=== PATIENT | female | born 1950 | race Two or more races ===

== ENCOUNTER 2019-05-08 22:39 | Inpatient (IN) | payer MEDICARE, MEDICAID ==
[~2019-05-08] VITALS: Ht 147.3 cm; Wt 74.1 kg
[2019-05-08] MEDS ORDERED: Naloxone 1mg/ml 2ml ONE (22:57)
[2019-05-08] MEDS ORDERED: Etomidate 40mg/20ml Inj IV ONE (23:00)
[2019-05-08] MEDS ORDERED: Naloxone 1mg/ml 2ml IVP ONE (23:00)
[2019-05-08] MEDS ORDERED: Succinylcholine 20mg/ml 10ml vial IV ONE (23:00)
--- NOTE | 2019-05-08 23:11 | NUR ---
ED Nurse Note: pt became unresponsive when RN was preparing to clean pt and hooking her up to garment tag stringer. pt became increasingly cyanotic, there was no palpable pulse, doppler was also used and no pulse was found. rosetta priest called, compressions started on pt.
--- NOTE | 2019-05-08 23:13 | NUR ---
ED Nurse Note: ERMD intubated pt, RT and code team are at bedside performing compressions on pt. ROSC occured after 4 minutes of ACLS
--- NOTE | 2019-05-08 23:30 | NUR ---
ED Nurse Note: pt presents to ED [facility] arrival for flu like symptoms, N/V x 2 days and hypoglycemia. per EMS, pt had an initial blood glucose of 30 that went up to 150 after given D10. EMS reported stable vital signs and that the pt was AOx4. pt is a M,W,F dialysis pt, she has a shunt in her L arm. pt came with a 20 gauge IV in R forearm. In ED pt was not responsive to name, shaking, or pain, accucheck is 260. pt appears to be cyanotic
--- NOTE | 2019-05-08 23:45 | NUR ---
ED Nurse Note: CASSIED is at pt bedside placing a triple lumen cenral line on pt's R femoral artery. will continue to monitor pt
--- NOTE | 2019-05-08 23:45 | NUR ---
ED Nurse Note: vent settings: A/C 15/5 O2: 100% PEEP: 5.0
[2019-05-09] VITALS (26 sets, daily range): BP systolic 107–141; BP diastolic 34–84
[2019-05-09] MEDS ORDERED: Levophed 4mg/4mL Inj IV ONE ×2 (00:05→00:07)
--- NOTE | 2019-05-09 00:10 | NUR ---
ED Nurse Note: RN at bedside to clean pt. pt's BP began to drop below 90 systolic, and HR began to drop to 35. code blue called, CPR started.
[2019-05-09 00:25] LABS: BASOPHILS % (AUTO) 1.3 % (0.0-2.0); EOSINOPHILS % (AUTO) 1.4 % (0.0-3.0); HEMATOCRIT 32.1 % (37.0-47.0); HEMOGLOBIN 10.2 G/DL (12.0-16.0); LYMPHOCYTES % (AUTO) 28.4 % (20.0-45.0); MEAN CORPUSCULAR VOLUME 102 FL (80-99); MONOCYTES % (AUTO) 3.9 % (1.0-10.0); PLATELET COUNT 101 K/UL (150-450); RED BLOOD COUNT 3.15 M/UL (4.20-5.40); RED CELL DISTRIBUTION WIDTH 18.3 % (11.6-14.8); WHITE BLOOD COUNT 8.6 K/UL (4.8-10.8)
[2019-05-09 00:40] LABS: ANION GAP 24 mmol/L (5-15); BLOOD UREA NITROGEN 46 mg/dL (7-18); CALCIUM 9.9 MG/DL (8.5-10.1); CARBON DIOXIDE 20 MMOL/L (21-32); CHLORIDE 96 MMOL/L (98-107); POTASSIUM 5.2 MMOL/L (3.5-5.1); SODIUM 139 MMOL/L (136-145)
--- NOTE | 2019-05-09 00:45 | NUR ---
ED Nurse Note: ROBEL spoke with pt's daughter who is at bedside
[2019-05-09 00:50] LABS: ALANINE AMINOTRANSFERASE 12 U/L (12-78); ALBUMIN/GLOBULIN RATIO 0.5 (1.0-2.7); ALKALINE PHOSPHATASE 196 U/L (46-116); ASPARTATE AMINO TRANSFERASE 31 U/L (15-37); BILIRUBIN,TOTAL 1.1 MG/DL (0.2-1.0)
--- NOTE | 2019-05-09 00:52 | Emergency Room Report ---
History of Present Illness General Chief Complaint: Abnormal Labs Source: Family Member, EMS Present Illness HPI This is a 69-year-old female with a history of renal failure on hemodialysis. She also has a cardiac history based on her medications Imdur and nitroglycerin. She has a history of of high blood pressure also. She presents with chief complaint of altered mental status and syncope. Initially, EMS said her blood sugar was low in the 30s. They gave her glucose and placed on a dextrose drip. Initially she was responsive and was talking to the EMS. When they left and I saw the patient, she had altered mental status and was not responsive. She has agonal respiration. Her heart rate was bradycardic. Because of this I was getting patient ready to be intubated for airway protection. In the process, she became asystolic and a CODE BLUE was initiated. CPR was done. Patient was intubated and also given epinephrine. Her pulse came back. Afterwards she coded again and CPR was done. Another milligram of epinephrine is given with spontaneous pulse response. When the daughter came to the ER, I spoke with the daughter to get a better history. She said that her mom does not have diabetes. Patient has been falling. It sound like she had several syncopal episodes in the last 2 weeks. The reason she called 911 because patient had a syncopal episode and fell. No head trauma. At home, daughter said that patient did not look well. She was "bluish" in color. Allergies: Coded Allergies: No Known Allergies (Unverified , 05/08/19) Patient History Past Medical History: see triage record, old chart reviewed, HTN, CAD, renal disease, dialysis Past Surgical History: other Pertinent Family History: none Social History: Denies: smoking Now: No Immunizations: other Reviewed Nursing Documentation: PMH: Agreed; PSxH: Agreed Nursing Documentation-PMH Past Medical History: No History, Except For Hx Cardiac Problems: Yes Hx Hypertension: Yes Hx Diabetes: Yes Hx Dialysis: Yes - LEFT SHUNT Review of Systems Constitutional: Reports: weakness Respiratory: Reports: shortness of breath All Other Systems: limited - Limited because of patient's condition Physical Exam Vital Signs Date Time Temp Pulse Resp B/P (MAP) Pulse Ox O2 Delivery O2 Flow Rate FiO2 05/08/19 22:40 99.0 52 18 141/51 (81) 96 Room Air 05/08/19 23:34 100 Vitals with hypoxia Sp02 EP Interpretation: abnormal General Appearance: severe distress, Stupor Head: normocephalic, atraumatic Eyes: bilateral eye PERRL, bilateral eye EOMI ENT: normal pharynx Neck: full range of motion, supple, no meningismus Respiratory: chest non-tender, respiratory distress, decreased breath sounds, accessory muscle use Cardiovascular #1: regular rate, rhythm, no murmur, bradycardia Gastrointestinal: normal bowel sounds, non tender, no mass, no organomegaly, no bruit, non-distended Musculoskeletal: back normal, normal range of motion, other - Thrill in left fistula Psychiatric: other Skin: no rash Procedures Critical Care Time Critical Care Time Critical care is mandated in this patient who presented with cardiac arrest and respiratory failure. Patient require my urgent intervention to attenuate the risks of metabolic collapse which may lead to cardiovascular collapse and . Critical care time is 35 minutes excluding any reportable procedure. Critical care time included evaluation, multiple reevaluation, looking at old charts, interpreting laboratory and diagnostic data, discussing case with patient and family and consultants, and charting. Central Line Central Line : Consent: Emergent Central Line Lumen: triple Maximal Sterile Barrier Tech: yes cap, yes mask, yes sterile gown, yes sterile gloves, yes large sterile sheet, yes hand hygiene, yes chlorhexidine prep Central Line Postion: femoral (R) Complications: none Central Line Post Position: sutured Attempts: One Patient Tolerated: Well Complications: None Progress Initially, I try to do a central line in the right internal jugular. This was using ultrasound-guided. I was able to access the vein without any difficulty. When I try to advance the wire, he keep getting stuck near the clavicle area. Because of this, I abandoned this approach after a couple of attempts. I went for the right femoral instead. This was done very easily. Intubation Intubation : Consent: Emergent Intubation Method: orotracheal Tube Size (cm): 7.5 Breath Sounds after Intubation: equal Intubation Complications: no complications Post Intubation Xray: Yes Progress/Xray Impression: Endotracheal tube in good position. No pneumothorax Attempts: One Patient Tolerated: Well Complications: None Medical Decision Making Diagnostic Impression: Primary Impression: Respiratory failure requiring intubation Additional Impressions: Cardiac arrest Syncope Qualified Codes: R55 - Syncope and collapse Hypoglycemia Acute exacerbation of CHF (congestive heart failure) Qualified Codes: I50.9 - Heart failure, unspecified Hypotension Qualified Codes: I95.9 - Hypotension, unspecified ER Course Patient presents with cardiac arrest. I suspect that her syncopal episode was secondary to cardiac in origin. Most likely she has sick sinus syndrome. She was very bradycardic. She required a couple episode of CPR with epi given. I placed on levo fed. Right now her blood pressure is much improved. Heart rates been running in the 50s and 60s. Patient also show evidence of fluid overloaded. Condition is poor and guarded. Patient will be admitted to ICU. Patient was hypotensive initially and require Levophed. Since then has been weaned off. Her blood pressures been stable. Heart rate has been staying in the 60s. Patient will be admitted under service of Dr. Loza. EKG Diagnostic Results Rate: bradycardiac Rhythm: NSR Rhythm Strip Diag. Results EP Interpretation: yes Rate: 66 Rhythm: NSR, no PVC's, no ectopy Chest X-Ray Diagnostic Results Chest X-Ray Diagnostic Results : Chest X-Ray Ordered: Yes # of Views/Limited/Complete: 1 View Indication: Shortness of Breath EP Interpretation: Yes Interpretation: no pneumothorax, other - cm, ETT in good position, chf Impression: Other - s/p intubation. CM with vasc congestion Electronically Signed by: Kirk Dan MD CT/MRI/US Diagnostic Results CT/MRI/US Diagnostic Results : Imaging Test Ordered: CT head Impression Read by radiologist. 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 No intracranial bleed. Last Vital Signs Date Time Temp Pulse Resp B/P (MAP) Pulse Ox O2 Delivery O2 Flow Rate FiO2 05/09/19 00:30 99.0 77 19 141/51 100 Room Air 100 Status: improved Disposition: ADMITTED INPATIENT Condition: Critical Referrals: NON PHYSICIAN (PCP) Kirk Dan MD May 09, 2019 00:52
[2019-05-09 00:56] LABS: BILIRUBIN,DIRECT 0.5 MG/DL (0.0-0.3)
--- NOTE | 2019-05-09 01:00 | NUR ---
ED Nurse Note: pt's daughter is at bedside and reports that the pt has started falling more in the last 3 weeks and experiencing episodes of syncope which is not normal for the pt. she has also been having diarrhea for the last couple days. Per daughter, today pt suddenly became unresponsive in the morning but "came back" after a few minutes. MINK SLICER pt became unresponsive again and only groaning and appeared "purple" so she called 911. pt daughter states that the pt goes to dialysis T, , and Sat. she missed her appointment but was able to go on wednesday and that she does not make any urine.
--- NOTE | 2019-05-09 02:45 | NUR ---
ED Nurse Note: pt's BP is 111/58. ERMD ordered levofed to stop transfusing. will continue to monitor pt. daughter is at bedside
--- NOTE | 2019-05-09 03:05 | NUR ---
ED Nurse Note: pt transported to CT with RT, RN, senior environmental technician and chief radiation therapist via [facility]
--- NOTE | 2019-05-09 03:30 | NUR ---
ED Nurse Note: pt returned from CT, hooked back up to jet wiper with VSS. daughter at bedside. will continue to monitor
--- NOTE | 2019-05-09 04:00 | NUR ---
ED Nurse Note: pt transferred to [facility] and placed in soft restraints to prevent accidental extubation. swabs were sent down to lab. daughter is at bedside. RT is at bedside obtaining ABG. per request of ERMD, pt's vent O2 is being decreased to 50%. will continue to monitor. current SpO2 is 95%
--- NOTE | 2019-05-09 04:44 | Diagnostic Imaging Report ---
Indications: Altered mental status Technique: Spiral acquisitions obtained through the brain. Angled axial and coronal 5 x 5 mm slices were reconstructed. Total dose length product 1757 mGycm. CTDI vol(s) 74 mGy. Dose reduction achieved using automated exposure control Comparison: None. Findings: Old cortical and white matter focal infarct is seen in the left posterior parietal lobe. There is also an old right cerebellar cortical infarct There is age-related enlargement of the ventricles and extra axial CSF spaces. There is periventricular deep white matter low-attenuation, consistent with chronic microvascular ischemic change. The stuart-white differentiation is normal. The calvarium is intact. There is evidence of prior cataract surgery. The sinuses are clear. The mastoids are underpneumatized, otherwise clear. Impression: Chronic and age-related changes Negative for acute intracranial bleed or mass effect, Old infarcts, as described This agrees with the preliminary interpretation provided overnight by [facility] teleradiology service. The CT scanner at [facility] is accredited by the [employer] and the scans are performed using protocols designed to limit radiation exposure to as low as reasonably achievable to attain images of sufficient resolution adequate for diagnostic evaluation.
[2019-05-09] MEDS ORDERED: ASPIR 8181 MG ORAL (06:37)
[2019-05-09] MEDS ORDERED: METOPROLOL TART50 MG ORAL (06:37)
[2019-05-09] MEDS ORDERED: BENAZEPRIL HCL20 MG ORAL ×2 (06:37→10:35)
[2019-05-09] MEDS ORDERED: ADALAT20 MG ORAL ×2 (06:37→10:35)
[2019-05-09] MEDS ORDERED: LIPITOR80 MG ORAL (06:37)
[2019-05-09] MEDS ORDERED: DOCUSATE CALCI240 MG PO (06:37)
[2019-05-09] MEDS ORDERED: ATORVASTATIN CA40 MG ORAL (06:37)
[2019-05-09] MEDS ORDERED: CALCIUM ACETAT667 M1 PO ×2 (06:37→10:35)
[2019-05-09] MEDS ORDERED: LOVASTATIN20 MG ORAL (06:37)
--- NOTE | 2019-05-09 07:10 | NUR ---
ED Nurse Note: Received patient in bed, patient is on a satellite project site monitor, see vitals signs flowsheet. patient on bilateral soft wrist restraints, skin is intact without complication. patient is not responsive at this time, daughter at bedside. Right femoral TLC patent, dressing intact and dry. Left upper arm AV shunt noted.
--- NOTE | 2019-05-09 07:33 | NUR ---
RESPIRATORY NOTE: Patient received mechanically ventilated on PB 840 with current ordered vent settings. Patient is orally intubated with 7.5 ETT and 21 cm at the lip line that is secured with commercial johnson. Vent alarms are functional and audible. There is an ambu bag available at the bedside and the vent is connected to a red outlet. Will continue to monitor.
--- NOTE | 2019-05-09 07:41 | NUR ---
ED Nurse Note: report given to Berta RN, endorsed all plan of care to Berta RN.
--- NOTE | 2019-05-09 07:58 | NUR ---
ED Nurse Note: patient transferred to ICU on acls protocol without complication, endorsed to Berta PURCELL.
--- NOTE | 2019-05-09 07:59 | NUR ---
NURSE NOTES: Received patient from BINH Tom. Patient eyes open but does not track or turn to voice or name. Patient moves arms minimally and is not reaching for ET tube at this time. Patient on bilateral soft wrist restraint. Restraint discontinued at this time. Patient orally intubated with ET tube 7.5cm and 23cm at the lip line. Patient left pupil size 3 and right pupil size 2. Bilateral pupils sluggish to react to light. Patient has minimal threat response and hypoactive gag reflex. Patient ventilator setting currently AC 15, tidal volume 500, FiO2 50%, and PEEP 5. Patient O2 saturation 95% and sinus bradycardia showing on the court recording monitor with rate of 57 beats per minute. Rhonchi heard in bilateral upper lungs and rhonchi with diminished lung sounds noted in bilateral lower lobes. Patient has right hand 20 gauge peripheral IV and right forearm 20 gauge peripheral IV that are both patent, asymptomatic, and saline locked. Patient has right femoral TLC that is patent,flushed, and has some dried blood under the sterile dressing, Will replace dressing as needed.TLC saline locked. Patient has left upper arm AV shunt that is patent with intact thrill/bruit. Patient has bilateral heel DTI, sacral heel DTI, petichiae noted on left abdomen, ecchymosis noted on left upper back and scattered throughout body. Left lower leg skin tear. Scratches scabs noted on bilateral upper leg and abdomen. Moisture related open wound noted in abdominal fold. Bilateral ankle pitting edema +2. Scar noted from chest to lower abdomen. Oral care, bed bath, and repositioning done at this time. Will continue to monitor. Addendum: 05/09/19 at 1853 by Berta Ambrocio RN Old AV shunt noted on left forearm.
--- NOTE | 2019-05-09 08:54 | Diagnostic Imaging Report ---
Indication: Reason For Exam: SOB Technique: One view of the chest Comparison: none Findings: There is an endotracheal tube in place, tip projected approximately 2 cm above the frances. There are overlying defibrillator paddles. There is bilateral interstitial and airspace edema. The heart is enlarged. There is evidence of prior CABG. A vascular stent is seen in the left axilla. Surgical clips are seen in the left arm and supraclavicular region. Impression: Satisfactory endotracheal intubation Evidence of bilateral pulmonary edema Cardiomegaly
[2019-05-09 09:48] LABS: ANION GAP 14 mmol/L (5-15); BLOOD UREA NITROGEN 53 mg/dL (7-18); CALCIUM 9.2 MG/DL (8.5-10.1); CARBON DIOXIDE 28 MMOL/L (21-32); CHLORIDE 97 MMOL/L (98-107); CREATININE 8.7 MG/DL (0.55-1.30); POTASSIUM 4.8 MMOL/L (3.5-5.1); SODIUM 139 MMOL/L (136-145)
--- NOTE | 2019-05-09 10:00 | NUR ---
NURSE NOTES: Inserted oral gastric tube. Stat KUB ordered. Awaiting result. Dr Zapata rounded on patient and updated on patient current condition. Patient seen by wound care nurse.
--- NOTE | 2019-05-09 10:27 | NUR ---
RD ASSESSMENT & RECOMMENDATIONS SEE CARE ACTIVITY FOR COMPLETE ASSESSMENT DAILY ESTIMATED NEEDS: Needs based on Critical Care, ESRD on HD, wounds; 56.3kg adj 22- 30 kcals/kg 7741-6220 total kcals 1.25-2 g protein/kg 70-113 g total protein Fluid per MD- on HD NUTRITION DIAGNOSIS: * Increased pro needs r/t wound healing and renal dysfunction AEB pt adm w/ BL heel and sacral DTI (per RN), WC eval pending, w/ ESRD on HD. * Swallowing difficulty r/t respiratory status AEB pt is intubated, currently NPO, pending non oral feeds. CURRENT TF: Per RN Nepro @40ml/hr ENTERAL NUTRITION RECOMMENDATIONS: Nepro @35mL/hr x 24 hrs+ 1 Prosource qdaily to provide 840mL, 1512kcal, 68g pro +11g pro, 611mL free H2O -Obtain GI access, initiate Nepro @15mL/hr, advancing 10mL/hr q 4-6hrs until @ goal. -Provide 1 packet of Prosource- flush with 4oz water -HOB > 30 degrees, Flush per MD ADDITIONAL RECOMMENDATIONS: 1) With prolonged NPO/Intubation- see TF recs as above 2) Wound healing- w/ diet order, add: Juan Daniel in 4oz H2O BID; f/up w/ WC eval 3) Maintain calibrated bedscale wt 4) F/u w/ H&P 5) Feed w/ hemodynamic stability, now off pressor support.
[2019-05-09] MEDS ORDERED: CATAPRES0.3 MG ORAL (10:35)
[2019-05-09] MEDS ORDERED: NITRO0.4 SL (10:35)
[2019-05-09] MEDS ORDERED: METOPROLOL TART50 M1 ORAL (10:35)
[2019-05-09] MEDS ORDERED: LEVOTHYROXINE100 MC1 IV (10:35)
[2019-05-09] MEDS ORDERED: COLACE100 MG ORAL (10:35)
[2019-05-09] MEDS ORDERED: ISOSORBIDE MONO10 MG PO (10:35)
--- NOTE | 2019-05-09 10:39 | Diagnostic Imaging Report ---
Indication: Post nasogastric tube placement Technique: Supine view of the abdomen Comparison: none Findings: There is a nasogastric tube, tip of which projects at the level of the gastric body. The stomach is mildly distended with gas. Prominent gas is seen in nondistended colon. There is a right femoral line. Impression: Satisfactory nasogastric intubation
--- NOTE | 2019-05-09 10:45 | Cardiac Electrophysiology PN ---
Subjective Subjective [id number] Objective Last 24 Hour Vital Signs Date Time Temp Pulse Resp B/P (MAP) Pulse Ox O2 Delivery O2 Flow Rate FiO2 05/09/19 09:15 57 20 100 05/09/19 07:58 97.5 55 16 121/45 92 Mechanical Ventilator 50 05/09/19 07:50 55 16 122/47 Mechanical Ventilator 50 05/09/19 07:29 56 16 100 05/09/19 07:20 57 15 119/48 92 Mechanical Ventilator 50 05/09/19 05:17 59 18 100 05/09/19 05:17 Mechanical Ventilator 05/09/19 04:39 99.0 60 20 113/60 (77) 100 05/09/19 03:27 59 20 100 05/09/19 03:26 60 19 113/60 100 Mechanical Ventilator 05/09/19 02:45 111/58 05/09/19 02:00 95/42 05/09/19 01:41 59 23 123/57 100 Mechanical Ventilator 05/09/19 01:35 62/42 05/09/19 01:00 79 18 100 05/09/19 00:30 99.0 77 19 141/51 100 Room Air 100 05/08/19 23:45 65 17 Mechanical Ventilator 05/08/19 23:34 87 19 100 05/08/19 22:40 99.0 52 18 141/51 (81) 96 Room Air Intake and Output 05/08/19 05/09/19 18:59 06:59 Intake Total 0 ml Balance 0 ml Intake Oral 0 ml Laboratory Tests Test 05/09/19 00:01 05/09/19 04:55 05/09/19 09:05 White Blood Count 8.6 K/UL (4.8-10.8) Red Blood Count 3.15 M/UL (4.20-5.40) L Hemoglobin 10.2 G/DL (12.0-16.0) L Hematocrit 32.1 % (37.0-47.0) L Mean Corpuscular Volume 102 FL (80-99) H Mean Corpuscular Hemoglobin 32.4 PG (27.0-31.0) H Mean Corpuscular Hemoglobin Concent 31.7 G/DL (32.0-36.0) L Red Cell Distribution Width 18.3 % (11.6-14.8) H Platelet Count 101 K/UL (150-450) L Mean Platelet Volume 8.5 FL (6.5-10.1) Neutrophils (%) (Auto) 65.0 % (45.0-75.0) Lymphocytes (%) (Auto) 28.4 % (20.0-45.0) Monocytes (%) (Auto) 3.9 % (1.0-10.0) Eosinophils (%) (Auto) 1.4 % (0.0-3.0) Basophils (%) (Auto) 1.3 % (0.0-2.0) Sodium Level 139 MMOL/L (136-145) 139 MMOL/L (136-145) Potassium Level 5.2 MMOL/L (3.5-5.1) H 4.8 MMOL/L (3.5-5.1) Chloride Level 96 MMOL/L (98-107) L 97 MMOL/L (98-107) L Carbon Dioxide Level 20 MMOL/L (21-32) L 28 MMOL/L (21-32) Anion Gap 24 mmol/L (5-15) H 14 mmol/L (5-15) Blood Urea Nitrogen 46 mg/dL (7-18) H 53 mg/dL (7-18) H Creatinine 8.0 MG/DL (0.55-1.30) H 8.7 MG/DL (0.55-1.30) H Estimat Glomerular Filtration Rate 5.0 mL/min (>60) 4.5 mL/min (>60) Glucose Level 263 MG/DL (74-106) H 97 MG/DL (74-106) # Calcium Level 9.9 MG/DL (8.5-10.1) 9.2 MG/DL (8.5-10.1) Total Bilirubin 1.1 MG/DL (0.2-1.0) H Direct Bilirubin 0.5 MG/DL (0.0-0.3) H Aspartate Amino Transf (AST/SGOT) 31 U/L (15-37) Alanine Aminotransferase (ALT/SGPT) 12 U/L (12-78) Alkaline Phosphatase 196 U/L (46-116) H Troponin I 0.063 ng/mL (0.000-0.056) 0.477 ng/mL (0.000-0.056) Pro-B-Type Natriuretic Peptide 72574 pg/mL (0-125) H Total Protein 8.8 G/DL (6.4-8.2) H Albumin 3.0 G/DL (3.4-5.0) L Globulin 5.8 g/dL Albumin/Globulin Ratio 0.5 (1.0-2.7) L Arterial Blood pH 7.458 (7.350-7.450) Arterial Blood Partial Pressure CO2 36.5 mmHg (35.0-45.0) Arterial Blood Partial Pressure O2 52.9 mmHg (75.0-100.0) L Arterial Blood HCO3 25.3 mmol/L (22.0-26.0) Arterial Blood Oxygen Saturation 85.2 % (95-100) *L Arterial Blood Base Excess 1.5 (-2-2) Jonathan Test Positive Shawn Robbins MD May 09, 2019 10:45
--- NOTE | 2019-05-09 12:00 | NUR ---
NURSE NOTES: Patient eyes open and turns toward family when they speak to her. Patient remains intubated orally with 23cm at the lip line. Bilateral pupils remain sluggish to react to light. Hypoactive gag reflex. Ventilator setting currently AC 15, tidal volume 500, FiO2 70%, and PEEP 5. Patient O2 saturation 100% and sinus bradycardia showing on the guest house manager with rate of 58 beats per minute. Rhonchi heard in bilateral upper lungs and rhonchi with diminished lung sounds noted in bilateral lower lobes. Right hand 20 gauge peripheral IV and Right forearm 20 gauge peripheral IV remain patent, asymptomatic, and saline locked. Right femoral TLC remains patent,flushed, saline locked, and dressing intact. Will replace dressing as needed. Left upper arm AV shunt patent with intact thrill/bruit. All wounds covered and treated by wound care nurse. Bilateral ankle pitting edema +2. Oral care and repositioning done at this time. Will continue to monitor.
--- NOTE | 2019-05-09 12:46 | Cardiology Report ---
APPROVED REPORT EXAM: Two-dimensional and M-mode echocardiogram with Doppler and color Doppler. INDICATION Arrhythmia M-Mode DIMENSIONS IVSd1.1 (0.7-1.1cm)Left Atrium (MM)4.0 (1.6-4.0cm) LVDd4.0 (3.5-5.6cm)Aortic Root2.7 (2.0-3.7cm) PWd1.1 (0.7-1.1cm)Aortic Cusp Exc.1.3 (1.5-2.0cm) IVSs1.3 cm LVDs3.1 (2.5-4.0cm) PWs1.0 cm Technically difficult study due to poor acoustical windows. diastolid flatttening of vs suggestiveof RV volue overloasd overload Normal left ventricular chamber size, systolic function and wall motion to extent visualized. Left ventricular ejection fraction estimated to be 50-55 %. No evidence of pericardial effusion. Normal left atrial chamber size . Right atrial size at upper limits of normal. enlarged right ventricular chamber size. Aortic valve calcification with decreased cusp excursion c/w aortic stenosis. Thickened mitral valve leaflets with normal excursion. Mitral annulus and aortic root calcification. Normal pulmonic valve structure. Normal tricuspid valve structure. IVC dilated at 2.8 cm without physiologic collapse suggestive of increased RA pressure. A color flow and spectral Doppler study was performed and revealed: Mild aortic insufficiency. Peak aortic valve gradient of 17 mm Hg and a mean of 7 mmHg. Aortic valve area 1.3 cm2 calculated by continuity equation. Mild to moderate mitral regurgitation. Mitral inflow indicates normal left ventricular diastolic function Moderate to severe tricuspid regurgitation. Tricuspid systolic velocities suggests peak right ventricular systolic pressure of 59 mmHg,consistent with moderate pulmonary hypertension. Mild pulmonic regurgitation present.
[2019-05-09] MEDS: Pantoprazole Inj IVP SCH (12:48)
--- NOTE | 2019-05-09 13:03 | Cardiology Report ---
APPROVED REPORT EKG Measurement Heart [id number] [place] [id number] Marked sinus bradycardia Cannot rule out Anterior infarct, age undetermined Abnormal ECG
--- NOTE | 2019-05-09 13:07 | NUR ---
NURSE NOTES: Nepro started at 10mL/hr.
[2019-05-09] MEDS ORDERED: Heparin 5000 units/ml inj SUBQ SCH ×2 (14:00→21:00)
--- NOTE | 2019-05-09 14:00 | NUR ---
NURSE NOTES: Patient showing no sign of acute distress. HR 62 in normal sinus rhythm. Daughter at the bedside. Patient remains flat affect and confused. NO purposeful movement. Gag reflex hypoactive. Pupils sluggish. BP 129/91. Will continue to monitor.
--- NOTE | 2019-05-09 14:30 | History and Physical Report ---
DATE OF ADMISSION: 05/09/2019 REASON FOR ADMISSION: 1. End-stage renal disease, on dialysis. 2. Cardiac arrest. 3. Hypoglycemia. 4. Syncope. HISTORY OF PRESENT ILLNESS: The patient is a 69-year-old female on hemodialysis 3 days a week, who presented to the emergency room for further evaluation and care due to acute encephalopathy and episodes of syncope. Initially, EMS had noted a hypoglycemia and blood sugar in the 30s, was placed on a dextrose drip, and brought to the emergency room. Upon presentation to the emergency room, the ER physician noted acute encephalopathy and not responsive with agonal respirations. The patient was also noted to be bradycardic. She was emergently intubated for airway protection and became asystolic. Resuscitation was initiated. CPR was conducted. She was given epinephrine. She was successfully resuscitated. Intubated on mechanical ventilation and transferred to the intensive care unit. Daughter says that the patient does not have diabetes, but has been having off and on syncopal episodes over the past 2 weeks. ALLERGIES: No known drug allergies. PAST MEDICAL HISTORY: 1. End-stage renal disease, on dialysis. 2. Coronary artery disease. 3. Hypertension. 4. Anemia of chronic kidney disease. 5. Syncopal episodes. PAST SURGICAL HISTORY: Dialysis access placement. SOCIAL HISTORY: No tobacco, alcohol, illicit drug use. REVIEW OF SYSTEMS: Cannot be obtained as the patient is intubated on mechanical ventilation. FAMILY HISTORY: Positive for hypertension. LABORATORY DATA: Labs dated 05/09/2019, sodium 139, potassium 5.2, BUN 46, creatinine 8, calcium 9.9. Troponin 0.063. Hemoglobin 10.2, white cell count 8.6, platelet count 101. PHYSICAL EXAMINATION: VITAL SIGNS: Blood pressure 122/47, respiratory rate 16, pulse 55, temperature 99.0. Currently intubated on mechanical ventilation. GENERAL: The patient is intubated on mechanical ventilation. HEENT: Conjugate eye gaze. No lymphadenopathy. CARDIOVASCULAR: S1, S2. No rubs or gallops. PULMONARY: Mild upper rhonchi. Fair air movement in all pisano. ABDOMEN: Nondistended, nontender. Good bowel sounds. EXTREMITIES: No edema noted. ASSESSMENT AND PLAN: 1. Status post cardiac arrest. At this time, the patient was successfully resuscitated with epinephrine. She is intubated on mechanical ventilation. Cardiology has been consulted to rule out any underlying coronary disease causing cardiac arrest and bradycardiac episodes. We will trend troponin levels. 2. Respiratory failure. The patient intubated on mechanical ventilation. 3. History of syncopal episodes. Could be due to bradycardic episodes and underlying coronary disease. Cardiology has been consulted. 4. Respiratory failure. Intubated on mechanical ventilation. Pulmonary Critical Care to follow. 5. Hypertension. Has resolved. The patient off Levophed drip. We will monitor. 6. Hypoglycemia. At this time. Accu-Cheks have been ordered and we will follow glucose levels carefully. 7. Nutrition. OG tube has been ordered with Nepro. 8. DVT prophylaxis with SCDs as the patient is thrombocytopenic. David Zapata MD DR: RON JOB#: [id number] CC:
--- NOTE | 2019-05-09 14:37 | NUR ---
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 BS 159 SI: RESP FAILURE ETT/VENT SUPPORT, HYPOGLYCEMIA T. 98.9 HR 52 RR 18 B/P 141/51 AC 15 TV 500 FIO2 100 PEEP 5 K 5.2 BUN 46 CR 8.0 TROP 0.063 BNP 52678 AGAP 24 D-DIMER 16.94 CXR= PULMONARY EDEMA IS: SUCCINYLCHOLINE IV ETOMIDATE IV LASIX IV LEVOPHED GTT ADMITTED TO ICU@ 0758 ICU STATUS DCP PENDING HOSPITAL STAY
--- NOTE | 2019-05-09 15:01 | Consultation ---
History of Present Illness General Date patient seen: May 09, 2019 Chief Complaint: Abnormal Labs Present Illness HPI This is a very unfortunate 69-year-old female with ESRD on HD with cardiac history, DM, HTN, who presents with altered mental status and syncopal episode. In ED decompensated and required ACLS requiring CPR and was resuscitated. Patient was intubated and also given epinephrine. Admitted to ICU for care and management. Intubated on vent support. Abnormal labs. ill appearing. family at bedside. noted to have acute wounds from being down and fall. Surgery called to evaluate and assist with care. patient seen, chart reviewed, patient examined. Allergies: Coded Allergies: No Known Allergies (Unverified , 05/08/19) Medication History Scheduled Aspirin* (Aspir 81*), 81 MG ORAL DAILY, (Reported) Atorvastatin (Lipitor), 40 MG ORAL BEDTIME, (Reported) Benazepril Hcl* (Benazepril Hcl*), 20 MG ORAL BID, (Reported) Calcium Acetate (Calcium Acetate), 667 MG PO DAILY, (Reported) Clonidine Hcl* (Catapres*), 0.3 MG ORAL TID, (Reported) Docusate Sodium* (Colace*), 100 MG ORAL TWICE A DAY, (Reported) Isosorbide Mononitrate (Isosorbide Mononitrate), 30 MG PO DAILY, (Reported) Levothyroxine Sodium* (Levothyroxine Sodium*), 25 MCG IV BEFORE BREAKFAST, ( Reported) Metoprolol Tartrate* (Metoprolol Tartrate*), 50 MG ORAL BID, (Reported) Nifedipine (Nifedipine*), 60 MG ORAL DAILY, (Reported) Scheduled PRN Nitroglycerin 0.4MG table* (Nitroglycerin*), 0.4 MG SL .Q5MIN X 3 DOSES PRN for CHEST PAIN, (Reported) Patient History Limited by: medical condition History Provided By: Medical Record, PMD Healthcare decision maker Kat Jerome Resuscitation status Full Code Advanced Directive on File Past Medical/Surgical History Past Medical/Surgical History: (1) Acute exacerbation of CHF (congestive heart failure) (2) Hypotension (3) Cardiac arrest (4) Syncope (5) Hypoglycemia (6) Respiratory failure requiring intubation (7) Deep tissue injury Review of Systems ROS Narrative cannot obtain given medical condition and status Physical Exam General Appearance: moderate distress, other Lines, tubes and drains: endotracheal tube, other HEENT: mucous membranes moist Neck: normal inspection Respiratory/Chest: on vent Cardiovascular/Chest: tachycardia Abdomen: soft, no organomegaly, no mass Extremities: normal inspection, normal capillary refill Skin Exam: warm/dry Neurologic: unresponsiveness Last 24 Hour Vital Signs Date Time Temp Pulse Resp B/P (MAP) Pulse Ox O2 Delivery O2 Flow Rate FiO2 05/09/19 14:00 59 15 139/52 (81) 100 05/09/19 13:30 59 15 140/50 (80) 100 05/09/19 13:25 60 16 100 05/09/19 13:00 59 15 140/50 (80) 100 05/09/19 12:30 58 15 136/45 (75) 92 05/09/19 12:00 Mechanical Ventilator Mechanical Ventilator 05/09/19 12:00 70 05/09/19 12:00 70 05/09/19 12:00 72 05/09/19 12:00 97.7 58 15 136/45 (75) 92 05/09/19 11:30 58 20 112/84 (93) 95 05/09/19 11:25 57 15 100 05/09/19 11:00 58 20 112/84 (93) 95 05/09/19 11:00 70 05/09/19 10:42 Mechanical Ventilator Mechanical Ventilator 05/09/19 10:30 59 25 134/48 (76) 90 05/09/19 10:00 57 19 125/44 (71) 90 05/09/19 09:15 57 20 100 05/09/19 09:00 59 25 134/48 (76) 90 05/09/19 08:00 57 05/09/19 08:00 Mechanical Ventilator Mechanical Ventilator 05/09/19 08:00 50 05/09/19 08:00 97.9 57 19 125/44 (71) 90 05/09/19 07:58 97.5 55 16 121/45 92 Mechanical Ventilator 50 05/09/19 07:50 55 16 122/47 Mechanical Ventilator 50 05/09/19 07:29 56 16 100 05/09/19 07:20 57 15 119/48 92 Mechanical Ventilator 50 05/09/19 05:17 59 18 100 05/09/19 05:17 Mechanical Ventilator 05/09/19 04:39 99.0 60 20 113/60 (77) 100 05/09/19 03:27 59 20 100 05/09/19 03:26 60 19 113/60 100 Mechanical Ventilator 05/09/19 02:45 111/58 05/09/19 02:00 95/42 05/09/19 01:41 59 23 123/57 100 Mechanical Ventilator 05/09/19 01:35 62/42 05/09/19 01:00 79 18 100 05/09/19 00:30 99.0 77 19 141/51 100 Room Air 100 05/08/19 23:45 65 17 Mechanical Ventilator 05/08/19 23:34 87 19 100 05/08/19 22:40 99.0 52 18 141/51 (81) 96 Room Air Intake and Output 05/08/19 05/09/19 18:59 06:59 Intake Total 0 ml Balance 0 ml Intake Oral 0 ml Laboratory Tests Test 05/09/19 00:01 05/09/19 04:55 05/09/19 09:05 05/09/19 10:55 White Blood Count 8.6 K/UL (4.8-10.8) Red Blood Count 3.15 M/UL (4.20-5.40) L Hemoglobin 10.2 G/DL (12.0-16.0) L Hematocrit 32.1 % (37.0-47.0) L Mean Corpuscular Volume 102 FL (80-99) H Mean Corpuscular Hemoglobin 32.4 PG (27.0-31.0) H Mean Corpuscular Hemoglobin Concent 31.7 G/DL (32.0-36.0) L Red Cell Distribution Width 18.3 % (11.6-14.8) H Platelet Count 101 K/UL (150-450) L Mean Platelet Volume 8.5 FL (6.5-10.1) Neutrophils (%) (Auto) 65.0 % (45.0-75.0) Lymphocytes (%) (Auto) 28.4 % (20.0-45.0) Monocytes (%) (Auto) 3.9 % (1.0-10.0) Eosinophils (%) (Auto) 1.4 % (0.0-3.0) Basophils (%) (Auto) 1.3 % (0.0-2.0) Sodium Level 139 MMOL/L (136-145) 139 MMOL/L (136-145) Potassium Level 5.2 MMOL/L (3.5-5.1) H 4.8 MMOL/L (3.5-5.1) Chloride Level 96 MMOL/L (98-107) L 97 MMOL/L (98-107) L Carbon Dioxide Level 20 MMOL/L (21-32) L 28 MMOL/L (21-32) Anion Gap 24 mmol/L (5-15) H 14 mmol/L (5-15) Blood Urea Nitrogen 46 mg/dL (7-18) H 53 mg/dL (7-18) H Creatinine 8.0 MG/DL (0.55-1.30) H 8.7 MG/DL (0.55-1.30) H Estimat Glomerular Filtration Rate 5.0 mL/min (>60) 4.5 mL/min (>60) Glucose Level 263 MG/DL (74-106) H 97 MG/DL (74-106) # Calcium Level 9.9 MG/DL (8.5-10.1) 9.2 MG/DL (8.5-10.1) Total Bilirubin 1.1 MG/DL (0.2-1.0) H Direct Bilirubin 0.5 MG/DL (0.0-0.3) H Aspartate Amino Transf (AST/SGOT) 31 U/L (15-37) Alanine Aminotransferase (ALT/SGPT) 12 U/L (12-78) Alkaline Phosphatase 196 U/L (46-116) H Troponin I 0.063 ng/mL (0.000-0.056) 0.477 ng/mL (0.000-0.056) 0.529 ng/mL (0.000-0.056) Pro-B-Type Natriuretic Peptide 15371 pg/mL (0-125) H Total Protein 8.8 G/DL (6.4-8.2) H Albumin 3.0 G/DL (3.4-5.0) L Globulin 5.8 g/dL Albumin/Globulin Ratio 0.5 (1.0-2.7) L Arterial Blood pH 7.458 (7.350-7.450) Arterial Blood Partial Pressure CO2 36.5 mmHg (35.0-45.0) Arterial Blood Partial Pressure O2 52.9 mmHg (75.0-100.0) L Arterial Blood HCO3 25.3 mmol/L (22.0-26.0) Arterial Blood Oxygen Saturation 85.2 % (95-100) *L Arterial Blood Base Excess 1.5 (-2-2) Jonathan Test Positive D-Dimer 16.84 mg/L FEU (0.00-0.49) H Height (Feet): 4 Height (Inches): 10.00 Weight (Pounds): 152 Medications Current Medications Medications (Trade) Dose Ordered Sig/Sylwia Route PRN Reason Start Time Stop Time Status Last Admin Dose Admin Dextrose (Dextrose 50%) 25 ml Q30M PRN IV Hypoglycemia 05/09/19 08:15 06/08/19 08:14 Dextrose (Dextrose 50%) 50 ml Q30M PRN IV Hypoglycemia 05/09/19 08:15 06/08/19 08:14 Heparin Sodium (Porcine) (Heparin 5000 units/ml) 5,000 units EVERY 12 HOURS SUBQ 05/09/19 21:00 06/08/19 20:59 Ondansetron HCl (Zofran) 4 mg Q6H PRN IVP Nausea & Vomiting 05/09/19 08:15 06/08/19 08:14 Pantoprazole (Protonix) 40 mg DAILY IVP 05/09/19 12:15 06/08/19 12:14 05/09/19 12:48 Assessment/Plan Problem List: (1) Deep tissue injury Assessment & Plan: Patient presented on admission with a deep tissue injury in the sacral area. Patient was syncopal episode found down. Unknown exact time patient was down and since is suffered a cardiac event requiring resuscitation and ACLS. There is an area of deep tissue injury with erythema in the sacral area extending into the bilateral buttocks butterfly formation. No drainage. No open area. Patient is high risk and susceptible to opening and worsening given her current condition, ICU care, deterioration. We will need to monitor closely and provide aggressive care to ensure healing Air mattress Turn every 2 hours Skin protectant OPTi foam dressing daily and as needed Offload heels with pillows Appreciate nursing care Nutritional support DAILY ESTIMATED NEEDS: Needs based on Critical Care, ESRD on HD, wounds; 56.3kg adj 22- 30 kcals/kg 1163-5288 total kcals 1.25-2 g protein/kg 70-113 g total protein Fluid per MD- on HD NUTRITION DIAGNOSIS: * Increased pro needs r/t wound healing and renal dysfunction AEB pt adm w/ BL heel and sacral DTI (per RN), WC eval pending, w/ ESRD on HD. * Swallowing difficulty r/t respiratory status AEB pt is intubated, currently NPO, pending non oral feeds. CURRENT TF: Per RN Nepro @40ml/hr ENTERAL NUTRITION RECOMMENDATIONS: Nepro @35mL/hr x 24 hrs+ 1 Prosource qdaily to provide 840mL, 1512kcal, 68g pro +11g pro, 611mL free H2O -Obtain GI access, initiate Nepro @15mL/hr, advancing 10mL/hr q 4-6hrs until @ goal. -Provide 1 packet of Prosource- flush with 4oz water -HOB > 30 degrees, Flush per MD ADDITIONAL RECOMMENDATIONS: 1) With prolonged NPO/Intubation- see TF recs as above 2) Wound healing- w/ diet order, add: Juan Daniel in 4oz H2O BID; f/up w/ WC eval 3) Maintain calibrated bedscale wt 4) F/u w/ H&P 5) Feed w/ hemodynamic stability, now off pressor support. ICD Codes: T14.8XXA - Other injury of unspecified body region, initial encounter SNOMED: 122805214 (2) Cardiac arrest Assessment & Plan: 61-year-old female multi-medical comorbidities syncopal episode leading to ACLS requiring resuscitation. Currently intensive care unit intubated on ventilatory support Patient is ill-appearing with family at the bedside. Labs noted. Mild elevation troponins. Mild elevated LFTs. Improving since resuscitation current etiology work-up Continue with tube feeds advance to goal Wean vent as tolerated A.m. 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 There is also an old right cerebellar cortical infarct There is age-related enlargement of the ventricles and extra axial CSF spaces. There is periventricular deep white matter low-attenuation, consistent with chronic microvascular ischemic change. The stuart-white differentiation is normal. The calvarium is intact. There is evidence of prior cataract surgery. The sinuses are clear. The mastoids are underpneumatized, otherwise clear. Impression: Chronic and age-related changes Negative for acute intracranial bleed or mass effect, Old infarcts, as described ICD Codes: R55 - Syncope and collapse SNOMED: 350491283 Qualifiers: Qualified Codes: R55 - Syncope and collapse Laron Moreno May 09, 2019 15:01
--- NOTE | 2019-05-09 15:47 | NUR ---
NURSE NOTES:WOUND CARE NOTES:Pt presented on admission with multiple pressure injuries.Large black bruise noted to L shoulder L scapula. Resolving greenish bruise noted to L lateral chest. Pt's dtr at bedside and stated pt had multiple falls recently at her home DTPI noted to sacrum. Maroon discoloration noted to sacrum with an area at sacrococcygeal which is indurated.(L)4cm x (W)5cm. Non-blanching erythema periwound. R heel is fluctuant,maroon with surrounding non-blanching erythema. L heel is maroon,fluctuant with surrounding non-blanching erythema. Moisture Intertrigo noted to skin folds of abd and L groin. Discussed all skin findings with pt's dtr. Dtr has been educated of likely drew of DTPI becoming open wound. Discussed all wound prevention protocols being implemented to prevent further skin breakdown. Tx.Plan: Apply Moisture Barrier Paste to sacrum. Cover with Optifoam drsg. Change every 3 days and prn. Apply Hydraguard to abd folds and groin Twice Daily. Apply Cavilon Skin Barrier to both heels. Cover each heel with Optifoam drsg. Change every 7 days and prn. APM/CLIVE Mattress overlay. Off-load heels with pillow. Reposition at least every 2hours or as tolerated.
--- NOTE | 2019-05-09 16:00 | NUR ---
NURSE NOTES: Patient eyes closed at this time. Patient opens eyes to touch and voice but does not track. Patient remains intubated orally with 23cm at the lip line. Bilateral pupils remain sluggish and react to light. Hypoactive gag reflex. Ventilator setting currently AC 15, tidal volume 500, FiO2 70%, and PEEP 5. 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 Rhonchi heard in bilateral upper lungs and rhonchi with diminished lung sounds noted in bilateral lower lobes. Right hand 20 gauge peripheral IV and Right forearm 20 gauge peripheral IV remain patent, asymptomatic, and saline locked. Right femoral TLC remains patent,flushed, saline locked, and dressing intact. Dressing replaced and intact. Left upper arm AV shunt patent with intact thrill/bruit. All wounds covered. Reapplied silicone cream per wound care nurse to open wounds under skin folds. Oral care and repositioning done at this time. Will continue to monitor. Addendum: 05/09/19 at 1858 by Berta Ambrocio RN FiO2 50%
--- NOTE | 2019-05-09 16:30 | NUR ---
NURSE NOTES: Sent fax request of medical records to [facility] in [place] per Dr Robbins. Awaiting return fax.
--- NOTE | 2019-05-09 17:00 | Consultation ---
DATE OF CONSULTATION: 05/09/2019 PULMONARY CONSULTATION CONSULTING PHYSICIAN: Remigio Raza M.D. HISTORY: This is a 69-year-old female with a history of ESRD, on dialysis. She also has history of hypertension. She came to the hospital with altered mental status and syncope. She was also hypoglycemic. She was given dextrose and placed on a drip. She again had altered mental status and required intubation. Code Blue was also called and she required epinephrine. The patient has had syncopal episodes in the last few weeks. PREVIOUS SURGERIES: Include left shunt AV fistula. PAST HISTORY: Notable for hypertension, CAD, and ESRD. There is no history of diabetes. REVIEW OF SYSTEMS: Not obtainable. The patient is intubated. HOME MEDICATIONS: Reviewed and reconciliated in the chart. PHYSICAL EXAMINATION: GENERAL: Reveals an obese female. HEENT: Unremarkable, intubated. CHEST: Decreased breath sounds bilaterally. HEART: Normal heart sounds. ABDOMEN: Soft. EXTREMITIES: There is AV shunt. IMAGING STUDIES: Show abdominal x-ray with NG tube in place appropriately. X-ray of the chest showed pulmonary edema. Endotracheal tube in place. Head CT was also obtained overnight, which was notable for old infarcts. LABORATORY DATA: Lab testing notable for hemoglobin 10.2, otherwise normal CBC. BMP notable for glucose 263, creatinine of 8, potassium 5.2, bicarb 20, alkaline phosphatase 196, ProBNP 95244, troponin 0.06 followed by 0.47. IMPRESSION: 1. Non-STEMI. 2. ESRD, on dialysis. 3. Pulmonary edema. 4. Respiratory failure. 5. Hypoglycemia. 6. Hyperglycemia now. 7. Hyperkalemia. DISCUSSION: 1. Admit to the ICU. 2. Agree with current medications and care. 3. We will adjust vent. Currently on AC 16, tidal volume 500, PEEP of 5, FiO2 70%. 4. The patient will need dialysis. 5. May need pressors. 6. We will follow carefully. Remigio Raza M.D. DR: NINO JOB#: [id number] CC:
--- NOTE | 2019-05-09 17:30 | NUR ---
NURSE NOTES: Informed by family that patient middle name is Watts not Andersen. Notified admitting and obtained new ID band. Re-sent request of information to [facility] with corrected name. Patient HR in normal sinus rhythm. vital signs stable. Will continue to monitor. Addendum: 05/09/19 at 1858 by Berta Ambrocio RN FiO2 on ventilator lowered to 40%. SpO2 97% at this time. No sign of acute distress.
--- NOTE | 2019-05-09 19:30 | NUR ---
NURSE NOTES: Received report from Berta Ambrocio RN. patient in bed with eyes close,. hob elevated. Orally intubated. ETT to Vent7.5/23cm AC 15. TV 500 Fi02 40%, peep of 5. satting 100%. HOB elevated. Temp 99.4 axiliary. OGT intact running Nephro at 25cc/hr goal 35cc/hr. No residual. Left upper arm AV shunt intact with + bruit and thrill. Wound dressing intact, on P200 mattress for wound management. No s/s of hypo/hyperglycemia. oral care done. bed alarm on. bed locked and in low position. call light within easy reach. Family at bedside. will continue to monitor patient.
--- NOTE | 2019-05-09 19:35 | NUR ---
HAND-OFF: Report given to BINH Chavez. Patient vital signs stable. Endorsed to follow up.
--- NOTE | 2019-05-09 21:30 | NUR ---
NURSE NOTES: Blood glucose 140mg/dl, no moaning no facial grimaces. Turned and repositioned. On P200 mattress for wound management. No fever no s/v. Right Femoral TLC intact. will continue plan if care.
[2019-05-09] MEDS ORDERED: Dyna-Hex 2% Top Sol 2oz TOPIC ONE (23:00)
[2019-05-10] VITALS (27 sets, daily range): BP systolic 105–157; BP diastolic 39–60
--- NOTE | 2019-05-10 00:21 | NUR ---
NURSE NOTES: Troponin result 0.[address] Oropeza. patient in bed no s/s of acute cardiac and respiratory distress. Daughter Kat at bedside. Turned and reposition. oral care provided. no s/s of hypo/hyperglycemia. frequent visual checks continued. will continue plan of care. Temp 88.4 Axillary.
--- NOTE | 2019-05-10 02:21 | NUR ---
NURSE NOTES: Patient in bed no s/s of acute distress noted. No s/s of hypo/hyperglycemia. ON OGT feeding Nephro at 35cc/hr no residual. Turned and repositioned. Comfort measure provided. frequent visual checks continued.
--- NOTE | 2019-05-10 02:30 | Consultation ---
DATE OF CONSULTATION: 05/09/2019 CARDIOLOGY CONSULTATION CONSULTING PHYSICIAN: Shawn Robbins M.D. REFERRING PHYSICIAN: David Zapata M.D. REASON FOR CONSULTATION: Status post two cardiac arrests in a patient with history of coronary artery disease and coronary artery bypass graft. HISTORY OF PRESENT ILLNESS: The patient is a 69-year-old lady with history of hypertension, coronary artery disease, history of open heart surgery for coronary artery bypass graft at [facility], as well as end-stage renal disease, on hemodialysis, who was brought to the emergency room for recurrent syncopal episodes. Per EMS, her blood sugar was in the 30s and they gave the patient glucose and placed the patient on dextrose drip. The patient was starting to . The patient had altered mental status and was not responsive. She had agonal respiration and was profoundly bradycardic. While the patient was getting ready to get intubated, she became asystolic, and Code Blue was initiated and CPR was done. The patient was intubated and received epinephrine. Her pulse came back and she coded again. CPR was done again and received a milligram of epinephrine. The patient apparently has had several episodes of syncope over the last couple of weeks. At home, the patient was bluish in color. REVIEW OF SYSTEMS: Cannot be performed. PAST MEDICAL HISTORY: Hypertension; coronary artery disease; end-stage renal disease, on hemodialysis; and history of open heart surgery. FAMILY HISTORY: Noncontributory. SOCIAL HISTORY: She lives at home. Does not smoke or drink alcohol. PAST SURGICAL HISTORY: Includes left arm shunt and sternotomy for likely coronary artery bypass graft. PHYSICAL EXAMINATION: VITAL SIGNS: Show blood pressure of 110/45, pulse 55, respirations 18, and she is afebrile. HEAD AND NECK: Showed no JVD. She is orally intubated. LUNGS: Coarse rhonchi. CHEST: Sternotomy scar is healed. CARDIOVASCULAR: Regular S1 and S2 with no gallop. ABDOMEN: Soft. She has a scar from cholecystectomy in the abdomen. EXTREMITIES: Status post left AV shunt. LABORATORY AND DIAGNOSTIC DATA: Labs show white count of 8.7, hemoglobin 10.2, hematocrit 32.1, and platelet count 101,000. Sodium 139, potassium 4.8, BUN 56, and creatinine 8.7. Troponin 0.06 and 0.477. EKG on showed mild sinus bradycardia, rate of 43 with inferolateral ischemia on the EKG. Telemetry strips by paramedics, however, showed runs of nonsustained wide-complex tachycardia, could be ventricular tachycardia, but only two leads. ASSESSMENT AND PLAN: 1. Status post two cardiac arrests, likely ventricular tachycardia based on 12-lead EKG in this patient with history of coronary artery disease. We will get further troponins. This is likely not infarction. Troponin elevation only minimal likely due two CPR in this patient with hemodialysis. We will review EKG and echocardiogram, and do cardiac enzymes in the morning. 2. History of open heart surgery. The family, however, is not sure bypass or for valve replacement or any surgery. We will try to get the records from [facility] for further evaluation. 3. Respiratory failure, currently on the ventilator. Again, echocardiogram is pending. BNP is 17,000. The patient likely would need dialysis any ways. 4. End-stage renal disease, on hemodialysis. 5. Anemia. Thank you very much, Dr. Zapata, for allowing me to participate in the care of this patient. Please do not hesitate to contact me for any questions regarding my evaluation. Shawn Robbins M.D. DR: Max JOB#: [id number] CC:
--- NOTE | 2019-05-10 04:30 | NUR ---
NURSE NOTES: Bed bath given tolerated well. Oral care provided. right Femoral TLC intact. Left Upper arm AV shunt intact , with + bruit and thrill. Daughter at bedside. no fever. no moaning no facial grimaces. will continue to monitor patient.
--- NOTE | 2019-05-10 06:30 | NUR ---
NURSE NOTES: patient in bed sleeping comfortably. no s/s of acute distress noted. no bleeding turned and repositioned Q2 hr.
[2019-05-10 07:01] LABS: HEMATOCRIT 26.8 % (37.0-47.0); HEMOGLOBIN 8.7 G/DL (12.0-16.0); MEAN CORPUSCULAR VOLUME 99 FL (80-99); PLATELET COUNT 87 K/UL (150-450); RED BLOOD COUNT 2.69 M/UL (4.20-5.40); RED CELL DISTRIBUTION WIDTH 17.4 % (11.6-14.8)
[2019-05-10 07:15] LABS: ANION GAP 13 mmol/L (5-15); BLOOD UREA NITROGEN 67 mg/dL (7-18); CARBON DIOXIDE 29 MMOL/L (21-32); CHLORIDE 97 MMOL/L (98-107); CREATININE 9.9 MG/DL (0.55-1.30); POTASSIUM 4.7 MMOL/L (3.5-5.1); SODIUM 139 MMOL/L (136-145)
--- NOTE | 2019-05-10 07:30 | NUR ---
HAND-OFF: Report given to Gayla PURCELL. Per Dr. Robbins Don't call for troponin less than 1.endorsed to Gayla PURCELL
--- NOTE | 2019-05-10 07:35 | Nephrology Progress Note ---
Assessment/Plan Assessment/Plan: A/P 1) ESRD- HD today 2) S/P Cardiac Arrest-? Vtach - elevated Trop I, per cardiology 3) LE Wounds with Leukocytosis- Abx per ID - appreciate Gen Surgery 4) Resp FL- on vent 5) DVT prophylaxsis with SCDs as PLTs low Subjective Date patient seen: May 10, 2019 Time patient seen: 07:33 ROS Limited/Unobtainable: Yes Allergies: Coded Allergies: No Known Allergies (Unverified , 05/08/19) Subjective Patient remains intubated on vent, off pressor Objective Last 24 Hour Vital Signs Date Time Temp Pulse Resp B/P (MAP) Pulse Ox O2 Delivery O2 Flow Rate FiO2 05/10/19 06:00 66 16 124/47 (72) 99 05/10/19 05:18 63 15 40 05/10/19 05:00 66 15 133/45 (74) 97 05/10/19 04:00 98.2 67 15 129/45 (73) 99 05/10/19 04:00 67 05/10/19 04:00 Mechanical Ventilator Mechanical Ventilator 05/10/19 04:00 40 05/10/19 03:35 69 17 40 05/10/19 03:00 66 15 133/46 (75) 99 05/10/19 02:00 67 16 125/45 (71) 98 05/10/19 01:42 67 15 40 05/10/19 01:00 99.2 67 15 127/48 (74) 98 05/10/19 00:00 Mechanical Ventilator Mechanical Ventilator 05/10/19 00:00 40 05/10/19 00:00 98.4 66 15 118/47 (70) 98 05/10/19 00:00 68 05/09/19 23:26 69 18 40 05/09/19 23:00 71 20 126/47 (73) 97 05/09/19 22:00 65 15 122/45 (70) 100 05/09/19 21:29 73 18 40 05/09/19 21:00 64 15 107/34 (58) 98 05/09/19 20:00 99.4 67 16 111/40 (63) 98 05/09/19 20:00 Mechanical Ventilator Mechanical Ventilator 05/09/19 20:00 65 05/09/19 19:28 65 16 40 05/09/19 19:00 64 15 117/46 (69) 97 05/09/19 18:00 65 15 111/47 (68) 99 05/09/19 18:00 40 05/09/19 17:25 65 21 40 05/09/19 17:00 64 16 133/42 (72) 98 05/09/19 16:00 Mechanical Ventilator Mechanical Ventilator 05/09/19 16:00 64 05/09/19 16:00 97.8 62 15 132/49 (76) 99 05/09/19 16:00 50 05/09/19 15:26 62 16 50 05/09/19 15:00 62 17 140/53 (82) 99 05/09/19 14:00 59 15 139/52 (81) 100 05/09/19 13:30 59 15 140/50 (80) 100 05/09/19 13:25 60 16 60 05/09/19 13:00 59 15 140/50 (80) 100 05/09/19 12:30 58 15 136/45 (75) 92 05/09/19 12:00 Mechanical Ventilator Mechanical Ventilator 05/09/19 12:00 70 05/09/19 12:00 70 05/09/19 12:00 72 05/09/19 12:00 97.7 58 15 136/45 (75) 92 05/09/19 11:30 58 20 112/84 (93) 95 05/09/19 11:25 57 15 70 05/09/19 11:00 58 20 112/84 (93) 95 05/09/19 11:00 70 05/09/19 10:42 Mechanical Ventilator Mechanical Ventilator 05/09/19 10:30 59 25 134/48 (76) 90 05/09/19 10:00 57 19 125/44 (71) 90 05/09/19 09:15 57 20 60 05/09/19 09:00 59 25 134/48 (76) 90 05/09/19 08:00 57 05/09/19 08:00 Mechanical Ventilator Mechanical Ventilator 05/09/19 08:00 50 05/09/19 08:00 97.9 57 19 125/44 (71) 90 05/09/19 07:58 97.5 55 16 121/45 92 Mechanical Ventilator 50 05/09/19 07:50 55 16 122/47 Mechanical Ventilator 50 Intake and Output 05/09/19 05/10/19 19:00 07:00 Intake Total 115 ml 385 ml Balance 115 ml 385 ml Free Water 30 ml Tube Feeding 115 ml 355 ml # Bowel Movements 2 1 Laboratory Tests 05/09/19 09:05: Sodium Level 139, Potassium Level 4.8, Chloride Level 97L, Carbon Dioxide Level 28, Anion Gap 14, Blood Urea Nitrogen 53H, Creatinine 8.7H, Estimat Glomerular Filtration Rate 4.5, Glucose Level 97#, Calcium Level 9.2, Troponin I 0.477H 05/09/19 10:55: Troponin I 0.529H, D-Dimer 16.84H 05/09/19 23:30: Troponin I 0.672H 05/10/19 06:30: Sodium Level 139, Potassium Level 4.7, Chloride Level 97L, Carbon Dioxide Level 29, Anion Gap 13, Blood Urea Nitrogen 67H, Creatinine 9.9H, Estimat Glomerular Filtration Rate 3.9, Glucose Level 195H, Calcium Level 9.0, Troponin I 0.534H, White Blood Count 12.0H, Red Blood Count 2.69L, Hemoglobin 8.7L, Hematocrit 26.8L, Mean Corpuscular Volume 99, Mean Corpuscular Hemoglobin 32.4H, Mean Corpuscular Hemoglobin Concent 32.6, Red Cell Distribution Width 17.4H, Platelet Count 87L, Mean Platelet Volume 7.6, Neutrophils (%) (Auto) , Lymphocytes (%) (Auto) , Monocytes (%) (Auto) , Eosinophils (%) (Auto) , Basophils (%) (Auto) , Neutrophils % (Manual) [Pending], Lymphocytes % (Manual) [Pending], Platelet Estimate [Pending], Platelet Morphology [Pending], Pro-B- Type Natriuretic Peptide , Thyroid Stimulating Hormone (TSH) 1.898, Free Thyroxine 1.36 Height (Feet): 4 Height (Inches): 10.00 Weight (Pounds): 152 General Appearance: other - intubated EENT: normal ENT inspection Neck: normal alignment, supple Cardiovascular: normal rate, regular rhythm Respiratory/Chest: rhonchi - bilaterally Abdomen: non tender, soft Edema: no edema noted Arm (L), no edema noted Arm (R), no edema noted Leg (L), no edema noted Leg (R), no edema noted Pedal (L), no edema noted Pedal (R), no edema noted Generalized David Zapata MD May 10, 2019 07:35
--- NOTE | 2019-05-10 07:56 | NUR ---
RESPIRATORY NOTE: received pt orally intubated with ETT 7.5, placed 21cm at the lip. ETT is secured via anchor fast with no redness or wounds around facial area. vent settings are as followed with no signs of resp distress at this time. ambu bag at bedside with alarms set appropriately. will cont to monitor.
--- NOTE | 2019-05-10 08:00 | NUR ---
NURSE NOTES: Received change of shift report from Kathy PURCELL. Pt is asleep, opens eyes to touch and withdraws to pain. Pt is orally intubated, ETT 7.5 at 23cm left lipline with vent settings, AC 15, Peep 5.0, VT 500, FIO2 40% with 99% O2Sat. Bilateral inspiratory/expiratory rhonchi is noted on auscultation. library monitor displays NSR with heart rate in the 60's. Weak peripheral pulses are noted on palpation. Pt has central line IV access on right femoral TLC, patent/intact, saline locked. Pt also has right hand and right FA peripheral IV access, both 20G, saline locked. Dialysis access is noted on left upper arm AV shunt, bruit/thrill present. Temp 98.4F axillary. Pt has orogastric tube in place with feeding Nepro 1.8 infusing at goal rate of 35ml/hour. Abdomen is large, round, soft/nontender to touch with hypoactive bowel sounds in all quadrants. 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 Skin has sacral erythema, bilateral heel DTI, surgical healed/old scar on mid chest and abdomen. Pt is on P200 pressure releasing mattress, with bilateral heels off mattress, elevated on pillows. Will continue to monitor pt and follow plan of care per MD orders and protocol.
[2019-05-10] MEDS: Pantoprazole Inj IVP SCH ×2 (08:31→20:23)
--- NOTE | 2019-05-10 09:00 | NUR ---
NURSE NOTES: Pt was seen by Dr Zapata. MD aware of lab results. Per MD order, SCDs are now placed on pt's lower extremities for DVT prophylaxis. Also, order noted to discontinue Heparin/SubQ. neurophysiology tech, Roman is now at bedside to start bedside HD per MD order. AM med Protonix was administered. Pt's daughter is at bedside. VS remain stable.
--- NOTE | 2019-05-10 09:27 | Pulmonology Progress Note ---
Assessment/Plan Assessment/Plan IMPRESSION: 1. Non-STEMI. 2. ESRD, on dialysis. 3. Pulmonary edema. 4. Respiratory failure. 5. Hypoglycemia. 6. Hyperglycemia now. 7. Hyperkalemia. DISCUSSION: 1. Continue ICU care 2. Agree with current medications and care. 3. Adjust vent. Currently on AC 16, tidal volume 500, PEEP of 5, FiO2 70%. 4. The patient will need dialysis. 5. May need pressors. 6. I will follow carefully. Remigio Raza M.D. Subjective Interval Events: Remains intubated Constitutional: Reports: no symptoms HEENT: Repors: no symptoms Respiratory: Reports: no symptoms Cardiovascular: Reports: no symptoms Gastrointestinal/Abdominal: Reports: no symptoms Allergies: Coded Allergies: No Known Allergies (Unverified , 05/08/19) Objective Last 24 Hour Vital Signs Date Time Temp Pulse Resp B/P (MAP) Pulse Ox O2 Delivery O2 Flow Rate FiO2 05/10/19 09:03 68 16 40 05/10/19 08:00 40 05/10/19 08:00 98.4 77 20 132/47 (75) 100 05/10/19 07:53 77 23 40 05/10/19 07:00 68 17 133/46 (75) 99 05/10/19 06:00 66 16 124/47 (72) 99 05/10/19 05:18 63 15 40 05/10/19 05:00 66 15 133/45 (74) 97 05/10/19 04:00 98.2 67 15 129/45 (73) 99 05/10/19 04:00 67 05/10/19 04:00 Mechanical Ventilator Mechanical Ventilator 05/10/19 04:00 40 05/10/19 03:35 69 17 40 05/10/19 03:00 66 15 133/46 (75) 99 05/10/19 02:00 67 16 125/45 (71) 98 05/10/19 01:42 67 15 40 05/10/19 01:00 99.2 67 15 127/48 (74) 98 05/10/19 00:00 Mechanical Ventilator Mechanical Ventilator 05/10/19 00:00 40 05/10/19 00:00 98.4 66 15 118/47 (70) 98 05/10/19 00:00 68 05/09/19 23:26 69 18 40 05/09/19 23:00 71 20 126/47 (73) 97 05/09/19 22:00 65 15 122/45 (70) 100 05/09/19 21:29 73 18 40 05/09/19 21:00 64 15 107/34 (58) 98 05/09/19 20:00 99.4 67 16 111/40 (63) 98 05/09/19 20:00 Mechanical Ventilator Mechanical Ventilator 05/09/19 20:00 65 05/09/19 19:28 65 16 40 05/09/19 19:00 64 15 117/46 (69) 97 05/09/19 18:00 65 15 111/47 (68) 99 05/09/19 18:00 40 05/09/19 17:25 65 21 40 05/09/19 17:00 64 16 133/42 (72) 98 05/09/19 16:00 Mechanical Ventilator Mechanical Ventilator 05/09/19 16:00 64 05/09/19 16:00 97.8 62 15 132/49 (76) 99 05/09/19 16:00 50 05/09/19 15:26 62 16 50 05/09/19 15:00 62 17 140/53 (82) 99 05/09/19 14:00 59 15 139/52 (81) 100 05/09/19 13:30 59 15 140/50 (80) 100 05/09/19 13:25 60 16 60 05/09/19 13:00 59 15 140/50 (80) 100 05/09/19 12:30 58 15 136/45 (75) 92 05/09/19 12:00 Mechanical Ventilator Mechanical Ventilator 05/09/19 12:00 70 05/09/19 12:00 70 05/09/19 12:00 72 05/09/19 12:00 97.7 58 15 136/45 (75) 92 05/09/19 11:30 58 20 112/84 (93) 95 05/09/19 11:25 57 15 70 05/09/19 11:00 58 20 112/84 (93) 95 05/09/19 11:00 70 05/09/19 10:42 Mechanical Ventilator Mechanical Ventilator 05/09/19 10:30 59 25 134/48 (76) 90 05/09/19 10:00 57 19 125/44 (71) 90 Intake and Output 05/09/19 05/10/19 19:00 07:00 Intake Total 115 ml 420 ml Balance 115 ml 420 ml Free Water 30 ml Tube Feeding 115 ml 390 ml # Bowel Movements 2 1 General Appearance: no acute distress HEENT: normocephalic Respiratory/Chest: chest wall non-tender, lungs clear Cardiovascular: normal peripheral pulses Abdomen: soft, non tender Laboratory Tests 05/09/19 10:55: D-Dimer 16.84H, Troponin I 0.529H 05/09/19 23:30: Troponin I 0.672H 05/10/19 06:30: Troponin I 0.534H, White Blood Count 12.0H, Red Blood Count 2.69L, Hemoglobin 8.7L, Hematocrit 26.8L, Mean Corpuscular Volume 99, Mean Corpuscular Hemoglobin 32.4H, Mean Corpuscular Hemoglobin Concent 32.6, Red Cell Distribution Width 17.4H, Platelet Count 87L, Mean Platelet Volume 7.6, Neutrophils (%) (Auto) , Lymphocytes (%) (Auto) , Monocytes (%) (Auto) , Eosinophils (%) (Auto) , Basophils (%) (Auto) , Differential Total Cells Counted 100, Neutrophils % ( Manual) 83H, Lymphocytes % (Manual) 14L, Monocytes % (Manual) 3, Eosinophils % ( Manual) 0, Basophils % (Manual) 0, Band Neutrophils 0, Platelet Estimate DecreasedL, Platelet Morphology Normal, Polychromasia 1+, Anisocytosis 1+, Macrocytosis 1+, Sodium Level 139, Potassium Level 4.7, Chloride Level 97L, Carbon Dioxide Level 29, Anion Gap 13, Blood Urea Nitrogen 67H, Creatinine 9.9H , Estimat Glomerular Filtration Rate 3.9, Glucose Level 195H, Calcium Level 9.0 , Pro-B-Type Natriuretic Peptide 64696S, Thyroid Stimulating Hormone (TSH) 1.898 , Free Thyroxine 1.36 Current Medications Medications (Trade) Dose Ordered Sig/Sylwia Route PRN Reason Start Time Stop Time Status Last Admin Dose Admin Chlorhexidine Gluconate (Karla-Hex 2%) 1 applic DAILY@1999 TOPIC 12/4/19 20:00 06/09/19 19:59 Dextrose (Dextrose 50%) 25 ml Q30M PRN IV Hypoglycemia 05/09/19 08:15 06/08/19 08:14 Dextrose (Dextrose 50%) 50 ml Q30M PRN IV Hypoglycemia 05/09/19 08:15 06/08/19 08:14 Ondansetron HCl (Zofran) 4 mg Q6H PRN IVP Nausea & Vomiting 05/09/19 08:15 06/08/19 08:14 Pantoprazole (Protonix) 40 mg DAILY IVP 05/09/19 12:15 06/08/19 12:14 05/10/19 08:31 Remigio Raza MD May 10, 2019 09:27
--- NOTE | 2019-05-10 10:00 | NUR ---
NURSE NOTES: Pt was seen by Dr Raza. Order was received to start weaning pt from vent after dialysis treatment is complete.
--- NOTE | 2019-05-10 10:05 | NUR ---
NURSE NOTES: Pt was placed on bilateral soft wrist restraints to prevent self extubation as pt is noted attempting to pull out ET tube. VS remain stable.
--- NOTE | 2019-05-10 11:00 | NUR ---
NURSE NOTES: Pt received bedside hemodialysis treatment with total output of 1500ml out. VS remain stable. Pt tolerated well with no signs/symptoms of any adverse reactions.
--- NOTE | 2019-05-10 12:30 | Consultation ---
History of Present Illness General Date patient seen: May 10, 2019 Chief Complaint: Abnormal Labs Present Illness HPI 69 y/o F with hx of HTN, ESRD on HD via L arm AVS, CAD s/p CABG presented to ED on 05/09 with recurrent syncopal episodes. Per EMS, BG was in the 30s; patient was given glucose and placed on dextrose drip. She was still non responsive and was getting ready to be intubated in the ED and patient became bradycardic and then asystolic. Gato priest was called and CPR was initiated with ROSC. Patient intubated and transferred to ICU. She coded a second time Allergies: Coded Allergies: No Known Allergies (Unverified , 05/08/19) Medication History Scheduled Aspirin* (Aspir 81*), 81 MG ORAL DAILY, (Reported) Atorvastatin (Lipitor), 40 MG ORAL BEDTIME, (Reported) Benazepril Hcl* (Benazepril Hcl*), 20 MG ORAL BID, (Reported) Calcium Acetate (Calcium Acetate), 667 MG PO DAILY, (Reported) Clonidine Hcl* (Catapres*), 0.3 MG ORAL TID, (Reported) Docusate Sodium* (Colace*), 100 MG ORAL TWICE A DAY, (Reported) Isosorbide Mononitrate (Isosorbide Mononitrate), 30 MG PO DAILY, (Reported) Levothyroxine Sodium* (Levothyroxine Sodium*), 25 MCG IV BEFORE BREAKFAST, ( Reported) Metoprolol Tartrate* (Metoprolol Tartrate*), 50 MG ORAL BID, (Reported) Nifedipine (Nifedipine*), 60 MG ORAL DAILY, (Reported) Scheduled PRN Nitroglycerin 0.4MG table* (Nitroglycerin*), 0.4 MG SL .Q5MIN X 3 DOSES PRN for CHEST PAIN, (Reported) Patient History Healthcare decision maker Kat Jerome Resuscitation status Full Code Advanced Directive on File Patient History Narrative Pmhx: as above Shx: She lives at home. Does not smoke or drink alcohol. Fhx: non contributory Review of Systems All Other Systems: negative except mentioned in HPI Physical Exam Physical Exam Narrative GENERAL: The patient is intubated on mechanical ventilation. HEENT: Conjugate eye gaze. No lymphadenopathy. CARDIOVASCULAR: S1, S2. No rubs or gallops. PULMONARY: Mild upper rhonchi. Fair air movement in all pisano. ABDOMEN: Nondistended, nontender. Good bowel sounds. EXTREMITIES: No edema noted. Last 24 Hour Vital Signs Date Time Temp Pulse Resp B/P (MAP) Pulse Ox O2 Delivery O2 Flow Rate FiO2 05/10/19 11:01 68 21 40 05/10/19 10:00 70 18 116/39 (64) 100 05/10/19 09:30 68 16 114/40 (64) 100 05/10/19 09:03 68 16 40 05/10/19 09:00 69 17 119/39 (65) 98 05/10/19 08:00 40 05/10/19 08:00 Mechanical Ventilator Mechanical Ventilator 05/10/19 08:00 98.4 77 20 132/47 (75) 100 05/10/19 08:00 71 05/10/19 07:53 77 23 40 05/10/19 07:00 68 17 133/46 (75) 99 05/10/19 06:00 66 16 124/47 (72) 99 05/10/19 05:18 63 15 40 05/10/19 05:00 66 15 133/45 (74) 97 05/10/19 04:00 98.2 67 15 129/45 (73) 99 05/10/19 04:00 67 05/10/19 04:00 Mechanical Ventilator Mechanical Ventilator 05/10/19 04:00 40 05/10/19 03:35 69 17 40 05/10/19 03:00 66 15 133/46 (75) 99 05/10/19 02:00 67 16 125/45 (71) 98 05/10/19 01:42 67 15 40 05/10/19 01:00 99.2 67 15 127/48 (74) 98 05/10/19 00:00 Mechanical Ventilator Mechanical Ventilator 05/10/19 00:00 40 05/10/19 00:00 98.4 66 15 118/47 (70) 98 05/10/19 00:00 68 05/09/19 23:26 69 18 40 05/09/19 23:00 71 20 126/47 (73) 97 05/09/19 22:00 65 15 122/45 (70) 100 05/09/19 21:29 73 18 40 05/09/19 21:00 64 15 107/34 (58) 98 05/09/19 20:00 99.4 67 16 111/40 (63) 98 05/09/19 20:00 Mechanical Ventilator Mechanical Ventilator 05/09/19 20:00 65 05/09/19 19:28 65 16 40 05/09/19 19:00 64 15 117/46 (69) 97 05/09/19 18:00 65 15 111/47 (68) 99 05/09/19 18:00 40 05/09/19 17:25 65 21 40 05/09/19 17:00 64 16 133/42 (72) 98 05/09/19 16:00 Mechanical Ventilator Mechanical Ventilator 05/09/19 16:00 64 05/09/19 16:00 97.8 62 15 132/49 (76) 99 05/09/19 16:00 50 05/09/19 15:26 62 16 50 05/09/19 15:00 62 17 140/53 (82) 99 05/09/19 14:00 59 15 139/52 (81) 100 05/09/19 13:30 59 15 140/50 (80) 100 05/09/19 13:25 60 16 60 05/09/19 13:00 59 15 140/50 (80) 100 05/09/19 12:30 58 15 136/45 (75) 92 Intake and Output 05/09/19 05/10/19 18:59 06:59 Intake Total 90 ml 410 ml Balance 90 ml 410 ml Free Water 30 ml Tube Feeding 90 ml 380 ml # Bowel Movements 2 1 Laboratory Tests Test 05/09/19 23:30 05/10/19 06:30 Troponin I 0.672 ng/mL (0.000-0.056) 0.534 ng/mL (0.000-0.056) White Blood Count 12.0 K/UL (4.8-10.8) H Red Blood Count 2.69 M/UL (4.20-5.40) L Hemoglobin 8.7 G/DL (12.0-16.0) L Hematocrit 26.8 % (37.0-47.0) L Mean Corpuscular Volume 99 FL (80-99) Mean Corpuscular Hemoglobin 32.4 PG (27.0-31.0) H Mean Corpuscular Hemoglobin Concent 32.6 G/DL (32.0-36.0) Red Cell Distribution Width 17.4 % (11.6-14.8) H Platelet Count 87 K/UL (150-450) L Mean Platelet Volume 7.6 FL (6.5-10.1) Neutrophils (%) (Auto) % (45.0-75.0) Lymphocytes (%) (Auto) % (20.0-45.0) Monocytes (%) (Auto) % (1.0-10.0) Eosinophils (%) (Auto) % (0.0-3.0) Basophils (%) (Auto) % (0.0-2.0) Differential Total Cells Counted 100 Neutrophils % (Manual) 83 % (45-75) H Lymphocytes % (Manual) 14 % (20-45) L Monocytes % (Manual) 3 % (1-10) Eosinophils % (Manual) 0 % (0-3) Basophils % (Manual) 0 % (0-2) Band Neutrophils 0 % (0-8) Platelet Estimate Decreased L Platelet Morphology Normal Polychromasia 1+ Anisocytosis 1+ Macrocytosis 1+ Sodium Level 139 MMOL/L (136-145) Potassium Level 4.7 MMOL/L (3.5-5.1) Chloride Level 97 MMOL/L (98-107) L Carbon Dioxide Level 29 MMOL/L (21-32) Anion Gap 13 mmol/L (5-15) Blood Urea Nitrogen 67 mg/dL (7-18) H Creatinine 9.9 MG/DL (0.55-1.30) H Estimat Glomerular Filtration Rate 3.9 mL/min (>60) Glucose Level 195 MG/DL (74-106) H Calcium Level 9.0 MG/DL (8.5-10.1) Pro-B-Type Natriuretic Peptide 05090 pg/mL (0-125) H Thyroid Stimulating Hormone (TSH) 1.898 uiU/mL (0.358-3.740) Free Thyroxine 1.36 NG/DL (0.76-1.46) Height (Feet): 4 Height (Inches): 10.00 Weight (Pounds): 152 Medications Current Medications Medications (Trade) Dose Ordered Sig/Sylwia Route PRN Reason Start Time Stop Time Status Last Admin Dose Admin Chlorhexidine Gluconate (Karla-Hex 2%) 1 applic DAILY@1999 TOPIC 05/10/19 20:00 06/09/19 19:59 Dextrose (Dextrose 50%) 25 ml Q30M PRN IV Hypoglycemia 05/09/19 08:15 06/08/19 08:14 Dextrose (Dextrose 50%) 50 ml Q30M PRN IV Hypoglycemia 05/09/19 08:15 06/08/19 08:14 Ondansetron HCl (Zofran) 4 mg Q6H PRN IVP Nausea & Vomiting 05/09/19 08:15 06/08/19 08:14 Pantoprazole (Protonix) 40 mg DAILY IVP 05/09/19 12:15 06/08/19 12:14 05/10/19 08:31 Assessment/Plan Assessment/Plan: Abx: None Assessment: s/p cardiac arrest x2 -CT head: Chronic and age-related changes. Negative for acute intracranial bleed or mass effect, Old infarcts, as described Afebrile MIld leukocytosis- likely reactive -05/08 CXR: Satisfactory endotracheal intubation. Evidence of bilateral pulmonary edema. Cardiomegaly VDRF Hypoglycemia HTN ESRD on HD via L arm AVS CAD s/p CABG Plan: -Continue to monitor off abx unless febrile, pressors requirements, new infiltrates in CXR and/or worsening leukocytosis -f/u cx -Monitor CBC/CMP, temperatures -CXR -ETT/ICU care -aspiration precautions Thank you for conulting [facility]. Will continue to follow along with you. Discussed with Danita Matthew M.D. May 10, 2019 12:30
--- NOTE | 2019-05-10 14:00 | NUR ---
NURSE NOTES: Pt remains on bilateral soft wrist restraints to prevent self extubation. VS remain stable. Pt was repositioned. Oral care done.
--- NOTE | 2019-05-10 15:02 | Diagnostic Imaging Report ---
Indication: Cough Comparison: 05/09/2019 A single view chest radiograph was obtained. Findings: Endotracheal tube is in good position. The heart is enlarged. Pulmonary vascular congestion is present. IMPRESSION: Interstitial edema. This may be slightly improved since the previous day
--- NOTE | 2019-05-10 15:46 | Surgery Progress Note ---
Surgery Progress Note Subjective Additional Comments labs noted exam stable ill appearing in ICU Objective Last 24 Hour Vital Signs Date Time Temp Pulse Resp B/P (MAP) Pulse Ox O2 Delivery O2 Flow Rate FiO2 05/10/19 15:03 76 18 40 05/10/19 14:00 72 16 131/45 (73) 96 05/10/19 13:00 71 21 144/53 (83) 93 05/10/19 12:57 74 24 40 05/10/19 12:00 40 05/10/19 12:00 64 05/10/19 12:00 64 16 115/41 (65) 94 05/10/19 12:00 Mechanical Ventilator Mechanical Ventilator 05/10/19 11:01 68 21 40 05/10/19 11:00 67 17 105/41 (62) 100 05/10/19 10:00 70 18 116/39 (64) 100 05/10/19 09:30 68 16 114/40 (64) 100 05/10/19 09:03 68 16 40 05/10/19 09:00 69 17 119/39 (65) 98 05/10/19 08:00 40 05/10/19 08:00 Mechanical Ventilator Mechanical Ventilator 05/10/19 08:00 98.4 77 20 132/47 (75) 100 05/10/19 08:00 71 05/10/19 07:53 77 23 40 05/10/19 07:00 68 17 133/46 (75) 99 05/10/19 06:00 66 16 124/47 (72) 99 05/10/19 05:18 63 15 40 05/10/19 05:00 66 15 133/45 (74) 97 05/10/19 04:00 98.2 67 15 129/45 (73) 99 05/10/19 04:00 67 05/10/19 04:00 Mechanical Ventilator Mechanical Ventilator 05/10/19 04:00 40 05/10/19 03:35 69 17 40 05/10/19 03:00 66 15 133/46 (75) 99 05/10/19 02:00 67 16 125/45 (71) 98 05/10/19 01:42 67 15 40 05/10/19 01:00 99.2 67 15 127/48 (74) 98 05/10/19 00:00 Mechanical Ventilator Mechanical Ventilator 05/10/19 00:00 40 05/10/19 00:00 98.4 66 15 118/47 (70) 98 05/10/19 00:00 68 05/09/19 23:26 69 18 40 05/09/19 23:00 71 20 126/47 (73) 97 05/09/19 22:00 65 15 122/45 (70) 100 05/09/19 21:29 73 18 40 05/09/19 21:00 64 15 107/34 (58) 98 05/09/19 20:00 99.4 67 16 111/40 (63) 98 05/09/19 20:00 Mechanical Ventilator Mechanical Ventilator 05/09/19 20:00 65 05/09/19 19:28 65 16 40 05/09/19 19:00 64 15 117/46 (69) 97 05/09/19 18:00 65 15 111/47 (68) 99 05/09/19 18:00 40 05/09/19 17:25 65 21 40 05/09/19 17:00 64 16 133/42 (72) 98 05/09/19 16:00 Mechanical Ventilator Mechanical Ventilator 05/09/19 16:00 64 05/09/19 16:00 97.8 62 15 132/49 (76) 99 05/09/19 16:00 50 I&O Intake and Output 05/09/19 05/10/19 18:59 06:59 Intake Total 90 ml 410 ml Balance 90 ml 410 ml Free Water 30 ml Tube Feeding 90 ml 380 ml # Bowel Movements 2 1 Dressing: other Wound: other Drains: other Cardiovascular: RSR Respiratory: decreased breath sounds Abdomen: soft, non-distended, decreased bowel sounds Extremities: no cyanosis Laboratory Tests Test 05/09/19 23:30 05/10/19 06:30 Troponin I 0.672 ng/mL (0.000-0.056) 0.534 ng/mL (0.000-0.056) White Blood Count 12.0 K/UL (4.8-10.8) H Red Blood Count 2.69 M/UL (4.20-5.40) L Hemoglobin 8.7 G/DL (12.0-16.0) L Hematocrit 26.8 % (37.0-47.0) L Mean Corpuscular Volume 99 FL (80-99) Mean Corpuscular Hemoglobin 32.4 PG (27.0-31.0) H Mean Corpuscular Hemoglobin Concent 32.6 G/DL (32.0-36.0) Red Cell Distribution Width 17.4 % (11.6-14.8) H Platelet Count 87 K/UL (150-450) L Mean Platelet Volume 7.6 FL (6.5-10.1) Neutrophils (%) (Auto) % (45.0-75.0) Lymphocytes (%) (Auto) % (20.0-45.0) Monocytes (%) (Auto) % (1.0-10.0) Eosinophils (%) (Auto) % (0.0-3.0) Basophils (%) (Auto) % (0.0-2.0) Differential Total Cells Counted 100 Neutrophils % (Manual) 83 % (45-75) H Lymphocytes % (Manual) 14 % (20-45) L Monocytes % (Manual) 3 % (1-10) Eosinophils % (Manual) 0 % (0-3) Basophils % (Manual) 0 % (0-2) Band Neutrophils 0 % (0-8) Platelet Estimate Decreased L Platelet Morphology Normal Polychromasia 1+ Anisocytosis 1+ Macrocytosis 1+ Sodium Level 139 MMOL/L (136-145) Potassium Level 4.7 MMOL/L (3.5-5.1) Chloride Level 97 MMOL/L (98-107) L Carbon Dioxide Level 29 MMOL/L (21-32) Anion Gap 13 mmol/L (5-15) Blood Urea Nitrogen 67 mg/dL (7-18) H Creatinine 9.9 MG/DL (0.55-1.30) H Estimat Glomerular Filtration Rate 3.9 mL/min (>60) Glucose Level 195 MG/DL (74-106) H Calcium Level 9.0 MG/DL (8.5-10.1) Pro-B-Type Natriuretic Peptide 04798 pg/mL (0-125) H Thyroid Stimulating Hormone (TSH) 1.898 uiU/mL (0.358-3.740) Free Thyroxine 1.36 NG/DL (0.76-1.46) Plan Problems: (1) Deep tissue injury Assessment & Plan: Patient presented on admission with a deep tissue injury in the sacral area. Patient was syncopal episode found down. Unknown exact time patient was down and since is suffered a cardiac event requiring resuscitation and ACLS. There is an area of deep tissue injury with erythema in the sacral area extending into the bilateral buttocks butterfly formation. No drainage. No open area. Patient is high risk and susceptible to opening and worsening given her current condition, ICU care, deterioration. We will need to monitor closely and provide aggressive care to ensure healing Air mattress Turn every 2 hours Skin protectant OPTi foam dressing daily and as needed Offload heels with pillows Appreciate nursing care Nutritional support DAILY ESTIMATED NEEDS: Needs based on Critical Care, ESRD on HD, wounds; 56.3kg adj 22- 30 kcals/kg [id number] total kcals 1.25-2 g protein/kg 70-113 g total protein Fluid per MD- on HD NUTRITION DIAGNOSIS: * Increased pro needs r/t wound healing and renal dysfunction AEB pt adm w/ BL heel and sacral DTI (per RN), WC eval pending, w/ ESRD on HD. * Swallowing difficulty r/t respiratory status AEB pt is intubated, currently NPO, pending non oral feeds. CURRENT TF: Per RN Nepro @40ml/hr ENTERAL NUTRITION RECOMMENDATIONS: Nepro @35mL/hr x 24 hrs+ 1 Prosource qdaily to provide 840mL, 1512kcal, 68g pro +11g pro, 611mL free H2O -Obtain GI access, initiate Nepro @15mL/hr, advancing 10mL/hr q 4-6hrs until @ goal. -Provide 1 packet of Prosource- flush with 4oz water -HOB > 30 degrees, Flush per MD ADDITIONAL RECOMMENDATIONS: 1) With prolonged NPO/Intubation- see TF recs as above 2) Wound healing- w/ diet order, add: Juan Daniel in 4oz H2O BID; f/up w/ WC eval 3) Maintain calibrated bedscale wt 4) F/u w/ H&P 5) Feed w/ hemodynamic stability, now off pressor support. (2) Cardiac arrest Assessment & Plan: 61-year-old female multi-medical comorbidities syncopal episode leading to ACLS requiring resuscitation. Currently intensive care unit intubated on ventilatory support Patient is ill-appearing with family at the bedside. Labs noted. Mild elevation troponins. Mild elevated LFTs. Improving since resuscitation current etiology work-up Continue with tube feeds advance to goal Wean vent as tolerated A.m. 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 There is also an old right cerebellar cortical infarct There is age-related enlargement of the ventricles and extra axial CSF spaces. There is periventricular deep white matter low-attenuation, consistent with chronic microvascular ischemic change. The stuart-white differentiation is normal. The calvarium is intact. There is evidence of prior cataract surgery. The sinuses are clear. The mastoids are underpneumatized, otherwise clear. Impression: Chronic and age-related changes Negative for acute intracranial bleed or mass effect, Old infarcts, as described Laron Moreno May 10, 2019 15:46
--- NOTE | 2019-05-10 16:30 | NUR ---
NURSE NOTES: VS remain stable, temp slightly elevated 99F, covers removed from pt. Family is at bedside. Pt was attempted weaning, however remains confused, restless and fatigued after dialysis treatment; will reattempt in the AM.
--- NOTE | 2019-05-10 16:55 | Cardiac Electrophysiology PN ---
Assessment/Plan Assessment/Plan 1. Status post two cardiac arrests, likely ventricular tachycardia based on 12-lead EKG in this patient with history of coronary artery disease. This is likely not infarction. Troponin elevation only minimal and level flat likely due two CPR in this patient with hemodialysis. Echocardiogram showed EF 50-55% 2. History of open heart surgery. The family, however, is not sure if its bypass or for valve replacement . Awaiting records from [facility] 3. Respiratory failure, currently on the ventilator. BNP is 17,000. On dialysis any ways. 4. End-stage renal disease, on hemodialysis. 5. Anemia. PAN RN Subjective Subjective Just had HD. Intubated in ICU Objective Last 24 Hour Vital Signs Date Time Temp Pulse Resp B/P (MAP) Pulse Ox O2 Delivery O2 Flow Rate FiO2 05/10/19 15:03 76 18 40 05/10/19 14:00 72 16 131/45 (73) 96 05/10/19 13:00 71 21 144/53 (83) 93 05/10/19 12:57 74 24 40 05/10/19 12:00 40 05/10/19 12:00 64 05/10/19 12:00 64 16 115/41 (65) 94 05/10/19 12:00 Mechanical Ventilator Mechanical Ventilator 05/10/19 11:01 68 21 40 05/10/19 11:00 67 17 105/41 (62) 100 05/10/19 10:00 70 18 116/39 (64) 100 05/10/19 09:30 68 16 114/40 (64) 100 05/10/19 09:03 68 16 40 05/10/19 09:00 69 17 119/39 (65) 98 05/10/19 08:00 40 05/10/19 08:00 Mechanical Ventilator Mechanical Ventilator 05/10/19 08:00 98.4 77 20 132/47 (75) 100 05/10/19 08:00 71 05/10/19 07:53 77 23 40 05/10/19 07:00 68 17 133/46 (75) 99 05/10/19 06:00 66 16 124/47 (72) 99 05/10/19 05:18 63 15 40 05/10/19 05:00 66 15 133/45 (74) 97 05/10/19 04:00 98.2 67 15 129/45 (73) 99 05/10/19 04:00 67 05/10/19 04:00 Mechanical Ventilator Mechanical Ventilator 05/10/19 04:00 40 05/10/19 03:35 69 17 40 05/10/19 03:00 66 15 133/46 (75) 99 05/10/19 02:00 67 16 125/45 (71) 98 05/10/19 01:42 67 15 40 05/10/19 01:00 99.2 67 15 127/48 (74) 98 05/10/19 00:00 Mechanical Ventilator Mechanical Ventilator 05/10/19 00:00 40 05/10/19 00:00 98.4 66 15 118/47 (70) 98 05/10/19 00:00 68 05/09/19 23:26 69 18 40 05/09/19 23:00 71 20 126/47 (73) 97 05/09/19 22:00 65 15 122/45 (70) 100 05/09/19 21:29 73 18 40 05/09/19 21:00 64 15 107/34 (58) 98 05/09/19 20:00 99.4 67 16 111/40 (63) 98 05/09/19 20:00 Mechanical Ventilator Mechanical Ventilator 05/09/19 20:00 65 05/09/19 19:28 65 16 40 05/09/19 19:00 64 15 117/46 (69) 97 05/09/19 18:00 65 15 111/47 (68) 99 05/09/19 18:00 40 05/09/19 17:25 65 21 40 05/09/19 17:00 64 16 133/42 (72) 98 Intake and Output 05/09/19 05/10/19 18:59 06:59 Intake Total 90 ml 410 ml Balance 90 ml 410 ml Free Water 30 ml Tube Feeding 90 ml 380 ml # Bowel Movements 2 1 Laboratory Tests Test 05/09/19 23:30 05/10/19 06:30 Troponin I 0.672 ng/mL (0.000-0.056) 0.534 ng/mL (0.000-0.056) White Blood Count 12.0 K/UL (4.8-10.8) H Red Blood Count 2.69 M/UL (4.20-5.40) L Hemoglobin 8.7 G/DL (12.0-16.0) L Hematocrit 26.8 % (37.0-47.0) L Mean Corpuscular Volume 99 FL (80-99) Mean Corpuscular Hemoglobin 32.4 PG (27.0-31.0) H Mean Corpuscular Hemoglobin Concent 32.6 G/DL (32.0-36.0) Red Cell Distribution Width 17.4 % (11.6-14.8) H Platelet Count 87 K/UL (150-450) L Mean Platelet Volume 7.6 FL (6.5-10.1) Neutrophils (%) (Auto) % (45.0-75.0) Lymphocytes (%) (Auto) % (20.0-45.0) Monocytes (%) (Auto) % (1.0-10.0) Eosinophils (%) (Auto) % (0.0-3.0) Basophils (%) (Auto) % (0.0-2.0) Differential Total Cells Counted 100 Neutrophils % (Manual) 83 % (45-75) H Lymphocytes % (Manual) 14 % (20-45) L Monocytes % (Manual) 3 % (1-10) Eosinophils % (Manual) 0 % (0-3) Basophils % (Manual) 0 % (0-2) Band Neutrophils 0 % (0-8) Platelet Estimate Decreased L Platelet Morphology Normal Polychromasia 1+ Anisocytosis 1+ Macrocytosis 1+ Sodium Level 139 MMOL/L (136-145) Potassium Level 4.7 MMOL/L (3.5-5.1) Chloride Level 97 MMOL/L (98-107) L Carbon Dioxide Level 29 MMOL/L (21-32) Anion Gap 13 mmol/L (5-15) Blood Urea Nitrogen 67 mg/dL (7-18) H Creatinine 9.9 MG/DL (0.55-1.30) H Estimat Glomerular Filtration Rate 3.9 mL/min (>60) Glucose Level 195 MG/DL (74-106) H Calcium Level 9.0 MG/DL (8.5-10.1) Pro-B-Type Natriuretic Peptide 44233 pg/mL (0-125) H Thyroid Stimulating Hormone (TSH) 1.898 uiU/mL (0.358-3.740) Free Thyroxine 1.36 NG/DL (0.76-1.46) Objective HEAD AND NECK: No JVD. She is orally intubated. LUNGS: Coarse rhonchi. CHEST: Sternotomy scar is healed. CARDIOVASCULAR: Regular S1 and S2 with no gallop. ABDOMEN: Soft. She has a scar from cholecystectomy in the abdomen. EXTREMITIES: Status post left AV shunt. Shawn Robbins MD May 10, 2019 16:55
--- NOTE | 2019-05-10 18:30 | NUR ---
NURSE NOTES: Pt had BM, x1, soft/pasty/brown. Pt was cleaned, dressing, gown/bed linens were changed. Central line dressing was changed. Oral care was done and pt repositioned with bilateral lower extremities elevated on pillows. VS remain stable. Pt is resting in no apparent distress. Bilateral soft wrist restraints remain to prevent self extubation.
--- NOTE | 2019-05-10 19:25 | NUR ---
HAND-OFF: Report given to Tyrell PURCELL. Endorsed plan of care. Family at bedside.
[2019-05-10] MEDS ORDERED: SENSIPAR30 MG ORAL (19:27)
--- NOTE | 2019-05-10 19:27 | NUR ---
NURSE NOTES: Patient received from Gayla PURCELL. Patient is non-verbal orally intubated. opens eyes spontaneously, somnolent. ETT 7.5/23cm lower lip line AC15, 500tv/40%Fio2 and peep of 5. Spo2 is 100%. Bilateral soft wrist restraints. Pulses noted, skin is itnact. OGT, Nepro at 35ml/hr. Multiple wounds see WCP. P200 mattress, SCD's on. L arm AV shunt, brute and thrill noted. R FA 20G noted. 139/48, HR is 73NSR, RR 17, Spo2 100%, temperature is 98.9F. Family is at bedside and updated them on plan of care.
[2019-05-10] MEDS ORDERED: SYNTHROID25 MCG ORAL (19:29)
[2019-05-10] MEDS ORDERED: SIMVASTATIN20 MG ORAL (19:41)
[2019-05-10] MEDS ORDERED: DIPHENHYDRAMINE25 M1 ORAL (19:42)
--- NOTE | 2019-05-10 20:00 | NUR ---
NURSE NOTES: Repositioned patient, oral care provided. Temperature os 100.4F. Cooling measures started. Family is at bedside. Patient is more awake but slightly disoriented, reality reorientation provided. Updated patient and family on plan of care.
[2019-05-10] MEDS: Dyna-Hex 2% Top Sol 2oz TOPIC SCH (20:23)
--- NOTE | 2019-05-10 21:00 | NUR ---
NURSE NOTES: Glucose noted to be 173. Family at bedside. NAD at this time.
--- NOTE | 2019-05-10 22:00 | NUR ---
NURSE NOTES: Patient has one normal BM. Temperature now is 100.2F, cooling bath was given and fan at bedside. Patient was cleaned and repositioned. Patient is more awake at times. HR NSR and BP is stable. Family at bedside.
[2019-05-11] VITALS (28 sets, daily range): BP systolic 85–158; BP diastolic 38–69
--- NOTE | 2019-05-11 | NUR ---
NURSE NOTES: Patient repositioned and given oral care. Vitals have remained stable other than the temperature, patient has been having low grade fevers, 100.2. Patient has been more responsive and awake, she is able to knod to some commands. Patient still slightly lethargic.
--- NOTE | 2019-05-11 02:00 | NUR ---
NURSE NOTES: Patient was repositioned, vitals continue to be stable. Still awake and more alert. No acute distress at this time. RR around 18-22.
--- NOTE | 2019-05-11 04:00 | NUR ---
NURSE NOTES: Patient had another BM. Patient cleaned with cooling bath measures. Patients temperature is 99.9F. She is still awake and more alert than start of shift. No distress. Moderate amount of secretions. Feeds ongoing, very minimal residual.
[2019-05-11 04:33] LABS: HEMOGLOBIN 8.9 G/DL (12.0-16.0); MEAN CORPUSCULAR VOLUME 102 FL (80-99); PLATELET COUNT 85 K/UL (150-450); RED BLOOD COUNT 2.84 M/UL (4.20-5.40); RED CELL DISTRIBUTION WIDTH 18.5 % (11.6-14.8); WHITE BLOOD COUNT 11.6 K/UL (4.8-10.8)
[2019-05-11 04:39] LABS: ANION GAP 10 mmol/L (5-15); BLOOD UREA NITROGEN 50 mg/dL (7-18); CARBON DIOXIDE 32 MMOL/L (21-32); CHLORIDE 100 MMOL/L (98-107); CREATININE 7.3 MG/DL (0.55-1.30); POTASSIUM 4.4 MMOL/L (3.5-5.1); SODIUM 141 MMOL/L (136-145)
--- NOTE | 2019-05-11 06:43 | NUR ---
NURSE NOTES: Repositioned, suctioned, oral care, VSS, 100.1F temperature, NAD, more awake and alert
--- NOTE | 2019-05-11 07:02 | NUR ---
RESPIRATORY NOTE: Received pt on current vent settings on ett. No s/s of distress noted. Vent alarms on and audible. Will cont. to monitor pt.
--- NOTE | 2019-05-11 07:59 | Nephrology Progress Note ---
Assessment/Plan Assessment/Plan: A/P 1) ESRD- HD MWF 2) S/P Cardiac Arrest - EF 55% - stable 3) LE Wounds with Leukocytosis- Abx per ID - Gen Surgery and ID 4) Resp FL- on vent. Improved - possible extubation today 5) DVT prophylaxsis with SCDs Subjective Date patient seen: May 11, 2019 Time patient seen: 07:42 ROS Limited/Unobtainable: Yes Allergies: Coded Allergies: No Known Allergies (Unverified , 05/08/19) Subjective Patient intubated awake and alert Objective Last 24 Hour Vital Signs Date Time Temp Pulse Resp B/P (MAP) Pulse Ox O2 Delivery O2 Flow Rate FiO2 05/11/19 07:02 73 18 40 05/11/19 06:00 75 17 143/53 (83) 100 05/11/19 05:04 74 17 40 05/11/19 05:00 75 15 140/48 (78) 100 05/11/19 04:00 Mechanical Ventilator Mechanical Ventilator 05/11/19 04:00 40 05/11/19 04:00 83 05/11/19 04:00 99.9 74 16 138/45 (76) 100 05/11/19 03:17 76 21 40 05/11/19 03:00 80 22 158/60 (92) 100 05/11/19 02:00 74 19 143/49 (80) 100 05/11/19 01:18 72 17 40 05/11/19 01:00 73 16 144/45 (78) 100 05/11/19 00:00 71 15 144/47 (79) 100 05/11/19 00:00 Mechanical Ventilator Mechanical Ventilator 05/11/19 00:00 79 05/11/19 00:00 40 05/10/19 23:30 72 17 143/47 (79) 100 05/10/19 23:13 71 19 40 05/10/19 23:00 72 18 137/49 (78) 100 05/10/19 22:30 100.2 73 18 136/49 (78) 100 05/10/19 22:00 76 15 157/56 (89) 100 05/10/19 21:14 75 17 40 05/10/19 21:00 74 17 142/49 (80) 100 05/10/19 20:00 40 05/10/19 20:00 Mechanical Ventilator Mechanical Ventilator 05/10/19 20:00 72 05/10/19 20:00 100.4 70 18 141/49 (79) 100 05/10/19 19:27 74 17 40 05/10/19 19:00 75 18 139/48 (78) 100 05/10/19 18:00 73 14 135/50 (78) 99 05/10/19 17:09 81 17 40 05/10/19 17:00 82 21 146/52 (83) 100 05/10/19 16:00 Mechanical Ventilator Mechanical Ventilator 05/10/19 16:00 40 05/10/19 16:00 99.5 70 16 134/46 (75) 99 05/10/19 16:00 82 05/10/19 15:03 76 18 40 05/10/19 15:00 78 19 143/60 (87) 100 05/10/19 14:00 72 16 131/45 (73) 96 05/10/19 13:00 71 21 144/53 (83) 93 05/10/19 12:57 74 24 40 05/10/19 12:00 40 05/10/19 12:00 64 05/10/19 12:00 98.8 64 16 115/41 (65) 94 05/10/19 12:00 Mechanical Ventilator Mechanical Ventilator 05/10/19 11:01 68 21 40 05/10/19 11:00 67 17 105/41 (62) 100 05/10/19 10:00 70 18 116/39 (64) 100 05/10/19 09:30 68 16 114/40 (64) 100 05/10/19 09:03 68 16 40 05/10/19 09:00 69 17 119/39 (65) 98 05/10/19 08:00 40 05/10/19 08:00 Mechanical Ventilator Mechanical Ventilator 05/10/19 08:00 98.4 77 20 132/47 (75) 100 05/10/19 08:00 71 05/10/19 07:53 77 23 40 Intake and Output 05/10/19 05/11/19 19:00 07:00 Intake Total 480 ml 385 ml Output Total 1500 ml Balance -1020 ml 385 ml Free Water 60 ml Tube Feeding 420 ml 385 ml Output Hemodialysis UF 1500 ml Laboratory Tests 05/11/19 04:00: White Blood Count 11.6H, Red Blood Count 2.84L, Hemoglobin 8.9L, Hematocrit 29.0L, Mean Corpuscular Volume 102H, Mean Corpuscular Hemoglobin 31.2H, Mean Corpuscular Hemoglobin Concent 30.6L, Red Cell Distribution Width 18.5H, Platelet Count 85L, Mean Platelet Volume 8.8, Neutrophils (%) (Auto) , Lymphocytes (%) (Auto) , Monocytes (%) (Auto) , Eosinophils (%) (Auto) , Basophils (%) (Auto) , Sodium Level 141, Potassium Level 4.4, Chloride Level 100 , Carbon Dioxide Level 32, Anion Gap 10, Blood Urea Nitrogen 50H, Creatinine 7.3H, Estimat Glomerular Filtration Rate 5.6, Glucose Level 191H, Calcium Level 9.0 Height (Feet): 4 Height (Inches): 10.00 Weight (Pounds): 139 General Appearance: no apparent distress EENT: normal ENT inspection Neck: normal alignment, supple Cardiovascular: normal rate, regular rhythm Respiratory/Chest: rhonchi - bilaterally Abdomen: non tender, soft Edema: no edema noted Arm (L), no edema noted Arm (R), no edema noted Leg (L), no edema noted Leg (R), no edema noted Pedal (L), no edema noted Pedal (R), no edema noted Generalized David Zapata MD May 11, 2019 07:59
--- NOTE | 2019-05-11 08:00 | NUR ---
NURSE NOTES: Received change of shift report from Tyrell PURCELL. Pt is awake, alert, orally intubated, restless, family (daughter) at bedside. ETT 7.5 at 23cm mid-lipline with vent settings AC15, VT500, Peep 5.0 with FIO2 40% at 100% O2Sat. Bilateral rhonchi/rales noted on auscultation. NSR is noted on power checker. Right femoral TLC is present, saline locked/TKO, patent/intact. Pt also has right hand #20G peripheral IV access, saline locked, patent/intact. Temp 99.5F axillary. OG tube with feeding Nepro 1.8 at 35ml/hour with no residual. Abdomen is large, round, soft/nontender to touch with hyperactive bowel sounds. Skin has sacral and bilateral heel DTI, abd fold abrasion, covered with dressings/treatment as recommended. Pt is on P200 pressure releasing mattress with bilateral SCDs on lower extremities for DVT prophylaxis. Bilateral soft wrist restraints are in place to prevent self extubation as pt is very restless and is observed attempting to reach/pull out ET tube. Skin integrity at restraint site is within normal limits. Head of bed is at 30degrees, bed locked, in lowest position, three side rails up, and call light within reach.
--- NOTE | 2019-05-11 10:00 | NUR ---
NURSE NOTES: Pt was seen by Dr Raza. Per MD order, pt is being weaned off vent AC settings, currently on PS 8, CPAP 5, FIO2 40% at 99% O2Sat. Pt is tolerating weaning well with RSBI at 54, NIF -30 per RT. Will draw ABGs after 1 hour and report results to .
--- NOTE | 2019-05-11 10:18 | Cardiac Electrophysiology PN ---
Assessment/Plan Assessment/Plan 1. Status post two cardiac arrests, likely ventricular tachycardia based on 12- lead EKG in this patient with history of coronary artery disease. This is likely not infarction. Troponin elevation only minimal and level flat likely due two CPR in this patient with hemodialysis. Echocardiogram showed EF 50-55% 2. History of open heart surgery in 2010. The family, however, is not sure if its bypass or for valve replacement . Medical records from [facility] said records are not available for 2 weeks 3. Respiratory failure, currently on the ventilator. BNP is 17,000. On dialysis any ways. Extubated today 4. End-stage renal disease, on hemodialysis. 5. Anemia. DW RN Subjective Subjective Intubated in ICU. Extubation pending today. In SR Objective Last 24 Hour Vital Signs Date Time Temp Pulse Resp B/P (MAP) Pulse Ox O2 Delivery O2 Flow Rate FiO2 05/11/19 09:40 68 19 40 40 05/11/19 07:02 73 18 40 05/11/19 06:00 75 17 143/53 (83) 100 05/11/19 05:04 74 17 40 05/11/19 05:00 75 15 140/48 (78) 100 05/11/19 04:00 Mechanical Ventilator Mechanical Ventilator 05/11/19 04:00 40 05/11/19 04:00 83 05/11/19 04:00 99.9 74 16 138/45 (76) 100 05/11/19 03:17 76 21 40 05/11/19 03:00 80 22 158/60 (92) 100 05/11/19 02:00 74 19 143/49 (80) 100 05/11/19 01:18 72 17 40 05/11/19 01:00 73 16 144/45 (78) 100 05/11/19 00:00 71 15 144/47 (79) 100 05/11/19 00:00 Mechanical Ventilator Mechanical Ventilator 05/11/19 00:00 79 05/11/19 00:00 40 05/10/19 23:30 72 17 143/47 (79) 100 05/10/19 23:13 71 19 40 05/10/19 23:00 72 18 137/49 (78) 100 05/10/19 22:30 100.2 73 18 136/49 (78) 100 05/10/19 22:00 76 15 157/56 (89) 100 05/10/19 21:14 75 17 40 05/10/19 21:00 74 17 142/49 (80) 100 05/10/19 20:00 40 05/10/19 20:00 Mechanical Ventilator Mechanical Ventilator 05/10/19 20:00 72 05/10/19 20:00 100.4 70 18 141/49 (79) 100 05/10/19 19:27 74 17 40 05/10/19 19:00 75 18 139/48 (78) 100 05/10/19 18:00 73 14 135/50 (78) 99 05/10/19 17:09 81 17 40 05/10/19 17:00 82 21 146/52 (83) 100 05/10/19 16:00 Mechanical Ventilator Mechanical Ventilator 05/10/19 16:00 40 05/10/19 16:00 99.5 70 16 134/46 (75) 99 05/10/19 16:00 82 05/10/19 15:03 76 18 40 05/10/19 15:00 78 19 143/60 (87) 100 05/10/19 14:00 72 16 131/45 (73) 96 05/10/19 13:00 71 21 144/53 (83) 93 05/10/19 12:57 74 24 40 05/10/19 12:00 40 05/10/19 12:00 64 05/10/19 12:00 98.8 64 16 115/41 (65) 94 05/10/19 12:00 Mechanical Ventilator Mechanical Ventilator 05/10/19 11:01 68 21 40 05/10/19 11:00 67 17 105/41 (62) 100 Intake and Output 05/10/19 05/11/19 19:00 07:00 Intake Total 480 ml 385 ml Output Total 1500 ml Balance -1020 ml 385 ml Free Water 60 ml Tube Feeding 420 ml 385 ml Output Hemodialysis UF 1500 ml Laboratory Tests Test 05/11/19 04:00 White Blood Count 11.6 K/UL (4.8-10.8) H Red Blood Count 2.84 M/UL (4.20-5.40) L Hemoglobin 8.9 G/DL (12.0-16.0) L Hematocrit 29.0 % (37.0-47.0) L Mean Corpuscular Volume 102 FL (80-99) H Mean Corpuscular Hemoglobin 31.2 PG (27.0-31.0) H Mean Corpuscular Hemoglobin Concent 30.6 G/DL (32.0-36.0) L Red Cell Distribution Width 18.5 % (11.6-14.8) H Platelet Count 85 K/UL (150-450) L Mean Platelet Volume 8.8 FL (6.5-10.1) Neutrophils (%) (Auto) % (45.0-75.0) Lymphocytes (%) (Auto) % (20.0-45.0) Monocytes (%) (Auto) % (1.0-10.0) Eosinophils (%) (Auto) % (0.0-3.0) Basophils (%) (Auto) % (0.0-2.0) Sodium Level 141 MMOL/L (136-145) Potassium Level 4.4 MMOL/L (3.5-5.1) Chloride Level 100 MMOL/L (98-107) Carbon Dioxide Level 32 MMOL/L (21-32) Anion Gap 10 mmol/L (5-15) Blood Urea Nitrogen 50 mg/dL (7-18) H Creatinine 7.3 MG/DL (0.55-1.30) H Estimat Glomerular Filtration Rate 5.6 mL/min (>60) Glucose Level 191 MG/DL (74-106) H Calcium Level 9.0 MG/DL (8.5-10.1) Microbiology Date/Time Source Procedure Growth Status 05/09/19 04:50 Nasal Nares MRSA Culture - Final NO METHICILLIN RESISTANT STAPH AUREUS... Complete 05/09/19 04:50 Rectum VRE Culture - Final NO VANCOMYCIN RESISTANT ENTEROCOCCUS ... Complete 05/09/19 04:50 Rectum - Final NO CARBAPENEM-RESISTANT ENTEROBACTERI... Complete Objective HEAD AND NECK: No JVD. She is orally intubated. LUNGS: Coarse rhonchi. CHEST: Sternotomy scar is healed. CARDIOVASCULAR: Regular S1 and S2 with no gallop. ABDOMEN: Soft. She has a scar from cholecystectomy in the abdomen. EXTREMITIES: Status post left AV shunt. Shawn Robbins MD May 11, 2019 10:18
--- NOTE | 2019-05-11 11:00 | NUR ---
NURSE NOTES: Pt had BM x1, soft/pasty light brown. Pt was cleaned and repositioned with bilateral extremities elevated on pillows.
--- NOTE | 2019-05-11 11:55 | Infectious Diseases Prog Note ---
Assessment/Plan Assessment/Plan Abx: None Assessment: s/p cardiac arrest x2 -CT head: Chronic and age-related changes. Negative for acute intracranial bleed or mass effect, Old infarcts, as described Low grade fever MIld leukocytosis- likely reactive ?Aspiration PNA -05/11 CXR:Interstitial edema. This may be slightly improved since the previous da -05/08 CXR: Satisfactory endotracheal intubation. Evidence of bilateral pulmonary edema. Cardiomegaly VDRF Hypoglycemia HTN ESRD on HD via L arm AVS CAD s/p CABG Plan: -Start empiric ZOsyn -f/u cx -Monitor CBC/CMP, temperatures -ETT/ICU care -aspiration precautions Thank you for conulting [facility]. Will continue to follow along with you. Discussed with RN. Subjective Allergies: Coded Allergies: No Known Allergies (Unverified , 05/08/19) Subjective Tm 100.6 mild leukcotyosis Objective Vital Signs Last 24 Hour Vital Signs Date Time Temp Pulse Resp B/P (MAP) Pulse Ox O2 Delivery O2 Flow Rate FiO2 05/11/19 10:00 75 19 113/42 (65) 100 05/11/19 09:40 68 19 40 40 05/11/19 09:00 75 20 85/59 (68) 100 05/11/19 08:00 40 05/11/19 08:00 Mechanical Ventilator Mechanical Ventilator 05/11/19 08:00 70 15 121/40 (67) 100 05/11/19 07:02 73 18 40 05/11/19 07:00 99.5 73 16 141/50 (80) 100 05/11/19 06:00 75 17 143/53 (83) 100 05/11/19 05:04 74 17 40 05/11/19 05:00 75 15 140/48 (78) 100 05/11/19 04:00 Mechanical Ventilator Mechanical Ventilator 05/11/19 04:00 40 05/11/19 04:00 83 05/11/19 04:00 99.9 74 16 138/45 (76) 100 05/11/19 03:17 76 21 40 05/11/19 03:00 80 22 158/60 (92) 100 05/11/19 02:00 74 19 143/49 (80) 100 05/11/19 01:18 72 17 40 05/11/19 01:00 73 16 144/45 (78) 100 05/11/19 00:00 71 15 144/47 (79) 100 05/11/19 00:00 Mechanical Ventilator Mechanical Ventilator 05/11/19 00:00 79 05/11/19 00:00 40 05/10/19 23:30 72 17 143/47 (79) 100 05/10/19 23:13 71 19 40 05/10/19 23:00 72 18 137/49 (78) 100 05/10/19 22:30 100.2 73 18 136/49 (78) 100 05/10/19 22:00 76 15 157/56 (89) 100 05/10/19 21:14 75 17 40 05/10/19 21:00 74 17 142/49 (80) 100 05/10/19 20:00 40 05/10/19 20:00 Mechanical Ventilator Mechanical Ventilator 05/10/19 20:00 72 05/10/19 20:00 100.4 70 18 141/49 (79) 100 05/10/19 19:27 74 17 40 05/10/19 19:00 75 18 139/48 (78) 100 05/10/19 18:00 73 14 135/50 (78) 99 05/10/19 17:09 81 17 40 05/10/19 17:00 82 21 146/52 (83) 100 05/10/19 16:00 Mechanical Ventilator Mechanical Ventilator 05/10/19 16:00 40 05/10/19 16:00 99.5 70 16 134/46 (75) 99 05/10/19 16:00 82 05/10/19 15:03 76 18 40 05/10/19 15:00 78 19 143/60 (87) 100 05/10/19 14:00 72 16 131/45 (73) 96 05/10/19 13:00 71 21 144/53 (83) 93 05/10/19 12:57 74 24 40 05/10/19 12:00 40 05/10/19 12:00 64 05/10/19 12:00 98.8 64 16 115/41 (65) 94 05/10/19 12:00 Mechanical Ventilator Mechanical Ventilator Height (Feet): 4 Height (Inches): 10.00 Weight (Pounds): 139 Objective GENERAL: The patient is intubated on mechanical ventilation. HEENT: Conjugate eye gaze. No lymphadenopathy. CARDIOVASCULAR: S1, S2. No rubs or gallops. PULMONARY: Mild upper rhonchi. Fair air movement in all pis[place]. ABDOMEN: Nondistended, nontender. Good bowel sounds. EXTREMITIES: No edema noted. Microbiology Date/Time Source Procedure Growth Status 05/09/19 04:50 Nasal Nares MRSA Culture - Final NO METHICILLIN RESISTANT STAPH AUREUS... Complete 05/09/19 04:50 Rectum VRE Culture - Final NO VANCOMYCIN RESISTANT ENTEROCOCCUS ... Complete 05/09/19 04:50 Rectum - Final NO CARBAPENEM-RESISTANT ENTEROBACTERI... Complete Laboratory Tests Test 05/11/19 04:00 05/11/19 11:28 White Blood Count 11.6 K/UL (4.8-10.8) H Red Blood Count 2.84 M/UL (4.20-5.40) L Hemoglobin 8.9 G/DL (12.0-16.0) L Hematocrit 29.0 % (37.0-47.0) L Mean Corpuscular Volume 102 FL (80-99) H Mean Corpuscular Hemoglobin 31.2 PG (27.0-31.0) H Mean Corpuscular Hemoglobin Concent 30.6 G/DL (32.0-36.0) L Red Cell Distribution Width 18.5 % (11.6-14.8) H Platelet Count 85 K/UL (150-450) L Mean Platelet Volume 8.8 FL (6.5-10.1) Neutrophils (%) (Auto) % (45.0-75.0) Lymphocytes (%) (Auto) % (20.0-45.0) Monocytes (%) (Auto) % (1.0-10.0) Eosinophils (%) (Auto) % (0.0-3.0) Basophils (%) (Auto) % (0.0-2.0) Sodium Level 141 MMOL/L (136-145) Potassium Level 4.4 MMOL/L (3.5-5.1) Chloride Level 100 MMOL/L (98-107) Carbon Dioxide Level 32 MMOL/L (21-32) Anion Gap 10 mmol/L (5-15) Blood Urea Nitrogen 50 mg/dL (7-18) H Creatinine 7.3 MG/DL (0.55-1.30) H Estimat Glomerular Filtration Rate 5.6 mL/min (>60) Glucose Level 191 MG/DL (74-106) H Calcium Level 9.0 MG/DL (8.5-10.1) Arterial Blood pH 7.519 (7.350-7.450) Arterial Blood Partial Pressure CO2 30.0 mmHg (35.0-45.0) L Arterial Blood Partial Pressure O2 120.1 mmHg (75.0-100.0) H Arterial Blood HCO3 23.9 mmol/L (22.0-26.0) Arterial Blood Oxygen Saturation 98.6 % (95-100) Arterial Blood Base Excess 1.3 (-2-2) Jonathan Test Positive Current Medications Medications (Trade) Dose Ordered Sig/Sylwia Route PRN Reason Start Time Stop Time Status Last Admin Dose Admin Chlorhexidine Gluconate (Karla-Hex 2%) 1 applic DAILY@1999 TOPIC 05/10/19 20:00 06/09/19 19:59 05/10/19 20:23 Dextrose (Dextrose 50%) 25 ml Q30M PRN IV Hypoglycemia 05/09/19 08:15 06/08/19 08:14 Dextrose (Dextrose 50%) 50 ml Q30M PRN IV Hypoglycemia 05/09/19 08:15 06/08/19 08:14 Ondansetron HCl (Zofran) 4 mg Q6H PRN IVP Nausea & Vomiting 05/09/19 08:15 06/08/19 08:14 Pantoprazole (Protonix) 40 mg DAILY IVP 05/09/19 12:15 06/08/19 12:14 05/10/19 20:23 Danita Wilkins M.D. May 11, 2019 11:55
--- NOTE | 2019-05-11 12:01 | NUR ---
AUDIO TECHNICIANMASH TUB COOKER OPERATOR SI: RESP FAILURE ETT/VENT SUPPORT T. 99.5 HR 73 RR 15 B/P 121/40 CPAP FIO2 405 PEEP 5 PS 8 IS: ZOSYN IV WEANING PROTOCOL ICU STATUS
--- NOTE | 2019-05-11 12:30 | NUR ---
NURSE NOTES: Pt was extubated per Dr Raza's order and placed on cool aerosol 40% FIO2, and now with 99% O2Sat. OG tube was also removed with the ETT per Dr Zapata's instructions. Plan for ST eval per Dr Zapata's order prior to PO diet. Pt's daughter is at bedside. VS remain stable.
--- NOTE | 2019-05-11 13:00 | NUR ---
NURSE NOTES: Pt had BM x1, soft/pasty light brown. Pt was cleaned and repositioned.
--- NOTE | 2019-05-11 13:30 | Pulmonology Progress Note ---
Assessment/Plan Assessment/Plan IMPRESSION: 1. Non-STEMI. 2. ESRD, on dialysis. 3. Pulmonary edema. 4. Respiratory failure. 5. Hypoglycemia. 6. Hyperglycemia now. 7. Hyperkalemia. DISCUSSION: 1. Continue ICU care 2. Agree with current medications and care. 3. Will extubate 5, FiO2 40%. 4. The patient will need dialysis per renal. Remigio Raza M.D. Subjective Interval Events: Looking and feeling better; ready for extubation Constitutional: Reports: no symptoms HEENT: Repors: no symptoms Respiratory: Reports: no symptoms Cardiovascular: Reports: no symptoms Gastrointestinal/Abdominal: Reports: no symptoms Allergies: Coded Allergies: No Known Allergies (Unverified , 05/08/19) Objective Last 24 Hour Vital Signs Date Time Temp Pulse Resp B/P (MAP) Pulse Ox O2 Delivery O2 Flow Rate FiO2 05/11/19 12:15 Venturi Mask 10.0 40 05/11/19 12:15 40 05/11/19 12:00 Mechanical Ventilator Mechanical Ventilator 05/11/19 12:00 40 05/11/19 12:00 71 05/11/19 12:00 98.7 71 16 129/46 (73) 100 05/11/19 11:00 71 18 132/45 (74) 100 05/11/19 10:00 75 19 113/42 (65) 100 05/11/19 09:40 68 19 40 40 05/11/19 09:40 99 05/11/19 09:00 75 20 85/59 (68) 100 05/11/19 08:00 40 05/11/19 08:00 Mechanical Ventilator Mechanical Ventilator 05/11/19 08:00 70 15 121/40 (67) 100 05/11/19 08:00 68 05/11/19 07:02 73 18 40 05/11/19 07:00 99.5 73 16 141/50 (80) 100 05/11/19 06:00 75 17 143/53 (83) 100 05/11/19 05:04 74 17 40 05/11/19 05:00 75 15 140/48 (78) 100 05/11/19 04:00 Mechanical Ventilator Mechanical Ventilator 05/11/19 04:00 40 05/11/19 04:00 83 05/11/19 04:00 99.9 74 16 138/45 (76) 100 05/11/19 03:17 76 21 40 05/11/19 03:00 80 22 158/60 (92) 100 05/11/19 02:00 74 19 143/49 (80) 100 05/11/19 01:18 72 17 40 05/11/19 01:00 73 16 144/45 (78) 100 05/11/19 00:00 71 15 144/47 (79) 100 05/11/19 00:00 Mechanical Ventilator Mechanical Ventilator 05/11/19 00:00 79 05/11/19 00:00 40 05/10/19 23:30 72 17 143/47 (79) 100 05/10/19 23:13 71 19 40 05/10/19 23:00 72 18 137/49 (78) 100 05/10/19 22:30 100.2 73 18 136/49 (78) 100 05/10/19 22:00 76 15 157/56 (89) 100 05/10/19 21:14 75 17 40 05/10/19 21:00 74 17 142/49 (80) 100 05/10/19 20:00 40 05/10/19 20:00 Mechanical Ventilator Mechanical Ventilator 05/10/19 20:00 72 05/10/19 20:00 100.4 70 18 141/49 (79) 100 05/10/19 19:27 74 17 40 05/10/19 19:00 75 18 139/48 (78) 100 05/10/19 18:00 73 14 135/50 (78) 99 05/10/19 17:09 81 17 40 05/10/19 17:00 82 21 146/52 (83) 100 05/10/19 16:00 Mechanical Ventilator Mechanical Ventilator 05/10/19 16:00 40 05/10/19 16:00 99.5 70 16 134/46 (75) 99 05/10/19 16:00 82 05/10/19 15:03 76 18 40 05/10/19 15:00 78 19 143/60 (87) 100 05/10/19 14:00 72 16 131/45 (73) 96 Intake and Output 05/10/19 05/11/19 19:00 07:00 Intake Total 480 ml 420 ml Output Total 1500 ml Balance -1020 ml 420 ml Free Water 60 ml Tube Feeding 420 ml 420 ml Output Hemodialysis UF 1500 ml General Appearance: no acute distress HEENT: normocephalic Respiratory/Chest: chest wall non-tender, lungs clear Cardiovascular: normal peripheral pulses Abdomen: normal bowel sounds Extremities: no cyanosis Microbiology Date/Time Source Procedure Growth Status 05/09/19 04:50 Nasal Nares MRSA Culture - Final NO METHICILLIN RESISTANT STAPH AUREUS... Complete 05/09/19 04:50 Rectum VRE Culture - Final NO VANCOMYCIN RESISTANT ENTEROCOCCUS ... Complete 05/09/19 04:50 Rectum - Final NO CARBAPENEM-RESISTANT ENTEROBACTERI... Complete Laboratory Tests 05/11/19 04:00: White Blood Count 11.6H, Red Blood Count 2.84L, Hemoglobin 8.9L, Hematocrit 29.0L, Mean Corpuscular Volume 102H, Mean Corpuscular Hemoglobin 31.2H, Mean Corpuscular Hemoglobin Concent 30.6L, Red Cell Distribution Width 18.5H, Platelet Count 85L, Mean Platelet Volume 8.8, Neutrophils (%) (Auto) , Lymphocytes (%) (Auto) , Monocytes (%) (Auto) , Eosinophils (%) (Auto) , Basophils (%) (Auto) , Sodium Level 141, Potassium Level 4.4, Chloride Level 100 , Carbon Dioxide Level 32, Anion Gap 10, Blood Urea Nitrogen 50H, Creatinine 7.3H, Estimat Glomerular Filtration Rate 5.6, Glucose Level 191H, Calcium Level 9.0 05/11/19 11:28: Arterial Blood pH 7.519H, Arterial Blood Partial Pressure CO2 30.0L, Arterial Blood Partial Pressure O2 120.1H, Arterial Blood HCO3 23.9, Arterial Blood Oxygen Saturation 98.6, Arterial Blood Base Excess 1.3, Jonathan Test Positive Current Medications Medications (Trade) Dose Ordered Sig/Sylwia Route PRN Reason Start Time Stop Time Status Last Admin Dose Admin Chlorhexidine Gluconate (Karla-Hex 2%) 1 applic DAILY@1999 TOPIC 05/10/19 20:00 06/09/19 19:59 05/10/19 20:23 Dextrose (Dextrose 50%) 25 ml Q30M PRN IV Hypoglycemia 05/09/19 08:15 06/08/19 08:14 Dextrose (Dextrose 50%) 50 ml Q30M PRN IV Hypoglycemia 05/09/19 08:15 06/08/19 08:14 Ondansetron HCl (Zofran) 4 mg Q6H PRN IVP Nausea & Vomiting 05/09/19 08:15 06/08/19 08:14 Pantoprazole (Protonix) 40 mg DAILY IVP 05/09/19 12:15 06/08/19 12:14 05/10/19 20:23 Piperacillin Sod/ Tazobactam Sod 2.25 gm/Dextrose 55 ml @ 110 mls/hr Q8HR IVPB 05/11/19 14:00 05/16/19 13:59 Remigio Raza MD May 11, 2019 13:29
[2019-05-11] MEDS ORDERED: Piperacillin/Tazobactam 2.25 GM in D5W 55 ML IVPB SCH (14:00)
--- NOTE | 2019-05-11 14:00 | NUR ---
NURSE NOTES: Pt was seen and examined by Dr Wilkins. aware of lab results including WBC and fluctuations in Temp from 100.4F to 99.5.; and frequent bowel movements, soft/pasty light brown, x5 within the last 24 hours. Order noted for Zosyn IVPB 2.25gm Q8hrs. No additional orders received at this time.
--- NOTE | 2019-05-11 14:34 | NUR ---
RD ASSESSMENT & RECOMMENDATIONS SEE CARE ACTIVITY FOR COMPLETE ASSESSMENT DAILY ESTIMATED NEEDS: Needs based on Pulmonary, ESRD on HD, wounds; 56.3kg adj 25-35 kcals/kg [id number] total kcals 1.25-1.8 g protein/kg 70-101 g total protein Fluid per MD- on HD NUTRITION DIAGNOSIS: * Increased pro needs r/t wound healing and renal dysfunction AEB pt adm w/ BL heel and sacral DTI (per RN), WC eval pending, w/ ESRD on HD. * Swallowing difficulty r/t respiratory status AEB pt is now extubated currently on TF, pending COVERING MACHINE OPERATOR eval for oral diet. CURRENT DIET:NPO PO DIET RECOMMENDATIONS: Renal / CCHO LOW diet, texture per COVERING MACHINE OPERATOR ADDITIONAL RECOMMENDATIONS: 1) With prolonged NPO/Intubation- see TF recs as above-COVERING MACHINE OPERATOR eval pending 2) Wound healing- w/ diet order, add Juan Daniel in 4oz H2O BID + Nephrovite qdaily 3) Maintain calibrated bedscale wt 4) F/up w/ COVERING MACHINE OPERATOR eval for texture 5) W/ oral diet: NEPRO qdaily- monitor po intake/ need to increase 6) Monitor BG-> 190's, need for NISS
--- NOTE | 2019-05-11 15:27 | Surgery Progress Note ---
Surgery Progress Note Subjective Additional Comments improving labs improved exam improved overall doing better Objective Last 24 Hour Vital Signs Date Time Temp Pulse Resp B/P (MAP) Pulse Ox O2 Delivery O2 Flow Rate FiO2 05/11/19 13:30 74 17 136/44 (74) 99 05/11/19 13:00 84 17 127/69 (88) 100 05/11/19 12:15 Venturi Mask 10.0 40 05/11/19 12:15 40 05/11/19 12:00 Mechanical Ventilator Mechanical Ventilator 05/11/19 12:00 40 05/11/19 12:00 71 05/11/19 12:00 98.7 71 16 129/46 (73) 100 05/11/19 11:00 71 18 132/45 (74) 100 05/11/19 10:00 75 19 113/42 (65) 100 05/11/19 09:40 68 19 40 40 05/11/19 09:40 99 05/11/19 09:00 75 20 85/59 (68) 100 05/11/19 08:00 40 05/11/19 08:00 Mechanical Ventilator Mechanical Ventilator 05/11/19 08:00 70 15 121/40 (67) 100 05/11/19 08:00 68 05/11/19 07:02 73 18 40 05/11/19 07:00 99.5 73 16 141/50 (80) 100 05/11/19 06:00 75 17 143/53 (83) 100 05/11/19 05:04 74 17 40 05/11/19 05:00 75 15 140/48 (78) 100 05/11/19 04:00 Mechanical Ventilator Mechanical Ventilator 05/11/19 04:00 40 05/11/19 04:00 83 05/11/19 04:00 99.9 74 16 138/45 (76) 100 05/11/19 03:17 76 21 40 05/11/19 03:00 80 22 158/60 (92) 100 05/11/19 02:00 74 19 143/49 (80) 100 05/11/19 01:18 72 17 40 05/11/19 01:00 73 16 144/45 (78) 100 05/11/19 00:00 71 15 144/47 (79) 100 05/11/19 00:00 Mechanical Ventilator Mechanical Ventilator 05/11/19 00:00 79 05/11/19 00:00 40 05/10/19 23:30 72 17 143/47 (79) 100 05/10/19 23:13 71 19 40 05/10/19 23:00 72 18 137/49 (78) 100 05/10/19 22:30 100.2 73 18 136/49 (78) 100 05/10/19 22:00 76 15 157/56 (89) 100 05/10/19 21:14 75 17 40 05/10/19 21:00 74 17 142/49 (80) 100 05/10/19 20:00 40 05/10/19 20:00 Mechanical Ventilator Mechanical Ventilator 05/10/19 20:00 72 05/10/19 20:00 100.4 70 18 141/49 (79) 100 05/10/19 19:27 74 17 40 05/10/19 19:00 75 18 139/48 (78) 100 05/10/19 18:00 73 14 135/50 (78) 99 05/10/19 17:09 81 17 40 05/10/19 17:00 82 21 146/52 (83) 100 05/10/19 16:00 Mechanical Ventilator Mechanical Ventilator 05/10/19 16:00 40 05/10/19 16:00 99.5 70 16 134/46 (75) 99 05/10/19 16:00 82 I&O Intake and Output 05/10/19 05/11/19 19:00 07:00 Intake Total 480 ml 420 ml Output Total 1500 ml Balance -1020 ml 420 ml Free Water 60 ml Tube Feeding 420 ml 420 ml Output Hemodialysis UF 1500 ml Dressing: other Wound: other Drains: other Cardiovascular: RSR Respiratory: decreased breath sounds Abdomen: soft, present bowel sounds Extremities: no cyanosis, other Laboratory Tests Test 05/11/19 04:00 05/11/19 11:28 White Blood Count 11.6 K/UL (4.8-10.8) H Red Blood Count 2.84 M/UL (4.20-5.40) L Hemoglobin 8.9 G/DL (12.0-16.0) L Hematocrit 29.0 % (37.0-47.0) L Mean Corpuscular Volume 102 FL (80-99) H Mean Corpuscular Hemoglobin 31.2 PG (27.0-31.0) H Mean Corpuscular Hemoglobin Concent 30.6 G/DL (32.0-36.0) L Red Cell Distribution Width 18.5 % (11.6-14.8) H Platelet Count 85 K/UL (150-450) L Mean Platelet Volume 8.8 FL (6.5-10.1) Neutrophils (%) (Auto) % (45.0-75.0) Lymphocytes (%) (Auto) % (20.0-45.0) Monocytes (%) (Auto) % (1.0-10.0) Eosinophils (%) (Auto) % (0.0-3.0) Basophils (%) (Auto) % (0.0-2.0) Sodium Level 141 MMOL/L (136-145) Potassium Level 4.4 MMOL/L (3.5-5.1) Chloride Level 100 MMOL/L (98-107) Carbon Dioxide Level 32 MMOL/L (21-32) Anion Gap 10 mmol/L (5-15) Blood Urea Nitrogen 50 mg/dL (7-18) H Creatinine 7.3 MG/DL (0.55-1.30) H Estimat Glomerular Filtration Rate 5.6 mL/min (>60) Glucose Level 191 MG/DL (74-106) H Calcium Level 9.0 MG/DL (8.5-10.1) Arterial Blood pH 7.519 (7.350-7.450) Arterial Blood Partial Pressure CO2 30.0 mmHg (35.0-45.0) L Arterial Blood Partial Pressure O2 120.1 mmHg (75.0-100.0) H Arterial Blood HCO3 23.9 mmol/L (22.0-26.0) Arterial Blood Oxygen Saturation 98.6 % (95-100) Arterial Blood Base Excess 1.3 (-2-2) Jonathan Test Positive Plan Problems: (1) Deep tissue injury Assessment & Plan: Patient presented on admission with a deep tissue injury in the sacral area. Patient was syncopal episode found down. Unknown exact time patient was down and since is suffered a cardiac event requiring resuscitation and ACLS. There is an area of deep tissue injury with erythema in the sacral area extending into the bilateral buttocks butterfly formation. No drainage. No open area. Patient is high risk and susceptible to opening and worsening given her current condition, ICU care, deterioration. We will need to monitor closely and provide aggressive care to ensure healing Air mattress Turn every 2 hours Skin protectant OPTi foam dressing daily and as needed Offload heels with pillows Appreciate nursing care Nutritional support DAILY ESTIMATED NEEDS: Needs based on Critical Care, ESRD on HD, wounds; 56.3kg adj 22- 30 kcals/kg [id number] total kcals 1.25-2 g protein/kg 70-113 g total protein Fluid per MD- on HD NUTRITION DIAGNOSIS: * Increased pro needs r/t wound healing and renal dysfunction AEB pt adm w/ BL heel and sacral DTI (per RN), WC eval pending, w/ ESRD on HD. * Swallowing difficulty r/t respiratory status AEB pt is intubated, currently NPO, pending non oral feeds. CURRENT TF: Per RN Nepro @40ml/hr ENTERAL NUTRITION RECOMMENDATIONS: Nepro @35mL/hr x 24 hrs+ 1 Prosource qdaily to provide 840mL, 1512kcal, 68g pro +11g pro, 611mL free H2O -Obtain GI access, initiate Nepro @15mL/hr, advancing 10mL/hr q 4-6hrs until @ goal. -Provide 1 packet of Prosource- flush with 4oz water -HOB > 30 degrees, Flush per MD ADDITIONAL RECOMMENDATIONS: 1) With prolonged NPO/Intubation- see TF recs as above 2) Wound healing- w/ diet order, add: Juan Daniel in 4oz H2O BID; f/up w/ WC eval 3) Maintain calibrated bedscale wt 4) F/u w/ H&P 5) Feed w/ hemodynamic stability, now off pressor support. (2) Cardiac arrest Assessment & Plan: 61-year-old female multi-medical comorbidities syncopal episode leading to ACLS requiring resuscitation. Currently intensive care unit intubated on ventilatory support Patient is ill-appearing with family at the bedside. Labs noted. Mild elevation troponins. Mild elevated LFTs. Improving since resuscitation current etiology work-up Continue with tube feeds advance to goal Wean vent as tolerated A.m. 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 There is also an old right cerebellar cortical infarct There is age-related enlargement of the ventricles and extra axial CSF spaces. There is periventricular deep white matter low-attenuation, consistent with chronic microvascular ischemic change. The stuart-white differentiation is normal. The calvarium is intact. There is evidence of prior cataract surgery. The sinuses are clear. The mastoids are underpneumatized, otherwise clear. Impression: Chronic and age-related changes Negative for acute intracranial bleed or mass effect, Old infarcts, as described Laron Moreno May 11, 2019 15:27
--- NOTE | 2019-05-11 16:00 | NUR ---
NURSE NOTES: Pt was seen by speech therapist at bedside, and per ST, swallow eval will be done tomorrow early in the AM. Pt is currently on cool aerosol at 40% FIO2, with O2Sat fluctuating in the 90's while still with moderate/thin whitish/yellow secretions. Pt is able to expectorate secretions. VS remain stable. Pt is afebrile at this time with temp 98.7.
--- NOTE | 2019-05-11 18:30 | NUR ---
NURSE NOTES: Pt had BM x1, soft/pasty light brown. Pt was cleaned and repositioned. Pt's daughter is now at bedside. VS remain stable.
--- NOTE | 2019-05-11 19:00 | NUR ---
NURSE NOTES: [facility] nephrology was contacted, spoke with Maria L, and confirmed scheduled bedside dialysis treatment for tomorrow per MD order.
--- NOTE | 2019-05-11 19:30 | NUR ---
NURSE NOTES: Received report from Gayla PURCELL.patient awake,alert able to verbalize needs to staff. Denies any pain or discomfort. Patient is currently on cool aerosol at 40% FIO2, with O2Sat fluctuating to 95-98% with moderate thin whitish secretions. Pt is able to expectorate some secretions. Oral care and suctioned patient. Temp 99.4 axillary will continue cooling measure. HOB elevated. turned and repositioned patient in bed. instructed patient to use call light for assistance. bed alarm on. bed locked and in low position. wound dressing clean and intact. on P200 mattress for wound management. Family at bedside. Right Femoral TLC intact. will continue plan of care.
[2019-05-11] MEDS: Dyna-Hex 2% Top Sol 2oz TOPIC SCH (20:32)
--- NOTE | 2019-05-11 21:30 | NUR ---
NURSE NOTES: Bed bath given tolerated well. HOB elevated. Oral care and suctioned patient. Blood glucose 133mg/dl. Will continue to monitor patient.
[2019-05-11] MEDS: Piperacillin/Tazobactam 2.25 GM in NS 55 ML IVPB SCH (22:09)
--- NOTE | 2019-05-11 22:55 | NUR ---
NURSE NOTES: Called Dr. Raza regarding patient on Cool aerosol at 40%, patient desat to 85% with mod secretions, suctioned and oral care provided. HOB elevated. with jeannie order noted and carried out. RT made aware.
--- NOTE | 2019-05-11 23:16 | NUR ---
NURSE NOTES: Patient in bed HOB elevated, Duoneb breathing treatment given by RT. Patient daughter Kat at bedside. will continue to monitor the patient.
[2019-05-11] MEDS: Albuterol/Ipratropium 3ml neb HHN PRN (23:24)
[2019-05-12] VITALS (23 sets, daily range): BP systolic 88–134; BP diastolic 23–68
--- NOTE | 2019-05-12 01:16 | NUR ---
NURSE NOTES: Patient in bed sleeping at this time. Patient suctioned orally. HOB elevated. denies any pain or discomfort. Temp 99.0 axillary. no s/s of hypo/hyperglycemia. On cool aerosol at 40% satting 100%. frequent visual checks continued. Daughter at bedside.
--- NOTE | 2019-05-12 03:15 | NUR ---
NURSE NOTES: Patient in be resting with moderate secretions suction patient orally. satting 100%. on cool aerosol 40%. HOB elevated. Turned and repositioned. Daughter at bedside. no s/s of acute distress noted. denies nay pain or discomfort. no s/s of acute distress noted. call light within easy reach.
[2019-05-12 04:47] LABS: HEMATOCRIT 25.1 % (37.0-47.0); HEMOGLOBIN 7.9 G/DL (12.0-16.0); MEAN CORPUSCULAR VOLUME 102 FL (80-99); PLATELET COUNT 72 K/UL (150-450); RED BLOOD COUNT 2.45 M/UL (4.20-5.40); RED CELL DISTRIBUTION WIDTH 18.3 % (11.6-14.8); WHITE BLOOD COUNT 9.1 K/UL (4.8-10.8)
--- NOTE | 2019-05-12 05:00 | NUR ---
NURSE NOTES: Pt report received from deena [facility] ICU. pt remains stable. pt is alert and oriented times 1. pt is on face mask able to sat at 99%, no distress noted. pt is on dog groomer showing NSR, no distress noted. pt bed is low, locked, armed, bed rails up times 3, call light within reach.
[2019-05-12 05:03] LABS: ANION GAP 13 mmol/L (5-15); BLOOD UREA NITROGEN 69 mg/dL (7-18); CALCIUM 9.3 MG/DL (8.5-10.1); CARBON DIOXIDE 28 MMOL/L (21-32); CHLORIDE 101 MMOL/L (98-107); CREATININE 8.8 MG/DL (0.55-1.30); POTASSIUM 4.5 MMOL/L (3.5-5.1); SODIUM 142 MMOL/L (136-145)
--- NOTE | 2019-05-12 05:10 | NUR ---
HAND-OFF: Report given to Lambert Braden RN.
[2019-05-12] MEDS: Piperacillin/Tazobactam 2.25 GM in NS 55 ML IVPB SCH ×3 (05:31→21:16)
--- NOTE | 2019-05-12 07:20 | NUR ---
HAND-OFF: Report given to ANGEL [facility] ICU. Pt remains stable.
--- NOTE | 2019-05-12 07:21 | NUR ---
NURSE NOTES: Received patient from BINH Verdin. Patient alert to name and samoan speaking. Patient answers simple questions and follows simple commands. Patient has wet/productive cough but is unable to expectorate. Will follow up with deep nasal suction with RT. patient denies pain or acute distress. Patient vital signs stable at this time. Patient extubated yesterday. Patient on cool aerosol mask with 40% FiO2 at this time. Patient showing sinus rhythm on the timber setter at this time. Patient NPO pending swallow evaluation. Patient oliguric and incontinent. Patient dry at this time. Patient has bilateral heel DTI, sacral DTI, and some open wounds under abdominal folds. Patient also has bruising noted on her upper back and side. Patient has some petechiae noted on her left side. left upper arm active AV shunt noted with thirll/bruit present. Left lower arm old AV shunt. Patient has right hand 20 gauge peripheral IV and right femoral triple lumen catheter. Both patent and saline locked. Dressings dry and intact. Patient on low air loss mattress with SCDs in place. Patient bed in low position with bed alarm on and call light in reach at this time. Will continue to monitor. Patient repositioned and oral care performed at this time.
--- NOTE | 2019-05-12 07:45 | NUR ---
NURSE NOTES: Spoke with Dr Rivera in person. Notified him that patient has not had labs drawn this morning and the electrolytes were abnormal yesterday. He reported that he would place orders for labs and follow up with electrolyte replacement. Will continue to monitor patient and await further orders. Addendum: 05/12/19 at 1542 by Berta Ambrocio RN disregard this note
--- NOTE | 2019-05-12 07:54 | NUR ---
NURSE NOTES: Spoke with Dr Zapata. Received order to remove femoral line once another PIV is initiated. Notified Dr Zapata that the patient has low Hgb of 7.9 this morning and her Hgb has been trending down since admission. No new orders received.
--- NOTE | 2019-05-12 07:58 | Nephrology Progress Note ---
Assessment/Plan Assessment/Plan: A/P 1) ESRD- HD today 2) S/P Cardiac Arrest - EF 55% - stable 3) LE Wounds with Leukocytosis- Abx per ID - Gen Surgery and ID to follow 4) Resp FL- Extubated, and off pressors. Transfer to [facility] 5) DVT prophylaxsis with SCDs 6) Anemia- Thrombocytopenia - follow Hgb - cslt GI Subjective Date patient seen: May 12, 2019 Time patient seen: 07:56 ROS Limited/Unobtainable: No Allergies: Coded Allergies: No Known Allergies (Unverified , 05/08/19) Subjective Patient awake, verbal and extubated Objective Last 24 Hour Vital Signs Date Time Temp Pulse Resp B/P (MAP) Pulse Ox O2 Delivery O2 Flow Rate FiO2 05/12/19 07:00 71 14 124/40 (68) 100 05/12/19 06:00 71 14 129/47 (74) 100 05/12/19 05:00 70 14 116/44 (68) 100 05/12/19 04:00 Simple Mask 12.0 Simple Mask 12.0 05/12/19 04:00 12.0 40 05/12/19 04:00 68 05/12/19 04:00 99.1 72 14 125/45 (71) 100 05/12/19 03:00 99.1 75 18 125/44 (71) 100 05/12/19 02:30 73 15 108/37 (60) 100 05/12/19 02:00 74 18 116/43 (67) 98 05/12/19 01:00 72 21 117/41 (66) 98 05/12/19 00:30 74 19 114/38 (63) 99 05/12/19 00:00 99.0 72 17 128/39 (68) 96 05/12/19 00:00 66 05/12/19 00:00 12.0 40 05/12/19 00:00 Simple Mask 12.0 Simple Mask 12.0 05/11/19 23:24 76 20 99 Cool Aerosol 12.0 50 72 18 97 05/11/19 23:00 74 17 137/59 (85) 99 05/11/19 22:30 67 21 130/50 (76) 93 05/11/19 22:00 71 20 125/38 (67) 98 05/11/19 21:30 66 21 122/47 (72) 91 05/11/19 21:00 73 18 124/43 (70) 99 05/11/19 20:30 74 20 127/45 (72) 98 05/11/19 20:00 12.0 40 05/11/19 20:00 95 Cool Aerosol 12.0 50 05/11/19 20:00 68 05/11/19 20:00 99.4 74 20 127/50 (75) 98 05/11/19 20:00 Simple Mask 12.0 Simple Mask 12.0 05/11/19 19:00 72 18 134/49 (77) 98 05/11/19 18:00 70 16 126/44 (71) 95 05/11/19 17:00 70 20 132/43 (72) 99 05/11/19 16:00 12.0 40 05/11/19 16:00 Mechanical Ventilator Mechanical Ventilator 05/11/19 16:00 98.4 73 19 126/38 (67) 99 05/11/19 16:00 72 05/11/19 15:00 74 19 124/46 (72) 98 05/11/19 14:00 73 17 127/45 (72) 98 05/11/19 13:30 74 17 136/44 (74) 99 05/11/19 13:00 84 17 127/69 (88) 100 05/11/19 12:15 Venturi Mask 10.0 40 05/11/19 12:15 40 05/11/19 12:00 Mechanical Ventilator Mechanical Ventilator 05/11/19 12:00 40 05/11/19 12:00 71 05/11/19 12:00 98.7 71 16 129/46 (73) 100 05/11/19 11:00 71 18 132/45 (74) 100 05/11/19 10:00 75 19 113/42 (65) 100 05/11/19 09:40 68 19 40 40 05/11/19 09:40 99 05/11/19 09:00 75 20 85/59 (68) 100 05/11/19 08:00 40 05/11/19 08:00 Mechanical Ventilator Mechanical Ventilator 05/11/19 08:00 70 15 121/40 (67) 100 05/11/19 08:00 68 Intake and Output 05/11/19 05/12/19 19:00 07:00 Intake Total 315 ml 55 ml Balance 315 ml 55 ml Free Water 30 ml IV Total 110 ml 55 ml Tube Feeding 175 ml # Bowel Movements 3 Laboratory Tests 05/11/19 11:28: Arterial Blood pH 7.519H, Arterial Blood Partial Pressure CO2 30.0L, Arterial Blood Partial Pressure O2 120.1H, Arterial Blood HCO3 23.9, Arterial Blood Oxygen Saturation 98.6, Arterial Blood Base Excess 1.3, Jonathan Test Positive 05/12/19 04:15: White Blood Count 9.1, Red Blood Count 2.45L, Hemoglobin 7.9L, Hematocrit 25.1L , Mean Corpuscular Volume 102H, Mean Corpuscular Hemoglobin 32.1H, Mean Corpuscular Hemoglobin Concent 31.4L, Red Cell Distribution Width 18.3H, Platelet Count 72L, Mean Platelet Volume 8.3, Neutrophils (%) (Auto) , Lymphocytes (%) (Auto) , Monocytes (%) (Auto) , Eosinophils (%) (Auto) , Basophils (%) (Auto) , Neutrophils % (Manual) [Pending], Lymphocytes % (Manual) [Pending], Platelet Estimate [Pending], Platelet Morphology [Pending], Sodium Level 142, Potassium Level 4.5, Chloride Level 101, Carbon Dioxide Level 28, Anion Gap 13, Blood Urea Nitrogen 69H, Creatinine 8.8H, Estimat Glomerular Filtration Rate 4.5, Glucose Level 95, Calcium Level 9.3 Height (Feet): 4 Height (Inches): 10.00 Weight (Pounds): 139 General Appearance: no apparent distress EENT: normal ENT inspection Neck: normal alignment, supple Cardiovascular: normal rate, regular rhythm Respiratory/Chest: lungs clear, normal breath sounds Abdomen: non tender, soft Edema: no edema noted Arm (L), no edema noted Arm (R), no edema noted Leg (L), no edema noted Leg (R), no edema noted Pedal (L), no edema noted Pedal (R), no edema noted Generalized David Zapata MD May 12, 2019 07:58
--- NOTE | 2019-05-12 08:22 | NUR ---
NURSE NOTES: Notified Dr Raza over the phone that the family is requesting something to help the patient stay calm. No new orders received. Dr Raza reported that sedation/anti-anxiety medication is contraindicated at this time. Will notify family when they come in.
--- NOTE | 2019-05-12 08:25 | Pulmonology Progress Note ---
Assessment/Plan Assessment/Plan IMPRESSION: 1. Non-STEMI. 2. ESRD, on dialysis. 3. Pulmonary edema. 4. Respiratory failure. Now extubated 5. Hypoglycemia. 6. Hyperglycemia now. 7. Hyperkalemia. DISCUSSION: 1. Continue current care 2. Agree with current medications and care. 3. Decrease Fio2 5, Transfer to tele 4. The patient will need dialysis per renal. Remigio Raza M.D. Subjective Interval Events: Extubated yesterday Constitutional: Reports: no symptoms HEENT: Repors: no symptoms Respiratory: Reports: no symptoms Cardiovascular: Reports: no symptoms Gastrointestinal/Abdominal: Reports: no symptoms Allergies: Coded Allergies: No Known Allergies (Unverified , 05/08/19) Objective Last 24 Hour Vital Signs Date Time Temp Pulse Resp B/P (MAP) Pulse Ox O2 Delivery O2 Flow Rate FiO2 05/12/19 07:00 71 14 124/40 (68) 100 05/12/19 06:00 71 14 129/47 (74) 100 05/12/19 05:00 70 14 116/44 (68) 100 05/12/19 04:00 Simple Mask 12.0 Simple Mask 12.0 05/12/19 04:00 12.0 40 05/12/19 04:00 68 05/12/19 04:00 99.1 72 14 125/45 (71) 100 05/12/19 03:00 99.1 75 18 125/44 (71) 100 05/12/19 02:30 73 15 108/37 (60) 100 05/12/19 02:00 74 18 116/43 (67) 98 05/12/19 01:00 72 21 117/41 (66) 98 05/12/19 00:30 74 19 114/38 (63) 99 05/12/19 00:00 99.0 72 17 128/39 (68) 96 05/12/19 00:00 66 05/12/19 00:00 12.0 40 05/12/19 00:00 Simple Mask 12.0 Simple Mask 12.0 05/11/19 23:24 76 20 99 Cool Aerosol 12.0 50 72 18 97 05/11/19 23:00 74 17 137/59 (85) 99 05/11/19 22:30 67 21 130/50 (76) 93 05/11/19 22:00 71 20 125/38 (67) 98 05/11/19 21:30 66 21 122/47 (72) 91 05/11/19 21:00 73 18 124/43 (70) 99 05/11/19 20:30 74 20 127/45 (72) 98 05/11/19 20:00 12.0 40 05/11/19 20:00 95 Cool Aerosol 12.0 50 05/11/19 20:00 68 05/11/19 20:00 99.4 74 20 127/50 (75) 98 05/11/19 20:00 Simple Mask 12.0 Simple Mask 12.0 05/11/19 19:00 72 18 134/49 (77) 98 05/11/19 18:00 70 16 126/44 (71) 95 05/11/19 17:00 70 20 132/43 (72) 99 05/11/19 16:00 12.0 40 05/11/19 16:00 Mechanical Ventilator Mechanical Ventilator 05/11/19 16:00 98.4 73 19 126/38 (67) 99 05/11/19 16:00 72 05/11/19 15:00 74 19 124/46 (72) 98 05/11/19 14:00 73 17 127/45 (72) 98 05/11/19 13:30 74 17 136/44 (74) 99 05/11/19 13:00 84 17 127/69 (88) 100 05/11/19 12:15 Venturi Mask 10.0 40 05/11/19 12:15 40 05/11/19 12:00 Mechanical Ventilator Mechanical Ventilator 05/11/19 12:00 40 05/11/19 12:00 71 05/11/19 12:00 98.7 71 16 129/46 (73) 100 05/11/19 11:00 71 18 132/45 (74) 100 05/11/19 10:00 75 19 113/42 (65) 100 05/11/19 09:40 68 19 40 40 05/11/19 09:40 99 05/11/19 09:00 75 20 85/59 (68) 100 Intake and Output 05/11/19 05/12/19 19:00 07:00 Intake Total 315 ml 55 ml Balance 315 ml 55 ml Free Water 30 ml IV Total 110 ml 55 ml Tube Feeding 175 ml # Bowel Movements 3 General Appearance: no acute distress HEENT: normocephalic Respiratory/Chest: chest wall non-tender, decreased breath sounds Cardiovascular: normal peripheral pulses, normal rate Abdomen: normal bowel sounds Laboratory Tests 05/11/19 11:28: Arterial Blood pH 7.519H, Arterial Blood Partial Pressure CO2 30.0L, Arterial Blood Partial Pressure O2 120.1H, Arterial Blood HCO3 23.9, Arterial Blood Oxygen Saturation 98.6, Arterial Blood Base Excess 1.3, Jonathan Test Positive 05/12/19 04:15: White Blood Count 9.1, Red Blood Count 2.45L, Hemoglobin 7.9L, Hematocrit 25.1L , Mean Corpuscular Volume 102H, Mean Corpuscular Hemoglobin 32.1H, Mean Corpuscular Hemoglobin Concent 31.4L, Red Cell Distribution Width 18.3H, Platelet Count 72L, Mean Platelet Volume 8.3, Neutrophils (%) (Auto) , Lymphocytes (%) (Auto) , Monocytes (%) (Auto) , Eosinophils (%) (Auto) , Basophils (%) (Auto) , Neutrophils % (Manual) [Pending], Lymphocytes % (Manual) [Pending], Platelet Estimate [Pending], Platelet Morphology [Pending], Sodium Level 142, Potassium Level 4.5, Chloride Level 101, Carbon Dioxide Level 28, Anion Gap 13, Blood Urea Nitrogen 69H, Creatinine 8.8H, Estimat Glomerular Filtration Rate 4.5, Glucose Level 95, Calcium Level 9.3 Current Medications Medications (Trade) Dose Ordered Sig/Sylwia Route PRN Reason Start Time Stop Time Status Last Admin Dose Admin Albuterol/ Ipratropium (Albuterol/ Ipratropium) 3 ml Q6H PRN HHN Shortness of Breath 05/11/19 23:00 05/16/19 22:59 05/11/19 23:24 Chlorhexidine Gluconate (Karla-Hex 2%) 1 applic DAILY@1999 TOPIC 05/10/19 20:00 06/09/19 19:59 05/11/19 20:32 Dextrose (Dextrose 50%) 25 ml Q30M PRN IV Hypoglycemia 05/09/19 08:15 06/08/19 08:14 Dextrose (Dextrose 50%) 50 ml Q30M PRN IV Hypoglycemia 05/09/19 08:15 06/08/19 08:14 Epoetin Mohinder (Epoetin Mohinder(ESRD on dialysis)) 10,000 unit WED-WED-WED SUBQ 05/12/19 21:00 06/11/19 20:59 Ondansetron HCl (Zofran) 4 mg Q6H PRN IVP Nausea & Vomiting 05/09/19 08:15 06/08/19 08:14 Pantoprazole (Protonix) 40 mg DAILY IVP 05/09/19 12:15 06/08/19 12:14 05/10/19 20:23 Piperacillin Sod/ Tazobactam Sod 2.25 gm/Sodium Chloride 55 ml @ 110 mls/hr Q8HR IVPB 05/11/19 22:00 05/18/19 21:59 05/12/19 05:31 Remigio Raza MD May 12, 2019 08:25
[2019-05-12] MEDS: Pantoprazole Inj IVP SCH (09:01)
--- NOTE | 2019-05-12 10:41 | NUR ---
NURSE NOTES: Speech therapy reported that patient has passed her swallow evaluation test. She recommended that the patient be placed on puree diet with thin liquid and advance as tolerated. Will ask Dr Zapata for a diet order.
--- NOTE | 2019-05-12 11:52 | NUR ---
NURSE NOTES: Spoke with Dr Zapata over the phone. Notified him that patient passed swallow test and speech therapist is recommending puree diet with thin liquid advanced as tolerated. Received order for renal pureed diet with thin liquid and advanced as tolerated. Order read back, verified, and placed.
--- NOTE | 2019-05-12 12:00 | NUR ---
NURSE NOTES: Patient alert to name, place, purpose, and time. Patient icelandic speaking. Will follow up with deep nasal suction with RT. patient denies pain or acute distress. Patient vital signs stable at this time. Patient extubated yesterday. Patient on nasal cannula 4L. Patient showing sinus rhythm on the hall monitor at this time. Patient passed her swallow evaluation test. Patient oliguric with no urine output today. Patient clean and all wounds covered. bruising noted on left upper back, right throat, right inner elbow, and left abdomen. Patient has some petechiae noted on her left side abdomen. left upper arm active AV shunt noted with thrill/bruit present. Patient on dialysis at this time. Right hand 20 gauge peripheral IV and right femoral triple lumen catheter remain patent. SCDs in place. Patient bed in low position with bed alarm on and call light in reach at this time. Will continue to monitor. Patient repositioned and oral care performed at this time.
--- NOTE | 2019-05-12 12:04 | Infectious Diseases Prog Note ---
Assessment/Plan Assessment/Plan Assessment: s/p cardiac arrest x2 -CT head: Chronic and age-related changes. Negative for acute intracranial bleed or mass effect, Old infarcts, as described Low grade fever; improving MIld leukocytosis- likely reactive- resolved ?Aspiration PNA -05/11 CXR:Interstitial edema. This may be slightly improved since the previous da -05/08 CXR: Satisfactory endotracheal intubation. Evidence of bilateral pulmonary edema. Cardiomegaly VDRF; sp extubation 05/11 Hypoglycemia HTN ESRD on HD via L arm AVS CAD s/p CABG Plan: -Continue empiric ZOsyn #2/ -f/u cx -Monitor CBC/CMP, temperatures -ICU care -aspiration precautions Thank you for conulting [facility]. Will continue to follow along with you. Discussed with RN. Subjective Allergies: Coded Allergies: No Known Allergies (Unverified , 05/08/19) Subjective afebrile >48hrs leukocytosis rseolved Objective Vital Signs Last 24 Hour Vital Signs Date Time Temp Pulse Resp B/P (MAP) Pulse Ox O2 Delivery O2 Flow Rate FiO2 05/12/19 08:00 Simple Mask 12.0 Simple Mask 12.0 05/12/19 08:00 12.0 40 05/12/19 07:00 71 14 124/40 (68) 100 05/12/19 06:00 71 14 129/47 (74) 100 05/12/19 05:00 70 14 116/44 (68) 100 05/12/19 04:00 Simple Mask 12.0 Simple Mask 12.0 05/12/19 04:00 12.0 40 05/12/19 04:00 68 05/12/19 04:00 99.1 72 14 125/45 (71) 100 05/12/19 03:00 99.1 75 18 125/44 (71) 100 05/12/19 02:30 73 15 108/37 (60) 100 05/12/19 02:00 74 18 116/43 (67) 98 05/12/19 01:00 72 21 117/41 (66) 98 05/12/19 00:30 74 19 114/38 (63) 99 05/12/19 00:00 99.0 72 17 128/39 (68) 96 05/12/19 00:00 66 05/12/19 00:00 12.0 40 05/12/19 00:00 Simple Mask 12.0 Simple Mask 12.0 05/11/19 23:24 76 20 99 Cool Aerosol 12.0 50 72 18 97 05/11/19 23:00 74 17 137/59 (85) 99 05/11/19 22:30 67 21 130/50 (76) 93 05/11/19 22:00 71 20 125/38 (67) 98 05/11/19 21:30 66 21 122/47 (72) 91 05/11/19 21:00 73 18 124/43 (70) 99 05/11/19 20:30 74 20 127/45 (72) 98 05/11/19 20:00 12.0 40 05/11/19 20:00 95 Cool Aerosol 12.0 50 05/11/19 20:00 68 05/11/19 20:00 99.4 74 20 127/50 (75) 98 05/11/19 20:00 Simple Mask 12.0 Simple Mask 12.0 05/11/19 19:00 72 18 134/49 (77) 98 05/11/19 18:00 70 16 126/44 (71) 95 05/11/19 17:00 70 20 132/43 (72) 99 05/11/19 16:00 12.0 40 05/11/19 16:00 Mechanical Ventilator Mechanical Ventilator 05/11/19 16:00 98.4 73 19 126/38 (67) 99 05/11/19 16:00 72 05/11/19 15:00 74 19 124/46 (72) 98 05/11/19 14:00 73 17 127/45 (72) 98 05/11/19 13:30 74 17 136/44 (74) 99 05/11/19 13:00 84 17 127/69 (88) 100 05/11/19 12:15 Venturi Mask 10.0 40 05/11/19 12:15 40 Height (Feet): 4 Height (Inches): 10.00 Weight (Pounds): 139 Objective GENERAL: The patient is intubated on mechanical ventilation. HEENT: Conjugate eye gaze. No lymphadenopathy. CARDIOVASCULAR: S1, S2. No rubs or gallops. PULMONARY: Mild upper rhonchi. Fair air movement in all pisano. ABDOMEN: Nondistended, nontender. Good bowel sounds. EXTREMITIES: No edema noted. Laboratory Tests Test 05/12/19 04:15 White Blood Count 9.1 K/UL (4.8-10.8) Red Blood Count 2.45 M/UL (4.20-5.40) L Hemoglobin 7.9 G/DL (12.0-16.0) L Hematocrit 25.1 % (37.0-47.0) L Mean Corpuscular Volume 102 FL (80-99) H Mean Corpuscular Hemoglobin 32.1 PG (27.0-31.0) H Mean Corpuscular Hemoglobin Concent 31.4 G/DL (32.0-36.0) L Red Cell Distribution Width 18.3 % (11.6-14.8) H Platelet Count 72 K/UL (150-450) L Mean Platelet Volume 8.3 FL (6.5-10.1) Neutrophils (%) (Auto) % (45.0-75.0) Lymphocytes (%) (Auto) % (20.0-45.0) Monocytes (%) (Auto) % (1.0-10.0) Eosinophils (%) (Auto) % (0.0-3.0) Basophils (%) (Auto) % (0.0-2.0) Differential Total Cells Counted 100 Neutrophils % (Manual) 74 % (45-75) Lymphocytes % (Manual) 14 % (20-45) L Monocytes % (Manual) 10 % (1-10) Eosinophils % (Manual) 1 % (0-3) Basophils % (Manual) 1 % (0-2) Band Neutrophils 0 % (0-8) Platelet Estimate Decreased L Platelet Morphology Normal Hypochromasia 3+ Anisocytosis 2+ Macrocytosis 1+ Sodium Level 142 MMOL/L (136-145) Potassium Level 4.5 MMOL/L (3.5-5.1) Chloride Level 101 MMOL/L (98-107) Carbon Dioxide Level 28 MMOL/L (21-32) Anion Gap 13 mmol/L (5-15) Blood Urea Nitrogen 69 mg/dL (7-18) H Creatinine 8.8 MG/DL (0.55-1.30) H Estimat Glomerular Filtration Rate 4.5 mL/min (>60) Glucose Level 95 MG/DL (74-106) Calcium Level 9.3 MG/DL (8.5-10.1) Current Medications Medications (Trade) Dose Ordered Sig/Sylwia Route PRN Reason Start Time Stop Time Status Last Admin Dose Admin Albuterol/ Ipratropium (Albuterol/ Ipratropium) 3 ml Q6H PRN HHN Shortness of Breath 05/11/19 23:00 05/16/19 22:59 05/11/19 23:24 Chlorhexidine Gluconate (Karla-Hex 2%) 1 applic DAILY@2000 TOPIC 05/10/19 20:00 06/09/19 19:59 05/11/19 20:32 Dextrose (Dextrose 50%) 25 ml Q30M PRN IV Hypoglycemia 05/09/19 08:15 06/08/19 08:14 Dextrose (Dextrose 50%) 50 ml Q30M PRN IV Hypoglycemia 05/09/19 08:15 06/08/19 08:14 Epoetin Mohinder (Epoetin Mohinder(ESRD on dialysis)) 10,000 unit WED-WED-WED SUBQ 05/12/19 21:00 06/11/19 20:59 Ondansetron HCl (Zofran) 4 mg Q6H PRN IVP Nausea & Vomiting 05/09/19 08:15 06/08/19 08:14 Pantoprazole (Protonix) 40 mg DAILY IVP 05/09/19 12:15 06/08/19 12:14 05/12/19 09:01 Piperacillin Sod/ Tazobactam Sod 2.25 gm/Sodium Chloride 55 ml @ 110 mls/hr Q8HR IVPB 05/11/19 22:00 05/16/19 23:59 05/12/19 05:31 Danita Wilkins M.D. May 12, 2019 12:04
--- NOTE | 2019-05-12 13:40 | Cardiac Electrophysiology PN ---
Assessment/Plan Assessment/Plan 1. Status post two noninfarctional cardiac arrests, likely ventricular tachycardia based on 12-lead EKG in this patient with history of coronary artery disease. Troponin elevation only minimal and level flat likely due two CPR in this patient with hemodialysis. Echocardiogram showed EF 50-55% 2. History of open heart surgery in 2010. The family, however, is not sure if its bypass or for valve replacement . Medical records from [facility] records are still pending 3. Respiratory failure, extubated. BNP is 17,000. On dialysis 4. End-stage renal disease, on hemodialysis. 5. Anemia. PAN RN Subjective Subjective In ICU. Extubated yesterday. Getting HD In SR Objective Last 24 Hour Vital Signs Date Time Temp Pulse Resp B/P (MAP) Pulse Ox O2 Delivery O2 Flow Rate FiO2 05/12/19 12:00 2.0 05/12/19 12:00 Simple Mask 12.0 Simple Mask 12.0 05/12/19 12:00 68 24 99/23 (48) 96 05/12/19 11:00 67 16 118/31 (60) 96 05/12/19 10:00 69 20 128/58 (81) 99 05/12/19 09:00 68 16 120/44 (69) 100 05/12/19 08:00 Simple Mask 12.0 Simple Mask 12.0 05/12/19 08:00 98.6 71 19 134/44 (74) 100 05/12/19 08:00 12.0 40 05/12/19 07:00 71 14 124/40 (68) 100 05/12/19 06:00 71 14 129/47 (74) 100 05/12/19 05:00 70 14 116/44 (68) 100 05/12/19 04:00 Simple Mask 12.0 Simple Mask 12.0 05/12/19 04:00 12.0 40 05/12/19 04:00 68 05/12/19 04:00 99.1 72 14 125/45 (71) 100 05/12/19 03:00 99.1 75 18 125/44 (71) 100 05/12/19 02:30 73 15 108/37 (60) 100 05/12/19 02:00 74 18 116/43 (67) 98 05/12/19 01:00 72 21 117/41 (66) 98 05/12/19 00:30 74 19 114/38 (63) 99 05/12/19 00:00 99.0 72 17 128/39 (68) 96 05/12/19 00:00 66 05/12/19 00:00 12.0 40 05/12/19 00:00 Simple Mask 12.0 Simple Mask 12.0 05/11/19 23:24 76 20 99 Cool Aerosol 12.0 50 72 18 97 05/11/19 23:00 74 17 137/59 (85) 99 05/11/19 22:30 67 21 130/50 (76) 93 05/11/19 22:00 71 20 125/38 (67) 98 05/11/19 21:30 66 21 122/47 (72) 91 05/11/19 21:00 73 18 124/43 (70) 99 05/11/19 20:30 74 20 127/45 (72) 98 05/11/19 20:00 12.0 40 05/11/19 20:00 95 Cool Aerosol 12.0 50 05/11/19 20:00 68 05/11/19 20:00 99.4 74 20 127/50 (75) 98 05/11/19 20:00 Simple Mask 12.0 Simple Mask 12.0 05/11/19 19:00 72 18 134/49 (77) 98 05/11/19 18:00 70 16 126/44 (71) 95 05/11/19 17:00 70 20 132/43 (72) 99 05/11/19 16:00 12.0 40 05/11/19 16:00 Mechanical Ventilator Mechanical Ventilator 05/11/19 16:00 98.4 73 19 126/38 (67) 99 05/11/19 16:00 72 05/11/19 15:00 74 19 124/46 (72) 98 05/11/19 14:00 73 17 127/45 (72) 98 Intake and Output 05/11/19 05/12/19 19:00 07:00 Intake Total 315 ml 55 ml Balance 315 ml 55 ml Free Water 30 ml IV Total 110 ml 55 ml Tube Feeding 175 ml # Bowel Movements 3 Laboratory Tests Test 05/12/19 04:15 White Blood Count 9.1 K/UL (4.8-10.8) Red Blood Count 2.45 M/UL (4.20-5.40) L Hemoglobin 7.9 G/DL (12.0-16.0) L Hematocrit 25.1 % (37.0-47.0) L Mean Corpuscular Volume 102 FL (80-99) H Mean Corpuscular Hemoglobin 32.1 PG (27.0-31.0) H Mean Corpuscular Hemoglobin Concent 31.4 G/DL (32.0-36.0) L Red Cell Distribution Width 18.3 % (11.6-14.8) H Platelet Count 72 K/UL (150-450) L Mean Platelet Volume 8.3 FL (6.5-10.1) Neutrophils (%) (Auto) % (45.0-75.0) Lymphocytes (%) (Auto) % (20.0-45.0) Monocytes (%) (Auto) % (1.0-10.0) Eosinophils (%) (Auto) % (0.0-3.0) Basophils (%) (Auto) % (0.0-2.0) Differential Total Cells Counted 100 Neutrophils % (Manual) 74 % (45-75) Lymphocytes % (Manual) 14 % (20-45) L Monocytes % (Manual) 10 % (1-10) Eosinophils % (Manual) 1 % (0-3) Basophils % (Manual) 1 % (0-2) Band Neutrophils 0 % (0-8) Platelet Estimate Decreased L Platelet Morphology Normal Hypochromasia 3+ Anisocytosis 2+ Macrocytosis 1+ Sodium Level 142 MMOL/L (136-145) Potassium Level 4.5 MMOL/L (3.5-5.1) Chloride Level 101 MMOL/L (98-107) Carbon Dioxide Level 28 MMOL/L (21-32) Anion Gap 13 mmol/L (5-15) Blood Urea Nitrogen 69 mg/dL (7-18) H Creatinine 8.8 MG/DL (0.55-1.30) H Estimat Glomerular Filtration Rate 4.5 mL/min (>60) Glucose Level 95 MG/DL (74-106) Calcium Level 9.3 MG/DL (8.5-10.1) Objective HEAD AND NECK: No JVD. LUNGS: Coarse rhonchi. CHEST: Sternotomy scar is healed. CARDIOVASCULAR: Regular S1 and S2 with no gallop. ABDOMEN: Soft. She has a scar from cholecystectomy in the abdomen. EXTREMITIES: Status post left AV shunt. Shawn Robbins MD May 12, 2019 13:40
--- NOTE | 2019-05-12 14:10 | NUR ---
HAND-OFF: Report given to BINH Hobbs. Patient on dialysis at this time. Endorsed to follow up and monitor. it service delivery manager in the room.
--- NOTE | 2019-05-12 14:11 | NUR ---
NURSE NOTES: Received patient from Anjel PURCELL. Patient is awake, alert and oriented x3. Receiving oxygen via nasal cannula at 4/L min, no signs of respiratory distress, O2 Sat at 95%. Patient has a left upper arm AV fistula, currently receiving dialysis. IV site is right hand 20g, patent and asymptomatic. Patient has a Right femoral TLC, patent and intact. Bed is locked, placed in lowest position, side rails up x3, bed alarm on, head of bed elevated, bed alarm on. Will continue to monitor.
--- NOTE | 2019-05-12 15:05 | NUR ---
SPEECH PATHOLOGY: PATIENT CLEARED FOR ST INTERVENTION BY BINH ORTIZ PATIENT IS A 69 YEAR OLD FEMALE WHO HAD BEEN EXPERIENCING RECURRING EPISODES OVER A 2 WEEK PERIOD. SHE WAS BROUGHT TO THE HOSPITAL BY FAMILY AND SHE SUBSEQUENTLY CODED,WAS RESUSCITATED/INTUBATED AND ADMITTED TO ICU. SHE WAS EXTUBATED 05/11. DYSPHAGIA RISK FACOTRS INCLUDE OVERALL/GENERALIZED WEAKNESS, HX OF SYNCOPE. PLOF: PATIENT RESIDES AT HOME WITH FAMILY PATIENT ASSESSED WITH P.O. TRIALS OF THIN LIQUIDS, NTL LIQUIDS, PUREE AND SOFT CHEWABLE SOLID. SHE PRESENTS WITH WHAT APPEARS TO BE AN ESSENTIALLY INTACT OROPHARYNGEAL PHASE OF SWALLOW. HOWEVER, AFTER MULTIPLE P.O. TRIALS SHE BEGAN TO DEMONSTRATE RESPIRATION RATE CHANGES/INCREASE. SHE IS ALSO OVERALL WEAKENED AND HAD DIFFICULTY HOLDING CUP INDEPENDENTLY. POST SWALLOW...CLEAR UPPER AIRWAY SOUNDS. NO OVERT S/S OF ASPIRATION.. SHE WOULD BENEFIT FROM PARTICIPATING IN AN INSTRUMENTAL SWALLOW EXAM WHILE INPATIENT AND THIS WILL BE ARRANGED FOR NEXT WEEK. RECOMMENDATION: 1. SAFE TO RESUME P.O. WITH PUREE INITIALLY WITH THIN LIQUIDS TO ADVANCE TOLERATED 2. SET UP ASSIST WITH MEALS 3. CRUSH CRUSHABLE MEDS/PRESENT IN PUREE 4. ST TO FOLLOW FOR DYSPHAGIA TX/MANAGEMENT 5. VIDEO SWALLOW STUDY TO DETERMINE EFFICACY OF PHARYNGEAL PHASE OF SWALLOW DISCUSSED FINDINGS WITH BINH ORTIZ
--- NOTE | 2019-05-12 15:30 | NUR ---
NURSE NOTES: Dialysis output 1600cc. Patient tolerated well, no signs of distress. Will continue to monitor.
--- NOTE | 2019-05-12 17:46 | NUR ---
NURSE NOTES: Right Femoral TLC removed as ordered. Will continue to monitor.
[2019-05-12] MEDS: Albuterol/Ipratropium 3ml neb HHN PRN (18:48)
--- NOTE | 2019-05-12 19:10 | NUR ---
NURSE NOTES: Patient's O2 88%, deep suctioning performed, head of bed elevated, called RT for therapy. Patient now saturating at 95% Will continue to monitor.
--- NOTE | 2019-05-12 19:30 | NUR ---
NURSE NOTES: Pt report received from Wilfredo MANAGER PLUMBING. pt is alert and oriented times 4 and able to follow commands. pt is on fisher trawl line showing NSR, no signs symptoms of cardiac distress. pt is on 2 L NC able to sat at 99%, no resp distress noted. pt bed is low, locked, armed, call light within reach, bed rails up times 3. will follow plan of care.
[2019-05-12] MEDS ORDERED: Albuterol/Ipratropium 3ml neb HHN SCH ×2 (19:36→23:00)
--- NOTE | 2019-05-12 20:06 | NUR ---
TRANSFER TO FLOOR: Patient transferred to SDU, per Dr. Zapata. Report given to Lambert PURCELL. Belongings and medications given to oncoming nurse. Family and or S/O informed of transfer.
[2019-05-12] MEDS ORDERED: Epoetin Alfa-EPBX(ESRD on dialysis)10,000 unit/ml vial SUBQ SCH ×2 (21:00)
[2019-05-12] MEDS: Epoetin Alfa-EPBX(ESRD on dialysis)10,000 unit/ml vial SUBQ SCH (21:16)
--- NOTE | 2019-05-12 21:52 | NUR ---
NURSE NOTES: Pt blood sugar is 51, finger stick test. administered 50% dextrose. will also give i cup apple juice with added sugar. will reassess within next 30 min. as of now, pt is alert and oriented times 4, vital signs are stable. pt is able to respond to simple commands. no change in condition, pt appears asymptomatic.
--- NOTE | 2019-05-12 21:52 | NUR ---
NURSE NOTES: Pt refused apple juice with added sugar.
[2019-05-12] MEDS ORDERED: Piperacillin/Tazobactam 2.25 GM in NS 55 ML IVPB SCH (22:00)
--- NOTE | 2019-05-12 22:22 | Surgery Progress Note ---
Surgery Progress Note Subjective Symptoms: improved Objective Last 24 Hour Vital Signs Date Time Temp Pulse Resp B/P (MAP) Pulse Ox O2 Delivery O2 Flow Rate FiO2 05/12/19 20:00 72 05/12/19 20:00 Simple Mask 12.0 Simple Mask 12.0 05/12/19 20:00 2.0 05/12/19 20:00 98.6 78 20 121/49 (73) 98 05/12/19 19:00 70 20 88/50 (63) 94 05/12/19 18:55 92 Nasal Cannula 4.0 36 05/12/19 18:54 70 18 94 Nasal Cannula 4.0 36 88 20 88 05/12/19 18:51 88 20 88 Nasal Cannula 3.0 32 05/12/19 18:00 70 19 112/68 (83) 92 05/12/19 17:00 70 17 114/37 (62) 94 05/12/19 16:00 Simple Mask 12.0 Simple Mask 12.0 05/12/19 16:00 3.0 05/12/19 16:00 72 20 124/39 (67) 96 05/12/19 15:28 68 05/12/19 15:00 66 17 107/47 (67) 94 05/12/19 14:00 71 20 113/46 (68) 98 05/12/19 13:52 96 Nasal Cannula 4.0 36 05/12/19 13:52 87 18 98 Nasal Cannula 4.0 36 05/12/19 13:00 71 21 107/43 (64) 97 05/12/19 12:00 2.0 05/12/19 12:00 Simple Mask 12.0 Simple Mask 12.0 05/12/19 12:00 69 05/12/19 12:00 68 24 99/23 (48) 96 05/12/19 11:00 67 16 118/31 (60) 96 05/12/19 10:00 69 20 128/58 (81) 99 05/12/19 09:00 68 16 120/44 (69) 100 05/12/19 08:00 Simple Mask 12.0 Simple Mask 12.0 05/12/19 08:00 98.6 71 19 134/44 (74) 100 05/12/19 08:00 12.0 40 05/12/19 08:00 73 05/12/19 07:00 71 14 124/40 (68) 100 05/12/19 06:00 71 14 129/47 (74) 100 05/12/19 05:00 70 14 116/44 (68) 100 05/12/19 04:00 Simple Mask 12.0 Simple Mask 12.0 05/12/19 04:00 12.0 40 05/12/19 04:00 68 05/12/19 04:00 99.1 72 14 125/45 (71) 100 05/12/19 03:00 99.1 75 18 125/44 (71) 100 05/12/19 02:30 73 15 108/37 (60) 100 05/12/19 02:00 74 18 116/43 (67) 98 05/12/19 01:00 72 21 117/41 (66) 98 05/12/19 00:30 74 19 114/38 (63) 99 05/12/19 00:00 99.0 72 17 128/39 (68) 96 05/12/19 00:00 66 05/12/19 00:00 12.0 40 05/12/19 00:00 Simple Mask 12.0 Simple Mask 12.0 05/11/19 23:24 76 20 99 Cool Aerosol 12.0 50 72 18 97 05/11/19 23:00 74 17 137/59 (85) 99 05/11/19 22:30 67 21 130/50 (76) 93 I&O Intake and Output 05/11/19 05/12/19 18:59 06:59 Intake Total 350 ml 55 ml Balance 350 ml 55 ml Free Water 30 ml IV Total 110 ml 55 ml Tube Feeding 210 ml # Bowel Movements 3 Dressing: dry Wound: clean Cardiovascular: RSR Respiratory: clear, decreased breath sounds Abdomen: soft, non-distended, decreased bowel sounds Extremities: no cyanosis, other Laboratory Tests Test 05/12/19 04:15 05/12/19 13:40 White Blood Count 9.1 K/UL (4.8-10.8) Red Blood Count 2.45 M/UL (4.20-5.40) L Hemoglobin 7.9 G/DL (12.0-16.0) L Hematocrit 25.1 % (37.0-47.0) L Mean Corpuscular Volume 102 FL (80-99) H Mean Corpuscular Hemoglobin 32.1 PG (27.0-31.0) H Mean Corpuscular Hemoglobin Concent 31.4 G/DL (32.0-36.0) L Red Cell Distribution Width 18.3 % (11.6-14.8) H Platelet Count 72 K/UL (150-450) L Mean Platelet Volume 8.3 FL (6.5-10.1) Neutrophils (%) (Auto) % (45.0-75.0) Lymphocytes (%) (Auto) % (20.0-45.0) Monocytes (%) (Auto) % (1.0-10.0) Eosinophils (%) (Auto) % (0.0-3.0) Basophils (%) (Auto) % (0.0-2.0) Differential Total Cells Counted 100 Neutrophils % (Manual) 74 % (45-75) Lymphocytes % (Manual) 14 % (20-45) L Monocytes % (Manual) 10 % (1-10) Eosinophils % (Manual) 1 % (0-3) Basophils % (Manual) 1 % (0-2) Band Neutrophils 0 % (0-8) Platelet Estimate Decreased L Platelet Morphology Normal Hypochromasia 3+ Anisocytosis 2+ Macrocytosis 1+ Sodium Level 142 MMOL/L (136-145) Potassium Level 4.5 MMOL/L (3.5-5.1) Chloride Level 101 MMOL/L (98-107) Carbon Dioxide Level 28 MMOL/L (21-32) Anion Gap 13 mmol/L (5-15) Blood Urea Nitrogen 69 mg/dL (7-18) H Creatinine 8.8 MG/DL (0.55-1.30) H Estimat Glomerular Filtration Rate 4.5 mL/min (>60) Glucose Level 95 MG/DL (74-106) Calcium Level 9.3 MG/DL (8.5-10.1) Hepatitis B Surface Antigen Pending Plan Problems: (1) Deep tissue injury Assessment & Plan: Patient presented on admission with a deep tissue injury in the sacral area. Patient was syncopal episode found down. Unknown exact time patient was down and since is suffered a cardiac event requiring resuscitation and ACLS. There is an area of deep tissue injury with erythema in the sacral area extending into the bilateral buttocks butterfly formation. No drainage. No open area. Patient is high risk and susceptible to opening and worsening given her current condition, ICU care, deterioration. We will need to monitor closely and provide aggressive care to ensure healing Air mattress Turn every 2 hours Skin protectant OPTi foam dressing daily and as needed Offload heels with pillows Appreciate nursing care Nutritional support DAILY ESTIMATED NEEDS: Needs based on Critical Care, ESRD on HD, wounds; 56.3kg adj 22- 30 kcals/kg [id number] total kcals 1.25-2 g protein/kg 70-113 g total protein Fluid per MD- on HD NUTRITION DIAGNOSIS: * Increased pro needs r/t wound healing and renal dysfunction AEB pt adm w/ BL heel and sacral DTI (per RN), WC eval pending, w/ ESRD on HD. * Swallowing difficulty r/t respiratory status AEB pt is intubated, currently NPO, pending non oral feeds. CURRENT TF: Per RN Nepro @40ml/hr ENTERAL NUTRITION RECOMMENDATIONS: Nepro @35mL/hr x 24 hrs+ 1 Prosource qdaily to provide 840mL, 1512kcal, 68g pro +11g pro, 611mL free H2O -Obtain GI access, initiate Nepro @15mL/hr, advancing 10mL/hr q 4-6hrs until @ goal. -Provide 1 packet of Prosource- flush with 4oz water -HOB > 30 degrees, Flush per MD ADDITIONAL RECOMMENDATIONS: 1) With prolonged NPO/Intubation- see TF recs as above 2) Wound healing- w/ diet order, add: Juan Daniel in 4oz H2O BID; f/up w/ WC eval 3) Maintain calibrated bedscale wt 4) F/u w/ H&P 5) Feed w/ hemodynamic stability, now off pressor support. (2) Cardiac arrest Assessment & Plan: 61-year-old female multi-medical comorbidities syncopal episode leading to ACLS requiring resuscitation. Currently intensive care unit intubated on ventilatory support Patient is ill-appearing with family at the bedside. Labs noted. Mild elevation troponins. Mild elevated LFTs. Improving since resuscitation current etiology work-up Continue with tube feeds advance to goal A.m. 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 There is also an old right cerebellar cortical infarct There is age-related enlargement of the ventricles and extra axial CSF spaces. There is periventricular deep white matter low-attenuation, consistent with chronic microvascular ischemic change. The stuart-white differentiation is normal. The calvarium is intact. There is evidence of prior cataract surgery. The sinuses are clear. The mastoids are underpneumatized, otherwise clear. Impression: Chronic and age-related changes Negative for acute intracranial bleed or mass effect, Old infarcts, as described Laron Moreno May 12, 2019 22:22
--- NOTE | 2019-05-12 22:35 | NUR ---
NURSE NOTES: Pt blood sugar is now 135. pt remains stable. pt is alert and oriented times 4. vital signs is stable.
[2019-05-12] MEDS: Albuterol/Ipratropium 3ml neb HHN SCH (23:34)
[2019-05-13] VITALS (46 sets, daily range): BP systolic 90–152; BP diastolic 31–112
--- NOTE | 2019-05-13 01:00 | NUR ---
NURSE NOTES: pt refused apple sauce with added sugar.
[2019-05-13] MEDS: Albuterol/Ipratropium 3ml neb HHN SCH ×6 (03:31→23:13)
--- NOTE | 2019-05-13 04:45 | NUR ---
RAPID RESPONSE: at 0445 PT heart rate showed 180s on assessment services manager. pt is awake, abusable, responsive and asymptomatic. stat 12 lead ekg was ordered from charge master analyst Fatmata HANSON, 12 lead EKG showed A FIB - RVR (HR 164). additionally, pt BP is 103/37, HR 80-188, O2 98%, RESP 451 Rapid response was quickly summoned. 0453 rapid response team arrive with Carolina ralph RN, Brian Gaxiola charge SDU RN, Samuel RT, Mary RT, Azra RN SDU, Lambert Barfield RN, and Alysia Hayward RN. 0458 MD Robbins was contacted, report given of pts condition with elaboration of pt vital signs and first onset A fib with RVR. ordered Cardizem drip and transfer to ICU. at 0500 charge TIGER MACHINE OPERATOR Carolina understood orders and rapid response team transferred pt to ICU. full report given to Carolina TIGER MACHINE OPERATOR at 0500. See Rapid Response sheet which remains on paper.
--- NOTE | 2019-05-13 04:45 | NUR ---
SUPERVISOR HEAVY EQUIPMENT Note: SUPERVISOR HEAVY EQUIPMENT was called at 0445 (05/13/19) by , and notified MD Glen Abrams transferred to at . See SUPERVISOR HEAVY EQUIPMENT documentation form for full report. Addendum: 05/13/19 at 0743 by TOMMY EUBANKS RN SUPERVISOR HEAVY EQUIPMENT Note: SUPERVISOR HEAVY EQUIPMENT was called at 0452 (05/13/19) by , and notified MD Glen Abrams transferred to at . See SUPERVISOR HEAVY EQUIPMENT documentation form for full report.
[2019-05-13] MEDS ORDERED: Digoxin 0.5mg/2ml Inj IVP ONE (05:09)
[2019-05-13] MEDS ORDERED: Levophed 4mg/4mL Inj IV ONE (05:15)
--- NOTE | 2019-05-13 05:15 | NUR ---
HAND-OFF: Report given to Carolina rodriguez RN, ICU.
--- NOTE | 2019-05-13 05:30 | NUR ---
NURSE NOTES: Called Dr Robbins. Patient comes to the ICU with orders to start Cardizem drip however BP is 77/51 with HR >190. Per Dr Robbins give Dig 0.5 IVP urgently and start Levophed. No CVC for patient. Started Levo for patient as well as small bolus during RUBBER GOODS FINISHER for hypotension. Will continue to monitor and carry out MD orders
[2019-05-13] MEDS: Piperacillin/Tazobactam 2.25 GM in NS 55 ML IVPB SCH ×3 (06:00→21:01)
[2019-05-13] MEDS ORDERED: Digoxin 0.5mg/2ml Inj IVP SCH (06:00)
--- NOTE | 2019-05-13 06:02 | NUR ---
NURSE NOTES: Called Dr Robbins. Gave update on the patient. Dig 0.5 given, BP improved to now 133/72. Per MD, start Cards drip and titrate per HR. Levophed to be given for hypotension. Patient to remain in ICU. Will continue to monitor patient closely and carry out MD orders.
--- NOTE | 2019-05-13 06:34 | NUR ---
NURSE NOTES: Patient observed bedside s/p PARACHUTE INSPECTOR. Patient with family at bedside. Patient with improved pallor now no longer with bluish/stuart in color to face. Patient is responding some questions, saturating at 100% on the nonrebreather HR 118 with SVT, BP 138/88 which is markedly improved from when patient arrived. Patient does not appear in any acute distress. Patient has a RR of 18. Patient does not have Levo running. HR does INC to 130s. Awaiting for Cardizem drip to start. Upon arrival to the ICU, patient was moaning and daughter did not want extreme measures to be taken for the patient and signed DNR/DNI. Orders were entered in the event patient went into cardiopulmonary arrest for the 3rd time. Patient is currently resting comfortably and does not report any pain at this time. Will continue to closely monitor patient and carry out MD orders.
--- NOTE | 2019-05-13 07:30 | NUR ---
NURSE NOTES: Pt received from Carolina Ortiz RN in stable condition. Pt is awake in bed, AAOx1, on non-rebreather mask at 15L of )2. Pt noted in Afib on spanisher, VS noted and charted. Skin alterations noted. Pt has a RH 22g IV saline locked. L AV shunt noted. Bed in lowest position, alarm on, side rails up x 3, call light within reach. Family at bedside. Will continue to monitor. Addendum: 05/13/19 at 1023 by Shanae Gonzalez RN Amendment: RFA 20g IV noted.
--- NOTE | 2019-05-13 07:57 | Nephrology Progress Note ---
Assessment/Plan Assessment/Plan: A/P 1) ESRD- HD will be held till Wednesday and Wednesday 2) S/P Cardiac Arrest - EF 55%, stable 3) LE Wounds with Leukocytosis- Abx per ID - Per Gen Surgery and ID 4) Resp FL- Extubated, and off pressors. 5) DVT prophylaxsis with SCDs 6) Anemia- Thrombocytopenia - GI consonsulted - Hgb 7.9, on EPO 7) Afib RVR- per cardiology. Dig and now on cardizem gtt Patient now DNR/I Subjective Date patient seen: May 13, 2019 Time patient seen: 07:43 ROS Limited/Unobtainable: No Allergies: Coded Allergies: No Known Allergies (Unverified , 05/08/19) Subjective Patient transferred back to ICU after Afib RVR Objective Last 24 Hour Vital Signs Date Time Temp Pulse Resp B/P (MAP) Pulse Ox O2 Delivery O2 Flow Rate FiO2 05/13/19 07:27 115 20 100 Non-Rebreather 15.0 100 05/13/19 07:26 100 Non-Rebreather 15.0 100 05/13/19 07:23 115 20 100 Non-Rebreather 15.0 100 05/13/19 06:29 192 05/13/19 04:00 80 05/13/19 04:00 2.0 05/13/19 04:00 98.2 82 20 108/43 (64) 99 05/13/19 04:00 Simple Mask 12.0 Nasal Cannula 2.0 05/13/19 03:31 80 18 97 Nasal Cannula 3.0 32 84 22 93 05/13/19 00:00 2.0 05/13/19 00:00 76 05/13/19 00:00 Simple Mask 12.0 Nasal Cannula 2.0 05/13/19 00:00 99.5 80 20 113/48 (69) 99 05/12/19 23:34 75 18 97 Nasal Cannula 3.0 32 72 20 95 05/12/19 20:00 72 05/12/19 20:00 Simple Mask 12.0 Nasal Cannula 2.0 05/12/19 20:00 2.0 05/12/19 20:00 98.6 78 20 121/49 (73) 98 05/12/19 19:00 70 20 88/50 (63) 94 05/12/19 18:55 92 Nasal Cannula 4.0 36 05/12/19 18:54 70 18 94 Nasal Cannula 4.0 36 88 20 88 05/12/19 18:51 88 20 88 Nasal Cannula 3.0 32 05/12/19 18:00 70 19 112/68 (83) 92 05/12/19 17:00 70 17 114/37 (62) 94 05/12/19 16:00 Simple Mask 12.0 Simple Mask 12.0 05/12/19 16:00 3.0 05/12/19 16:00 72 20 124/39 (67) 96 05/12/19 15:28 68 05/12/19 15:00 66 17 107/47 (67) 94 05/12/19 14:00 71 20 113/46 (68) 98 05/12/19 13:52 96 Nasal Cannula 4.0 36 05/12/19 13:52 87 18 98 Nasal Cannula 4.0 36 05/12/19 13:00 71 21 107/43 (64) 97 05/12/19 12:00 2.0 05/12/19 12:00 Simple Mask 12.0 Simple Mask 12.0 05/12/19 12:00 69 05/12/19 12:00 68 24 99/23 (48) 96 05/12/19 11:00 67 16 118/31 (60) 96 05/12/19 10:00 69 20 128/58 (81) 99 05/12/19 09:00 68 16 120/44 (69) 100 05/12/19 08:00 Simple Mask 12.0 Simple Mask 12.0 05/12/19 08:00 98.6 71 19 134/44 (74) 100 05/12/19 08:00 12.0 40 05/12/19 08:00 73 Intake and Output 05/12/19 05/13/19 19:00 07:00 Intake Total 175 ml 110 ml Output Total 1600 ml Balance -1425 ml 110 ml Intake Oral 120 ml IV Total 55 ml 110 ml Output Hemodialysis UF 1600 ml # Bowel Movements 3 Laboratory Tests 05/12/19 13:40: Hepatitis B Surface Antigen Negative Height (Feet): 4 Height (Inches): 10.00 Weight (Pounds): 139 General Appearance: moderate distress EENT: normal ENT inspection Neck: normal alignment, supple Cardiovascular: regularly irregular, tachycardia Respiratory/Chest: rhonchi - bilaterally Abdomen: non tender, soft Edema: no edema noted Arm (L), no edema noted Arm (R), no edema noted Leg (L), no edema noted Leg (R), no edema noted Pedal (L), no edema noted Pedal (R), no edema noted Generalized David Zapata MD May 13, 2019 07:57
--- NOTE | 2019-05-13 08:30 | NUR ---
NURSE NOTES: Started a RH 22g IV. RFA IV d/c due to leaking.
--- NOTE | 2019-05-13 08:42 | NUR ---
NURSE NOTES: Notified Dr. Dior regarding H/H=7.9/25.1, no new orders given; GI already notified for consultation. Addendum: 05/13/19 at 0849 by ANGEL MEDINA RN POLST signed by PMD and daughter, Kat Jerome.
[2019-05-13] MEDS: Pantoprazole Inj IVP SCH (08:58)
[2019-05-13] MEDS ORDERED: Pantoprazole Inj IVP SCH (09:00)
--- NOTE | 2019-05-13 10:00 | NUR ---
NURSE NOTES: Pt cleaned and repositioned, oral care provided. Will continue to monitor.
--- NOTE | 2019-05-13 10:08 | Infectious Diseases Prog Note ---
Assessment/Plan Assessment/Plan Assessment: Afib with RVR, brief hypotension 05/13 s/p cardiac arrest x2 -CT head: Chronic and age-related changes. Negative for acute intracranial bleed or mass effect, Old infarcts, as described Low grade fever; improving MIld leukocytosis- likely reactive- resolved ?Aspiration PNA -05/11 CXR:Interstitial edema. This may be slightly improved since the previous da -05/08 CXR: Satisfactory endotracheal intubation. Evidence of bilateral pulmonary edema. Cardiomegaly VDRF; sp extubation 05/11 Hypoglycemia HTN ESRD on HD via L arm AVS CAD s/p CABG Plan: -Continue empiric ZOsyn #3/5 and add empiric IV Vancomycin -f/u cx -Monitor CBC/CMP, temperatures -ICU care -aspiration precautions -CXR, Bcx x2 Thank you for conulting [facility]. Will continue to follow along with you. Discussed with RN. Subjective Allergies: Coded Allergies: No Known Allergies (Unverified , 05/08/19) Subjective LEAF BLENDER this morning with hypotension to 50s systolic, HR up to 190s on Afib BP came up after HR controlled; no pressors currently afebrile >48hrs Objective Vital Signs Last 24 Hour Vital Signs Date Time Temp Pulse Resp B/P (MAP) Pulse Ox O2 Delivery O2 Flow Rate FiO2 05/13/19 09:15 102 17 115/53 (73) 100 05/13/19 09:00 107 19 115/53 (73) 100 05/13/19 08:45 105 22 106/55 (72) 100 05/13/19 08:41 120 111/55 05/13/19 08:40 119 22 111/55 (73) 100 05/13/19 08:37 110 20 96/54 (68) 100 05/13/19 08:30 114 18 94/53 (67) 100 05/13/19 08:23 117 19 122/54 (76) 100 05/13/19 08:15 113 20 90/64 (73) 100 05/13/19 08:00 118 21 130/90 (103) 100 05/13/19 08:00 15.0 05/13/19 07:45 117 19 133/90 (104) 100 05/13/19 07:30 115 18 144/70 (94) 05/13/19 07:27 115 20 100 Non-Rebreather 15.0 100 05/13/19 07:26 100 Non-Rebreather 15.0 100 05/13/19 07:23 115 20 100 Non-Rebreather 15.0 100 05/13/19 07:15 124 18 128/76 (93) 100 05/13/19 07:00 98.7 126 25 141/50 (80) 100 05/13/19 06:29 192 05/13/19 05:20 51/26 05/13/19 04:00 80 05/13/19 04:00 2.0 05/13/19 04:00 98.2 82 20 108/43 (64) 99 05/13/19 04:00 Simple Mask 12.0 Nasal Cannula 2.0 05/13/19 03:31 80 18 97 Nasal Cannula 3.0 32 84 22 93 05/13/19 00:00 2.0 05/13/19 00:00 76 05/13/19 00:00 Simple Mask 12.0 Nasal Cannula 2.0 05/13/19 00:00 99.5 80 20 113/48 (69) 99 05/12/19 23:34 75 18 97 Nasal Cannula 3.0 32 72 20 95 05/12/19 20:00 72 05/12/19 20:00 Simple Mask 12.0 Nasal Cannula 2.0 05/12/19 20:00 2.0 05/12/19 20:00 98.6 78 20 121/49 (73) 98 05/12/19 19:00 70 20 88/50 (63) 94 05/12/19 18:55 92 Nasal Cannula 4.0 36 05/12/19 18:54 70 18 94 Nasal Cannula 4.0 36 88 20 88 05/12/19 18:51 88 20 88 Nasal Cannula 3.0 32 05/12/19 18:00 70 19 112/68 (83) 92 05/12/19 17:00 70 17 114/37 (62) 94 05/12/19 16:00 Simple Mask 12.0 Simple Mask 12.0 05/12/19 16:00 3.0 05/12/19 16:00 72 20 124/39 (67) 96 05/12/19 15:28 68 05/12/19 15:00 66 17 107/47 (67) 94 05/12/19 14:00 71 20 113/46 (68) 98 05/12/19 13:52 96 Nasal Cannula 4.0 36 05/12/19 13:52 87 18 98 Nasal Cannula 4.0 36 05/12/19 13:00 71 21 107/43 (64) 97 05/12/19 12:00 2.0 05/12/19 12:00 Simple Mask 12.0 Simple Mask 12.0 05/12/19 12:00 69 05/12/19 12:00 68 24 99/23 (48) 96 05/12/19 11:00 67 16 118/31 (60) 96 Height (Feet): 4 Height (Inches): 10.00 Weight (Pounds): 139 Objective GENERAL: The patient is intubated on mechanical ventilation. HEENT: Conjugate eye gaze. No lymphadenopathy. CARDIOVASCULAR: S1, S2. No rubs or gallops. PULMONARY: Mild upper rhonchi. Fair air movement in all pisano. ABDOMEN: Nondistended, nontender. Good bowel sounds. EXTREMITIES: No edema noted. Laboratory Tests Test 05/12/19 13:40 Hepatitis B Surface Antigen Negative (Negative) Current Medications Medications (Trade) Dose Ordered Sig/Sylwia Route PRN Reason Start Time Stop Time Status Last Admin Dose Admin Albuterol/ Ipratropium (Albuterol/ Ipratropium) 3 ml Q4HRT HHN 05/12/19 23:00 05/17/19 22:59 05/13/19 03:31 Chlorhexidine Gluconate (Karla-Hex 2%) 1 applic DAILY@2000 TOPIC 05/13/19 20:00 06/12/19 19:59 Dextrose (Dextrose 50%) 25 ml Q30M PRN IV Hypoglycemia 05/12/19 20:45 06/08/19 08:14 Dextrose (Dextrose 50%) 50 ml Q30M PRN IV Hypoglycemia 05/12/19 20:45 06/08/19 08:14 05/12/19 21:57 Diltiazem HCl 125 mg/Dextrose 125 ml @ 0 mls/hr Q24H IV 05/13/19 06:00 05/14/19 05:59 05/13/19 08:41 Epoetin Mohinder (Epoetin Mohinder(ESRD on dialysis)) 10,000 unit WED-WED-WED SUBQ 05/12/19 21:00 06/11/19 20:59 05/12/19 21:16 Norepinephrine Bitartrate 4 mg/ Dextrose 250 ml @ 0 mls/hr Q24H IV 05/13/19 06:00 06/12/19 05:59 05/13/19 05:20 Ondansetron HCl (Zofran) 4 mg Q6H PRN IVP Nausea & Vomiting 05/12/19 20:40 06/11/19 20:39 Pantoprazole (Protonix) 40 mg DAILY IVP 05/13/19 09:00 06/08/19 12:14 05/13/19 08:58 Piperacillin Sod/ Tazobactam Sod 2.25 gm/Sodium Chloride 55 ml @ 110 mls/hr Q8HR IVPB 05/12/19 22:00 05/16/19 23:59 05/12/19 21:16 Danita Wilkins M.D. May 13, 2019 10:08
[2019-05-13 10:32] LABS: HEMATOCRIT 28.1 % (37.0-47.0); HEMOGLOBIN 8.5 G/DL (12.0-16.0); MEAN CORPUSCULAR VOLUME 103 FL (80-99); PLATELET COUNT 89 K/UL (150-450); RED BLOOD COUNT 2.74 M/UL (4.20-5.40); RED CELL DISTRIBUTION WIDTH 18.2 % (11.6-14.8)
--- NOTE | 2019-05-13 10:44 | Pulmonology Progress Note ---
Assessment/Plan Assessment/Plan IMPRESSION: 1. Non-STEMI. 2. ESRD, on dialysis. 3. Pulmonary edema. 4. Respiratory failure. Now extubated 5. Hypoglycemia. 6. Hyperglycemia now. 7. Hyperkalemia. DISCUSSION: 1. Continue current care 2. Agree with current medications and care. 3. Decrease Fio2 5, Transfer to tele 4. The patient will need dialysis per renal. 5. Rate control per cardiology Remigio Raza M.D. Subjective Interval Events: Cardiac arrythmias noted Constitutional: Reports: no symptoms HEENT: Repors: no symptoms Respiratory: Reports: no symptoms Cardiovascular: Reports: no symptoms Gastrointestinal/Abdominal: Reports: no symptoms Allergies: Coded Allergies: No Known Allergies (Unverified , 05/08/19) Objective Last 24 Hour Vital Signs Date Time Temp Pulse Resp B/P (MAP) Pulse Ox O2 Delivery O2 Flow Rate FiO2 05/13/19 09:15 102 17 115/53 (73) 100 05/13/19 09:00 107 19 115/53 (73) 100 05/13/19 08:45 105 22 106/55 (72) 100 05/13/19 08:41 120 111/55 05/13/19 08:40 119 22 111/55 (73) 100 05/13/19 08:37 110 20 96/54 (68) 100 05/13/19 08:30 114 18 94/53 (67) 100 05/13/19 08:23 117 19 122/54 (76) 100 05/13/19 08:15 113 20 90/64 (73) 100 05/13/19 08:00 118 21 130/90 (103) 100 05/13/19 08:00 116 05/13/19 08:00 15.0 05/13/19 07:45 117 19 133/90 (104) 100 05/13/19 07:30 115 18 144/70 (94) 05/13/19 07:27 115 20 100 Non-Rebreather 15.0 100 05/13/19 07:26 100 Non-Rebreather 15.0 100 05/13/19 07:23 115 20 100 Non-Rebreather 15.0 100 05/13/19 07:15 124 18 128/76 (93) 100 05/13/19 07:00 98.7 126 25 141/50 (80) 100 05/13/19 06:29 192 05/13/19 05:20 51/26 05/13/19 04:00 80 05/13/19 04:00 2.0 05/13/19 04:00 98.2 82 20 108/43 (64) 99 05/13/19 04:00 Simple Mask 12.0 Nasal Cannula 2.0 05/13/19 03:31 80 18 97 Nasal Cannula 3.0 32 84 22 93 05/13/19 00:00 2.0 05/13/19 00:00 76 05/13/19 00:00 Simple Mask 12.0 Nasal Cannula 2.0 05/13/19 00:00 99.5 80 20 113/48 (69) 99 05/12/19 23:34 75 18 97 Nasal Cannula 3.0 32 72 20 95 05/12/19 20:00 72 05/12/19 20:00 Simple Mask 12.0 Nasal Cannula 2.0 05/12/19 20:00 2.0 05/12/19 20:00 98.6 78 20 121/49 (73) 98 05/12/19 19:00 70 20 88/50 (63) 94 05/12/19 18:55 92 Nasal Cannula 4.0 36 05/12/19 18:54 70 18 94 Nasal Cannula 4.0 36 88 20 88 05/12/19 18:51 88 20 88 Nasal Cannula 3.0 32 05/12/19 18:00 70 19 112/68 (83) 92 05/12/19 17:00 70 17 114/37 (62) 94 05/12/19 16:00 Simple Mask 12.0 Simple Mask 12.0 05/12/19 16:00 3.0 05/12/19 16:00 72 20 124/39 (67) 96 05/12/19 15:28 68 05/12/19 15:00 66 17 107/47 (67) 94 05/12/19 14:00 71 20 113/46 (68) 98 05/12/19 13:52 96 Nasal Cannula 4.0 36 05/12/19 13:52 87 18 98 Nasal Cannula 4.0 36 05/12/19 13:00 71 21 107/43 (64) 97 05/12/19 12:00 2.0 05/12/19 12:00 Simple Mask 12.0 Simple Mask 12.0 05/12/19 12:00 69 05/12/19 12:00 68 24 99/23 (48) 96 05/12/19 11:00 67 16 118/31 (60) 96 Intake and Output 05/12/19 05/13/19 19:00 07:00 Intake Total 175 ml 110 ml Output Total 1600 ml Balance -1425 ml 110 ml Intake Oral 120 ml IV Total 55 ml 110 ml Output Hemodialysis UF 1600 ml # Bowel Movements 3 General Appearance: no acute distress HEENT: normocephalic Respiratory/Chest: chest wall non-tender, lungs clear Cardiovascular: normal peripheral pulses, normal rate Abdomen: normal bowel sounds Laboratory Tests 05/12/19 13:40: Hepatitis B Surface Antigen Negative 05/13/19 10:00: White Blood Count 9.0, Red Blood Count 2.74L, Hemoglobin 8.5L, Hematocrit 28.1L , Mean Corpuscular Volume 103H, Mean Corpuscular Hemoglobin 31.0, Mean Corpuscular Hemoglobin Concent 30.2L, Red Cell Distribution Width 18.2H, Platelet Count 89L, Mean Platelet Volume 7.4, Neutrophils (%) (Auto) , Lymphocytes (%) (Auto) , Monocytes (%) (Auto) , Eosinophils (%) (Auto) , Basophils (%) (Auto) , Neutrophils % (Manual) [Pending], Lymphocytes % (Manual) [Pending], Platelet Estimate [Pending], Platelet Morphology [Pending], Sodium Level [Pending], Potassium Level [Pending], Chloride Level [Pending], Carbon Dioxide Level [Pending], Blood Urea Nitrogen [Pending], Creatinine [Pending], Estimat Glomerular Filtration Rate [Pending], Glucose Level [Pending], Calcium Level [Pending], Total Bilirubin [Pending], Aspartate Amino Transf (AST/SGOT) [ Pending], Alanine Aminotransferase (ALT/SGPT) [Pending], Alkaline Phosphatase [ Pending], Total Protein [Pending], Albumin [Pending], Globulin [Pending] Current Medications Medications (Trade) Dose Ordered Sig/Sylwia Route PRN Reason Start Time Stop Time Status Last Admin Dose Admin Albuterol/ Ipratropium (Albuterol/ Ipratropium) 3 ml Q4HRT HHN 05/12/19 23:00 05/17/19 22:59 05/13/19 03:31 Chlorhexidine Gluconate (Karla-Hex 2%) 1 applic DAILY@2000 TOPIC 05/13/19 20:00 06/12/19 19:59 Dextrose (Dextrose 50%) 25 ml Q30M PRN IV Hypoglycemia 05/12/19 20:45 06/08/19 08:14 Dextrose (Dextrose 50%) 50 ml Q30M PRN IV Hypoglycemia 05/12/19 20:45 06/08/19 08:14 05/12/19 21:57 Diltiazem HCl 125 mg/Dextrose 125 ml @ 0 mls/hr Q24H IV 05/13/19 06:00 05/14/19 05:59 05/13/19 08:41 Epoetin Mohinder (Epoetin Mohinder(ESRD on dialysis)) 10,000 unit WED-WED-WED SUBQ 05/12/19 21:00 06/11/19 20:59 05/12/19 21:16 Norepinephrine Bitartrate 4 mg/ Dextrose 250 ml @ 0 mls/hr Q24H IV 05/13/19 06:00 06/12/19 05:59 05/13/19 05:20 Ondansetron HCl (Zofran) 4 mg Q6H PRN IVP Nausea & Vomiting 05/12/19 20:40 06/11/19 20:39 Pantoprazole (Protonix) 40 mg DAILY IVP 05/13/19 09:00 06/08/19 12:14 05/13/19 08:58 Piperacillin Sod/ Tazobactam Sod 2.25 gm/Sodium Chloride 55 ml @ 110 mls/hr Q8HR IVPB 05/12/19 22:00 05/16/19 23:59 05/12/19 21:16 Vancomycin HCl (Vanco rx to dose) 1 ea DAILY PRN MISC Per rx protocol 05/13/19 10:15 06/12/19 10:14 Vancomycin/Sodium Chloride 275 ml @ 183.333 mls/hr ONCE ONCE IVPB 05/13/19 11:15 05/13/19 12:44 Remigio Raza MD May 13, 2019 10:44
[2019-05-13 10:59] LABS: ANION GAP 15 mmol/L (5-15); BLOOD UREA NITROGEN 50 mg/dL (7-18); CALCIUM 9.3 MG/DL (8.5-10.1); CARBON DIOXIDE 25 MMOL/L (21-32); CHLORIDE 102 MMOL/L (98-107); CREATININE 6.6 MG/DL (0.55-1.30); POTASSIUM 4.5 MMOL/L (3.5-5.1); SODIUM 142 MMOL/L (136-145)
[2019-05-13 11:09] LABS: ALANINE AMINOTRANSFERASE 11 U/L (12-78); ALBUMIN 2.3 G/DL (3.4-5.0); ALBUMIN/GLOBULIN RATIO 0.5 (1.0-2.7); ALKALINE PHOSPHATASE 124 U/L (46-116); ASPARTATE AMINO TRANSFERASE 28 U/L (15-37); BILIRUBIN,TOTAL 2.1 MG/DL (0.2-1.0)
[2019-05-13 11:10] LABS: BILIRUBIN,DIRECT 1.4 MG/DL (0.0-0.3)
[2019-05-13] MEDS ORDERED: Vancomycin 1.25gm/NS Premix IVPB ONE (11:15)
--- NOTE | 2019-05-13 11:20 | NUR ---
RESPIRATORY NOTE: Pt weaned from NRB mask to Venti mask 55% @14L. Tolerating well. No increased WOB. No respiratory distress. Sp02 100%, HR 96 RR 20. family at bedside. RN aware. Will continue to monitor.
--- NOTE | 2019-05-13 11:23 | NUR ---
NURSE NOTES: Pt cleaned and repositioned. Alexandra Mckeon and family at bedside. Will continue to monitor. OBS sent to lab.
--- NOTE | 2019-05-13 11:30 | NUR ---
NURSE NOTES: Pt placed on venturi mask per RT at 14L and 55% FiO2.
--- NOTE | 2019-05-13 11:46 | NUR ---
NURSE NOTES: Venoud duplex procedure completed and results are negative. pt placed on SCDs on bilateral lower extremities. Addendum: 05/13/19 at 1247 by Shanae Gonzalez RN Amendment: Venous*
--- NOTE | 2019-05-13 12:08 | Diagnostic Imaging Report ---
EXAM: XR Chest, 1 View CLINICAL HISTORY: DYSPNEA TECHNIQUE: Frontal view of the chest. COMPARISON: Chest x-ray dated 05/10/19 FINDINGS: Lungs: Pulmonary edema, worsened compared to the prior exam. Pleural space: Unremarkable. The costophrenic angles are sharp. No visible pneumothorax. Heart: Cardiomegaly. Mediastinum: Unremarkable. Bones/joints: Status post median sternotomy. Vasculature: Atherosclerotic calcifications are noted within the aortic arch. Tubes, lines and devices: Telemetry leads overlie the thorax. IMPRESSION: 1. Pulmonary edema, worsened compared to the prior exam. 2. Cardiomegaly.
--- NOTE | 2019-05-13 12:20 | Surgery Progress Note ---
Surgery Progress Note Subjective Additional Comments Patient seen and examined bedside. Transferred back to ICU for respiratory desaturation. Chest x-ray noted and increase edema. This morning doing well family at bedside comfortable. No nausea vomiting fever chills. Labs noted. When asked to take a deep breath coughs. Needs incentive spirometry and respiratory therapy. Objective Last 24 Hour Vital Signs Date Time Temp Pulse Resp B/P (MAP) Pulse Ox O2 Delivery O2 Flow Rate FiO2 05/13/19 11:30 108 19 111/37 (61) 100 05/13/19 11:05 106 20 100 Non-Rebreather 15.0 100 93 22 100 05/13/19 11:00 103 20 99/54 (69) 100 05/13/19 10:45 104 18 117/45 (69) 100 05/13/19 10:30 101 18 152/91 (111) 100 05/13/19 10:15 104 17 137/54 (81) 100 05/13/19 10:00 106 17 105/47 (66) 100 05/13/19 09:45 101 21 136/57 (83) 100 05/13/19 09:30 109 17 125/71 (89) 100 05/13/19 09:15 102 17 115/53 (73) 100 05/13/19 09:00 107 19 115/53 (73) 100 05/13/19 08:45 105 22 106/55 (72) 100 05/13/19 08:41 120 111/55 05/13/19 08:40 119 22 111/55 (73) 100 05/13/19 08:37 110 20 96/54 (68) 100 05/13/19 08:30 114 18 94/53 (67) 100 05/13/19 08:23 117 19 122/54 (76) 100 05/13/19 08:15 113 20 90/64 (73) 100 05/13/19 08:00 118 21 130/90 (103) 100 05/13/19 08:00 116 05/13/19 08:00 Non-Rebreather 12.0 Non-Rebreather 12.0 05/13/19 08:00 15.0 05/13/19 07:45 117 19 133/90 (104) 100 05/13/19 07:30 115 18 144/70 (94) 05/13/19 07:27 115 20 100 Non-Rebreather 15.0 100 05/13/19 07:26 100 Non-Rebreather 15.0 100 05/13/19 07:23 115 20 100 Non-Rebreather 15.0 100 05/13/19 07:15 124 18 128/76 (93) 100 05/13/19 07:00 98.7 126 25 141/50 (80) 100 05/13/19 06:29 192 05/13/19 05:20 51/26 05/13/19 04:00 80 05/13/19 04:00 2.0 05/13/19 04:00 98.2 82 20 108/43 (64) 99 05/13/19 04:00 Simple Mask 12.0 Nasal Cannula 2.0 05/13/19 03:31 80 18 97 Nasal Cannula 3.0 32 84 22 93 05/13/19 00:00 2.0 05/13/19 00:00 76 05/13/19 00:00 Simple Mask 12.0 Nasal Cannula 2.0 05/13/19 00:00 99.5 80 20 113/48 (69) 99 05/12/19 23:34 75 18 97 Nasal Cannula 3.0 32 72 20 95 05/12/19 20:00 72 05/12/19 20:00 Simple Mask 12.0 Nasal Cannula 2.0 05/12/19 20:00 2.0 05/12/19 20:00 98.6 78 20 121/49 (73) 98 05/12/19 19:00 70 20 88/50 (63) 94 05/12/19 18:55 92 Nasal Cannula 4.0 36 05/12/19 18:54 70 18 94 Nasal Cannula 4.0 36 88 20 88 05/12/19 18:51 88 20 88 Nasal Cannula 3.0 32 05/12/19 18:00 70 19 112/68 (83) 92 05/12/19 17:00 70 17 114/37 (62) 94 05/12/19 16:00 Simple Mask 12.0 Simple Mask 12.0 05/12/19 16:00 3.0 05/12/19 16:00 72 20 124/39 (67) 96 05/12/19 15:28 68 05/12/19 15:00 66 17 107/47 (67) 94 05/12/19 14:00 71 20 113/46 (68) 98 05/12/19 13:52 96 Nasal Cannula 4.0 36 05/12/19 13:52 87 18 98 Nasal Cannula 4.0 36 05/12/19 13:00 71 21 107/43 (64) 97 I&O Intake and Output 05/12/19 05/13/19 19:00 07:00 Intake Total 175 ml 110 ml Output Total 1600 ml Balance -1425 ml 110 ml Intake Oral 120 ml IV Total 55 ml 110 ml Output Hemodialysis UF 1600 ml # Bowel Movements 3 Dressing: other Wound: other Drains: other Cardiovascular: RSR Respiratory: decreased breath sounds Abdomen: soft, present bowel sounds, non-distended Extremities: no tenderness, no cyanosis, other Laboratory Tests Test 05/12/19 13:40 05/13/19 10:00 05/13/19 10:30 Hepatitis B Surface Antigen Negative (Negative) White Blood Count 9.0 K/UL (4.8-10.8) Red Blood Count 2.74 M/UL (4.20-5.40) L Hemoglobin 8.5 G/DL (12.0-16.0) L Hematocrit 28.1 % (37.0-47.0) L Mean Corpuscular Volume 103 FL (80-99) H Mean Corpuscular Hemoglobin 31.0 PG (27.0-31.0) Mean Corpuscular Hemoglobin Concent 30.2 G/DL (32.0-36.0) L Red Cell Distribution Width 18.2 % (11.6-14.8) H Platelet Count 89 K/UL (150-450) L Mean Platelet Volume 7.4 FL (6.5-10.1) Neutrophils (%) (Auto) % (45.0-75.0) Lymphocytes (%) (Auto) % (20.0-45.0) Monocytes (%) (Auto) % (1.0-10.0) Eosinophils (%) (Auto) % (0.0-3.0) Basophils (%) (Auto) % (0.0-2.0) Differential Total Cells Counted 100 Neutrophils % (Manual) 72 % (45-75) Lymphocytes % (Manual) 17 % (20-45) L Monocytes % (Manual) 10 % (1-10) Eosinophils % (Manual) 1 % (0-3) Basophils % (Manual) 0 % (0-2) Band Neutrophils 0 % (0-8) Platelet Estimate Decreased L Platelet Morphology Normal Hypochromasia 2+ Anisocytosis 2+ Macrocytosis 1+ Sodium Level 142 MMOL/L (136-145) Potassium Level 4.5 MMOL/L (3.5-5.1) Chloride Level 102 MMOL/L (98-107) Carbon Dioxide Level 25 MMOL/L (21-32) Anion Gap 15 mmol/L (5-15) Blood Urea Nitrogen 50 mg/dL (7-18) H Creatinine 6.6 MG/DL (0.55-1.30) H Estimat Glomerular Filtration Rate 6.2 mL/min (>60) Glucose Level 98 MG/DL (74-106) Calcium Level 9.3 MG/DL (8.5-10.1) Total Bilirubin 2.1 MG/DL (0.2-1.0) H Direct Bilirubin 1.4 MG/DL (0.0-0.3) H Aspartate Amino Transf (AST/SGOT) 28 U/L (15-37) Alanine Aminotransferase (ALT/SGPT) 11 U/L (12-78) L Alkaline Phosphatase 124 U/L (46-116) H Total Protein 7.4 G/DL (6.4-8.2) Albumin 2.3 G/DL (3.4-5.0) L Globulin 5.1 g/dL Albumin/Globulin Ratio 0.5 (1.0-2.7) L Stool Occult Blood Pending Plan Problems: (1) Deep tissue injury Assessment & Plan: Patient presented on admission with a deep tissue injury in the sacral area. Patient was syncopal episode found down. Unknown exact time patient was down and since is suffered a cardiac event requiring resuscitation and ACLS. There is an area of deep tissue injury with erythema in the sacral area extending into the bilateral buttocks butterfly formation. No drainage. No open area. Patient is high risk and susceptible to opening and worsening given her current condition, ICU care, deterioration. We will need to monitor closely and provide aggressive care to ensure healing Air mattress Turn every 2 hours Skin protectant OPTi foam dressing daily and as needed Offload heels with pillows Appreciate nursing care Nutritional support DAILY ESTIMATED NEEDS: Needs based on Critical Care, ESRD on HD, wounds; 56.3kg adj 22- 30 kcals/kg 1599-8095 total kcals 1.25-2 g protein/kg 70-113 g total protein Fluid per MD- on HD NUTRITION DIAGNOSIS: * Increased pro needs r/t wound healing and renal dysfunction AEB pt adm w/ BL heel and sacral DTI (per RN), WC eval pending, w/ ESRD on HD. * Swallowing difficulty r/t respiratory status AEB pt is intubated, currently NPO, pending non oral feeds. CURRENT TF: Per RN Nepro @40ml/hr ENTERAL NUTRITION RECOMMENDATIONS: Nepro @35mL/hr x 24 hrs+ 1 Prosource qdaily to provide 840mL, 1512kcal, 68g pro +11g pro, 611mL free H2O -Obtain GI access, initiate Nepro @15mL/hr, advancing 10mL/hr q 4-6hrs until @ goal. -Provide 1 packet of Prosource- flush with 4oz water -HOB > 30 degrees, Flush per MD ADDITIONAL RECOMMENDATIONS: 1) With prolonged NPO/Intubation- see TF recs as above 2) Wound healing- w/ diet order, add: Juan Daniel in 4oz H2O BID; f/up w/ WC eval 3) Maintain calibrated bedscale wt 4) F/u w/ H&P 5) Feed w/ hemodynamic stability, now off pressor support. (2) Cardiac arrest Assessment & Plan: 61-year-old female multi-medical comorbidities syncopal episode leading to ACLS requiring resuscitation. Currently intensive care unit intubated on ventilatory support Patient is ill-appearing with family at the bedside. Labs noted. Mild elevation troponins. Mild elevated LFTs. Improving since resuscitation current etiology work-up A.m. 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 There is also an old right cerebellar cortical infarct There is age-related enlargement of the ventricles and extra axial CSF spaces. There is periventricular deep white matter low-attenuation, consistent with chronic microvascular ischemic change. The stuart-white differentiation is normal. The calvarium is intact. There is evidence of prior cataract surgery. The sinuses are clear. The mastoids are underpneumatized, otherwise clear. Impression: Chronic and age-related changes Negative for acute intracranial bleed or mass effect, Old infarcts, as described Laron Moreno May 13, 2019 12:20
--- NOTE | 2019-05-13 13:15 | NUR ---
NURSE NOTES: Pt repositioned and in no acute distress. Will continue to monitor. Family at bedside.
--- NOTE | 2019-05-13 13:32 | Diagnostic Imaging Report ---
EXAM: US Duplex Bilateral Lower Extremity Veins CLINICAL HISTORY: DVT TECHNIQUE: Real-time duplex ultrasound scan of the bilateral lower extremity veins integrating B-mode two-dimensional vascular structure, Doppler spectral analysis, color flow Doppler imaging and compression. COMPARISON: No relevant prior studies available. FINDINGS: Right deep veins: Unremarkable. No DVT in the right common femoral, femoral, proximal deep femoral or popliteal veins. The veins demonstrate normal color flow, are normally compressible, with normal phasic flow and/or augmentation response. Right superficial veins: Unremarkable. Left deep veins: Unremarkable. No DVT in the left common femoral, femoral, proximal deep femoral or popliteal veins. The veins demonstrate normal color flow, are normally compressible, with normal phasic flow and/or augmentation response. Left superficial veins: Unremarkable. Soft tissues: No popliteal cyst. IMPRESSION: Unremarkable bilateral lower extremity duplex venous ultrasound.
--- NOTE | 2019-05-13 13:35 | NUR ---
NURSE NOTES: Received order for dig level draw, per Dr. Robbins.
--- NOTE | 2019-05-13 14:45 | NUR ---
NURSE NOTES: Started new RFA 22g IV on pt for Zosyn.
[2019-05-13] MEDS ORDERED: NS 275ml ONE (15:32)
[2019-05-13] MEDS ORDERED: NS 500ML ONE (15:32)
[2019-05-13] MEDS ORDERED: Tubing IV Secondary IV ONE (15:32)
[2019-05-13] MEDS ORDERED: D5W 275ml ONE (15:32)
[2019-05-13] MEDS ORDERED: D5NS 1,000 ML IV SCH ×2 (17:15→20:00)
--- NOTE | 2019-05-13 17:44 | Cardiac Electrophysiology PN ---
Assessment/Plan Assessment/Plan 1. Status post two noninfarctional cardiac arrests, likely ventricular tachycardia based on 12-lead EKG in this patient with history of coronary artery disease. Troponin elevation only minimal and level flat likely due two CPR in this patient with hemodialysis. Echocardiogram showed EF 50-55% 2. History of open heart surgery in 2010. Not sure if its bypass or for valve replacement . Medical records from [facility] are still pending 3. Atrial fib with RVR. On Cardizem drip 3. Respiratory failure, extubated. BNP is 17,000. On dialysis. Now DNR and DNI 4. End-stage renal disease, on hemodialysis. 5. Anemia. PAN RN Subjective Subjective Back in ICU in atrial fib with RVR on Cardizem drip 2.5 mg/hr. Had HD yesterday. In SR. NOW DNR and DNI Objective Last 24 Hour Vital Signs Date Time Temp Pulse Resp B/P (MAP) Pulse Ox O2 Delivery O2 Flow Rate FiO2 05/13/19 16:30 98 20 132/112 (119) 100 05/13/19 16:00 Venturi Mask 14.0 Venturi Mask 14.0 05/13/19 16:00 97.7 102 18 99/41 (60) 100 05/13/19 16:00 14.0 55 05/13/19 15:30 103 23 93/40 (57) 100 05/13/19 15:10 103 20 100 Venturi Mask 14.0 55 92 20 100 05/13/19 15:00 104 23 109/42 (64) 100 05/13/19 14:30 103 19 105/45 (65) 100 05/13/19 14:00 101 22 101/53 (69) 100 05/13/19 13:30 98 20 110/49 (69) 100 05/13/19 13:00 100 23 113/46 (68) 100 05/13/19 12:30 99 25 90/36 (54) 100 05/13/19 12:00 14.0 55 05/13/19 12:00 98.5 102 20 103/31 (55) 100 05/13/19 12:00 104 05/13/19 12:00 Venturi Mask 14.0 Venturi Mask 14.0 05/13/19 11:30 108 19 111/37 (61) 100 05/13/19 11:30 14.0 55 05/13/19 11:05 106 20 100 Non-Rebreather 15.0 100 93 22 100 05/13/19 11:00 103 20 99/54 (69) 100 05/13/19 10:45 104 18 117/45 (69) 100 05/13/19 10:30 101 18 152/91 (111) 100 05/13/19 10:15 104 17 137/54 (81) 100 05/13/19 10:00 106 17 105/47 (66) 100 05/13/19 09:45 101 21 136/57 (83) 100 05/13/19 09:30 109 17 125/71 (89) 100 05/13/19 09:15 102 17 115/53 (73) 100 05/13/19 09:00 107 19 115/53 (73) 100 05/13/19 08:45 105 22 106/55 (72) 100 05/13/19 08:41 120 111/55 05/13/19 08:40 119 22 111/55 (73) 100 05/13/19 08:37 110 20 96/54 (68) 100 05/13/19 08:30 114 18 94/53 (67) 100 05/13/19 08:23 117 19 122/54 (76) 100 05/13/19 08:15 113 20 90/64 (73) 100 05/13/19 08:00 118 21 130/90 (103) 100 05/13/19 08:00 116 05/13/19 08:00 Non-Rebreather 12.0 Non-Rebreather 12.0 05/13/19 08:00 15.0 05/13/19 07:45 117 19 133/90 (104) 100 05/13/19 07:30 115 18 144/70 (94) 05/13/19 07:27 115 20 100 Non-Rebreather 15.0 100 05/13/19 07:26 100 Non-Rebreather 15.0 100 05/13/19 07:23 115 20 100 Non-Rebreather 15.0 100 05/13/19 07:15 124 18 128/76 (93) 100 05/13/19 07:00 98.7 126 25 141/50 (80) 100 05/13/19 06:29 192 05/13/19 05:20 51/26 05/13/19 04:00 80 05/13/19 04:00 2.0 05/13/19 04:00 98.2 82 20 108/43 (64) 99 05/13/19 04:00 Simple Mask 12.0 Nasal Cannula 2.0 05/13/19 03:31 80 18 97 Nasal Cannula 3.0 32 84 22 93 05/13/19 00:00 2.0 05/13/19 00:00 76 05/13/19 00:00 Simple Mask 12.0 Nasal Cannula 2.0 05/13/19 00:00 99.5 80 20 113/48 (69) 99 05/12/19 23:34 75 18 97 Nasal Cannula 3.0 32 72 20 95 05/12/19 20:00 72 05/12/19 20:00 Simple Mask 12.0 Nasal Cannula 2.0 05/12/19 20:00 2.0 05/12/19 20:00 98.6 78 20 121/49 (73) 98 05/12/19 19:00 70 20 88/50 (63) 94 05/12/19 18:55 92 Nasal Cannula 4.0 36 05/12/19 18:54 70 18 94 Nasal Cannula 4.0 36 88 20 88 05/12/19 18:51 88 20 88 Nasal Cannula 3.0 32 05/12/19 18:00 70 19 112/68 (83) 92 Intake and Output 05/12/19 05/13/19 19:00 07:00 Intake Total 175 ml 110 ml Output Total 1600 ml Balance -1425 ml 110 ml Intake Oral 120 ml IV Total 55 ml 110 ml Output Hemodialysis UF 1600 ml # Bowel Movements 3 Laboratory Tests Test 05/13/19 10:00 05/13/19 10:30 05/13/19 16:15 White Blood Count 9.0 K/UL (4.8-10.8) Red Blood Count 2.74 M/UL (4.20-5.40) L Hemoglobin 8.5 G/DL (12.0-16.0) L Hematocrit 28.1 % (37.0-47.0) L Mean Corpuscular Volume 103 FL (80-99) H Mean Corpuscular Hemoglobin 31.0 PG (27.0-31.0) Mean Corpuscular Hemoglobin Concent 30.2 G/DL (32.0-36.0) L Red Cell Distribution Width 18.2 % (11.6-14.8) H Platelet Count 89 K/UL (150-450) L Mean Platelet Volume 7.4 FL (6.5-10.1) Neutrophils (%) (Auto) % (45.0-75.0) Lymphocytes (%) (Auto) % (20.0-45.0) Monocytes (%) (Auto) % (1.0-10.0) Eosinophils (%) (Auto) % (0.0-3.0) Basophils (%) (Auto) % (0.0-2.0) Differential Total Cells Counted 100 Neutrophils % (Manual) 72 % (45-75) Lymphocytes % (Manual) 17 % (20-45) L Monocytes % (Manual) 10 % (1-10) Eosinophils % (Manual) 1 % (0-3) Basophils % (Manual) 0 % (0-2) Band Neutrophils 0 % (0-8) Platelet Estimate Decreased L Platelet Morphology Normal Hypochromasia 2+ Anisocytosis 2+ Macrocytosis 1+ Sodium Level 142 MMOL/L (136-145) Potassium Level 4.5 MMOL/L (3.5-5.1) Chloride Level 102 MMOL/L (98-107) Carbon Dioxide Level 25 MMOL/L (21-32) Anion Gap 15 mmol/L (5-15) Blood Urea Nitrogen 50 mg/dL (7-18) H Creatinine 6.6 MG/DL (0.55-1.30) H Estimat Glomerular Filtration Rate 6.2 mL/min (>60) Glucose Level 98 MG/DL (74-106) Calcium Level 9.3 MG/DL (8.5-10.1) Total Bilirubin 2.1 MG/DL (0.2-1.0) H Direct Bilirubin 1.4 MG/DL (0.0-0.3) H Aspartate Amino Transf (AST/SGOT) 28 U/L (15-37) Alanine Aminotransferase (ALT/SGPT) 11 U/L (12-78) L Alkaline Phosphatase 124 U/L (46-116) H Total Protein 7.4 G/DL (6.4-8.2) Albumin 2.3 G/DL (3.4-5.0) L Globulin 5.1 g/dL Albumin/Globulin Ratio 0.5 (1.0-2.7) L Stool Occult Blood Pending Digoxin Level 2.1 NG/ML (0.9-2.0) H Objective HEAD AND NECK: No JVD. LUNGS: Coarse rhonchi. CHEST: Sternotomy scar is healed. CARDIOVASCULAR: Regular S1 and S2 with no gallop. ABDOMEN: Soft. She has a scar from cholecystectomy in the abdomen. EXTREMITIES: Status post left AV shunt. Shawn Robbins MD May 13, 2019 17:44
--- NOTE | 2019-05-13 17:51 | NUR ---
NURSE NOTES: Received orders to add Cardizem 90mg PO q6hrs, give first dose now, titrate down cardizem drip to meet HR <90, 12 lead EKG to be done tomorrow AM. Read back given and verified. Addendum: 05/13/19 at 1850 by ANGEL MEDINA RN wrong patient
--- NOTE | 2019-05-13 17:59 | NUR ---
NURSE NOTES: Dr. Robbins came in to see pt and is aware of digoxin level of 2.1 today. No new orders at this time. Pt in no acute distress and is accompanied by family at bedside. Will continue to monitor.
--- NOTE | 2019-05-13 19:27 | NUR ---
HAND-OFF: Report given to BINH Baird.
--- NOTE | 2019-05-13 19:30 | NUR ---
NURSE NOTES: Received patient from Trey Reed. Patient is alert and oriented X2-3. Patient has 2 PIV on the right extremity and receiving Cardizem gtt at 2.5mg/hr, D5NS at 30ml/hr. Patient is in Afib rhythm. Afebrile. Blood pressure is stable right now. Venturi mask at 55% FiO2. SpO2 of 100%. Patient has SCD's on. Patient can follow some simple commands. P200 mattress on. No acute distress at this time. Family at bedside,.
--- NOTE | 2019-05-13 19:46 | NUR ---
NURSE NOTES: BS 63 mg/dl, D50 25ml given as per ordered. PMD notified and received orders to increase D5NS@50ml/hr.
--- NOTE | 2019-05-13 19:59 | NUR ---
NURSE NOTES: Glucose checked and noted to be 115.
[2019-05-13] MEDS ORDERED: Dyna-Hex 2% Top Sol 2oz TOPIC SCH ×2 (20:00)
--- NOTE | 2019-05-13 20:00 | NUR ---
NURSE NOTES: Was endorsed by BINH Hampton that Dr. Zapata preferred to have NGT insertion and start Nepro at 35ml/hr
--- NOTE | 2019-05-13 20:15 | NUR ---
NURSE NOTES: Did a few tries of the incentive spirometer.
--- NOTE | 2019-05-13 20:32 | NUR ---
NURSE NOTES: NGT inserted, confirmed placement by 2 RN's. Xray confirmation will follow. Patient tolerated NGT insertion well.
[2019-05-13] MEDS: Dyna-Hex 2% Top Sol 2oz TOPIC SCH (20:59)
--- NOTE | 2019-05-13 21:00 | NUR ---
NURSE NOTES: Nepro started at 35ml/hr and Fluids stopped for now. Will continue to monitor. Addendum: 05/14/19 at 0641 by YAZ SINGH RN Glucose checked and noted to be 92.
--- NOTE | 2019-05-13 22:00 | NUR ---
NURSE NOTES: Repositioned patient and adjusted pillows. Family confirmed with me about DNR/DNI status and also that family wishes no pressors to be involved. Right now patient is asleep and easily arousable. Blood pressure is 104/37, HR is 94 Afib, SpO2 is 100%, venturi mask at 55%. Will continue to monitor.
--- NOTE | 2019-05-13 22:10 | NUR ---
NURSE NOTES: Had patient use incentive spirometer X 7 times.
--- NOTE | 2019-05-13 22:21 | Diagnostic Imaging Report ---
EXAM: XR Abdomen, 2 Views CLINICAL HISTORY: NGT TECHNIQUE: Frontal view of the abdomen/pelvis with upright view of the abdomen. COMPARISON: No relevant prior studies available. FINDINGS: NGT terminates in the stomach. Nonobstructed bowel gas pattern.
[2019-05-14] VITALS (35 sets, daily range): BP systolic 93–118; BP diastolic 30–48
--- NOTE | 2019-05-14 | NUR ---
NURSE NOTES: Repositioned patient and given oral care. Patient is awake and able to respond to simple commands. Took an glucose check and was 89. Patient is tolerating feeds. HR remains Afib in the 80s and 90s. No acute distress. Switch patient onto Nasal cannula at 3L. Saturating now at 94%-96%. Will continue to monitor.
--- NOTE | 2019-05-14 01:30 | NUR ---
NURSE NOTES: Converted to sinus rhythm. HR is 71 NSR
--- NOTE | 2019-05-14 01:45 | NUR ---
NURSE NOTES: used incentive spirometer 4 tries. Patient is awake and can follow some simple commands but is still tiresome.
--- NOTE | 2019-05-14 02:00 | NUR ---
NURSE NOTES: Repositioned and given oral care. Patient still in sinus rhythm. Patient asleep at this time but easily arousable to stimulation verbal commands. Blood pressure is 94/35, Spo2 is 96% while on 3L NC. No acute distress or discomfort at this time.
[2019-05-14] MEDS: Albuterol/Ipratropium 3ml neb HHN SCH ×6 (02:58→23:17)
--- NOTE | 2019-05-14 03:30 | Consultation ---
DATE OF CONSULTATION: 05/13/2019 GASTROENTEROLOGY CONSULTATION CONSULTING PHYSICIAN: Fadumo Morris M.D. CHIEF COMPLAINT: I was asked to see this patient by Dr. David Zapata for evaluation of anemia. HISTORY OF PRESENT ILLNESS: The patient is a pleasant 69-year-old woman who was brought into the hospital and admitted to the ICU because of symptoms of encephalopathy and syncope. The patient's sugar was brought into field and therefore she was placed on dextrose drip and brought to the emergency room. Here in the intensive care unit, she has been found to have severe anemia and therefore this consultation was generated. It should be noted that the patient has end-stage renal disease and she is on dialysis. The patient's last colonoscopy was perhaps just only five years ago per her family's recollection, but there was no endoscopy done. They cannot recall where the procedure was done and what the results were. The patient denies any abdominal pain, nausea, or vomiting. PAST MEDICAL HISTORY: History of end-stage renal disease, on dialysis; coronary artery disease; hypertension; and anemia of chronic kidney disease. FAMILY HISTORY: Positive for hypertension. SOCIAL HISTORY: The patient does not smoke or drink alcohol. REVIEW OF SYSTEMS: Otherwise negative. MEDICATIONS: See the chart list for details. PHYSICAL EXAMINATION: GENERAL: A pleasant woman seen in ICU. HEENT: Normocephalic and atraumatic. NECK: Supple. CHEST: Revealed scattered rhonchi. CARDIOVASCULAR: Revealed tachycardic heart rate. ABDOMEN: Soft. Good bowel sounds. EXTREMITIES: Revealed no edema. LABORATORY DATA: Laboratory data was noted. ASSESSMENT: This patient presents with severe anemia of unclear etiology. Given her renal failure as instructed, she has underlying chronic anemia. However, she also has thrombocytopenia, which raised a concern for a bone marrow disorder. I would check her stool occult blood to see if she is heme-positive and in that case, GI workup may be further considered. Otherwise, the patient's laboratory parameters should be followed and a Hematology evaluation can be considered. RECOMMENDATIONS: 1. Check stool occult blood. 2. Follow CBC. 3. PO diet as tolerated. 4. Follow laboratory parameters and exam. Thank you for asking me to participate in the care of this patient. Fadumo Morris M.D. DR: PREETHI JOB#: [id number] CC:
--- NOTE | 2019-05-14 04:00 | NUR ---
NURSE NOTES: Patient cleaned and given oral care. Blood was drawn and sent to lab. Patient repositioned. Glucose check was done and shown to be 103. Patient HR right now is 74 NSR, 108/33, SpO2 of 96% while on 3L NC. No distress or discomfort at this time, temperature is 98.4F. Feeds ongoing. Will continue to monitor.
--- NOTE | 2019-05-14 05:00 | NUR ---
NURSE NOTES: Used incentive spirometer 3 tries.
[2019-05-14 05:40] LABS: HEMATOCRIT 25.6 % (37.0-47.0); HEMOGLOBIN 7.8 G/DL (12.0-16.0); MEAN CORPUSCULAR VOLUME 104 FL (80-99); PLATELET COUNT 95 K/UL (150-450); RED BLOOD COUNT 2.47 M/UL (4.20-5.40); RED CELL DISTRIBUTION WIDTH 18.7 % (11.6-14.8)
[2019-05-14] MEDS: Piperacillin/Tazobactam 2.25 GM in NS 55 ML IVPB SCH ×3 (05:53→22:10)
[2019-05-14 06:11] LABS: ALANINE AMINOTRANSFERASE 12 U/L (12-78); ALBUMIN 2.1 G/DL (3.4-5.0); ALBUMIN/GLOBULIN RATIO 0.4 (1.0-2.7); ALKALINE PHOSPHATASE 122 U/L (46-116); ANION GAP 13 mmol/L (5-15); ASPARTATE AMINO TRANSFERASE 35 U/L (15-37); BILIRUBIN,TOTAL 2.1 MG/DL (0.2-1.0); BLOOD UREA NITROGEN 56 mg/dL (7-18); CALCIUM 9.1 MG/DL (8.5-10.1); CARBON DIOXIDE 26 MMOL/L (21-32); CHLORIDE 103 MMOL/L (98-107); CREATININE 7.5 MG/DL (0.55-1.30); POTASSIUM 4.3 MMOL/L (3.5-5.1); SODIUM 142 MMOL/L (136-145)
[2019-05-14 06:12] LABS: BILIRUBIN,DIRECT 1.4 MG/DL (0.0-0.3)
--- NOTE | 2019-05-14 06:22 | NUR ---
NURSE NOTES: Glucose noted to be 97. Patient repositioned and oral care performed. No acute distress, remains in NSR
--- NOTE | 2019-05-14 07:22 | NUR ---
HAND-OFF: Report given to Berta Reed and Roseline Gonzalez RN. Patient remains NSR, patient mentation is alert and oriented X3. Patient is slightly lethargic and somnulent but remains able to converstate some commands. Patient is tolerating feeds. No acute distress, Spo2 is 98% while on 3L NC. BP is 94/31. Semi-folwers position. NAD.
--- NOTE | 2019-05-14 07:23 | NUR ---
NURSE NOTES: Pt received from BINH Baird in stable condition. Pt is awake in bed, AAOx1, on 3 L O2 via NC. Pt noted in SR on residential monitor, VS noted and charted. Skin alterations noted. Pt has a RH 22g IV and RFA 22g IV saline locked. L AV shunt noted. Pt has a NGT in left nare running Nepro at 35cc/hr. Bed in lowest position, alarm on, side rails up x 3, call light within reach. Will continue to monitor pt.
--- NOTE | 2019-05-14 07:30 | NUR ---
NURSE NOTES: Spoke with Dr. Abbott on the phone regarding pt's H&H today as well as OBS positive results, Dr. Morris is also at bedside at this time and was made aware of OBS results and labs. No new orders at this time. Will continue to monitor.
--- NOTE | 2019-05-14 07:47 | Nephrology Progress Note ---
Assessment/Plan Assessment/Plan: A/P 1) ESRD- HD tomorrow 2) S/P Cardiac Arrest - EF 55%, stable 3) LE Wounds - Per Gen Surgery and ID 4) Resp FL- Extubated 5) DVT prophylaxsis with SCDs 6) Anemia- Thrombocytopenia - GI consonsulted - EPO 7) Afib RVR- per cardiology. Dig and on cardizem gtt Patient now DNR/I Subjective Date patient seen: May 14, 2019 Time patient seen: 07:44 ROS Limited/Unobtainable: No Allergies: Coded Allergies: No Known Allergies (Unverified , 05/08/19) Subjective Patient resting. Fatigued and ill appearing Objective Last 24 Hour Vital Signs Date Time Temp Pulse Resp B/P (MAP) Pulse Ox O2 Delivery O2 Flow Rate FiO2 05/14/19 07:00 72 18 101/46 (64) 97 05/14/19 06:59 73 20 98 Nasal Cannula 3.0 32 72 20 95 05/14/19 06:30 73 20 95/45 (62) 96 05/14/19 06:00 74 21 99/48 (65) 95 05/14/19 05:53 95/35 05/14/19 05:30 74 17 105/31 (55) 91 05/14/19 05:00 70 18 95/35 (55) 94 05/14/19 04:30 73 17 100/33 (55) 94 05/14/19 04:03 3.0 05/14/19 04:00 98.4 75 21 108/35 (59) 93 05/14/19 04:00 75 05/14/19 04:00 Nasal Cannula 3.0 Nasal Cannula 3.0 05/14/19 03:30 77 22 117/39 (65) 94 05/14/19 03:00 73 23 110/35 (60) 95 05/14/19 02:59 76 17 97 Nasal Cannula 3.0 32 75 17 95 05/14/19 02:30 72 16 104/39 (60) 96 05/14/19 02:00 71 25 94/35 (54) 96 05/14/19 02:00 71 05/14/19 01:30 72 16 101/38 (59) 96 05/14/19 01:00 94 20 104/46 (65) 95 05/14/19 00:30 114 23 105/45 (65) 100 05/14/19 00:00 85 05/14/19 00:00 3.0 05/14/19 00:00 Nasal Cannula 3.0 Nasal Cannula 3.0 05/14/19 00:00 98.8 101 24 94/42 (59) 100 05/13/19 23:30 99 22 103/36 (58) 99 05/13/19 23:13 104 19 100 Venturi Mask 8.0 40 98 19 100 05/13/19 23:00 95 18 96/33 (54) 99 05/13/19 22:30 94 18 104/37 (59) 100 05/13/19 22:00 97 20 98/41 (60) 100 05/13/19 21:30 101 19 102/41 (61) 100 05/13/19 21:00 99 20 109/53 (71) 100 05/13/19 20:30 103 21 98/45 (62) 99 05/13/19 20:00 98 05/13/19 20:00 98.1 96 19 104/36 (58) 100 05/13/19 20:00 Venturi Mask 14.0 Venturi Mask 14.0 05/13/19 20:00 14.0 55 05/13/19 19:30 101 19 95/41 (59) 100 05/13/19 19:00 99 21 99/57 (71) 100 05/13/19 18:48 101 20 100 Venturi Mask 14.0 55 97 19 100 05/13/19 18:47 100 Venturi Mask 14.0 55 05/13/19 18:46 96 22 100 Venturi Mask 14.0 55 05/13/19 18:00 100 19 101/44 (63) 100 05/13/19 17:30 99 18 141/109 (120) 99 05/13/19 17:00 96 19 103/50 (67) 100 05/13/19 16:30 98 20 132/112 (119) 100 05/13/19 16:00 Venturi Mask 14.0 Venturi Mask 14.0 05/13/19 16:00 101 05/13/19 16:00 97.7 102 18 99/41 (60) 100 05/13/19 16:00 14.0 55 05/13/19 15:30 103 23 93/40 (57) 100 05/13/19 15:10 103 20 100 Venturi Mask 14.0 55 92 20 100 05/13/19 15:00 104 23 109/42 (64) 100 05/13/19 14:30 103 19 105/45 (65) 100 05/13/19 14:00 101 22 101/53 (69) 100 05/13/19 13:30 98 20 110/49 (69) 100 05/13/19 13:00 100 23 113/46 (68) 100 05/13/19 12:30 99 25 90/36 (54) 100 05/13/19 12:00 14.0 55 05/13/19 12:00 98.5 102 20 103/31 (55) 100 05/13/19 12:00 104 05/13/19 12:00 Venturi Mask 14.0 Venturi Mask 14.0 05/13/19 11:30 108 19 111/37 (61) 100 05/13/19 11:30 14.0 55 05/13/19 11:05 106 20 100 Non-Rebreather 15.0 100 93 22 100 05/13/19 11:00 103 20 99/54 (69) 100 05/13/19 10:45 104 18 117/45 (69) 100 05/13/19 10:30 101 18 152/91 (111) 100 05/13/19 10:15 104 17 137/54 (81) 100 05/13/19 10:00 106 17 105/47 (66) 100 05/13/19 09:45 101 21 136/57 (83) 100 05/13/19 09:30 109 17 125/71 (89) 100 05/13/19 09:15 102 17 115/53 (73) 100 05/13/19 09:00 107 19 115/53 (73) 100 05/13/19 08:45 105 22 106/55 (72) 100 05/13/19 08:41 120 111/55 05/13/19 08:40 119 22 111/55 (73) 100 05/13/19 08:37 110 20 96/54 (68) 100 05/13/19 08:30 114 18 94/53 (67) 100 05/13/19 08:23 117 19 122/54 (76) 100 05/13/19 08:15 113 20 90/64 (73) 100 05/13/19 08:00 118 21 130/90 (103) 100 05/13/19 08:00 116 05/13/19 08:00 Non-Rebreather 12.0 Non-Rebreather 12.0 05/13/19 08:00 15.0 05/13/19 07:45 117 19 133/90 (104) 100 Intake and Output 05/13/19 05/14/19 19:00 07:00 Intake Total 474.54115 ml 624.1 ml Output Total 0 ml Balance 474.05624 ml 624.1 ml IV Total 474.32229 ml 239.1 ml Tube Feeding 385 ml Output Urine Total 0 ml # Bowel Movements 2 Laboratory Tests 05/13/19 10:00: White Blood Count 9.0, Red Blood Count 2.74L, Hemoglobin 8.5L, Hematocrit 28.1L , Mean Corpuscular Volume 103H, Mean Corpuscular Hemoglobin 31.0, Mean Corpuscular Hemoglobin Concent 30.2L, Red Cell Distribution Width 18.2H, Platelet Count 89L, Mean Platelet Volume 7.4, Neutrophils (%) (Auto) , Lymphocytes (%) (Auto) , Monocytes (%) (Auto) , Eosinophils (%) (Auto) , Basophils (%) (Auto) , Differential Total Cells Counted 100, Neutrophils % ( Manual) 72, Lymphocytes % (Manual) 17L, Monocytes % (Manual) 10, Eosinophils % ( Manual) 1, Basophils % (Manual) 0, Band Neutrophils 0, Platelet Estimate DecreasedL, Platelet Morphology Normal, Hypochromasia 2+, Anisocytosis 2+, Macrocytosis 1+, Sodium Level 142, Potassium Level 4.5, Chloride Level 102, Carbon Dioxide Level 25, Anion Gap 15, Blood Urea Nitrogen 50H, Creatinine 6.6H , Estimat Glomerular Filtration Rate 6.2, Glucose Level 98, Calcium Level 9.3, Total Bilirubin 2.1H, Direct Bilirubin 1.4H, Aspartate Amino Transf (AST/SGOT) 28, Alanine Aminotransferase (ALT/SGPT) 11L, Alkaline Phosphatase 124H, Total Protein 7.4, Albumin 2.3L, Globulin 5.1, Albumin/Globulin Ratio 0.5L 05/13/19 10:30: Stool Occult Blood Positive 05/13/19 16:15: Digoxin Level 2.1H 05/14/19 04:00: White Blood Count 9.0, Red Blood Count 2.47L, Hemoglobin 7.8L, Hematocrit 25.6L , Mean Corpuscular Volume 104H, Mean Corpuscular Hemoglobin 31.7H, Mean Corpuscular Hemoglobin Concent 30.6L, Red Cell Distribution Width 18.7H, Platelet Count 95L, Mean Platelet Volume 7.8, Neutrophils (%) (Auto) , Lymphocytes (%) (Auto) , Monocytes (%) (Auto) , Eosinophils (%) (Auto) , Basophils (%) (Auto) , Neutrophils % (Manual) [Pending], Lymphocytes % (Manual) [Pending], Platelet Estimate [Pending], Platelet Morphology [Pending], Sodium Level 142, Potassium Level 4.3, Chloride Level 103, Carbon Dioxide Level 26, Anion Gap 13, Blood Urea Nitrogen 56H, Creatinine 7.5H, Estimat Glomerular Filtration Rate 5.4, Glucose Level 95, Calcium Level 9.1, Total Bilirubin 2.1H, Direct Bilirubin 1.4H, Aspartate Amino Transf (AST/SGOT) 35, Alanine Aminotransferase (ALT/SGPT) 12, Alkaline Phosphatase 122H, Total Protein 7.1, Albumin 2.1L, Globulin 5.0, Albumin/Globulin Ratio 0.4L, Vitamin B12 Level 1575H Height (Feet): 4 Height (Inches): 10.00 Weight (Pounds): 141 General Appearance: mild distress EENT: normal ENT inspection Neck: normal alignment, supple Cardiovascular: normal rate, regular rhythm Respiratory/Chest: rhonchi - bilaterally Abdomen: non tender, soft Edema: no edema noted Arm (L), no edema noted Arm (R), no edema noted Leg (L), no edema noted Leg (R), no edema noted Pedal (L), no edema noted Pedal (R), no edema noted Generalized David Zapata MD May 14, 2019 07:47
--- NOTE | 2019-05-14 08:00 | NUR ---
NURSE NOTES: Contacted [facility] Dialysis and schedules appt for 05/15/19- spoke with Ever.
[2019-05-14] MEDS: Pantoprazole Inj IVP SCH (08:54)
--- NOTE | 2019-05-14 09:45 | NUR ---
NURSE NOTES: Received call back from dialysis nurse Tino to confirm dialysis appt for tomorrow.
--- NOTE | 2019-05-14 10:00 | NUR ---
NURSE NOTES: Pt repositioned, no acute distress noted. Oral care provided. Will continue to monitor.
--- NOTE | 2019-05-14 10:59 | NUR ---
NURSE NOTES: NGT feeding clamped at this time for ABD US for today. Family at bedside, pt repositioned. Will continue to monitor.
--- NOTE | 2019-05-14 11:03 | Pulmonology Progress Note ---
Assessment/Plan Assessment/Plan IMPRESSION: 1. Non-STEMI. 2. ESRD, on dialysis. 3. Pulmonary edema. 4. Respiratory failure. Now extubated 5. Hypoglycemia. 6. Hyperglycemia now. 7. Hyperkalemia. DISCUSSION: 1. Continue current care 2. Agree with current medications and care. 3. Decrease Fio2 5, Transfer to tele 4. The patient will need dialysis per renal. 5. Rate control per cardiology Remigio Raza M.D. Subjective Interval Events: None new Constitutional: Reports: no symptoms HEENT: Repors: no symptoms Respiratory: Reports: no symptoms Cardiovascular: Reports: no symptoms Gastrointestinal/Abdominal: Reports: no symptoms Genitourinary: Reports: no symptoms Allergies: Coded Allergies: No Known Allergies (Unverified , 05/08/19) Objective Last 24 Hour Vital Signs Date Time Temp Pulse Resp B/P (MAP) Pulse Ox O2 Delivery O2 Flow Rate FiO2 05/14/19 10:00 71 20 102/31 (54) 96 05/14/19 09:30 83 21 101/30 (53) 93 05/14/19 09:00 73 21 102/34 (56) 95 05/14/19 08:30 73 18 105/34 (57) 95 05/14/19 08:00 74 05/14/19 08:00 3.0 05/14/19 08:00 Nasal Cannula 3.0 Nasal Cannula 3.0 05/14/19 08:00 99.1 74 18 101/39 (59) 97 05/14/19 07:30 73 19 99/38 (58) 96 05/14/19 07:00 100 Nasal Cannula 3.0 32 05/14/19 07:00 72 18 101/46 (64) 97 05/14/19 06:59 73 20 98 Nasal Cannula 3.0 32 72 20 95 05/14/19 06:30 73 20 95/45 (62) 96 05/14/19 06:00 74 21 99/48 (65) 95 05/14/19 05:53 95/35 05/14/19 05:30 74 17 105/31 (55) 91 05/14/19 05:00 70 18 95/35 (55) 94 05/14/19 04:30 73 17 100/33 (55) 94 05/14/19 04:03 3.0 05/14/19 04:00 98.4 75 21 108/35 (59) 93 05/14/19 04:00 75 05/14/19 04:00 Nasal Cannula 3.0 Nasal Cannula 3.0 05/14/19 03:30 77 22 117/39 (65) 94 05/14/19 03:00 73 23 110/35 (60) 95 05/14/19 02:59 76 17 97 Nasal Cannula 3.0 32 75 17 95 05/14/19 02:30 72 16 104/39 (60) 96 05/14/19 02:00 71 25 94/35 (54) 96 05/14/19 02:00 71 05/14/19 01:30 72 16 101/38 (59) 96 05/14/19 01:00 94 20 104/46 (65) 95 05/14/19 00:30 114 23 105/45 (65) 100 05/14/19 00:00 85 05/14/19 00:00 3.0 05/14/19 00:00 Nasal Cannula 3.0 Nasal Cannula 3.0 05/14/19 00:00 98.8 101 24 94/42 (59) 100 05/13/19 23:30 99 22 103/36 (58) 99 05/13/19 23:13 104 19 100 Venturi Mask 8.0 40 98 19 100 05/13/19 23:00 95 18 96/33 (54) 99 05/13/19 22:30 94 18 104/37 (59) 100 05/13/19 22:00 97 20 98/41 (60) 100 05/13/19 21:30 101 19 102/41 (61) 100 05/13/19 21:00 99 20 109/53 (71) 100 05/13/19 20:30 103 21 98/45 (62) 99 05/13/19 20:00 98 05/13/19 20:00 98.1 96 19 104/36 (58) 100 05/13/19 20:00 Venturi Mask 14.0 Venturi Mask 14.0 05/13/19 20:00 14.0 55 05/13/19 19:30 101 19 95/41 (59) 100 05/13/19 19:00 99 21 99/57 (71) 100 05/13/19 18:48 101 20 100 Venturi Mask 14.0 55 97 19 100 05/13/19 18:47 100 Venturi Mask 14.0 55 05/13/19 18:46 96 22 100 Venturi Mask 14.0 55 05/13/19 18:00 100 19 101/44 (63) 100 05/13/19 17:30 99 18 141/109 (120) 99 05/13/19 17:00 96 19 103/50 (67) 100 05/13/19 16:30 98 20 132/112 (119) 100 05/13/19 16:00 Venturi Mask 14.0 Venturi Mask 14.0 05/13/19 16:00 101 05/13/19 16:00 97.7 102 18 99/41 (60) 100 05/13/19 16:00 14.0 55 05/13/19 15:30 103 23 93/40 (57) 100 05/13/19 15:10 103 20 100 Venturi Mask 14.0 55 92 20 100 05/13/19 15:00 104 23 109/42 (64) 100 05/13/19 14:30 103 19 105/45 (65) 100 05/13/19 14:00 101 22 101/53 (69) 100 05/13/19 13:30 98 20 110/49 (69) 100 05/13/19 13:00 100 23 113/46 (68) 100 05/13/19 12:30 99 25 90/36 (54) 100 05/13/19 12:00 14.0 55 05/13/19 12:00 98.5 102 20 103/31 (55) 100 05/13/19 12:00 104 05/13/19 12:00 Venturi Mask 14.0 Venturi Mask 14.0 05/13/19 11:30 108 19 111/37 (61) 100 05/13/19 11:30 14.0 55 05/13/19 11:05 106 20 100 Non-Rebreather 15.0 100 93 22 100 Intake and Output 05/13/19 05/14/19 19:00 07:00 Intake Total 474.97839 ml 624.1 ml Output Total 0 ml Balance 474.58683 ml 624.1 ml IV Total 474.80096 ml 239.1 ml Tube Feeding 385 ml Output Urine Total 0 ml # Bowel Movements 2 General Appearance: no acute distress HEENT: normocephalic Respiratory/Chest: chest wall non-tender, lungs clear Cardiovascular: normal peripheral pulses Abdomen: normal bowel sounds Laboratory Tests 05/13/19 16:15: Digoxin Level 2.1H 05/14/19 04:00: White Blood Count 9.0, Red Blood Count 2.47L, Hemoglobin 7.8L, Hematocrit 25.6L , Mean Corpuscular Volume 104H, Mean Corpuscular Hemoglobin 31.7H, Mean Corpuscular Hemoglobin Concent 30.6L, Red Cell Distribution Width 18.7H, Platelet Count 95L, Mean Platelet Volume 7.8, Neutrophils (%) (Auto) , Lymphocytes (%) (Auto) , Monocytes (%) (Auto) , Eosinophils (%) (Auto) , Basophils (%) (Auto) , Differential Total Cells Counted 100, Neutrophils % ( Manual) 70, Lymphocytes % (Manual) 17L, Monocytes % (Manual) 10, Eosinophils % ( Manual) 2, Basophils % (Manual) 1, Band Neutrophils 0, Platelet Estimate DecreasedL, Platelet Morphology Normal, Hypochromasia 3+, Anisocytosis 2+, Macrocytosis 1+, Sodium Level 142, Potassium Level 4.3, Chloride Level 103, Carbon Dioxide Level 26, Anion Gap 13, Blood Urea Nitrogen 56H, Creatinine 7.5H , Estimat Glomerular Filtration Rate 5.4, Glucose Level 95, Calcium Level 9.1, Total Bilirubin 2.1H, Direct Bilirubin 1.4H, Aspartate Amino Transf (AST/SGOT) 35, Alanine Aminotransferase (ALT/SGPT) 12, Alkaline Phosphatase 122H, Total Protein 7.1, Albumin 2.1L, Globulin 5.0, Albumin/Globulin Ratio 0.4L, Vitamin B12 Level 1575H Current Medications Medications (Trade) Dose Ordered Sig/Sylwia Route PRN Reason Start Time Stop Time Status Last Admin Dose Admin Albuterol/ Ipratropium (Albuterol/ Ipratropium) 3 ml Q4HRT HHN 05/12/19 23:00 05/17/19 22:59 05/14/19 10:41 Chlorhexidine Gluconate (Karla-Hex 2%) 1 applic DAILY@1999 TOPIC 05/13/19 20:00 06/12/19 19:59 05/13/19 20:59 Dextrose (Dextrose 50%) 25 ml Q30M PRN IV Hypoglycemia 05/12/19 20:45 06/08/19 08:14 05/13/19 19:39 Dextrose (Dextrose 50%) 50 ml Q30M PRN IV Hypoglycemia 05/12/19 20:45 06/08/19 08:14 05/12/19 21:57 Epoetin Mohinder (Epoetin Mohinder(ESRD on dialysis)) 10,000 unit WED-WED-WED SUBQ 05/12/19 21:00 06/11/19 20:59 05/12/19 21:16 Norepinephrine Bitartrate 4 mg/ Dextrose 250 ml @ 0 mls/hr Q24H IV 05/13/19 06:00 06/12/19 05:59 05/13/19 05:20 Ondansetron HCl (Zofran) 4 mg Q6H PRN IVP Nausea & Vomiting 05/12/19 20:40 06/11/19 20:39 Pantoprazole (Protonix) 40 mg DAILY IVP 05/13/19 09:00 06/08/19 12:14 05/14/19 08:54 Piperacillin Sod/ Tazobactam Sod 2.25 gm/Sodium Chloride 55 ml @ 110 mls/hr Q8HR IVPB 05/12/19 22:00 05/16/19 23:59 05/14/19 05:53 Vancomycin HCl (Vanco rx to dose) 1 ea DAILY PRN MISC Per rx protocol 05/13/19 10:15 06/12/19 10:14 Remigio Raza MD May 14, 2019 11:03
[2019-05-14] MEDS ORDERED: D5NS 1,000 ML IV SCH (11:30)
--- NOTE | 2019-05-14 11:51 | NUR ---
RD ASSESSMENT & RECOMMENDATIONS SEE CARE ACTIVITY FOR COMPLETE ASSESSMENT DAILY ESTIMATED NEEDS: Needs based on Pulmonary, ESRD on HD, wounds; 56.3kg adj 25-35 kcals/kg 2384-1597 total kcals 1.25-1.8 g protein/kg 70-101 g total protein Fluid per MD- on HD mL/kg total fluid mLs NUTRITION DIAGNOSIS: * Increased pro needs r/t wound healing and renal dysfunction AEB pt adm w/ BL heel and sacral DTI (per RN), WC eval pending, w/ ESRD on HD. * Swallowing difficulty r/t respiratory status AEB pt is now extubated w/ NGT, pending [employer] eval for oral diet. PO DIET RECOMMENDATIONS: Renal / CCHO LOW diet, texture per [employer] ENTERAL NUTRITION RECOMMENDATIONS: Nepro @35ml/hr x24 hrs + Prosource x1 daily to provide 840ml, 1512 kcal, 68g + 1g pro, 611ml free H20 - Rec non oral feeds if pt is not appropriate for oral diet. - Start @25ml/hr, advance as tolerated to goal. - Add prosource x1 daily to better meet est pro needs - Flush per MD. HOB over 30 degrees ADDITIONAL RECOMMENDATIONS: 1) With prolonged NPO- see TF recs as above-[employer] eval pending 2) Wound healing- w/ diet order, add Juan Daniel in 4oz H2O BID + Nephrovite qdaily 3) Maintain calibrated bedscale wt 4) F/up w/ [employer]LE [employer] eval for texture 5) W/ oral diet: NEPRO BID- monitor po intake/ need to increase .
--- NOTE | 2019-05-14 13:16 | NUR ---
NURSE NOTES: Family at bedside, pt in no acute distress. VS noted stable and charted. Will continue to monitor.
--- NOTE | 2019-05-14 14:24 | NUR ---
NURSE NOTES: Received order from Dr. Robbins to start Cardizem PO 60mg TID. Order placed. Addendum: 05/14/19 at 1426 by Shanae Gonzalez RN Amendment: order for Cardizem 60mg TID via NGT. order read back and verified.
[2019-05-14] MEDS ORDERED: NS 275ml ONE ×2 (15:22→21:27)
[2019-05-14] MEDS ORDERED: D5 1/2NS 1000ml IV ONE (15:22)
[2019-05-14] MEDS: dilTIAZem HCl 60mg tab ORAL SCH ×2 (15:43→22:10)
--- NOTE | 2019-05-14 16:16 | Cardiac Electrophysiology PN ---
Assessment/Plan Assessment/Plan 1. Status post two noninfarctional cardiac arrests and ventricular tachycardia based on 12-lead EKG in this patient with history of coronary artery disease. Troponin elevation only minimal and level flat likely due two CPR in this patient with hemodialysis. Echocardiogram showed EF 50-55% Needs cardiac cath but family dont want any procedures 2. History of open heart surgery in 2010. Not sure if its bypass or for valve replacement . Medical records from [facility] are still pending 3. Atrial fib with RVR. Converted to SR. Change Cardizem drip to po 3. Respiratory failure, extubated. BNP is 17,000. On dialysis. Now DNR and DNI 4. End-stage renal disease, on hemodialysis. 5. Anemia. PAN RN and family Subjective Subjective Back in ICU in atrial fib with RVR . Converted to SR and Cardizem drip DCed . DNR and DNI. Family at bedside Objective Last 24 Hour Vital Signs Date Time Temp Pulse Resp B/P (MAP) Pulse Ox O2 Delivery O2 Flow Rate FiO2 05/14/19 15:43 84 112/35 05/14/19 15:07 84 20 100 Nasal Cannula 3.0 32 82 16 94 05/14/19 15:00 75 19 112/35 (60) 98 05/14/19 14:00 76 21 110/37 (61) 95 05/14/19 13:00 73 19 93/31 (51) 94 05/14/19 12:00 76 05/14/19 12:00 3.0 05/14/19 12:00 Nasal Cannula 3.0 Nasal Cannula 3.0 05/14/19 12:00 98.4 78 20 107/35 (59) 93 05/14/19 11:00 76 20 102/35 (57) 95 05/14/19 10:51 77 20 100 Nasal Cannula 3.0 32 79 18 96 05/14/19 10:30 72 21 95/39 (57) 95 05/14/19 10:00 71 20 102/31 (54) 96 05/14/19 09:30 83 21 101/30 (53) 93 05/14/19 09:00 73 21 102/34 (56) 95 05/14/19 08:30 73 18 105/34 (57) 95 05/14/19 08:00 74 05/14/19 08:00 3.0 05/14/19 08:00 Nasal Cannula 3.0 Nasal Cannula 3.0 05/14/19 08:00 99.1 74 18 101/39 (59) 97 05/14/19 07:30 73 19 99/38 (58) 96 05/14/19 07:00 100 Nasal Cannula 3.0 32 05/14/19 07:00 72 18 101/46 (64) 97 05/14/19 06:59 73 20 98 Nasal Cannula 3.0 32 72 20 95 05/14/19 06:30 73 20 95/45 (62) 96 05/14/19 06:00 74 21 99/48 (65) 95 05/14/19 05:53 95/35 05/14/19 05:30 74 17 105/31 (55) 91 05/14/19 05:00 70 18 95/35 (55) 94 05/14/19 04:30 73 17 100/33 (55) 94 05/14/19 04:03 3.0 05/14/19 04:00 98.4 75 21 108/35 (59) 93 05/14/19 04:00 75 05/14/19 04:00 Nasal Cannula 3.0 Nasal Cannula 3.0 05/14/19 03:30 77 22 117/39 (65) 94 05/14/19 03:00 73 23 110/35 (60) 95 05/14/19 02:59 76 17 97 Nasal Cannula 3.0 32 75 17 95 05/14/19 02:30 72 16 104/39 (60) 96 05/14/19 02:00 71 25 94/35 (54) 96 05/14/19 02:00 71 05/14/19 01:30 72 16 101/38 (59) 96 05/14/19 01:00 94 20 104/46 (65) 95 05/14/19 00:30 114 23 105/45 (65) 100 05/14/19 00:00 85 05/14/19 00:00 3.0 05/14/19 00:00 Nasal Cannula 3.0 Nasal Cannula 3.0 05/14/19 00:00 98.8 101 24 94/42 (59) 100 05/13/19 23:30 99 22 103/36 (58) 99 05/13/19 23:13 104 19 100 Venturi Mask 8.0 40 98 19 100 05/13/19 23:00 95 18 96/33 (54) 99 05/13/19 22:30 94 18 104/37 (59) 100 05/13/19 22:00 97 20 98/41 (60) 100 05/13/19 21:30 101 19 102/41 (61) 100 05/13/19 21:00 99 20 109/53 (71) 100 05/13/19 20:30 103 21 98/45 (62) 99 05/13/19 20:00 98 05/13/19 20:00 98.1 96 19 104/36 (58) 100 05/13/19 20:00 Venturi Mask 14.0 Venturi Mask 14.0 05/13/19 20:00 14.0 55 05/13/19 19:30 101 19 95/41 (59) 100 05/13/19 19:00 99 21 99/57 (71) 100 05/13/19 18:48 101 20 100 Venturi Mask 14.0 55 97 19 100 05/13/19 18:47 100 Venturi Mask 14.0 55 05/13/19 18:46 96 22 100 Venturi Mask 14.0 55 05/13/19 18:00 100 19 101/44 (63) 100 05/13/19 17:30 99 18 141/109 (120) 99 05/13/19 17:00 96 19 103/50 (67) 100 05/13/19 16:30 98 20 132/112 (119) 100 Intake and Output 05/13/19 05/14/19 19:00 07:00 Intake Total 474.73939 ml 624.1 ml Output Total 0 ml Balance 474.99935 ml 624.1 ml IV Total 474.02589 ml 239.1 ml Tube Feeding 385 ml Output Urine Total 0 ml # Bowel Movements 2 Laboratory Tests Test 05/13/19 16:15 05/14/19 04:00 05/14/19 12:45 Digoxin Level 2.1 NG/ML (0.9-2.0) H White Blood Count 9.0 K/UL (4.8-10.8) Red Blood Count 2.47 M/UL (4.20-5.40) L Hemoglobin 7.8 G/DL (12.0-16.0) L Hematocrit 25.6 % (37.0-47.0) L Mean Corpuscular Volume 104 FL (80-99) H Mean Corpuscular Hemoglobin 31.7 PG (27.0-31.0) H Mean Corpuscular Hemoglobin Concent 30.6 G/DL (32.0-36.0) L Red Cell Distribution Width 18.7 % (11.6-14.8) H Platelet Count 95 K/UL (150-450) L Mean Platelet Volume 7.8 FL (6.5-10.1) Neutrophils (%) (Auto) % (45.0-75.0) Lymphocytes (%) (Auto) % (20.0-45.0) Monocytes (%) (Auto) % (1.0-10.0) Eosinophils (%) (Auto) % (0.0-3.0) Basophils (%) (Auto) % (0.0-2.0) Differential Total Cells Counted 100 Neutrophils % (Manual) 70 % (45-75) Lymphocytes % (Manual) 17 % (20-45) L Monocytes % (Manual) 10 % (1-10) Eosinophils % (Manual) 2 % (0-3) Basophils % (Manual) 1 % (0-2) Band Neutrophils 0 % (0-8) Platelet Estimate Decreased L Platelet Morphology Normal Hypochromasia 3+ Anisocytosis 2+ Macrocytosis 1+ Sodium Level 142 MMOL/L (136-145) Potassium Level 4.3 MMOL/L (3.5-5.1) Chloride Level 103 MMOL/L (98-107) Carbon Dioxide Level 26 MMOL/L (21-32) Anion Gap 13 mmol/L (5-15) Blood Urea Nitrogen 56 mg/dL (7-18) H Creatinine 7.5 MG/DL (0.55-1.30) H Estimat Glomerular Filtration Rate 5.4 mL/min (>60) Glucose Level 95 MG/DL (74-106) Calcium Level 9.1 MG/DL (8.5-10.1) Total Bilirubin 2.1 MG/DL (0.2-1.0) H Direct Bilirubin 1.4 MG/DL (0.0-0.3) H Aspartate Amino Transf (AST/SGOT) 35 U/L (15-37) Alanine Aminotransferase (ALT/SGPT) 12 U/L (12-78) Alkaline Phosphatase 122 U/L (46-116) H Total Protein 7.1 G/DL (6.4-8.2) Albumin 2.1 G/DL (3.4-5.0) L Globulin 5.0 g/dL Albumin/Globulin Ratio 0.4 (1.0-2.7) L Vitamin B12 Level 1575 PG/ML (193-986) H Random Vancomycin Level 18.4 ug/mL Objective HEAD AND NECK: No JVD. LUNGS: Coarse rhonchi. CHEST: Sternotomy scar is healed. CARDIOVASCULAR: Regular S1 and S2 with no gallop. ABDOMEN: Soft. She has a scar from cholecystectomy in the abdomen. EXTREMITIES: Status post left AV shunt. Shawn Robbins MD May 14, 2019 16:16
--- NOTE | 2019-05-14 16:32 | Surgery Progress Note ---
Surgery Progress Note Subjective Additional Comments Patient seen and examined bedside. No acute events. Comfortable. Improved today. Family at bedside. More awake and responsive. Tolerating ice chips. Using incentive spirometry. KUB noted. Duplex noted. Objective Last 24 Hour Vital Signs Date Time Temp Pulse Resp B/P (MAP) Pulse Ox O2 Delivery O2 Flow Rate FiO2 05/14/19 15:43 84 112/35 05/14/19 15:07 84 20 100 Nasal Cannula 3.0 32 82 16 94 05/14/19 15:00 75 19 112/35 (60) 98 05/14/19 14:00 76 21 110/37 (61) 95 05/14/19 13:00 73 19 93/31 (51) 94 05/14/19 12:00 76 05/14/19 12:00 3.0 05/14/19 12:00 Nasal Cannula 3.0 Nasal Cannula 3.0 05/14/19 12:00 98.4 78 20 107/35 (59) 93 05/14/19 11:00 76 20 102/35 (57) 95 05/14/19 10:51 77 20 100 Nasal Cannula 3.0 32 79 18 96 05/14/19 10:30 72 21 95/39 (57) 95 05/14/19 10:00 71 20 102/31 (54) 96 05/14/19 09:30 83 21 101/30 (53) 93 05/14/19 09:00 73 21 102/34 (56) 95 05/14/19 08:30 73 18 105/34 (57) 95 05/14/19 08:00 74 05/14/19 08:00 3.0 05/14/19 08:00 Nasal Cannula 3.0 Nasal Cannula 3.0 05/14/19 08:00 99.1 74 18 101/39 (59) 97 05/14/19 07:30 73 19 99/38 (58) 96 05/14/19 07:00 100 Nasal Cannula 3.0 32 05/14/19 07:00 72 18 101/46 (64) 97 05/14/19 06:59 73 20 98 Nasal Cannula 3.0 32 72 20 95 05/14/19 06:30 73 20 95/45 (62) 96 05/14/19 06:00 74 21 99/48 (65) 95 12/8/19 05:53 95/35 05/14/19 05:30 74 17 105/31 (55) 91 05/14/19 05:00 70 18 95/35 (55) 94 05/14/19 04:30 73 17 100/33 (55) 94 05/14/19 04:03 3.0 05/14/19 04:00 98.4 75 21 108/35 (59) 93 05/14/19 04:00 75 05/14/19 04:00 Nasal Cannula 3.0 Nasal Cannula 3.0 05/14/19 03:30 77 22 117/39 (65) 94 05/14/19 03:00 73 23 110/35 (60) 95 05/14/19 02:59 76 17 97 Nasal Cannula 3.0 32 75 17 95 05/14/19 02:30 72 16 104/39 (60) 96 05/14/19 02:00 71 25 94/35 (54) 96 05/14/19 02:00 71 05/14/19 01:30 72 16 101/38 (59) 96 05/14/19 01:00 94 20 104/46 (65) 95 05/14/19 00:30 114 23 105/45 (65) 100 05/14/19 00:00 85 05/14/19 00:00 3.0 05/14/19 00:00 Nasal Cannula 3.0 Nasal Cannula 3.0 05/14/19 00:00 98.8 101 24 94/42 (59) 100 05/13/19 23:30 99 22 103/36 (58) 99 05/13/19 23:13 104 19 100 Venturi Mask 8.0 40 98 19 100 05/13/19 23:00 95 18 96/33 (54) 99 05/13/19 22:30 94 18 104/37 (59) 100 05/13/19 22:00 97 20 98/41 (60) 100 05/13/19 21:30 101 19 102/41 (61) 100 05/13/19 21:00 99 20 109/53 (71) 100 05/13/19 20:30 103 21 98/45 (62) 99 05/13/19 20:00 98 05/13/19 20:00 98.1 96 19 104/36 (58) 100 05/13/19 20:00 Venturi Mask 14.0 Venturi Mask 14.0 05/13/19 20:00 14.0 55 05/13/19 19:30 101 19 95/41 (59) 100 05/13/19 19:00 99 21 99/57 (71) 100 05/13/19 18:48 101 20 100 Venturi Mask 14.0 55 97 19 100 05/13/19 18:47 100 Venturi Mask 14.0 55 05/13/19 18:46 96 22 100 Venturi Mask 14.0 55 05/13/19 18:00 100 19 101/44 (63) 100 05/13/19 17:30 99 18 141/109 (120) 99 05/13/19 17:00 96 19 103/50 (67) 100 I&O Intake and Output 05/13/19 05/14/19 19:00 07:00 Intake Total 474.38205 ml 624.1 ml Output Total 0 ml Balance 474.75514 ml 624.1 ml IV Total 474.05722 ml 239.1 ml Tube Feeding 385 ml Output Urine Total 0 ml # Bowel Movements 2 Dressing: other Wound: other Drains: other Cardiovascular: RSR Respiratory: clear, decreased breath sounds Abdomen: soft, present bowel sounds, non-distended Extremities: no tenderness, no cyanosis, other Laboratory Tests Test 05/14/19 04:00 05/14/19 12:45 White Blood Count 9.0 K/UL (4.8-10.8) Red Blood Count 2.47 M/UL (4.20-5.40) L Hemoglobin 7.8 G/DL (12.0-16.0) L Hematocrit 25.6 % (37.0-47.0) L Mean Corpuscular Volume 104 FL (80-99) H Mean Corpuscular Hemoglobin 31.7 PG (27.0-31.0) H Mean Corpuscular Hemoglobin Concent 30.6 G/DL (32.0-36.0) L Red Cell Distribution Width 18.7 % (11.6-14.8) H Platelet Count 95 K/UL (150-450) L Mean Platelet Volume 7.8 FL (6.5-10.1) Neutrophils (%) (Auto) % (45.0-75.0) Lymphocytes (%) (Auto) % (20.0-45.0) Monocytes (%) (Auto) % (1.0-10.0) Eosinophils (%) (Auto) % (0.0-3.0) Basophils (%) (Auto) % (0.0-2.0) Differential Total Cells Counted 100 Neutrophils % (Manual) 70 % (45-75) Lymphocytes % (Manual) 17 % (20-45) L Monocytes % (Manual) 10 % (1-10) Eosinophils % (Manual) 2 % (0-3) Basophils % (Manual) 1 % (0-2) Band Neutrophils 0 % (0-8) Platelet Estimate Decreased L Platelet Morphology Normal Hypochromasia 3+ Anisocytosis 2+ Macrocytosis 1+ Sodium Level 142 MMOL/L (136-145) Potassium Level 4.3 MMOL/L (3.5-5.1) Chloride Level 103 MMOL/L (98-107) Carbon Dioxide Level 26 MMOL/L (21-32) Anion Gap 13 mmol/L (5-15) Blood Urea Nitrogen 56 mg/dL (7-18) H Creatinine 7.5 MG/DL (0.55-1.30) H Estimat Glomerular Filtration Rate 5.4 mL/min (>60) Glucose Level 95 MG/DL (74-106) Calcium Level 9.1 MG/DL (8.5-10.1) Total Bilirubin 2.1 MG/DL (0.2-1.0) H Direct Bilirubin 1.4 MG/DL (0.0-0.3) H Aspartate Amino Transf (AST/SGOT) 35 U/L (15-37) Alanine Aminotransferase (ALT/SGPT) 12 U/L (12-78) Alkaline Phosphatase 122 U/L (46-116) H Total Protein 7.1 G/DL (6.4-8.2) Albumin 2.1 G/DL (3.4-5.0) L Globulin 5.0 g/dL Albumin/Globulin Ratio 0.4 (1.0-2.7) L Vitamin B12 Level 1575 PG/ML (193-986) H Random Vancomycin Level 18.4 ug/mL Plan Problems: (1) Deep tissue injury Assessment & Plan: Patient presented on admission with a deep tissue injury in the sacral area. Patient was syncopal episode found down. Unknown exact time patient was down and since is suffered a cardiac event requiring resuscitation and ACLS. There is an area of deep tissue injury with erythema in the sacral area extending into the bilateral buttocks butterfly formation. No drainage. No open area. Patient is high risk and susceptible to opening and worsening given her current condition, ICU care, deterioration. We will need to monitor closely and provide aggressive care to ensure healing Air mattress Turn every 2 hours Skin protectant OPTi foam dressing daily and as needed Offload heels with pillows Appreciate nursing care Nutritional support DAILY ESTIMATED NEEDS: Needs based on Critical Care, ESRD on HD, wounds; 56.3kg adj 22- 30 kcals/kg 1178-2832 total kcals 1.25-2 g protein/kg 70-113 g total protein Fluid per MD- on HD NUTRITION DIAGNOSIS: * Increased pro needs r/t wound healing and renal dysfunction AEB pt adm w/ BL heel and sacral DTI (per RN), WC eval pending, w/ ESRD on HD. * Swallowing difficulty r/t respiratory status AEB pt is intubated, currently NPO, pending non oral feeds. CURRENT TF: Per RN Nepro @40ml/hr ENTERAL NUTRITION RECOMMENDATIONS: Nepro @35mL/hr x 24 hrs+ 1 Prosource qdaily to provide 840mL, 1512kcal, 68g pro +11g pro, 611mL free H2O -Obtain GI access, initiate Nepro @15mL/hr, advancing 10mL/hr q 4-6hrs until @ goal. -Provide 1 packet of Prosource- flush with 4oz water -HOB > 30 degrees, Flush per MD ADDITIONAL RECOMMENDATIONS: 1) With prolonged NPO/Intubation- see TF recs as above 2) Wound healing- w/ diet order, add: Juan Daniel in 4oz H2O BID; f/up w/ WC eval 3) Maintain calibrated bedscale wt 4) F/u w/ H&P 5) Feed w/ hemodynamic stability, now off pressor support. (2) Cardiac arrest Assessment & Plan: 61-year-old female multi-medical comorbidities syncopal episode leading to ACLS requiring resuscitation. Currently intensive care unit intubated on ventilatory support Patient is ill-appearing with family at the bedside. Labs noted. Mild elevation troponins. Mild elevated LFTs. Improving since resuscitation current etiology work-up A.m. 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 There is also an old right cerebellar cortical infarct There is age-related enlargement of the ventricles and extra axial CSF spaces. There is periventricular deep white matter low-attenuation, consistent with chronic microvascular ischemic change. The stuart-white differentiation is normal. The calvarium is intact. There is evidence of prior cataract surgery. The sinuses are clear. The mastoids are underpneumatized, otherwise clear. Impression: Chronic and age-related changes Negative for acute intracranial bleed or mass effect, Old infarcts, as described Laron Moreno May 14, 2019 16:32
--- NOTE | 2019-05-14 17:04 | NUR ---
NURSE NOTES: Pt c/o of back pain 08/14, received orders for tylenol 650mg NGT q4hrs. read back given and verified.
--- NOTE | 2019-05-14 18:58 | NUR ---
NURSE NOTES: Pt cleaned and repositioned. 1 BM noted. US tech at bedside performing ABD US. Pt in no acute distress. Will continue to monitor.
--- NOTE | 2019-05-14 19:16 | NUR ---
HAND-OFF: Report given to BINH Livingston. Pt in stable condition. Mentation unchanged - pt still AAOx1 in no acute distres. US tech still at bedside. Pt currently in SR off cardisarim drip.
--- NOTE | 2019-05-14 19:17 | NUR ---
NURSE NOTES: Endorsement received from Berta Reed RN and BINH Jolly. Patient awake, responds to name. Obeys commands. Able to communicate needs. On 3 LPM oxygen per nasal cannula. NGT at left nare. Placement rechecked per auscultation. On NPO for abdominal ultrasound, currently ongoing. To resume tube feeding of Nepro with goal of 35ml/hr. Left AV shunt. Bruit and thrill present. Dressing dry and intact. Right forearm g 20, right hand g22. On D5NS 50ml/hr, to discontinue once ultrasound is done and feeding is resumed. On left arm precaution. On P200 mattress. Head of bed elevated, locked and in low position. Bed alarm on. Call light within reach. Will continue to monitor.
--- NOTE | 2019-05-14 19:51 | Diagnostic Imaging Report ---
Indication: Abnormal liver function tests Technique: Giles-scale and duplex images of the upper abdomen were obtained Comparison: none Findings: Gallbladder cannot be visualized. What is probably the common bile duct measures 4 mm in diameter. No intrahepatic biliary ductal dilatation. Liver demonstrates diffusely increased echogenicity, consistent with diffuse hepatocellular disease, most likely fatty change. Portal vein and hepatic veins are patent. Pancreas is obscured by bowel gas. Spleen is unremarkable. Left kidney measures 6.3 cm in length. Right kidney measures 6.5 cm length. Both kidneys demonstrate increased echogenicity. There is no hydronephrosis. No focal abnormality . Abdominal aorta is partially obscured by bowel gas, visualized portions are non-aneurysmal . Impression: Nonvisualized gallbladder. Either contracted or surgically absent. Correlate with surgical history. No definite evidence of biliary ductal dilatation Liver demonstrates diffusely increased echogenicity, consistent with diffuse hepatocellular disease, most likely fatty change. Atrophic bilateral kidneys, consistent with known history of end-stage renal disease Limited exam elsewhere, with nonvisualization of the pancreas, portions of the abdominal aorta This agrees with the preliminary interpretation provided overnight by [facility] teleradiology service.
--- NOTE | 2019-05-14 20:00 | NUR ---
NURSE NOTES: Ultrasound of abdomen done. Residual checked, noted with 100ml residual. Will recheck after 1 hour.
[2019-05-14] MEDS: Dyna-Hex 2% Top Sol 2oz TOPIC SCH (20:12)
--- NOTE | 2019-05-14 21:00 | General Progress Note ---
Assessment/Plan Assessment/Plan: Assessment - Anemia - OB (+) stools - CAD / CT - arrhythmia - ESRD Recommendations - ICU care - Monitor CBC - H2B or PPI - Elevate HOB - EGD/colon once stable from a cardiac standpoint Subjective Allergies: Coded Allergies: No Known Allergies (Unverified , 05/08/19) Subjective Above noted seen in ICU no abd c/o stools OB (+) Objective Last 24 Hour Vital Signs Date Time Temp Pulse Resp B/P (MAP) Pulse Ox O2 Delivery O2 Flow Rate FiO2 05/14/19 20:32 98 Nasal Cannula 3.0 32 05/14/19 20:29 79 21 97 Nasal Cannula 3.0 32 75 21 95 05/14/19 20:00 3.0 05/14/19 20:00 Nasal Cannula 3.0 Nasal Cannula 3.0 05/14/19 19:00 76 16 111/39 (63) 92 05/14/19 18:00 73 19 110/34 (59) 98 05/14/19 17:00 77 16 111/37 (61) 97 05/14/19 16:00 Nasal Cannula 3.0 Nasal Cannula 3.0 05/14/19 16:00 3.0 05/14/19 16:00 98.3 79 19 109/35 (59) 97 05/14/19 16:00 76 05/14/19 15:43 84 112/35 05/14/19 15:07 84 20 100 Nasal Cannula 3.0 32 82 16 94 05/14/19 15:00 75 19 112/35 (60) 98 05/14/19 14:00 76 21 110/37 (61) 95 05/14/19 13:00 73 19 93/31 (51) 94 05/14/19 12:00 76 05/14/19 12:00 3.0 05/14/19 12:00 Nasal Cannula 3.0 Nasal Cannula 3.0 05/14/19 12:00 98.4 78 20 107/35 (59) 93 05/14/19 11:00 76 20 102/35 (57) 95 05/14/19 10:51 77 20 100 Nasal Cannula 3.0 32 79 18 96 05/14/19 10:30 72 21 95/39 (57) 95 05/14/19 10:00 71 20 102/31 (54) 96 05/14/19 09:30 83 21 101/30 (53) 93 05/14/19 09:00 73 21 102/34 (56) 95 05/14/19 08:30 73 18 105/34 (57) 95 05/14/19 08:00 74 05/14/19 08:00 3.0 05/14/19 08:00 Nasal Cannula 3.0 Nasal Cannula 3.0 05/14/19 08:00 99.1 74 18 101/39 (59) 97 05/14/19 07:30 73 19 99/38 (58) 96 05/14/19 07:00 100 Nasal Cannula 3.0 32 05/14/19 07:00 72 18 101/46 (64) 97 05/14/19 06:59 73 20 98 Nasal Cannula 3.0 32 72 20 95 05/14/19 06:30 73 20 95/45 (62) 96 05/14/19 06:00 74 21 99/48 (65) 95 05/14/19 05:53 95/35 05/14/19 05:30 74 17 105/31 (55) 91 05/14/19 05:00 70 18 95/35 (55) 94 05/14/19 04:30 73 17 100/33 (55) 94 05/14/19 04:03 3.0 05/14/19 04:00 98.4 75 21 108/35 (59) 93 05/14/19 04:00 75 05/14/19 04:00 Nasal Cannula 3.0 Nasal Cannula 3.0 05/14/19 03:30 77 22 117/39 (65) 94 05/14/19 03:00 73 23 110/35 (60) 95 05/14/19 02:59 76 17 97 Nasal Cannula 3.0 32 75 17 95 05/14/19 02:30 72 16 104/39 (60) 96 05/14/19 02:00 71 25 94/35 (54) 96 05/14/19 02:00 71 05/14/19 01:30 72 16 101/38 (59) 96 05/14/19 01:00 94 20 104/46 (65) 95 05/14/19 00:30 114 23 105/45 (65) 100 05/14/19 00:00 85 05/14/19 00:00 3.0 05/14/19 00:00 Nasal Cannula 3.0 Nasal Cannula 3.0 05/14/19 00:00 98.8 101 24 94/42 (59) 100 05/13/19 23:30 99 22 103/36 (58) 99 05/13/19 23:13 104 19 100 Venturi Mask 8.0 40 98 19 100 05/13/19 23:00 95 18 96/33 (54) 99 05/13/19 22:30 94 18 104/37 (59) 100 05/13/19 22:00 97 20 98/41 (60) 100 05/13/19 21:30 101 19 102/41 (61) 100 05/13/19 21:00 99 20 109/53 (71) 100 Intake and Output 05/13/19 05/14/19 19:00 07:00 Intake Total 474.15777 ml 624.1 ml Output Total 0 ml Balance 474.49093 ml 624.1 ml IV Total 474.98999 ml 239.1 ml Tube Feeding 385 ml Output Urine Total 0 ml # Bowel Movements 2 Laboratory Tests 05/14/19 04:00: White Blood Count 9.0, Red Blood Count 2.47L, Hemoglobin 7.8L, Hematocrit 25.6L , Mean Corpuscular Volume 104H, Mean Corpuscular Hemoglobin 31.7H, Mean Corpuscular Hemoglobin Concent 30.6L, Red Cell Distribution Width 18.7H, Platelet Count 95L, Mean Platelet Volume 7.8, Neutrophils (%) (Auto) , Lymphocytes (%) (Auto) , Monocytes (%) (Auto) , Eosinophils (%) (Auto) , Basophils (%) (Auto) , Differential Total Cells Counted 100, Neutrophils % ( Manual) 70, Lymphocytes % (Manual) 17L, Monocytes % (Manual) 10, Eosinophils % ( Manual) 2, Basophils % (Manual) 1, Band Neutrophils 0, Platelet Estimate DecreasedL, Platelet Morphology Normal, Hypochromasia 3+, Anisocytosis 2+, Macrocytosis 1+, Sodium Level 142, Potassium Level 4.3, Chloride Level 103, Carbon Dioxide Level 26, Anion Gap 13, Blood Urea Nitrogen 56H, Creatinine 7.5H , Estimat Glomerular Filtration Rate 5.4, Glucose Level 95, Calcium Level 9.1, Total Bilirubin 2.1H, Direct Bilirubin 1.4H, Aspartate Amino Transf (AST/SGOT) 35, Alanine Aminotransferase (ALT/SGPT) 12, Alkaline Phosphatase 122H, Total Protein 7.1, Albumin 2.1L, Globulin 5.0, Albumin/Globulin Ratio 0.4L, Vitamin B12 Level 1575H 05/14/19 12:45: Random Vancomycin Level 18.4 Height (Feet): 4 Height (Inches): 10.00 Weight (Pounds): 141 Objective WDWN NCAT supple CTA RR abd soft, obese no edema Fadumo Morris MD May 14, 2019 21:00
--- NOTE | 2019-05-14 21:00 | NUR ---
NURSE NOTES: Blood sugar 144mg/dl. No coverage. No residual, feeding started at 20ml/hr. Will monitor for patient's tolerance for the feeding.
[2019-05-14] MEDS ORDERED: D5NS 1000ml IV ONE (21:27)
[2019-05-14] MEDS ORDERED: Sterile Water Irrig 1000ml IRRIG ONE (21:27)
--- NOTE | 2019-05-14 23:00 | NUR ---
NURSE NOTES: Patient asleep. Appears comfortable. No signs of pain or discomfort.
[2019-05-15] VITALS (26 sets, daily range): BP systolic 99–123; BP diastolic 33–51
--- NOTE | 2019-05-15 | NUR ---
NURSE NOTES: Patient tolerating feeding, no residual. Increased to 30ml/hr
--- NOTE | 2019-05-15 02:00 | NUR ---
NURSE NOTES: Patient asleep. Sinus rhythm on the monitor.
[2019-05-15] MEDS: Albuterol/Ipratropium 3ml neb HHN SCH ×6 (03:37→22:52)
--- NOTE | 2019-05-15 04:00 | NUR ---
NURSE NOTES: Bed bath, change of linens, oral care done
[2019-05-15 05:03] LABS: ANION GAP 17 mmol/L (5-15); BLOOD UREA NITROGEN 71 mg/dL (7-18); CALCIUM 9.1 MG/DL (8.5-10.1); CARBON DIOXIDE 23 MMOL/L (21-32); CHLORIDE 103 MMOL/L (98-107); CREATININE 8.9 MG/DL (0.55-1.30); POTASSIUM 4.9 MMOL/L (3.5-5.1); SODIUM 143 MMOL/L (136-145)
[2019-05-15] MEDS: Piperacillin/Tazobactam 2.25 GM in NS 55 ML IVPB SCH ×3 (05:31→21:30)
[2019-05-15] MEDS: dilTIAZem HCl 60mg tab ORAL SCH ×3 (05:31→21:30)
--- NOTE | 2019-05-15 06:00 | NUR ---
NURSE NOTES: Blood sugar checked: 135mg/dl. No coverage
--- NOTE | 2019-05-15 07:30 | NUR ---
HAND-OFF: Report given to Berta Ambrocio RN.
--- NOTE | 2019-05-15 07:31 | NUR ---
NURSE NOTES: Received patient from BINH Lynn. Patient sleeping at this time. Patient easily aroused to name and touch. Patient denies pain or distress. Patient alert to name and confused to time, place, and purpose. Patient on 3L nasal cannula. Patient has NGT in the left nares with nepro running at 35mL/hr with no residual noted. Patient has bilateral heel and sacral resolving DTI. Skin tear noted on left lower leg. Bruising noted all over body. Bruising noted on upper chest, throat, lower abdomen, upper back, and side. Patient has right hand 20 gauge peripheral IV that is patent and saline locked at this time. Patient on P200 mattress. Patient bed in low position with bed alarm on and call light in reach at this time. Patient on low air loss mattress. Patient oral care and repositioning done at this time. Patient had hemodialysis ordered for today. Stepan Jiménez RN has just arrived and is setting up the machine in the room. Will continue to monitor.
--- NOTE | 2019-05-15 08:52 | Nephrology Progress Note ---
Assessment/Plan Assessment/Plan: A/P 1) ESRD- tolerating HD session 2) S/P Cardiac Arrest, EF 55%, stable 3) LE Wounds - Per Gen Surgery and ID 4) Resp FL- Extubated. OG for TFs 5) DVT prophylaxsis with SCDs 6) Anemia- Thrombocytopenia - per GI mgmt - EPO 7) Afib RVR- per cardiology. Dig and on cardizem gtt Patient now DNR/I Subjective Date patient seen: May 15, 2019 Time patient seen: 08:49 ROS Limited/Unobtainable: Yes Allergies: Coded Allergies: No Known Allergies (Unverified , 05/08/19) Subjective Patient tolerating HD currently Objective Last 24 Hour Vital Signs Date Time Temp Pulse Resp B/P (MAP) Pulse Ox O2 Delivery O2 Flow Rate FiO2 05/15/19 07:44 75 19 99 Nasal Cannula 3.0 32 71 15 97 05/15/19 07:43 97 Nasal Cannula 3.0 32 05/15/19 07:00 71 29 99/41 (60) 97 05/15/19 06:00 73 18 109/38 (61) 97 05/15/19 05:31 73 113/42 05/15/19 05:31 113/42 05/15/19 05:00 73 18 113/42 (65) 94 05/15/19 04:00 Nasal Cannula 3.0 Nasal Cannula 3.0 05/15/19 04:00 99.0 72 19 105/34 (57) 97 05/15/19 04:00 3.0 05/15/19 04:00 72 05/15/19 03:40 78 21 100 Nasal Cannula 3.0 32 75 21 96 05/15/19 03:00 73 15 108/38 (61) 98 05/15/19 02:00 73 24 111/40 (63) 99 05/15/19 01:00 74 20 115/42 (66) 95 05/15/19 00:00 75 05/15/19 00:00 3.0 05/15/19 00:00 Nasal Cannula 3.0 Nasal Cannula 3.0 05/15/19 00:00 98.7 74 22 118/42 (67) 94 05/14/19 23:17 75 21 100 Nasal Cannula 3.0 32 73 21 95 05/14/19 23:00 74 20 118/45 (69) 94 05/14/19 22:10 75 108/40 05/14/19 22:00 76 22 108/40 (62) 96 05/14/19 21:00 77 20 106/41 (62) 97 05/14/19 20:32 98 Nasal Cannula 3.0 32 05/14/19 20:29 79 21 97 Nasal Cannula 3.0 32 75 21 95 05/14/19 20:00 3.0 05/14/19 20:00 Nasal Cannula 3.0 Nasal Cannula 3.0 05/14/19 20:00 76 05/14/19 20:00 99.0 74 22 114/36 (62) 95 05/14/19 19:00 76 16 111/39 (63) 92 05/14/19 18:00 73 19 110/34 (59) 98 05/14/19 17:00 77 16 111/37 (61) 97 05/14/19 16:00 Nasal Cannula 3.0 Nasal Cannula 3.0 05/14/19 16:00 3.0 05/14/19 16:00 98.3 79 19 109/35 (59) 97 05/14/19 16:00 76 05/14/19 15:43 84 112/35 05/14/19 15:07 84 20 100 Nasal Cannula 3.0 32 82 16 94 05/14/19 15:00 75 19 112/35 (60) 98 05/14/19 14:00 76 21 110/37 (61) 95 05/14/19 13:00 73 19 93/31 (51) 94 05/14/19 12:00 76 05/14/19 12:00 3.0 05/14/19 12:00 Nasal Cannula 3.0 Nasal Cannula 3.0 05/14/19 12:00 98.4 78 20 107/35 (59) 93 05/14/19 11:00 76 20 102/35 (57) 95 05/14/19 10:51 77 20 100 Nasal Cannula 3.0 32 79 18 96 05/14/19 10:30 72 21 95/39 (57) 95 05/14/19 10:00 71 20 102/31 (54) 96 05/14/19 09:30 83 21 101/30 (53) 93 05/14/19 09:00 73 21 102/34 (56) 95 Intake and Output 05/14/19 05/15/19 19:00 07:00 Intake Total 533.33 ml 375 ml Output Total 0 ml 0 ml Balance 533.33 ml 375 ml IV Total 428.33 ml 55 ml Tube Feeding 105 ml 320 ml Output Urine Total 0 ml 0 ml # Bowel Movements 2 2 Laboratory Tests 05/14/19 12:45: Random Vancomycin Level 18.4 05/15/19 03:45: Sodium Level 143, Potassium Level 4.9, Chloride Level 103, Carbon Dioxide Level 23, Anion Gap 17H, Blood Urea Nitrogen 71H, Creatinine 8.9H, Estimat Glomerular Filtration Rate 4.5, Glucose Level 118H, Calcium Level 9.1 Height (Feet): 4 Height (Inches): 10.00 Weight (Pounds): 139 General Appearance: no apparent distress, alert EENT: normal ENT inspection Neck: normal alignment Cardiovascular: normal rate, regular rhythm Respiratory/Chest: lungs clear, normal breath sounds Abdomen: non tender, soft Edema: no edema noted Arm (L), no edema noted Arm (R), no edema noted Leg (L), no edema noted Leg (R), no edema noted Pedal (L), no edema noted Pedal (R), no edema noted Generalized David Zapata MD May 15, 2019 08:52
--- NOTE | 2019-05-15 09:04 | Pulmonology Progress Note ---
Assessment/Plan Assessment/Plan IMPRESSION: 1. Non-STEMI. 2. ESRD, on dialysis. 3. Pulmonary edema. 4. Respiratory failure. Now extubated 5. Hypoglycemia. 6. Hyperglycemia now. 7. Hyperkalemia. DISCUSSION: 1. Continue current care 2. Agree with current medications and care. 3. Decrease Fio2 5, Transfer to tele 4. The patient will need dialysis per renal. 5. Rate control per cardiology Remigio Raza M.D. Subjective Interval Events: Seen and reviewed Constitutional: Reports: no symptoms HEENT: Repors: no symptoms Respiratory: Reports: no symptoms Cardiovascular: Reports: no symptoms Allergies: Coded Allergies: No Known Allergies (Unverified , 05/08/19) Objective Last 24 Hour Vital Signs Date Time Temp Pulse Resp B/P (MAP) Pulse Ox O2 Delivery O2 Flow Rate FiO2 05/15/19 07:44 75 19 99 Nasal Cannula 3.0 32 71 15 97 05/15/19 07:43 97 Nasal Cannula 3.0 32 05/15/19 07:00 71 29 99/41 (60) 97 05/15/19 06:00 73 18 109/38 (61) 97 05/15/19 05:31 73 113/42 05/15/19 05:31 113/42 05/15/19 05:00 73 18 113/42 (65) 94 05/15/19 04:00 Nasal Cannula 3.0 Nasal Cannula 3.0 05/15/19 04:00 99.0 72 19 105/34 (57) 97 05/15/19 04:00 3.0 05/15/19 04:00 72 05/15/19 03:40 78 21 100 Nasal Cannula 3.0 32 75 21 96 05/15/19 03:00 73 15 108/38 (61) 98 05/15/19 02:00 73 24 111/40 (63) 99 05/15/19 01:00 74 20 115/42 (66) 95 05/15/19 00:00 75 05/15/19 00:00 3.0 05/15/19 00:00 Nasal Cannula 3.0 Nasal Cannula 3.0 05/15/19 00:00 98.7 74 22 118/42 (67) 94 05/14/19 23:17 75 21 100 Nasal Cannula 3.0 32 73 21 95 05/14/19 23:00 74 20 118/45 (69) 94 05/14/19 22:10 75 108/40 05/14/19 22:00 76 22 108/40 (62) 96 05/14/19 21:00 77 20 106/41 (62) 97 05/14/19 20:32 98 Nasal Cannula 3.0 32 05/14/19 20:29 79 21 97 Nasal Cannula 3.0 32 75 21 95 05/14/19 20:00 3.0 05/14/19 20:00 Nasal Cannula 3.0 Nasal Cannula 3.0 05/14/19 20:00 76 05/14/19 20:00 99.0 74 22 114/36 (62) 95 05/14/19 19:00 76 16 111/39 (63) 92 05/14/19 18:00 73 19 110/34 (59) 98 05/14/19 17:00 77 16 111/37 (61) 97 05/14/19 16:00 Nasal Cannula 3.0 Nasal Cannula 3.0 05/14/19 16:00 3.0 05/14/19 16:00 98.3 79 19 109/35 (59) 97 05/14/19 16:00 76 05/14/19 15:43 84 112/35 05/14/19 15:07 84 20 100 Nasal Cannula 3.0 32 82 16 94 05/14/19 15:00 75 19 112/35 (60) 98 05/14/19 14:00 76 21 110/37 (61) 95 05/14/19 13:00 73 19 93/31 (51) 94 05/14/19 12:00 76 05/14/19 12:00 3.0 05/14/19 12:00 Nasal Cannula 3.0 Nasal Cannula 3.0 05/14/19 12:00 98.4 78 20 107/35 (59) 93 05/14/19 11:00 76 20 102/35 (57) 95 05/14/19 10:51 77 20 100 Nasal Cannula 3.0 32 79 18 96 05/14/19 10:30 72 21 95/39 (57) 95 05/14/19 10:00 71 20 102/31 (54) 96 05/14/19 09:30 83 21 101/30 (53) 93 Intake and Output 05/14/19 05/15/19 19:00 07:00 Intake Total 533.33 ml 375 ml Output Total 0 ml 0 ml Balance 533.33 ml 375 ml IV Total 428.33 ml 55 ml Tube Feeding 105 ml 320 ml Output Urine Total 0 ml 0 ml # Bowel Movements 2 2 General Appearance: no acute distress HEENT: normocephalic Respiratory/Chest: chest wall non-tender, decreased breath sounds Cardiovascular: normal peripheral pulses, normal rate Abdomen: normal bowel sounds Microbiology Date/Time Source Procedure Growth Status 05/13/19 10:40 Blood Blood Culture - Preliminary NO GROWTH AFTER 24 HOURS Resulted 05/13/19 10:30 Blood Blood Culture - Preliminary NO GROWTH AFTER 24 HOURS Resulted Laboratory Tests 05/14/19 12:45: Random Vancomycin Level 18.4 05/15/19 03:45: Sodium Level 143, Potassium Level 4.9, Chloride Level 103, Carbon Dioxide Level 23, Anion Gap 17H, Blood Urea Nitrogen 71H, Creatinine 8.9H, Estimat Glomerular Filtration Rate 4.5, Glucose Level 118H, Calcium Level 9.1 Current Medications Medications (Trade) Dose Ordered Sig/Sylwia Route PRN Reason Start Time Stop Time Status Last Admin Dose Admin Acetaminophen (Tylenol) 650 mg Q4H PRN ORAL Mild Pain/Temp > 100.5 05/14/19 17:15 06/13/19 17:14 05/14/19 17:11 Albuterol/ Ipratropium (Albuterol/ Ipratropium) 3 ml Q4HRT HHN 05/12/19 23:00 05/17/19 22:59 05/15/19 07:45 Chlorhexidine Gluconate (Karla-Hex 2%) 1 applic DAILY@1999 TOPIC 05/13/19 20:00 06/12/19 19:59 05/14/19 20:12 Dextrose (Dextrose 50%) 25 ml Q30M PRN IV Hypoglycemia 05/12/19 20:45 06/08/19 08:14 05/13/19 19:39 Dextrose (Dextrose 50%) 50 ml Q30M PRN IV Hypoglycemia 05/12/19 20:45 06/08/19 08:14 05/12/19 21:57 Diltiazem HCl (Cardizem) 60 mg EVERY 8 HOURS ORAL 05/14/19 16:00 06/13/19 15:59 05/15/19 05:31 Epoetin Mohinder (Epoetin Mohinder(ESRD on dialysis)) 10,000 unit WED- SUBQ 05/12/19 21:00 06/11/19 20:59 05/12/19 21:16 Norepinephrine Bitartrate 4 mg/ Dextrose 250 ml @ 0 mls/hr Q24H IV 05/13/19 06:00 06/12/19 05:59 05/13/19 05:20 Ondansetron HCl (Zofran) 4 mg Q6H PRN IVP Nausea & Vomiting 05/12/19 20:40 06/11/19 20:39 Pantoprazole (Protonix) 40 mg DAILY IVP 05/13/19 09:00 06/08/19 12:14 05/14/19 08:54 Piperacillin Sod/ Tazobactam Sod 2.25 gm/Sodium Chloride 55 ml @ 110 mls/hr Q8HR IVPB 05/12/19 22:00 05/16/19 23:59 05/15/19 05:31 Vancomycin HCl (Vanco rx to dose) 1 ea DAILY PRN MISC Per rx protocol 05/13/19 10:15 06/12/19 10:14 Vancomycin HCl 1 gm/Dextrose 275 ml @ 183.708 mls/hr ONCE ONCE IVPB 05/15/19 16:00 05/15/19 17:29 Remigio Raza MD May 15, 2019 09:04
[2019-05-15] MEDS: Pantoprazole Inj IVP SCH (09:28)
--- NOTE | 2019-05-15 10:59 | NUR ---
HAND-OFF: Report given to BINH Jolly. Patient is finished with dialysis. 2L output. Patient denies pain or acute distress. Bed bath done at this time. Endorsed to follow up.
--- NOTE | 2019-05-15 11:00 | NUR ---
NURSE NOTES: Pt received from Berta Ambrocio RN in stable condition and in no acute distress. Pt is awake in bed, AAOx1, on 3 L O2 via NC spO2 94%. Pt noted in SR on surveillance monitor 70 bpm, VS noted and charted. Skin alterations noted. Pt has a RH 22g IV saline locked. L AV shunt noted. Pt has a NGT in left nare running Nepro at 35cc/hr. SCDs on bilat lower extremities. Bed in lowest position, alarm on, side rails up x 3, call light within reach. Will continue to monitor pt.
--- NOTE | 2019-05-15 11:37 | Infectious Diseases Prog Note ---
Assessment/Plan Assessment/Plan Assessment: Afib with RVR, brief hypotension 05/13 -05/13 Bcx NTD s/p cardiac arrest x2 -CT head: Chronic and age-related changes. Negative for acute intracranial bleed or mass effect, Old infarcts, as described Low grade fever; SP MIld leukocytosis- likely reactive- resolved ?Aspiration PNA -05/13 CXR: Pulmonary edema, worsened compared to the prior exam. Cardiomegaly. -05/11 CXR:Interstitial edema. This may be slightly improved since the previous da -05/08 CXR: Satisfactory endotracheal intubation. Evidence of bilateral pulmonary edema. Cardiomegaly VDRF; sp extubation 05/11 Hypoglycemia Elevated ALP -Abd US: Nonvisualized gallbladder. Either contracted or surgically absent.Correlate with surgical history. No definite evidence of biliary ductal dilatation. Liver demonstrates diffusely increased echogenicity, consistent with diffuse hepatocellular disease, most likely fatty change. Atrophic bilateral kidneys, consistent with known history of end-stage renal disease HTN ESRD on HD via L arm AVS CAD s/p CABG Plan: -Continue empiric ZOsyn #5/5 and add empiric IV Vancomycin #3 -f/u cx -Monitor CBC/CMP, temperatures -ICU care -aspiration precautions -f/u Bcx x2 -sp cx Thank you for conulting [facility]. Will continue to follow along with you. Discussed with RN. Subjective Allergies: Coded Allergies: No Known Allergies (Unverified , 05/08/19) Subjective afebrile >72hrs no leukocytosis on 3L NC Objective Vital Signs Last 24 Hour Vital Signs Date Time Temp Pulse Resp B/P (MAP) Pulse Ox O2 Delivery O2 Flow Rate FiO2 05/15/19 11:00 70 15 123/47 (72) 95 05/15/19 10:00 71 16 111/38 (62) 97 05/15/19 09:30 72 18 103/36 (58) 97 05/15/19 09:00 72 18 116/36 (62) 97 05/15/19 08:30 75 17 103/35 (57) 97 05/15/19 08:00 Nasal Cannula 3.0 Nasal Cannula 3.0 05/15/19 08:00 3.0 05/15/19 08:00 98.4 73 19 118/39 (65) 97 05/15/19 08:00 72 05/15/19 07:44 75 19 99 Nasal Cannula 3.0 32 71 15 97 05/15/19 07:43 97 Nasal Cannula 3.0 32 05/15/19 07:00 71 29 99/41 (60) 97 05/15/19 06:00 73 18 109/38 (61) 97 05/15/19 05:31 73 113/42 05/15/19 05:31 113/42 05/15/19 05:00 73 18 113/42 (65) 94 05/15/19 04:00 Nasal Cannula 3.0 Nasal Cannula 3.0 05/15/19 04:00 99.0 72 19 105/34 (57) 97 05/15/19 04:00 3.0 05/15/19 04:00 72 05/15/19 03:40 78 21 100 Nasal Cannula 3.0 32 75 21 96 05/15/19 03:00 73 15 108/38 (61) 98 05/15/19 02:00 73 24 111/40 (63) 99 05/15/19 01:00 74 20 115/42 (66) 95 05/15/19 00:00 75 05/15/19 00:00 3.0 05/15/19 00:00 Nasal Cannula 3.0 Nasal Cannula 3.0 05/15/19 00:00 98.7 74 22 118/42 (67) 94 05/14/19 23:17 75 21 100 Nasal Cannula 3.0 32 73 21 95 05/14/19 23:00 74 20 118/45 (69) 94 05/14/19 22:10 75 108/40 05/14/19 22:00 76 22 108/40 (62) 96 05/14/19 21:00 77 20 106/41 (62) 97 05/14/19 20:32 98 Nasal Cannula 3.0 32 05/14/19 20:29 79 21 97 Nasal Cannula 3.0 32 75 21 95 05/14/19 20:00 3.0 05/14/19 20:00 Nasal Cannula 3.0 Nasal Cannula 3.0 05/14/19 20:00 76 05/14/19 20:00 99.0 74 22 114/36 (62) 95 05/14/19 19:00 76 16 111/39 (63) 92 05/14/19 18:00 73 19 110/34 (59) 98 12/8/19 17:00 77 16 111/37 (61) 97 05/14/19 16:00 Nasal Cannula 3.0 Nasal Cannula 3.0 05/14/19 16:00 3.0 05/14/19 16:00 98.3 79 19 109/35 (59) 97 05/14/19 16:00 76 05/14/19 15:43 84 112/35 05/14/19 15:07 84 20 100 Nasal Cannula 3.0 32 82 16 94 05/14/19 15:00 75 19 112/35 (60) 98 05/14/19 14:00 76 21 110/37 (61) 95 05/14/19 13:00 73 19 93/31 (51) 94 05/14/19 12:00 76 05/14/19 12:00 3.0 05/14/19 12:00 Nasal Cannula 3.0 Nasal Cannula 3.0 05/14/19 12:00 98.4 78 20 107/35 (59) 93 Height (Feet): 4 Height (Inches): 10.00 Weight (Pounds): 139 Objective GENERAL: The patient is intubated on mechanical ventilation. HEENT: Conjugate eye gaze. No lymphadenopathy. CARDIOVASCULAR: S1, S2. No rubs or gallops. PULMONARY: Mild upper rhonchi. Fair air movement in all pisano. ABDOMEN: Nondistended, nontender. Good bowel sounds. EXTREMITIES: No edema noted. Microbiology Date/Time Source Procedure Growth Status 05/13/19 10:40 Blood Blood Culture - Preliminary NO GROWTH AFTER 24 HOURS Resulted 05/13/19 10:30 Blood Blood Culture - Preliminary NO GROWTH AFTER 24 HOURS Resulted Laboratory Tests Test 05/14/19 12:45 05/15/19 03:45 Random Vancomycin Level 18.4 ug/mL Sodium Level 143 MMOL/L (136-145) Potassium Level 4.9 MMOL/L (3.5-5.1) Chloride Level 103 MMOL/L (98-107) Carbon Dioxide Level 23 MMOL/L (21-32) Anion Gap 17 mmol/L (5-15) H Blood Urea Nitrogen 71 mg/dL (7-18) H Creatinine 8.9 MG/DL (0.55-1.30) H Estimat Glomerular Filtration Rate 4.5 mL/min (>60) Glucose Level 118 MG/DL (74-106) H Calcium Level 9.1 MG/DL (8.5-10.1) Current Medications Medications (Trade) Dose Ordered Sig/Sylwia Route PRN Reason Start Time Stop Time Status Last Admin Dose Admin Acetaminophen (Tylenol) 650 mg Q4H PRN ORAL Mild Pain/Temp > 100.5 05/14/19 17:15 06/13/19 17:14 05/14/19 17:11 Albuterol/ Ipratropium (Albuterol/ Ipratropium) 3 ml Q4HRT HHN 05/12/19 23:00 05/17/19 22:59 05/15/19 07:45 Chlorhexidine Gluconate (Karla-Hex 2%) 1 applic DAILY@2000 TOPIC 05/13/19 20:00 06/12/19 19:59 05/14/19 20:12 Dextrose (Dextrose 50%) 25 ml Q30M PRN IV Hypoglycemia 05/12/19 20:45 06/08/19 08:14 05/13/19 19:39 Dextrose (Dextrose 50%) 50 ml Q30M PRN IV Hypoglycemia 05/12/19 20:45 06/08/19 08:14 05/12/19 21:57 Diltiazem HCl (Cardizem) 60 mg EVERY 8 HOURS ORAL 05/14/19 16:00 06/13/19 15:59 05/15/19 05:31 Epoetin Mohinder (Epoetin Mohinder(ESRD on dialysis)) 10,000 unit WED-WED-WED SUBQ 05/12/19 21:00 06/11/19 20:59 05/12/19 21:16 Norepinephrine Bitartrate 4 mg/ Dextrose 250 ml @ 0 mls/hr Q24H IV 05/13/19 06:00 06/12/19 05:59 05/13/19 05:20 Ondansetron HCl (Zofran) 4 mg Q6H PRN IVP Nausea & Vomiting 05/12/19 20:40 06/11/19 20:39 Pantoprazole (Protonix) 40 mg DAILY IVP 05/13/19 09:00 06/08/19 12:14 05/15/19 09:28 Piperacillin Sod/ Tazobactam Sod 2.25 gm/Sodium Chloride 55 ml @ 110 mls/hr Q8HR IVPB 05/12/19 22:00 05/16/19 23:59 05/15/19 05:31 Vancomycin HCl (Vanco rx to dose) 1 ea DAILY PRN MISC Per rx protocol 05/13/19 10:15 06/12/19 10:14 Vancomycin HCl 1 gm/Dextrose 275 ml @ 183.708 mls/hr ONCE ONCE IVPB 05/15/19 16:00 05/15/19 17:29 Danita Wilikns M.D. May 15, 2019 11:37
--- NOTE | 2019-05-15 11:45 | NUR ---
NURSE NOTES: Pt repositioned and cleaned. 1 loose stool noted. Left message for Dr. Morris regarding findings. Will continue to monitor pt.
--- NOTE | 2019-05-15 12:00 | NUR ---
NURSE NOTES: Dr Moreno at bedside assessing pt. New orders placed for CBC and BMP for 1800 today. Pt asleep in no acute distress. Will continue to monitor.
--- NOTE | 2019-05-15 13:00 | NUR ---
NURSE NOTES: Spontaneous sputum sample collected via oral suction and sent down to lab. Pt in no acute distress. Will continue to monitor.
--- NOTE | 2019-05-15 13:55 | NUR ---
TRAVELING REPRESENTATIVEPHARMACY BENEFITS COORDINATOR SI: HYPOGLYCEMIA T. 97.7 HR 73 RR 21 B/P 116/38 2L NC O2 SAT @ 98% H/H 7.8/25.6 IS: VANCO IV ZOSYN IV PROTONIX IV CARDIZEM ALB INLINE TX ICU STATUS
--- NOTE | 2019-05-15 14:46 | Surgery Progress Note ---
Surgery Progress Note Subjective Additional Comments mental status on and off comfortable but less responsive non /v/fc requires support Objective Last 24 Hour Vital Signs Date Time Temp Pulse Resp B/P (MAP) Pulse Ox O2 Delivery O2 Flow Rate FiO2 05/15/19 13:57 75 116/41 05/15/19 13:00 75 19 116/41 (66) 96 05/15/19 12:06 71 18 99 Nasal Cannula 3.0 32 70 20 95 05/15/19 12:00 Nasal Cannula 3.0 Nasal Cannula 3.0 05/15/19 12:00 73 05/15/19 12:00 97.7 68 21 116/38 (64) 94 05/15/19 12:00 3.0 05/15/19 11:00 70 15 123/47 (72) 95 05/15/19 10:00 71 16 111/38 (62) 97 05/15/19 09:30 72 18 103/36 (58) 97 05/15/19 09:00 72 18 116/36 (62) 97 05/15/19 08:30 75 17 103/35 (57) 97 05/15/19 08:00 Nasal Cannula 3.0 Nasal Cannula 3.0 05/15/19 08:00 3.0 05/15/19 08:00 98.4 73 19 118/39 (65) 97 05/15/19 08:00 72 05/15/19 07:44 75 19 99 Nasal Cannula 3.0 32 71 15 97 05/15/19 07:43 97 Nasal Cannula 3.0 32 05/15/19 07:00 71 29 99/41 (60) 97 05/15/19 06:00 73 18 109/38 (61) 97 05/15/19 05:31 73 113/42 05/15/19 05:31 113/42 05/15/19 05:00 73 18 113/42 (65) 94 05/15/19 04:00 Nasal Cannula 3.0 Nasal Cannula 3.0 05/15/19 04:00 99.0 72 19 105/34 (57) 97 05/15/19 04:00 3.0 05/15/19 04:00 72 05/15/19 03:40 78 21 100 Nasal Cannula 3.0 32 75 21 96 05/15/19 03:00 73 15 108/38 (61) 98 05/15/19 02:00 73 24 111/40 (63) 99 05/15/19 01:00 74 20 115/42 (66) 95 05/15/19 00:00 75 05/15/19 00:00 3.0 05/15/19 00:00 Nasal Cannula 3.0 Nasal Cannula 3.0 05/15/19 00:00 98.7 74 22 118/42 (67) 94 05/14/19 23:17 75 21 100 Nasal Cannula 3.0 32 73 21 95 05/14/19 23:00 74 20 118/45 (69) 94 05/14/19 22:10 75 108/40 05/14/19 22:00 76 22 108/40 (62) 96 05/14/19 21:00 77 20 106/41 (62) 97 05/14/19 20:32 98 Nasal Cannula 3.0 32 05/14/19 20:29 79 21 97 Nasal Cannula 3.0 32 75 21 95 05/14/19 20:00 3.0 05/14/19 20:00 Nasal Cannula 3.0 Nasal Cannula 3.0 05/14/19 20:00 76 05/14/19 20:00 99.0 74 22 114/36 (62) 95 05/14/19 19:00 76 16 111/39 (63) 92 05/14/19 18:00 73 19 110/34 (59) 98 05/14/19 17:00 77 16 111/37 (61) 97 05/14/19 16:00 Nasal Cannula 3.0 Nasal Cannula 3.0 05/14/19 16:00 3.0 05/14/19 16:00 98.3 79 19 109/35 (59) 97 05/14/19 16:00 76 05/14/19 15:43 84 112/35 05/14/19 15:07 84 20 100 Nasal Cannula 3.0 32 82 16 94 05/14/19 15:00 75 19 112/35 (60) 98 I&O Intake and Output 05/14/19 05/15/19 19:00 07:00 Intake Total 533.33 ml 375 ml Output Total 0 ml 0 ml Balance 533.33 ml 375 ml IV Total 428.33 ml 55 ml Tube Feeding 105 ml 320 ml Output Urine Total 0 ml 0 ml # Bowel Movements 2 2 Dressing: other Wound: other Drains: other Cardiovascular: RSR Respiratory: decreased breath sounds Abdomen: soft, present bowel sounds, non-distended Extremities: edema, no cyanosis, other Laboratory Tests Test 05/15/19 03:45 Sodium Level 143 MMOL/L (136-145) Potassium Level 4.9 MMOL/L (3.5-5.1) Chloride Level 103 MMOL/L (98-107) Carbon Dioxide Level 23 MMOL/L (21-32) Anion Gap 17 mmol/L (5-15) H Blood Urea Nitrogen 71 mg/dL (7-18) H Creatinine 8.9 MG/DL (0.55-1.30) H Estimat Glomerular Filtration Rate 4.5 mL/min (>60) Glucose Level 118 MG/DL (74-106) H Calcium Level 9.1 MG/DL (8.5-10.1) Plan Problems: (1) Deep tissue injury Assessment & Plan: Patient presented on admission with a deep tissue injury in the sacral area. Patient was syncopal episode found down. Unknown exact time patient was down and since is suffered a cardiac event requiring resuscitation and ACLS. There is an area of deep tissue injury with erythema in the sacral area extending into the bilateral buttocks butterfly formation. No drainage. No open area. Patient is high risk and susceptible to opening and worsening given her current condition, ICU care, deterioration. We will need to monitor closely and provide aggressive care to ensure healing Air mattress Turn every 2 hours Skin protectant OPTi foam dressing daily and as needed Offload heels with pillows Appreciate nursing care Nutritional support DAILY ESTIMATED NEEDS: Needs based on Critical Care, ESRD on HD, wounds; 56.3kg adj 22- 30 kcals/kg [id number] total kcals 1.25-2 g protein/kg 70-113 g total protein Fluid per MD- on HD NUTRITION DIAGNOSIS: * Increased pro needs r/t wound healing and renal dysfunction AEB pt adm w/ BL heel and sacral DTI (per RN), WC eval pending, w/ ESRD on HD. * Swallowing difficulty r/t respiratory status AEB pt is intubated, currently NPO, pending non oral feeds. CURRENT TF: Per RN Nepro @40ml/hr ENTERAL NUTRITION RECOMMENDATIONS: Nepro @35mL/hr x 24 hrs+ 1 Prosource qdaily to provide 840mL, 1512kcal, 68g pro +11g pro, 611mL free H2O -Obtain GI access, initiate Nepro @15mL/hr, advancing 10mL/hr q 4-6hrs until @ goal. -Provide 1 packet of Prosource- flush with 4oz water -HOB > 30 degrees, Flush per MD ADDITIONAL RECOMMENDATIONS: 1) With prolonged NPO/Intubation- see TF recs as above 2) Wound healing- w/ diet order, add: Juan Daniel in 4oz H2O BID; f/up w/ WC eval 3) Maintain calibrated bedscale wt 4) F/u w/ H&P 5) Feed w/ hemodynamic stability, now off pressor support. (2) Cardiac arrest Assessment & Plan: 61-year-old female multi-medical comorbidities syncopal episode leading to ACLS requiring resuscitation. Currently intensive care unit intubated on ventilatory support Patient is ill-appearing with family at the bedside. Labs noted. Mild elevation troponins. Mild elevated LFTs. Improving since resuscitation current etiology work-up A.m. 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 There is also an old right cerebellar cortical infarct There is age-related enlargement of the ventricles and extra axial CSF spaces. There is periventricular deep white matter low-attenuation, consistent with chronic microvascular ischemic change. The stuart-white differentiation is normal. The calvarium is intact. There is evidence of prior cataract surgery. The sinuses are clear. The mastoids are underpneumatized, otherwise clear. Impression: Chronic and age-related changes Negative for acute intracranial bleed or mass effect, Old infarcts, as described Laron Moreno May 15, 2019 14:46
--- NOTE | 2019-05-15 15:07 | NUR ---
NURSE NOTES: Pt just completed breathing tx. Noted in SR t this time HR 74 bpm spO2 97% RR 19 BP 106/39. Pt repositioned, no acute distress noted. Zosyn IV almost complete.
--- NOTE | 2019-05-15 15:40 | Cardiac Electrophysiology PN ---
Assessment/Plan Assessment/Plan 1. Status post two noninfarctional cardiac arrests and ventricular tachycardia based on 12-lead EKG in this patient with history of coronary artery disease. Troponin elevation only minimal and level flat likely due two CPR in this patient with hemodialysis. Echocardiogram showed EF 50-55% Needs cardiac cath but family dont want any procedures 2. History of open heart surgery in 2010. Not sure if its bypass or for valve replacement . Medical records from [facility] are still pending 3. Atrial fib with RVR. Converted to SR. On Cardizem 60 po tid 3. Respiratory failure, extubated. BNP is 17,000. On dialysis. Now DNR and DNI 4. End-stage renal disease, on hemodialysis. 5. Anemia. PAN RN Subjective Subjective In ICU in SR and Cardizem po. Had HD 2 liters out. DNR and DNI. Objective Last 24 Hour Vital Signs Date Time Temp Pulse Resp B/P (MAP) Pulse Ox O2 Delivery O2 Flow Rate FiO2 05/15/19 14:40 78 21 100 Nasal Cannula 3.0 32 75 21 96 05/15/19 14:00 75 19 119/43 (68) 96 05/15/19 13:57 75 116/41 05/15/19 13:00 75 19 116/41 (66) 96 05/15/19 12:06 71 18 99 Nasal Cannula 3.0 32 70 20 95 05/15/19 12:00 Nasal Cannula 3.0 Nasal Cannula 3.0 05/15/19 12:00 73 05/15/19 12:00 97.7 68 21 116/38 (64) 94 05/15/19 12:00 3.0 05/15/19 11:00 70 15 123/47 (72) 95 05/15/19 10:00 71 16 111/38 (62) 97 05/15/19 09:30 72 18 103/36 (58) 97 05/15/19 09:00 72 18 116/36 (62) 97 05/15/19 08:30 75 17 103/35 (57) 97 05/15/19 08:00 Nasal Cannula 3.0 Nasal Cannula 3.0 05/15/19 08:00 3.0 05/15/19 08:00 98.4 73 19 118/39 (65) 97 12/9/19 08:00 72 05/15/19 07:44 75 19 99 Nasal Cannula 3.0 32 71 15 97 05/15/19 07:43 97 Nasal Cannula 3.0 32 05/15/19 07:00 71 29 99/41 (60) 97 05/15/19 06:00 73 18 109/38 (61) 97 05/15/19 05:31 73 113/42 05/15/19 05:31 113/42 05/15/19 05:00 73 18 113/42 (65) 94 05/15/19 04:00 Nasal Cannula 3.0 Nasal Cannula 3.0 05/15/19 04:00 99.0 72 19 105/34 (57) 97 05/15/19 04:00 3.0 05/15/19 04:00 72 05/15/19 03:40 78 21 100 Nasal Cannula 3.0 32 75 21 96 05/15/19 03:00 73 15 108/38 (61) 98 05/15/19 02:00 73 24 111/40 (63) 99 05/15/19 01:00 74 20 115/42 (66) 95 05/15/19 00:00 75 05/15/19 00:00 3.0 05/15/19 00:00 Nasal Cannula 3.0 Nasal Cannula 3.0 05/15/19 00:00 98.7 74 22 118/42 (67) 94 05/14/19 23:17 75 21 100 Nasal Cannula 3.0 32 73 21 95 05/14/19 23:00 74 20 118/45 (69) 94 05/14/19 22:10 75 108/40 05/14/19 22:00 76 22 108/40 (62) 96 05/14/19 21:00 77 20 106/41 (62) 97 05/14/19 20:32 98 Nasal Cannula 3.0 32 05/14/19 20:29 79 21 97 Nasal Cannula 3.0 32 75 21 95 05/14/19 20:00 3.0 05/14/19 20:00 Nasal Cannula 3.0 Nasal Cannula 3.0 05/14/19 20:00 76 05/14/19 20:00 99.0 74 22 114/36 (62) 95 05/14/19 19:00 76 16 111/39 (63) 92 05/14/19 18:00 73 19 110/34 (59) 98 05/14/19 17:00 77 16 111/37 (61) 97 05/14/19 16:00 Nasal Cannula 3.0 Nasal Cannula 3.0 05/14/19 16:00 3.0 05/14/19 16:00 98.3 79 19 109/35 (59) 97 05/14/19 16:00 76 05/14/19 15:43 84 112/35 Intake and Output 05/14/19 05/15/19 19:00 07:00 Intake Total 533.33 ml 375 ml Output Total 0 ml 0 ml Balance 533.33 ml 375 ml IV Total 428.33 ml 55 ml Tube Feeding 105 ml 320 ml Output Urine Total 0 ml 0 ml # Bowel Movements 2 2 Laboratory Tests Test 05/15/19 03:45 Sodium Level 143 MMOL/L (136-145) Potassium Level 4.9 MMOL/L (3.5-5.1) Chloride Level 103 MMOL/L (98-107) Carbon Dioxide Level 23 MMOL/L (21-32) Anion Gap 17 mmol/L (5-15) H Blood Urea Nitrogen 71 mg/dL (7-18) H Creatinine 8.9 MG/DL (0.55-1.30) H Estimat Glomerular Filtration Rate 4.5 mL/min (>60) Glucose Level 118 MG/DL (74-106) H Calcium Level 9.1 MG/DL (8.5-10.1) Microbiology Date/Time Source Procedure Growth Status 05/13/19 10:40 Blood Blood Culture - Preliminary NO GROWTH AFTER 24 HOURS Resulted 05/13/19 10:30 Blood Blood Culture - Preliminary NO GROWTH AFTER 24 HOURS Resulted Objective HEAD AND NECK: No JVD. LUNGS: Coarse rhonchi. CHEST: Sternotomy scar is healed. CARDIOVASCULAR: Regular S1 and S2 with no gallop. ABDOMEN: Soft. She has a scar from cholecystectomy in the abdomen. EXTREMITIES: Status post left AV shunt. Shawn Robbins MD May 15, 2019 15:40
[2019-05-15] MEDS ORDERED: Vancomycin 1gm/D5W 275ml IVPB ONE ×2 (16:00)
--- NOTE | 2019-05-15 17:30 | NUR ---
NURSE NOTES: Pt repositioned. 1 small smear of BM noted. Pt cleaned and suctioned orally. VS noted stable and charted. Pt is still drowsy and asleep but opens eyes when name is called and follows commands. No acute distress noted. Will continue to monitor.
[2019-05-15 18:53] LABS: HEMATOCRIT 24.1 % (37.0-47.0); HEMOGLOBIN 7.9 G/DL (12.0-16.0); MEAN CORPUSCULAR VOLUME 98 FL (80-99); PLATELET COUNT 110 K/UL (150-450); RED BLOOD COUNT 2.46 M/UL (4.20-5.40); RED CELL DISTRIBUTION WIDTH 17.2 % (11.6-14.8); WHITE BLOOD COUNT 9.4 K/UL (4.8-10.8)
[2019-05-15 18:57] LABS: NEUTROPHILS % (AUTO) 70.5 % (45.0-75.0)
[2019-05-15 18:58] LABS: BASOPHILS % (AUTO) 2.1 % (0.0-2.0); EOSINOPHILS % (AUTO) 2.1 % (0.0-3.0); LYMPHOCYTES % (AUTO) 16.6 % (20.0-45.0); MONOCYTES % (AUTO) 8.7 % (1.0-10.0)
[2019-05-15 19:08] LABS: ANION GAP 18 mmol/L (5-15); BLOOD UREA NITROGEN 45 mg/dL (7-18); CALCIUM 9.2 MG/DL (8.5-10.1); CARBON DIOXIDE 22 MMOL/L (21-32); CHLORIDE 102 MMOL/L (98-107); CREATININE 5.7 MG/DL (0.55-1.30); POTASSIUM 4.3 MMOL/L (3.5-5.1); SODIUM 142 MMOL/L (136-145)
--- NOTE | 2019-05-15 19:21 | NUR ---
HAND-OFF: Report given to BINH Jewell. Pt in stable condition. Family at bedside. Mentation remains unchanged. VS noted stable.
--- NOTE | 2019-05-15 19:30 | NUR ---
NURSE NOTES: Received pt in no apparent distress; awake, alert, oriented to self and family members;follow simple commands and denies any pain, and SOB. Head of bed elevated; breathing without difficulty on 2l/via NC and saturating 97-98%. Chest sounds with diminished breath sounds at the bases. NSR on the monitor, BP stable. Pt has roberts Left Upper arm AVgraft with strong bruit and thrill. NGT to Left nare in situ with TF of Nepro running at 35ml/h with 0 residuals. Abdomen soft; No BM at this time. Wound dressings dry and intact. PIV site on right hand patent with IV at TKO. Family at bedside, plan of care explained. Awaiting Dr Jason to clear pt for transfer to lower level of care.
[2019-05-15] MEDS: Dyna-Hex 2% Top Sol 2oz TOPIC SCH (20:38)
[2019-05-15] MEDS: Epoetin Alfa-EPBX(ESRD on dialysis)10,000 unit/ml vial SUBQ SCH (20:39)
[2019-05-15] MEDS ORDERED: NS 275ml ONE (21:44)
--- NOTE | 2019-05-15 22:00 | NUR ---
NURSE NOTES: Sleeps on and off; moans at times especially when being repositioned but denies pain. Family still at bedside. No distress.
[2019-05-16] VITALS (19 sets, daily range): BP systolic 99–117; BP diastolic 33–85
--- NOTE | 2019-05-16 | NUR ---
NURSE NOTES: Coughs productively of thick white sputum. Oral care and oral suctioning done. RT gave breathing treatment earlier and pt's O2 sats improved. Remains on SR with PAC's; Afebrile. Tolerating TF.Will continue to monitor
--- NOTE | 2019-05-16 01:54 | General Progress Note ---
Assessment/Plan Assessment/Plan: Assessment - Anemia - OB (+) stools - CAD / AL - arrhythmia - ESRD Recommendations - ICU care - Monitor CBC - H2B or PPI - Elevate HOB - EGD/colon at later date, once stable from a cardiac standpoint Subjective Allergies: Coded Allergies: No Known Allergies (Unverified , 05/08/19) Subjective Above noted seen in ICU No GI symptoms (delayed entry note - patient seen 05/15/19) Objective Last 24 Hour Vital Signs Date Time Temp Pulse Resp B/P (MAP) Pulse Ox O2 Delivery O2 Flow Rate FiO2 05/16/19 01:00 75 24 109/40 (63) 95 05/16/19 00:00 Nasal Cannula 3.0 Nasal Cannula 3.0 05/16/19 00:00 77 05/16/19 00:00 98.9 76 24 108/38 (61) 93 05/15/19 23:00 74 22 109/33 (58) 99 05/15/19 22:52 79 20 96 Nasal Cannula 3.0 32 78 20 92 05/15/19 22:00 74 19 105/34 (57) 91 05/15/19 21:30 76 110/39 05/15/19 21:00 76 21 110/39 (62) 94 05/15/19 20:00 97 Nasal Cannula 3.0 32 05/15/19 20:00 Nasal Cannula 3.0 Nasal Cannula 3.0 05/15/19 20:00 75 05/15/19 20:00 99.0 73 22 109/38 (61) 97 05/15/19 20:00 76 20 98 Nasal Cannula 3.0 32 74 20 94 05/15/19 19:00 76 19 112/35 (60) 95 05/15/19 18:00 71 20 111/51 (71) 91 05/15/19 17:00 75 18 102/39 (60) 95 05/15/19 16:00 3.0 05/15/19 16:00 76 05/15/19 16:00 Nasal Cannula 3.0 Nasal Cannula 3.0 05/15/19 16:00 98.5 75 20 105/36 (59) 95 05/15/19 15:00 77 18 106/39 (61) 97 05/15/19 14:40 78 21 100 Nasal Cannula 3.0 32 75 21 96 05/15/19 14:00 75 19 119/43 (68) 96 05/15/19 13:57 75 116/41 05/15/19 13:00 75 19 116/41 (66) 96 05/15/19 12:06 71 18 99 Nasal Cannula 3.0 32 70 20 95 05/15/19 12:00 Nasal Cannula 3.0 Nasal Cannula 3.0 05/15/19 12:00 73 05/15/19 12:00 97.7 68 21 116/38 (64) 94 05/15/19 12:00 3.0 05/15/19 11:00 70 15 123/47 (72) 95 05/15/19 10:00 71 16 111/38 (62) 97 05/15/19 09:30 72 18 103/36 (58) 97 05/15/19 09:00 72 18 116/36 (62) 97 05/15/19 08:30 75 17 103/35 (57) 97 05/15/19 08:00 Nasal Cannula 3.0 Nasal Cannula 3.0 05/15/19 08:00 3.0 05/15/19 08:00 98.4 73 19 118/39 (65) 97 05/15/19 08:00 72 05/15/19 07:44 75 19 99 Nasal Cannula 3.0 32 71 15 97 05/15/19 07:43 97 Nasal Cannula 3.0 32 05/15/19 07:00 71 29 99/41 (60) 97 05/15/19 06:00 73 18 109/38 (61) 97 05/15/19 05:31 73 113/42 05/15/19 05:31 113/42 05/15/19 05:00 73 18 113/42 (65) 94 05/15/19 04:00 Nasal Cannula 3.0 Nasal Cannula 3.0 05/15/19 04:00 99.0 72 19 105/34 (57) 97 05/15/19 04:00 3.0 05/15/19 04:00 72 05/15/19 03:40 78 21 100 Nasal Cannula 3.0 32 75 21 96 05/15/19 03:00 73 15 108/38 (61) 98 05/15/19 02:00 73 24 111/40 (63) 99 Intake and Output 05/15/19 05/16/19 19:00 07:00 Intake Total 942.416 ml 265 ml Output Total 2000 ml 0 ml Balance -1057.584 ml 265 ml Free Water 100 ml IV Total 422.416 ml 55 ml Tube Feeding 420 ml 210 ml Output Urine Total 0 ml 0 ml Hemodialysis UF 2000 ml # Bowel Movements 3 Laboratory Tests 05/15/19 03:45: Sodium Level 143, Potassium Level 4.9, Chloride Level 103, Carbon Dioxide Level 23, Anion Gap 17H, Blood Urea Nitrogen 71H, Creatinine 8.9H, Estimat Glomerular Filtration Rate 4.5, Glucose Level 118H, Calcium Level 9.1 05/15/19 18:20: Sodium Level 142, Potassium Level 4.3, Chloride Level 102, Carbon Dioxide Level 22, Anion Gap 18H, Blood Urea Nitrogen 45H, Creatinine 5.7H, Estimat Glomerular Filtration Rate 7.4, Glucose Level 170H, Calcium Level 9.2, White Blood Count 9.4, Red Blood Count 2.46L, Hemoglobin 7.9L, Hematocrit 24.1L, Mean Corpuscular Volume 98, Mean Corpuscular Hemoglobin 32.3H, Mean Corpuscular Hemoglobin Concent 32.9, Red Cell Distribution Width 17.2H, Platelet Count 110L, Mean Platelet Volume 6.8, Neutrophils (%) (Auto) 70.5, Lymphocytes (%) (Auto) 16.6L, Monocytes (%) (Auto) 8.7, Eosinophils (%) (Auto) 2.1, Basophils (%) (Auto) 2.1H Height (Feet): 4 Height (Inches): 10.00 Weight (Pounds): 139 Objective WDWN NCAT supple CTA RR abd soft, obese no edema Fadumo Morris MD May 16, 2019 01:54
--- NOTE | 2019-05-16 02:00 | NUR ---
NURSE NOTES: Sleeping, no distress; VSS
[2019-05-16] MEDS: Albuterol/Ipratropium 3ml neb HHN SCH ×6 (03:01→23:31)
--- NOTE | 2019-05-16 04:00 | NUR ---
NURSE NOTES: Had 1 large liquid stool; incontinent. Sample sent for Cdiff. Complete bed bath done. Retaped NGT. Replaced optifoam dressing on sacral area.Skin remains intact. Afebrile; NSR. Remains anuric
[2019-05-16] MEDS: Piperacillin/Tazobactam 2.25 GM in NS 55 ML IVPB SCH ×2 (05:34→14:45)
[2019-05-16] MEDS: dilTIAZem HCl 60mg tab ORAL SCH ×3 (05:34→22:04)
[2019-05-16 05:53] LABS: ANION GAP 19 mmol/L (5-15); BLOOD UREA NITROGEN 52 mg/dL (7-18); CALCIUM 9.2 MG/DL (8.5-10.1); CARBON DIOXIDE 20 MMOL/L (21-32); CHLORIDE 102 MMOL/L (98-107); CREATININE 6.5 MG/DL (0.55-1.30); POTASSIUM 4.6 MMOL/L (3.5-5.1); SODIUM 141 MMOL/L (136-145)
--- NOTE | 2019-05-16 06:00 | NUR ---
NURSE NOTES: Calm, sleeps on and off. Still coughs productively. Desaturates if she takes O2 off.
--- NOTE | 2019-05-16 07:10 | NUR ---
HAND-OFF: Report given to Morgan Pyle RN.
--- NOTE | 2019-05-16 07:30 | NUR ---
NURSE NOTES: Received PT and report from [facility]; PT A/O x 1-2; welsh speaking female; non-combative, follows commands; no facial grimacing noted; asked if she has any pain, no response. PT on playground monitor showing SR; HR 75; saturating at 93% on 3L-NC with moisture no S/S of respiratory distress; BP 104/37; RR 23. PT HOB elevated; has L-arm AC dialysis graft auscultated graft with strong bruit; R-hand 22g running TKO; L-nare NGTube infusing Nepro @ 35cc @ goal; no residual noted during morning rounds; PT had 1 BM during morning rounds; linens changed; PT was cleaned by [facility] Denton. PT received on P200 mattress; endorsed that PT has swallow evaluation today; cleared by consults for possible downgrade; awaiting clearance by primary MD. Will continue with plan of care for PT.
--- NOTE | 2019-05-16 07:49 | Nephrology Progress Note ---
Assessment/Plan Assessment/Plan: A/P 1) ESRD- MWF 2) S/P Cardiac Arrest, EF 55%, stable 3) LE Wounds - Per Gen Surgery and ID 4) Resp FL- Extubated. OG for TFs 5) DVT prophylaxsis with SCDs 6) Anemia- Thrombocytopenia/Diarhhea - per GI mgmt - EPO 7) Afib RVR- per cardiology. transfer to [facility] Patient now DNR/I Subjective Date patient seen: May 16, 2019 Time patient seen: 07:48 ROS Limited/Unobtainable: No Allergies: Coded Allergies: No Known Allergies (Unverified , 05/08/19) Subjective Patient off cardizem gtt. OG feeds Objective Last 24 Hour Vital Signs Date Time Temp Pulse Resp B/P (MAP) Pulse Ox O2 Delivery O2 Flow Rate FiO2 05/16/19 07:08 90 Nasal Cannula 3.0 32 05/16/19 07:00 98.4 75 18 104/37 (59) 91 05/16/19 06:00 77 19 102/38 (59) 85 05/16/19 05:34 72 115/35 05/16/19 05:33 115/35 05/16/19 05:00 74 20 115/35 (61) 94 05/16/19 04:00 98.9 77 20 117/44 (68) 94 05/16/19 04:00 77 05/16/19 04:00 Nasal Cannula 3.0 Nasal Cannula 3.0 05/16/19 03:01 78 20 98 Nasal Cannula 3.0 32 76 20 92 05/16/19 03:00 74 20 112/41 (64) 94 05/16/19 02:00 76 23 107/41 (63) 98 05/16/19 01:00 75 24 109/40 (63) 95 05/16/19 00:00 Nasal Cannula 3.0 Nasal Cannula 3.0 05/16/19 00:00 77 05/16/19 00:00 98.9 76 24 108/38 (61) 93 05/15/19 23:00 74 22 109/33 (58) 99 05/15/19 22:52 79 20 96 Nasal Cannula 3.0 32 78 20 92 05/15/19 22:00 74 19 105/34 (57) 91 05/15/19 21:30 76 110/39 05/15/19 21:00 76 21 110/39 (62) 94 05/15/19 20:00 97 Nasal Cannula 3.0 32 05/15/19 20:00 Nasal Cannula 3.0 Nasal Cannula 3.0 05/15/19 20:00 75 05/15/19 20:00 99.0 73 22 109/38 (61) 97 05/15/19 20:00 76 20 98 Nasal Cannula 3.0 32 74 20 94 05/15/19 19:00 76 19 112/35 (60) 95 05/15/19 18:00 71 20 111/51 (71) 91 05/15/19 17:00 75 18 102/39 (60) 95 05/15/19 16:00 3.0 05/15/19 16:00 76 05/15/19 16:00 Nasal Cannula 3.0 Nasal Cannula 3.0 05/15/19 16:00 98.5 75 20 105/36 (59) 95 05/15/19 15:00 77 18 106/39 (61) 97 05/15/19 14:40 78 21 100 Nasal Cannula 3.0 32 75 21 96 05/15/19 14:00 75 19 119/43 (68) 96 05/15/19 13:57 75 116/41 05/15/19 13:00 75 19 116/41 (66) 96 05/15/19 12:06 71 18 99 Nasal Cannula 3.0 32 70 20 95 05/15/19 12:00 Nasal Cannula 3.0 Nasal Cannula 3.0 05/15/19 12:00 73 05/15/19 12:00 97.7 68 21 116/38 (64) 94 05/15/19 12:00 3.0 05/15/19 11:00 70 15 123/47 (72) 95 05/15/19 10:00 71 16 111/38 (62) 97 05/15/19 09:30 72 18 103/36 (58) 97 05/15/19 09:00 72 18 116/36 (62) 97 05/15/19 08:30 75 17 103/35 (57) 97 05/15/19 08:00 Nasal Cannula 3.0 Nasal Cannula 3.0 05/15/19 08:00 3.0 05/15/19 08:00 98.4 73 19 118/39 (65) 97 05/15/19 08:00 72 Intake and Output 05/15/19 05/16/19 18:59 06:59 Intake Total 942.416 ml 590 ml Output Total 2000 ml 0 ml Balance -1057.584 ml 590 ml Free Water 100 ml IV Total 422.416 ml 110 ml Tube Feeding 420 ml 420 ml Other 60 ml Output Urine Total 0 ml 0 ml Hemodialysis UF 2000 ml # Bowel Movements 3 2 Laboratory Tests 05/15/19 18:20: White Blood Count 9.4, Red Blood Count 2.46L, Hemoglobin 7.9L, Hematocrit 24.1L , Mean Corpuscular Volume 98, Mean Corpuscular Hemoglobin 32.3H, Mean Corpuscular Hemoglobin Concent 32.9, Red Cell Distribution Width 17.2H, Platelet Count 110L, Mean Platelet Volume 6.8, Neutrophils (%) (Auto) 70.5, Lymphocytes (%) (Auto) 16.6L, Monocytes (%) (Auto) 8.7, Eosinophils (%) (Auto) 2.1, Basophils (%) (Auto) 2.1H, Sodium Level 142, Potassium Level 4.3, Chloride Level 102, Carbon Dioxide Level 22, Anion Gap 18H, Blood Urea Nitrogen 45H, Creatinine 5.7H, Estimat Glomerular Filtration Rate 7.4, Glucose Level 170H, Calcium Level 9.2 05/16/19 04:15: Sodium Level 141, Potassium Level 4.6, Chloride Level 102, Carbon Dioxide Level 20L, Anion Gap 19H, Blood Urea Nitrogen 52H, Creatinine 6.5H, Estimat Glomerular Filtration Rate 6.4, Glucose Level 114H, Calcium Level 9.2 Height (Feet): 4 Height (Inches): 10.00 Weight (Pounds): 138 General Appearance: no apparent distress EENT: normal ENT inspection Neck: normal alignment, supple Cardiovascular: normal rate, regularly irregular Respiratory/Chest: rhonchi - bilaterally Abdomen: non tender, soft Edema: no edema noted Arm (L), no edema noted Arm (R), no edema noted Leg (L), no edema noted Leg (R), no edema noted Pedal (L), no edema noted Pedal (R), no edema noted Generalized David Zapata MD May 16, 2019 07:49
[2019-05-16] MEDS: Pantoprazole Inj IVP SCH (09:22)
--- NOTE | 2019-05-16 10:38 | NUR ---
NURSE NOTES: PT has episodes of dry cough while she is awake, PT family is at bedside asking if she can have ice chips, explained to her that she is due for swallow eval and transfer, and until swallow eval is done, keep PT NPO.
--- NOTE | 2019-05-16 11:04 | Pulmonology Progress Note ---
Assessment/Plan Assessment/Plan IMPRESSION: 1. Non-STEMI. 2. ESRD, on dialysis. 3. Pulmonary edema. 4. Respiratory failure. Now extubated DISCUSSION: 1. Continue current care 2. Agree with current medications and care. 3. Decrease Fio2 5, Transfer to tele 4. The patient will need dialysis per renal. 5. Rate control per cardiology Remigio Raza M.D. Subjective Interval Events: On ventimask; no new complaints Constitutional: Reports: no symptoms HEENT: Repors: no symptoms Respiratory: Reports: no symptoms Cardiovascular: Reports: no symptoms Gastrointestinal/Abdominal: Reports: no symptoms Allergies: Coded Allergies: No Known Allergies (Unverified , 05/08/19) Objective Last 24 Hour Vital Signs Date Time Temp Pulse Resp B/P (MAP) Pulse Ox O2 Delivery O2 Flow Rate FiO2 05/16/19 10:00 73 19 99/36 (57) 95 05/16/19 09:00 73 20 103/33 (56) 89 05/16/19 08:00 Nasal Cannula 3.0 Nasal Cannula 3.0 05/16/19 08:00 74 19 99/33 (55) 96 05/16/19 08:00 75 05/16/19 07:17 75 20 98 Nasal Cannula 3.0 32 71 23 90 05/16/19 07:08 90 Nasal Cannula 3.0 32 05/16/19 07:00 98.4 75 18 104/37 (59) 91 05/16/19 06:00 77 19 102/38 (59) 85 05/16/19 05:34 72 115/35 05/16/19 05:33 115/35 05/16/19 05:00 74 20 115/35 (61) 94 05/16/19 04:00 98.9 77 20 117/44 (68) 94 05/16/19 04:00 77 05/16/19 04:00 Nasal Cannula 3.0 Nasal Cannula 3.0 05/16/19 03:01 78 20 98 Nasal Cannula 3.0 32 76 20 92 05/16/19 03:00 74 20 112/41 (64) 94 05/16/19 02:00 76 23 107/41 (63) 98 05/16/19 01:00 75 24 109/40 (63) 95 05/16/19 00:00 Nasal Cannula 3.0 Nasal Cannula 3.0 05/16/19 00:00 77 05/16/19 00:00 98.9 76 24 108/38 (61) 93 05/15/19 23:00 74 22 109/33 (58) 99 05/15/19 22:52 79 20 96 Nasal Cannula 3.0 32 78 20 92 05/15/19 22:00 74 19 105/34 (57) 91 05/15/19 21:30 76 110/39 05/15/19 21:00 76 21 110/39 (62) 94 05/15/19 20:00 97 Nasal Cannula 3.0 32 05/15/19 20:00 Nasal Cannula 3.0 Nasal Cannula 3.0 05/15/19 20:00 75 05/15/19 20:00 99.0 73 22 109/38 (61) 97 05/15/19 20:00 76 20 98 Nasal Cannula 3.0 32 74 20 94 05/15/19 19:00 76 19 112/35 (60) 95 05/15/19 18:00 71 20 111/51 (71) 91 05/15/19 17:00 75 18 102/39 (60) 95 05/15/19 16:00 3.0 05/15/19 16:00 76 05/15/19 16:00 Nasal Cannula 3.0 Nasal Cannula 3.0 05/15/19 16:00 98.5 75 20 105/36 (59) 95 05/15/19 15:00 77 18 106/39 (61) 97 05/15/19 14:40 78 21 100 Nasal Cannula 3.0 32 75 21 96 05/15/19 14:00 75 19 119/43 (68) 96 05/15/19 13:57 75 116/41 05/15/19 13:00 75 19 116/41 (66) 96 05/15/19 12:06 71 18 99 Nasal Cannula 3.0 32 70 20 95 05/15/19 12:00 Nasal Cannula 3.0 Nasal Cannula 3.0 05/15/19 12:00 73 05/15/19 12:00 97.7 68 21 116/38 (64) 94 05/15/19 12:00 3.0 Intake and Output 05/15/19 05/16/19 18:59 06:59 Intake Total 942.416 ml 590 ml Output Total 2000 ml 0 ml Balance -1057.584 ml 590 ml Free Water 100 ml IV Total 422.416 ml 110 ml Tube Feeding 420 ml 420 ml Other 60 ml Output Urine Total 0 ml 0 ml Hemodialysis UF 2000 ml # Bowel Movements 3 2 General Appearance: no acute distress HEENT: normocephalic Respiratory/Chest: chest wall non-tender, decreased breath sounds Cardiovascular: normal peripheral pulses, normal rate Abdomen: normal bowel sounds Microbiology Date/Time Source Procedure Growth Status 05/16/19 04:00 Stool Clostridium difficile Toxin Assay - Final Complete Laboratory Tests 05/15/19 18:20: White Blood Count 9.4, Red Blood Count 2.46L, Hemoglobin 7.9L, Hematocrit 24.1L , Mean Corpuscular Volume 98, Mean Corpuscular Hemoglobin 32.3H, Mean Corpuscular Hemoglobin Concent 32.9, Red Cell Distribution Width 17.2H, Platelet Count 110L, Mean Platelet Volume 6.8, Neutrophils (%) (Auto) 70.5, Lymphocytes (%) (Auto) 16.6L, Monocytes (%) (Auto) 8.7, Eosinophils (%) (Auto) 2.1, Basophils (%) (Auto) 2.1H, Sodium Level 142, Potassium Level 4.3, Chloride Level 102, Carbon Dioxide Level 22, Anion Gap 18H, Blood Urea Nitrogen 45H, Creatinine 5.7H, Estimat Glomerular Filtration Rate 7.4, Glucose Level 170H, Calcium Level 9.2 05/16/19 04:15: Sodium Level 141, Potassium Level 4.6, Chloride Level 102, Carbon Dioxide Level 20L, Anion Gap 19H, Blood Urea Nitrogen 52H, Creatinine 6.5H, Estimat Glomerular Filtration Rate 6.4, Glucose Level 114H, Calcium Level 9.2 Current Medications Medications (Trade) Dose Ordered Sig/Sylwia Route PRN Reason Start Time Stop Time Status Last Admin Dose Admin Acetaminophen (Tylenol) 650 mg Q4H PRN ORAL Mild Pain/Temp > 100.5 05/14/19 17:15 06/13/19 17:14 05/14/19 17:11 Albuterol/ Ipratropium (Albuterol/ Ipratropium) 3 ml Q4HRT HHN 05/12/19 23:00 05/17/19 22:59 05/16/19 10:51 Chlorhexidine Gluconate (Karla-Hex 2%) 1 applic DAILY@2000 TOPIC 05/13/19 20:00 06/12/19 19:59 05/15/19 20:38 Dextrose (Dextrose 50%) 25 ml Q30M PRN IV Hypoglycemia 05/12/19 20:45 06/08/19 08:14 05/13/19 19:39 Dextrose (Dextrose 50%) 50 ml Q30M PRN IV Hypoglycemia 05/12/19 20:45 06/08/19 08:14 05/12/19 21:57 Diltiazem HCl (Cardizem) 60 mg EVERY 8 HOURS ORAL 05/14/19 16:00 06/13/19 15:59 05/16/19 05:34 Epoetin Mohinder (Epoetin Mohinder(ESRD on dialysis)) 10,000 unit SUBQ 05/12/19 21:00 06/11/19 20:59 05/15/19 20:39 Norepinephrine Bitartrate 4 mg/ Dextrose 250 ml @ 0 mls/hr Q24H IV 05/13/19 06:00 06/12/19 05:59 05/13/19 05:20 Ondansetron HCl (Zofran) 4 mg Q6H PRN IVP Nausea & Vomiting 05/12/19 20:40 06/11/19 20:39 Pantoprazole (Protonix) 40 mg DAILY IVP 05/13/19 09:00 06/08/19 12:14 05/16/19 09:22 Piperacillin Sod/ Tazobactam Sod 2.25 gm/Sodium Chloride 55 ml @ 110 mls/hr Q8HR IVPB 05/12/19 22:00 05/16/19 23:59 05/16/19 05:34 Vancomycin HCl (Vanco rx to dose) 1 ea DAILY PRN MISC Per rx protocol 05/13/19 10:15 06/12/19 10:14 Remigio Raza MD May 16, 2019 11:04
--- NOTE | 2019-05-16 11:12 | Cardiac Electrophysiology PN ---
Assessment/Plan Assessment/Plan 1. Status post two noninfarctional cardiac arrests and ventricular tachycardia based on 12-lead EKG in this patient with history of coronary artery disease. Troponin elevation only minimal and level flat likely due two CPR in this patient with hemodialysis. Echocardiogram showed EF 50-55% Needs cardiac cath but family don't want any procedures 2. History of open heart surgery in 2010. Not sure if its bypass or for valve replacement . Records from [facility] are still pending 3. Atrial fib with RVR. Converted to SR. On Cardizem 60 po tid 3. Respiratory failure, extubated. BNP is 17,000. On dialysis. Now DNR and DNI 4. End-stage renal disease, on hemodialysis. 5. Anemia. 6. Dysphagia. NGT feeding. Swallow eval pending DW RN Subjective Subjective In ICU in SR and Cardizem po. Daughter and RN at bedside Objective Last 24 Hour Vital Signs Date Time Temp Pulse Resp B/P (MAP) Pulse Ox O2 Delivery O2 Flow Rate FiO2 05/16/19 10:00 73 19 99/36 (57) 95 05/16/19 09:00 73 20 103/33 (56) 89 05/16/19 08:00 Nasal Cannula 3.0 Nasal Cannula 3.0 05/16/19 08:00 74 19 99/33 (55) 96 05/16/19 08:00 75 05/16/19 07:17 75 20 98 Nasal Cannula 3.0 32 71 23 90 05/16/19 07:08 90 Nasal Cannula 3.0 32 05/16/19 07:00 98.4 75 18 104/37 (59) 91 05/16/19 06:00 77 19 102/38 (59) 85 05/16/19 05:34 72 115/35 05/16/19 05:33 115/35 05/16/19 05:00 74 20 115/35 (61) 94 05/16/19 04:00 98.9 77 20 117/44 (68) 94 05/16/19 04:00 77 05/16/19 04:00 Nasal Cannula 3.0 Nasal Cannula 3.0 05/16/19 03:01 78 20 98 Nasal Cannula 3.0 32 76 20 92 05/16/19 03:00 74 20 112/41 (64) 94 05/16/19 02:00 76 23 107/41 (63) 98 05/16/19 01:00 75 24 109/40 (63) 95 05/16/19 00:00 Nasal Cannula 3.0 Nasal Cannula 3.0 05/16/19 00:00 77 05/16/19 00:00 98.9 76 24 108/38 (61) 93 05/15/19 23:00 74 22 109/33 (58) 99 05/15/19 22:52 79 20 96 Nasal Cannula 3.0 32 78 20 92 05/15/19 22:00 74 19 105/34 (57) 91 05/15/19 21:30 76 110/39 05/15/19 21:00 76 21 110/39 (62) 94 05/15/19 20:00 97 Nasal Cannula 3.0 32 05/15/19 20:00 Nasal Cannula 3.0 Nasal Cannula 3.0 05/15/19 20:00 75 05/15/19 20:00 99.0 73 22 109/38 (61) 97 05/15/19 20:00 76 20 98 Nasal Cannula 3.0 32 74 20 94 05/15/19 19:00 76 19 112/35 (60) 95 05/15/19 18:00 71 20 111/51 (71) 91 05/15/19 17:00 75 18 102/39 (60) 95 05/15/19 16:00 3.0 05/15/19 16:00 76 05/15/19 16:00 Nasal Cannula 3.0 Nasal Cannula 3.0 05/15/19 16:00 98.5 75 20 105/36 (59) 95 05/15/19 15:00 77 18 106/39 (61) 97 05/15/19 14:40 78 21 100 Nasal Cannula 3.0 32 75 21 96 05/15/19 14:00 75 19 119/43 (68) 96 05/15/19 13:57 75 116/41 05/15/19 13:00 75 19 116/41 (66) 96 05/15/19 12:06 71 18 99 Nasal Cannula 3.0 32 70 20 95 05/15/19 12:00 Nasal Cannula 3.0 Nasal Cannula 3.0 05/15/19 12:00 73 05/15/19 12:00 97.7 68 21 116/38 (64) 94 05/15/19 12:00 3.0 Intake and Output 05/15/19 05/16/19 19:00 07:00 Intake Total 942.416 ml 590 ml Output Total 2000 ml 0 ml Balance -1057.584 ml 590 ml Free Water 100 ml IV Total 422.416 ml 110 ml Tube Feeding 420 ml 420 ml Other 60 ml Output Urine Total 0 ml 0 ml Hemodialysis UF 2000 ml # Bowel Movements 3 3 Laboratory Tests Test 05/15/19 18:20 05/16/19 04:15 White Blood Count 9.4 K/UL (4.8-10.8) Red Blood Count 2.46 M/UL (4.20-5.40) L Hemoglobin 7.9 G/DL (12.0-16.0) L Hematocrit 24.1 % (37.0-47.0) L Mean Corpuscular Volume 98 FL (80-99) Mean Corpuscular Hemoglobin 32.3 PG (27.0-31.0) H Mean Corpuscular Hemoglobin Concent 32.9 G/DL (32.0-36.0) Red Cell Distribution Width 17.2 % (11.6-14.8) H Platelet Count 110 K/UL (150-450) L Mean Platelet Volume 6.8 FL (6.5-10.1) Neutrophils (%) (Auto) 70.5 % (45.0-75.0) Lymphocytes (%) (Auto) 16.6 % (20.0-45.0) L Monocytes (%) (Auto) 8.7 % (1.0-10.0) Eosinophils (%) (Auto) 2.1 % (0.0-3.0) Basophils (%) (Auto) 2.1 % (0.0-2.0) H Sodium Level 142 MMOL/L (136-145) 141 MMOL/L (136-145) Potassium Level 4.3 MMOL/L (3.5-5.1) 4.6 MMOL/L (3.5-5.1) Chloride Level 102 MMOL/L (98-107) 102 MMOL/L (98-107) Carbon Dioxide Level 22 MMOL/L (21-32) 20 MMOL/L (21-32) L Anion Gap 18 mmol/L (5-15) H 19 mmol/L (5-15) H Blood Urea Nitrogen 45 mg/dL (7-18) H 52 mg/dL (7-18) H Creatinine 5.7 MG/DL (0.55-1.30) H 6.5 MG/DL (0.55-1.30) H Estimat Glomerular Filtration Rate 7.4 mL/min (>60) 6.4 mL/min (>60) Glucose Level 170 MG/DL (74-106) H 114 MG/DL (74-106) H Calcium Level 9.2 MG/DL (8.5-10.1) 9.2 MG/DL (8.5-10.1) Microbiology Date/Time Source Procedure Growth Status 05/16/19 04:00 Stool Clostridium difficile Toxin Assay - Final Complete Objective HEAD AND NECK: No JVD. NG tube is in. LUNGS: Coarse rhonchi. CHEST: Sternotomy scar is healed. CARDIOVASCULAR: Regular S1 and S2 with no gallop. ABDOMEN: Soft. She has a scar from cholecystectomy i EXTREMITIES: Status post left AV shunt. Shawn Robbins MD May 16, 2019 11:12
--- NOTE | 2019-05-16 11:24 | NUR ---
RD ASSESSMENT & RECOMMENDATIONS SEE CARE ACTIVITY FOR COMPLETE ASSESSMENT DAILY ESTIMATED NEEDS: Needs based on Pulmonary, ESRD on HD, wounds; 56.3kg adj 25-35 kcals/kg 0803-7105 total kcals 1.25-1.8 g protein/kg 70-101 g total protein Fluid per MD- on HD mL/kg total fluid mLs NUTRITION DIAGNOSIS: * Increased pro needs r/t wound healing and renal dysfunction AEB pt adm w/ BL heel and sacral DTI (per RN), WC eval pending, w/ ESRD on HD. * Swallowing difficulty r/t respiratory status AEB pt is now extubated w/ NGT, pending [employer]MINISTR[employer]OURCES ASSOCIATE eval for oral diet. PO DIET RECOMMENDATIONS---> > Renal / CCHO LOW diet, texture per ADMINISTRAT[employer] RESOURCES ASSOCIATE ENTERAL NUTRITION RECOMMENDATIONS: Nepro @35ml/hr x24 hrs + Prosource x1 daily to provide 840ml, 1512 kcal, 68g + 11g pro, 611ml free H20 - Rec non oral feeds if pt is not appropriate for oral diet. - Start @25ml/hr, advance as tolerated to goal. - Add prosource x1 daily to better meet est pro needs - Flush per MD. HOB over 30 degrees ------ ADDITIONAL RECOMMENDATIONS: 1) TF recs as above, ADMINISTR[employer] RESOURCES ASSOCIATE eval now pending (05/16) 2) Wound healing- w/ diet order, add Juan Daniel in 4oz H2O BID + Nephrovite qdaily 3) Maintain calibrated bedscale wt 4) F/up w/ ADMINISTRATIVE RESOURCES ASSOCIATE eval for texture 5) W/ oral diet: NEPRO BID- monitor po intake/ need to increase .
--- NOTE | 2019-05-16 11:30 | NUR ---
NURSE NOTES: Per MD Rosendo; still waiting on cardiology report for PT procedure which was done at [facility] in [place]. Fax was sent following request from MD Rosendo requesting for cardiology report, transmission report placed in PT folder.
--- NOTE | 2019-05-16 14:35 | Infectious Diseases Prog Note ---
Assessment/Plan Assessment/Plan Assessment: Afib with RVR, brief hypotension 05/13 -05/13 Bcx NTD s/p cardiac arrest x2 -CT head: Chronic and age-related changes. Negative for acute intracranial bleed or mass effect, Old infarcts, as described Low grade fever; SP MIld leukocytosis- likely reactive- resolved ?Aspiration PNA -05/13 CXR: Pulmonary edema, worsened compared to the prior exam. Cardiomegaly. -05/11 CXR:Interstitial edema. This may be slightly improved since the previous da -05/08 CXR: Satisfactory endotracheal intubation. Evidence of bilateral pulmonary edema. Cardiomegaly VDRF; sp extubation 05/11 Hypoglycemia Elevated ALP -Abd US: Nonvisualized gallbladder. Either contracted or surgically absent.Correlate with surgical history. No definite evidence of biliary ductal dilatation. Liver demonstrates diffusely increased echogenicity, consistent with diffuse hepatocellular disease, most likely fatty change. Atrophic bilateral kidneys, consistent with known history of end-stage renal disease HTN ESRD on HD via L arm AVS CAD s/p CABG Plan: -Continue empiric ZOsyn #5/5-7 and add empiric IV Vancomycin #3 -f/u cx -Monitor CBC/CMP, temperatures -ICU care -aspiration precautions -f/u Bcx x2, sp cx -CXR am Thank you for conulting [facility]. Will continue to follow along with you. Discussed with RN. Subjective Allergies: Coded Allergies: No Known Allergies (Unverified , 05/08/19) Subjective afebrile no leukocytosis on 3L NC Objective Vital Signs Last 24 Hour Vital Signs Date Time Temp Pulse Resp B/P (MAP) Pulse Ox O2 Delivery O2 Flow Rate FiO2 05/16/19 13:00 75 19 112/85 (94) 94 05/16/19 12:16 98.4 05/16/19 12:00 75 05/16/19 12:00 98.3 73 20 110/38 (62) 94 05/16/19 12:00 Nasal Cannula 3.0 Nasal Cannula 3.0 05/16/19 11:01 74 21 98 Nasal Cannula 3.0 32 78 21 94 05/16/19 11:00 73 21 111/37 (61) 96 05/16/19 10:00 73 19 99/36 (57) 95 05/16/19 09:00 73 20 103/33 (56) 89 05/16/19 08:00 Nasal Cannula 3.0 Nasal Cannula 3.0 05/16/19 08:00 74 19 99/33 (55) 96 05/16/19 08:00 75 05/16/19 07:17 75 20 98 Nasal Cannula 3.0 32 71 23 90 05/16/19 07:08 90 Nasal Cannula 3.0 32 05/16/19 07:00 98.4 75 18 104/37 (59) 91 05/16/19 06:00 77 19 102/38 (59) 85 05/16/19 05:34 72 115/35 05/16/19 05:33 115/35 05/16/19 05:00 74 20 115/35 (61) 94 05/16/19 04:00 98.9 77 20 117/44 (68) 94 05/16/19 04:00 77 05/16/19 04:00 Nasal Cannula 3.0 Nasal Cannula 3.0 05/16/19 03:01 78 20 98 Nasal Cannula 3.0 32 76 20 92 05/16/19 03:00 74 20 112/41 (64) 94 05/16/19 02:00 76 23 107/41 (63) 98 05/16/19 01:00 75 24 109/40 (63) 95 05/16/19 00:00 Nasal Cannula 3.0 Nasal Cannula 3.0 05/16/19 00:00 77 05/16/19 00:00 98.9 76 24 108/38 (61) 93 05/15/19 23:00 74 22 109/33 (58) 99 05/15/19 22:52 79 20 96 Nasal Cannula 3.0 32 78 20 92 05/15/19 22:00 74 19 105/34 (57) 91 05/15/19 21:30 76 110/39 05/15/19 21:00 76 21 110/39 (62) 94 05/15/19 20:00 97 Nasal Cannula 3.0 32 05/15/19 20:00 Nasal Cannula 3.0 Nasal Cannula 3.0 05/15/19 20:00 75 05/15/19 20:00 99.0 73 22 109/38 (61) 97 05/15/19 20:00 76 20 98 Nasal Cannula 3.0 32 74 20 94 05/15/19 19:00 76 19 112/35 (60) 95 05/15/19 18:00 71 20 111/51 (71) 91 05/15/19 17:00 75 18 102/39 (60) 95 05/15/19 16:00 3.0 05/15/19 16:00 76 05/15/19 16:00 Nasal Cannula 3.0 Nasal Cannula 3.0 05/15/19 16:00 98.5 75 20 105/36 (59) 95 05/15/19 15:00 77 18 106/39 (61) 97 05/15/19 14:40 78 21 100 Nasal Cannula 3.0 32 75 21 96 Height (Feet): 4 Height (Inches): 10.00 Weight (Pounds): 138 Objective GENERAL: The patient is intubated on mechanical ventilation. HEENT: Conjugate eye gaze. No lymphadenopathy. CARDIOVASCULAR: S1, S2. No rubs or gallops. PULMONARY: Mild upper rhonchi. Fair air movement in all pis[place]. ABDOMEN: Nondistended, nontender. Good bowel sounds. EXTREMITIES: No edema noted. Microbiology Date/Time Source Procedure Growth Status 05/16/19 04:00 Stool Clostridium difficile Toxin Assay - Final Complete Laboratory Tests Test 05/15/19 18:20 05/16/19 04:15 White Blood Count 9.4 K/UL (4.8-10.8) Red Blood Count 2.46 M/UL (4.20-5.40) L Hemoglobin 7.9 G/DL (12.0-16.0) L Hematocrit 24.1 % (37.0-47.0) L Mean Corpuscular Volume 98 FL (80-99) Mean Corpuscular Hemoglobin 32.3 PG (27.0-31.0) H Mean Corpuscular Hemoglobin Concent 32.9 G/DL (32.0-36.0) Red Cell Distribution Width 17.2 % (11.6-14.8) H Platelet Count 110 K/UL (150-450) L Mean Platelet Volume 6.8 FL (6.5-10.1) Neutrophils (%) (Auto) 70.5 % (45.0-75.0) Lymphocytes (%) (Auto) 16.6 % (20.0-45.0) L Monocytes (%) (Auto) 8.7 % (1.0-10.0) Eosinophils (%) (Auto) 2.1 % (0.0-3.0) Basophils (%) (Auto) 2.1 % (0.0-2.0) H Sodium Level 142 MMOL/L (136-145) 141 MMOL/L (136-145) Potassium Level 4.3 MMOL/L (3.5-5.1) 4.6 MMOL/L (3.5-5.1) Chloride Level 102 MMOL/L (98-107) 102 MMOL/L (98-107) Carbon Dioxide Level 22 MMOL/L (21-32) 20 MMOL/L (21-32) L Anion Gap 18 mmol/L (5-15) H 19 mmol/L (5-15) H Blood Urea Nitrogen 45 mg/dL (7-18) H 52 mg/dL (7-18) H Creatinine 5.7 MG/DL (0.55-1.30) H 6.5 MG/DL (0.55-1.30) H Estimat Glomerular Filtration Rate 7.4 mL/min (>60) 6.4 mL/min (>60) Glucose Level 170 MG/DL (74-106) H 114 MG/DL (74-106) H Calcium Level 9.2 MG/DL (8.5-10.1) 9.2 MG/DL (8.5-10.1) Current Medications Medications (Trade) Dose Ordered Sig/Sylwia Route PRN Reason Start Time Stop Time Status Last Admin Dose Admin Acetaminophen (Tylenol) 650 mg Q4H PRN ORAL Mild Pain/Temp > 100.5 05/14/19 17:15 06/13/19 17:14 05/16/19 11:44 Albuterol/ Ipratropium (Albuterol/ Ipratropium) 3 ml Q4HRT HHN 05/12/19 23:00 05/17/19 22:59 05/16/19 10:51 Chlorhexidine Gluconate (Karla-Hex 2%) 1 applic DAILY@1999 TOPIC 05/13/19 20:00 06/12/19 19:59 05/15/19 20:38 Dextrose (Dextrose 50%) 25 ml Q30M PRN IV Hypoglycemia 05/12/19 20:45 06/08/19 08:14 05/13/19 19:39 Dextrose (Dextrose 50%) 50 ml Q30M PRN IV Hypoglycemia 05/12/19 20:45 06/08/19 08:14 05/12/19 21:57 Diltiazem HCl (Cardizem) 60 mg EVERY 8 HOURS ORAL 05/14/19 16:00 06/13/19 15:59 05/16/19 05:34 Epoetin Mohinder (Epoetin Mohinder(ESRD on dialysis)) 10,000 unit WED- SUBQ 05/12/19 21:00 06/11/19 20:59 05/15/19 20:39 Norepinephrine Bitartrate 4 mg/ Dextrose 250 ml @ 0 mls/hr Q24H IV 05/13/19 06:00 06/12/19 05:59 05/13/19 05:20 Ondansetron HCl (Zofran) 4 mg Q6H PRN IVP Nausea & Vomiting 05/12/19 20:40 06/11/19 20:39 Pantoprazole (Protonix) 40 mg DAILY IVP 05/13/19 09:00 06/08/19 12:14 05/16/19 09:22 Piperacillin Sod/ Tazobactam Sod 2.25 gm/Sodium Chloride 55 ml @ 110 mls/hr Q8HR IVPB 05/12/19 22:00 05/16/19 23:59 05/16/19 05:34 Vancomycin HCl (Vanco rx to dose) 1 ea DAILY PRN MISC Per rx protocol 05/13/19 10:15 06/12/19 10:14 Danita Wilkins M.D. May 16, 2019 14:35
--- NOTE | 2019-05-16 15:18 | NUR ---
NOTES: REFERRED BY DR WADE FOR A SWALLOW (RE)EVALUATION (SEEN 05/12/19 FOR INITIAL SWALLOW EVAL), SEE FULL REPORT TO FOLLOW. DYSPHAGIA RISK FACTORS FOR THIS 69 Y.O. QATARI-SPEAKING FEMALE: RESPIRATORY DISTRESS AND NEED INTUBATION 05/09-05/11/19, CARDIAC ARREST, PULMONARY EDEMA WORSE COMPARED TO PRIOR EXAM AND CARDIOMEGALY (05/13/19 CXR) AND PRIOR CXR SAID PULMONARY CONGESTION, RESP RATE 19 TO 23 HIGH ON 2 LITERS NASAL CANNULA, LOW BLOOD PRESSURE, 02 SATS AT 94, HYPOGLYCEMIA, SYNCOPE, GENERALIZED WEAKNESS AND TIRED, CONFUSED ENCEPHALOPATHY. EMERGENT INTUBATION 05/09-05/11/19. H/O ESRD ON DIALYSIS (T, TH, SAT),ENDOCRINE D/O HYPOTHYROIDISM, CARDIAC D/O, GERD MEDS. NO POLST IN CHART BUT HAS NGT AND NPO AT THIS TIME. ? DIET PRIOR TO ADMIT (FROM HOME). PATIENT ALERT BUT LOOKS TIRED AND IS CONFUSED ABOUT YEAR BUT KNOWS THE CITY. STATES [place] WAS [place] BUT SHE ONLY SPEAKS Q[place]. SHE DENIES ANY SWALLOWING PROBLEMS. INITIAL IMPRESSIONS: HIGH RISK FOR A POSSIBLE DYSPHAGIA AND INADEQUATE INTAKE HIGH RISK FOR ASPIRATION GIVEN PERIODS OF HIGH RESPIRATORY RATE QUESTIONABLE SILENT ASPIRATION RISK ADEQUATE DENTITION AND GROSSLY FUNCTIONAL DENTITION AND OROMOTOR SKILLS WORSENED PULMONARY EDEMA AND PRIOR PULMONARY CONGESTION RECOMMENDATIONS: HOLD ON PO TRIALS FOR NOW AND CONTINUE WITH ORAL CARE AND NONORAL FEEDINGS (NGT) UNTIL OUT OF ICU (MAY GO TO [facility] PER BINH ARMSTRONG). CONSIDER MODIFIED BARIUM SWALLOW STUDY (MBSS) WHEN MORE STABLE MEDICALLY TO FURTHER ASSESS SWALLOW, DETERMINE SILENT ASPIRATION RISK, AND ATTEMPT TRIAL TX TECHNIQUES. SKILLED DYSPHAGIA MANAGEMENT AND TX IF INDICATED POST MBSS. D/W STAFF Addendum: 05/16/19 at 1521 by QI MITCHELL FORKLIFT DRIVER COGNITIVE-COMMUNICATIVE EVAL AND TX PATIENT IS CONFUSED.
--- NOTE | 2019-05-16 16:06 | General Progress Note ---
Assessment/Plan Assessment/Plan: Assessment - Anemia - OB (+) stools - CAD / PR - arrhythmia - ESRD - loose BM Recommendations - ICU care - Monitor CBC - H2B or PPI - r/o C Diff - negative - Elevate HOB - EGD/colon at later date, once stable from a cardiac standpoint Subjective Allergies: Coded Allergies: No Known Allergies (Unverified , 05/08/19) Subjective Above noted seen in ICU d/w RN loose BM noted Objective Last 24 Hour Vital Signs Date Time Temp Pulse Resp B/P (MAP) Pulse Ox O2 Delivery O2 Flow Rate FiO2 05/16/19 15:24 70 16 96 Nasal Cannula 3.0 32 69 19 93 05/16/19 15:00 71 21 101/34 (56) 94 05/16/19 14:41 75 112/85 05/16/19 14:00 73 20 103/35 (57) 94 05/16/19 13:00 75 19 112/85 (94) 94 05/16/19 12:16 98.4 05/16/19 12:00 75 05/16/19 12:00 98.3 73 20 110/38 (62) 94 05/16/19 12:00 Nasal Cannula 3.0 Nasal Cannula 3.0 05/16/19 11:01 74 21 98 Nasal Cannula 3.0 32 78 21 94 05/16/19 11:00 73 21 111/37 (61) 96 05/16/19 10:00 73 19 99/36 (57) 95 05/16/19 09:00 73 20 103/33 (56) 89 05/16/19 08:00 Nasal Cannula 3.0 Nasal Cannula 3.0 05/16/19 08:00 74 19 99/33 (55) 96 05/16/19 08:00 75 05/16/19 07:17 75 20 98 Nasal Cannula 3.0 32 71 23 90 05/16/19 07:08 90 Nasal Cannula 3.0 32 05/16/19 07:00 98.4 75 18 104/37 (59) 91 05/16/19 06:00 77 19 102/38 (59) 85 05/16/19 05:34 72 115/35 05/16/19 05:33 115/35 05/16/19 05:00 74 20 115/35 (61) 94 05/16/19 04:00 98.9 77 20 117/44 (68) 94 05/16/19 04:00 77 05/16/19 04:00 Nasal Cannula 3.0 Nasal Cannula 3.0 05/16/19 03:01 78 20 98 Nasal Cannula 3.0 32 76 20 92 05/16/19 03:00 74 20 112/41 (64) 94 05/16/19 02:00 76 23 107/41 (63) 98 05/16/19 01:00 75 24 109/40 (63) 95 05/16/19 00:00 Nasal Cannula 3.0 Nasal Cannula 3.0 05/16/19 00:00 77 05/16/19 00:00 98.9 76 24 108/38 (61) 93 05/15/19 23:00 74 22 109/33 (58) 99 05/15/19 22:52 79 20 96 Nasal Cannula 3.0 32 78 20 92 05/15/19 22:00 74 19 105/34 (57) 91 05/15/19 21:30 76 110/39 05/15/19 21:00 76 21 110/39 (62) 94 05/15/19 20:00 97 Nasal Cannula 3.0 32 05/15/19 20:00 Nasal Cannula 3.0 Nasal Cannula 3.0 05/15/19 20:00 75 05/15/19 20:00 99.0 73 22 109/38 (61) 97 05/15/19 20:00 76 20 98 Nasal Cannula 3.0 32 74 20 94 05/15/19 19:00 76 19 112/35 (60) 95 05/15/19 18:00 71 20 111/51 (71) 91 05/15/19 17:00 75 18 102/39 (60) 95 Intake and Output 05/15/19 05/16/19 19:00 07:00 Intake Total 942.416 ml 590 ml Output Total 2000 ml 0 ml Balance -1057.584 ml 590 ml Free Water 100 ml IV Total 422.416 ml 110 ml Tube Feeding 420 ml 420 ml Other 60 ml Output Urine Total 0 ml 0 ml Hemodialysis UF 2000 ml # Bowel Movements 3 3 Laboratory Tests 05/15/19 18:20: White Blood Count 9.4, Red Blood Count 2.46L, Hemoglobin 7.9L, Hematocrit 24.1L , Mean Corpuscular Volume 98, Mean Corpuscular Hemoglobin 32.3H, Mean Corpuscular Hemoglobin Concent 32.9, Red Cell Distribution Width 17.2H, Platelet Count 110L, Mean Platelet Volume 6.8, Neutrophils (%) (Auto) 70.5, Lymphocytes (%) (Auto) 16.6L, Monocytes (%) (Auto) 8.7, Eosinophils (%) (Auto) 2.1, Basophils (%) (Auto) 2.1H, Sodium Level 142, Potassium Level 4.3, Chloride Level 102, Carbon Dioxide Level 22, Anion Gap 18H, Blood Urea Nitrogen 45H, Creatinine 5.7H, Estimat Glomerular Filtration Rate 7.4, Glucose Level 170H, Calcium Level 9.2 05/16/19 04:15: Sodium Level 141, Potassium Level 4.6, Chloride Level 102, Carbon Dioxide Level 20L, Anion Gap 19H, Blood Urea Nitrogen 52H, Creatinine 6.5H, Estimat Glomerular Filtration Rate 6.4, Glucose Level 114H, Calcium Level 9.2 Height (Feet): 4 Height (Inches): 10.00 Weight (Pounds): 138 Objective WDWN NCAT supple CTA RR abd soft, obese no edema Fadumo Morris MD May 16, 2019 16:06
--- NOTE | 2019-05-16 17:50 | NUR ---
NURSE NOTES: Late entry. Prior to transfer, PT R-hand 22g leaking, reinsertion of PIV done by BINH Curry; on R-forearm 22g.
--- NOTE | 2019-05-16 18:00 | NUR ---
TRANSFER TO FLOOR: Patient transferred to [facility], per MD Cheryl. Report given to Lin Phoenix RN. PT VS stable, no S/S of respiratory distress during transfer.
--- NOTE | 2019-05-16 18:43 | NUR ---
NURSE NOTES: PT cardiology report from [facility] requested by MD Rosendo placed in PT folder.
--- NOTE | 2019-05-16 19:20 | NUR ---
NURSE NOTES: Received patient from Lin Kaur RN; PT A/O x 1-2, guyanese speaking female, non-combative and follows commands. Pt currently denies pain. Pt is SR on tele monitor with a current HR of 72. No signs of cardiac distress noted at this time. Pt is currently on 3L NC with no S/S of respiratory distress noted. PT HOB elevated and family at bedside educated on aspiration precautions. L-arm AC dialysis graft strong bruit/thrill noted; R-hand 22g running TKO L-nare NG Tube infusing Nepro @ 35cc Pt currently resting in bed on a P200 mattress, bed remains in lowest position, side rails up x2, safety wheels engaged and bed alarm activated. Will continue to monitor. Will continue plan of care.
--- NOTE | 2019-05-16 19:22 | NUR ---
HAND-OFF: Report given to FARIDA PURCELL,no distress at this time.
[2019-05-16] MEDS: Dyna-Hex 2% Top Sol 2oz TOPIC SCH (20:08)
--- NOTE | 2019-05-16 20:31 | Surgery Progress Note ---
Surgery Progress Note Subjective Additional Comments improved labs stable exam stable mentation off still states she is 89 years old non /v/f/c downgraded Objective Last 24 Hour Vital Signs Date Time Temp Pulse Resp B/P (MAP) Pulse Ox O2 Delivery O2 Flow Rate FiO2 05/16/19 20:00 97.9 73 22 114/44 (67) 97 05/16/19 19:30 93 Nasal Cannula 3.0 32 05/16/19 19:29 72 18 97 Nasal Cannula 3.0 32 68 18 93 05/16/19 17:00 72 19 110/36 (60) 95 05/16/19 16:00 73 05/16/19 16:00 98.7 73 19 103/34 (57) 94 05/16/19 16:00 Nasal Cannula 3.0 Nasal Cannula 3.0 05/16/19 15:24 70 16 96 Nasal Cannula 3.0 32 69 19 93 05/16/19 15:00 71 21 101/34 (56) 94 05/16/19 14:41 75 112/85 05/16/19 14:00 73 20 103/35 (57) 94 05/16/19 13:00 75 19 112/85 (94) 94 05/16/19 12:16 98.4 05/16/19 12:00 75 05/16/19 12:00 98.3 73 20 110/38 (62) 94 05/16/19 12:00 Nasal Cannula 3.0 Nasal Cannula 3.0 05/16/19 11:01 74 21 98 Nasal Cannula 3.0 32 78 21 94 05/16/19 11:00 73 21 111/37 (61) 96 05/16/19 10:00 73 19 99/36 (57) 95 05/16/19 09:00 73 20 103/33 (56) 89 05/16/19 08:00 Nasal Cannula 3.0 Nasal Cannula 3.0 05/16/19 08:00 74 19 99/33 (55) 96 05/16/19 08:00 75 05/16/19 07:17 75 20 98 Nasal Cannula 3.0 32 71 23 90 05/16/19 07:08 90 Nasal Cannula 3.0 32 05/16/19 07:00 98.4 75 18 104/37 (59) 91 05/16/19 06:00 77 19 102/38 (59) 85 05/16/19 05:34 72 115/35 05/16/19 05:33 115/35 05/16/19 05:00 74 20 115/35 (61) 94 05/16/19 04:00 98.9 77 20 117/44 (68) 94 05/16/19 04:00 77 05/16/19 04:00 Nasal Cannula 3.0 Nasal Cannula 3.0 05/16/19 03:01 78 20 98 Nasal Cannula 3.0 32 76 20 92 05/16/19 03:00 74 20 112/41 (64) 94 05/16/19 02:00 76 23 107/41 (63) 98 05/16/19 01:00 75 24 109/40 (63) 95 05/16/19 00:00 Nasal Cannula 3.0 Nasal Cannula 3.0 05/16/19 00:00 77 05/16/19 00:00 98.9 76 24 108/38 (61) 93 05/15/19 23:00 74 22 109/33 (58) 99 05/15/19 22:52 79 20 96 Nasal Cannula 3.0 32 78 20 92 05/15/19 22:00 74 19 105/34 (57) 91 05/15/19 21:30 76 110/39 05/15/19 21:00 76 21 110/39 (62) 94 I&O Intake and Output 05/15/19 05/16/19 19:00 07:00 Intake Total 942.416 ml 590 ml Output Total 2000 ml 0 ml Balance -1057.584 ml 590 ml Free Water 100 ml IV Total 422.416 ml 110 ml Tube Feeding 420 ml 420 ml Other 60 ml Output Urine Total 0 ml 0 ml Hemodialysis UF 2000 ml # Bowel Movements 3 3 Dressing: dry, other Wound: other Drains: other Cardiovascular: RSR Respiratory: decreased breath sounds Abdomen: soft, present bowel sounds, non-distended Extremities: no cyanosis, other Laboratory Tests Test 05/16/19 04:15 Sodium Level 141 MMOL/L (136-145) Potassium Level 4.6 MMOL/L (3.5-5.1) Chloride Level 102 MMOL/L (98-107) Carbon Dioxide Level 20 MMOL/L (21-32) L Anion Gap 19 mmol/L (5-15) H Blood Urea Nitrogen 52 mg/dL (7-18) H Creatinine 6.5 MG/DL (0.55-1.30) H Estimat Glomerular Filtration Rate 6.4 mL/min (>60) Glucose Level 114 MG/DL (74-106) H Calcium Level 9.2 MG/DL (8.5-10.1) Plan Problems: (1) Deep tissue injury Assessment & Plan: Patient presented on admission with a deep tissue injury in the sacral area. Patient was syncopal episode found down. Unknown exact time patient was down and since is suffered a cardiac event requiring resuscitation and ACLS. There is an area of deep tissue injury with erythema in the sacral area extending into the bilateral buttocks butterfly formation. No drainage. No open area. Patient is high risk and susceptible to opening and worsening given her current condition, ICU care, deterioration. We will need to monitor closely and provide aggressive care to ensure healing Air mattress Turn every 2 hours Skin protectant OPTi foam dressing daily and as needed Offload heels with pillows Appreciate nursing care Nutritional support DAILY ESTIMATED NEEDS: Needs based on Critical Care, ESRD on HD, wounds; 56.3kg adj 22- 30 kcals/kg [id number] total kcals 1.25-2 g protein/kg 70-113 g total protein Fluid per MD- on HD NUTRITION DIAGNOSIS: * Increased pro needs r/t wound healing and renal dysfunction AEB pt adm w/ BL heel and sacral DTI (per RN), WC eval pending, w/ ESRD on HD. * Swallowing difficulty r/t respiratory status AEB pt is intubated, currently NPO, pending non oral feeds. CURRENT TF: Per RN Nepro @40ml/hr ENTERAL NUTRITION RECOMMENDATIONS: Nepro @35mL/hr x 24 hrs+ 1 Prosource qdaily to provide 840mL, 1512kcal, 68g pro +11g pro, 611mL free H2O -Obtain GI access, initiate Nepro @15mL/hr, advancing 10mL/hr q 4-6hrs until @ goal. -Provide 1 packet of Prosource- flush with 4oz water -HOB > 30 degrees, Flush per MD ADDITIONAL RECOMMENDATIONS: 1) With prolonged NPO/Intubation- see TF recs as above 2) Wound healing- w/ diet order, add: Juan Daniel in 4oz H2O BID; f/up w/ WC eval 3) Maintain calibrated bedscale wt 4) F/u w/ H&P 5) Feed w/ hemodynamic stability, now off pressor support. (2) Cardiac arrest Assessment & Plan: 61-year-old female multi-medical comorbidities syncopal episode leading to ACLS requiring resuscitation. Currently intensive care unit intubated on ventilatory support Patient is ill-appearing with family at the bedside. Labs noted. Mild elevation troponins. Mild elevated LFTs. Improving since resuscitation current etiology work-up A.m. 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 There is also an old right cerebellar cortical infarct There is age-related enlargement of the ventricles and extra axial CSF spaces. There is periventricular deep white matter low-attenuation, consistent with chronic microvascular ischemic change. The stuart-white differentiation is normal. The calvarium is intact. There is evidence of prior cataract surgery. The sinuses are clear. The mastoids are underpneumatized, otherwise clear. Impression: Chronic and age-related changes Negative for acute intracranial bleed or mass effect, Old infarcts, as described Laron Moreno May 16, 2019 20:31
[2019-05-16] MEDS ORDERED: Piperacillin/Tazobactam 2.25 GM in NS 55 ML IVPB SCH (22:00)
[2019-05-17] VITALS: BP 101/44
--- NOTE | 2019-05-17 | NUR ---
NURSE NOTES: Patient provided with bed bath, linen change and wound care. Pt tolerated care well. Safety precautions remain in place; bed locked, alarmed, and in lowest position, side rails up x3 and padded per protocol, HOB elevated to prevent aspiration and call light left within reach. Will continue plan of care. Will continue to monitor patient.
[2019-05-17] MEDS: Albuterol/Ipratropium 3ml neb HHN SCH ×6 (03:24→23:22)
[2019-05-17 04:00] VITALS: BP 104/48
[2019-05-17 05:44] LABS: BASOPHILS % (AUTO) 1.3 % (0.0-2.0); EOSINOPHILS % (AUTO) 2.2 % (0.0-3.0); HEMATOCRIT 25.1 % (37.0-47.0); HEMOGLOBIN 8.4 G/DL (12.0-16.0); LYMPHOCYTES % (AUTO) 17.7 % (20.0-45.0); MEAN CORPUSCULAR VOLUME 99 FL (80-99); MONOCYTES % (AUTO) 6.5 % (1.0-10.0); NEUTROPHILS % (AUTO) 72.3 % (45.0-75.0); PLATELET COUNT 132 K/UL (150-450); RED BLOOD COUNT 2.54 M/UL (4.20-5.40); RED CELL DISTRIBUTION WIDTH 18.9 % (11.6-14.8); WHITE BLOOD COUNT 12.2 K/UL (4.8-10.8)
[2019-05-17] MEDS: dilTIAZem HCl 60mg tab ORAL SCH ×3 (05:50→22:00)
[2019-05-17 06:01] LABS: ANION GAP 18 mmol/L (5-15); BLOOD UREA NITROGEN 70 mg/dL (7-18); CALCIUM 9.7 MG/DL (8.5-10.1); CARBON DIOXIDE 21 MMOL/L (21-32); CHLORIDE 103 MMOL/L (98-107); CREATININE 7.6 MG/DL (0.55-1.30); POTASSIUM 4.5 MMOL/L (3.5-5.1); SODIUM 142 MMOL/L (136-145)
--- NOTE | 2019-05-17 07:03 | NUR ---
NURSE NOTES: Spoke with Dr Gonsalez who ordered the following things stat retic count, LDH, Pt, ptt, fibrinogen, flow cytometry, bedside cxr, blood cultures x2, urine culture, and ua Call pathology at 0800 and have them call his cell and then call with CBC results STAT Orders entered, will endorse AM shift to follow up
--- NOTE | 2019-05-17 07:27 | NUR ---
HAND-OFF: Report given to Lin Kaur RN.
--- NOTE | 2019-05-17 07:34 | Pulmonology Progress Note ---
Assessment/Plan Assessment/Plan IMPRESSION: 1. Non-STEMI. 2. ESRD, on dialysis. 3. Pulmonary edema. Resolved 4. Respiratory failure. Resolved DISCUSSION: 1. Continue current care 2. Agree with current medications and care. 3. Decreased Fio2 5, Transferred to [facility] 4. The patient will need dialysis per renal. 5. Rate control per cardiology Remigio Raza M.D. Subjective Interval Events: None new; now out of ICU Constitutional: Reports: no symptoms HEENT: Repors: no symptoms Respiratory: Reports: no symptoms Cardiovascular: Reports: no symptoms Gastrointestinal/Abdominal: Reports: no symptoms Genitourinary: Reports: no symptoms Allergies: Coded Allergies: No Known Allergies (Unverified , 05/08/19) Objective Last 24 Hour Vital Signs Date Time Temp Pulse Resp B/P (MAP) Pulse Ox O2 Delivery O2 Flow Rate FiO2 05/17/19 05:50 98 106/51 05/17/19 04:00 98.1 68 20 104/48 (66) 98 05/17/19 04:00 Nasal Cannula 3.0 Nasal Cannula 3.0 05/17/19 03:27 71 05/17/19 03:24 64 18 97 Nasal Cannula 3.0 32 66 18 92 05/17/19 00:00 Nasal Cannula 3.0 Nasal Cannula 3.0 05/17/19 00:00 97.7 69 20 101/44 (63) 95 05/16/19 23:32 70 18 98 Nasal Cannula 3.0 32 71 18 93 05/16/19 23:30 70 05/16/19 22:04 73 117/58 05/16/19 20:00 Nasal Cannula 3.0 Nasal Cannula 3.0 05/16/19 20:00 74 05/16/19 20:00 97.9 73 22 114/44 (67) 97 05/16/19 19:30 93 Nasal Cannula 3.0 32 05/16/19 19:29 72 18 97 Nasal Cannula 3.0 32 68 18 93 05/16/19 17:00 72 19 110/36 (60) 95 05/16/19 16:00 73 05/16/19 16:00 98.7 73 19 103/34 (57) 94 05/16/19 16:00 Nasal Cannula 3.0 Nasal Cannula 3.0 05/16/19 15:24 70 16 96 Nasal Cannula 3.0 32 69 19 93 05/16/19 15:00 71 21 101/34 (56) 94 05/16/19 14:41 75 112/85 05/16/19 14:00 73 20 103/35 (57) 94 05/16/19 13:00 75 19 112/85 (94) 94 05/16/19 12:16 98.4 05/16/19 12:00 75 05/16/19 12:00 98.3 73 20 110/38 (62) 94 05/16/19 12:00 Nasal Cannula 3.0 Nasal Cannula 3.0 05/16/19 11:01 74 21 98 Nasal Cannula 3.0 32 78 21 94 05/16/19 11:00 73 21 111/37 (61) 96 05/16/19 10:00 73 19 99/36 (57) 95 05/16/19 09:00 73 20 103/33 (56) 89 05/16/19 08:00 Nasal Cannula 3.0 Nasal Cannula 3.0 05/16/19 08:00 74 19 99/33 (55) 96 05/16/19 08:00 75 Intake and Output 05/16/19 05/17/19 19:00 07:00 Intake Total 505 ml 395 ml Output Total 0 ml 0 ml Balance 505 ml 395 ml IV Total 55 ml 55 ml Tube Feeding 420 ml 280 ml Other 30 ml 60 ml Output Urine Total 0 ml 0 ml # Bowel Movements 3 4 General Appearance: no acute distress HEENT: normocephalic Respiratory/Chest: chest wall non-tender, lungs clear Cardiovascular: normal peripheral pulses, normal rate Abdomen: normal bowel sounds Microbiology Date/Time Source Procedure Growth Status 05/15/19 13:00 Sputum Induced Gram Stain - Final Resulted 05/15/19 13:00 Sputum Induced Sputum Culture Pending Resulted 05/16/19 04:00 Stool Clostridium difficile Toxin Assay - Final Complete Laboratory Tests 05/17/19 04:40: White Blood Count 12.2H, Red Blood Count 2.54L, Hemoglobin 8.4L, Hematocrit 25.1L, Mean Corpuscular Volume 99, Mean Corpuscular Hemoglobin 32.9H, Mean Corpuscular Hemoglobin Concent 33.3, Red Cell Distribution Width 18.9H, Platelet Count 132L, Mean Platelet Volume 7.0, Neutrophils (%) (Auto) 72.3, Lymphocytes (%) (Auto) 17.7L, Monocytes (%) (Auto) 6.5, Eosinophils (%) (Auto) 2.2, Basophils (%) (Auto) 1.3, Sodium Level 142, Potassium Level 4.5, Chloride Level 103, Carbon Dioxide Level 21, Anion Gap 18H, Blood Urea Nitrogen 70H, Creatinine 7.6H, Estimat Glomerular Filtration Rate 5.3, Glucose Level 163H, Calcium Level 9.7, Random Vancomycin Level 24.1 Current Medications Medications (Trade) Dose Ordered Sig/Sylwia Route PRN Reason Start Time Stop Time Status Last Admin Dose Admin Acetaminophen (Tylenol) 650 mg Q4H PRN ORAL Mild Pain/Temp > 100.5 05/16/19 21:15 06/13/19 17:14 Albuterol/ Ipratropium (Albuterol/ Ipratropium) 3 ml Q4HRT HHN 05/16/19 23:00 05/17/19 22:59 05/17/19 03:24 Chlorhexidine Gluconate (Karla-Hex 2%) 1 applic DAILY@1999 TOPIC 05/17/19 20:00 06/12/19 19:59 Dextrose (Dextrose 50%) 25 ml Q30M PRN IV Hypoglycemia 05/16/19 21:15 06/08/19 08:14 Dextrose (Dextrose 50%) 50 ml Q30M PRN IV Hypoglycemia 05/16/19 21:15 06/08/19 08:14 Diltiazem HCl (Cardizem) 60 mg EVERY 8 HOURS ORAL 05/16/19 22:00 06/13/19 15:59 05/17/19 05:50 Epoetin Mohinder (Epoetin Mohinder(ESRD on dialysis)) 10,000 unit WED-WED-WED SUBQ 05/17/19 21:00 06/11/19 20:59 Ondansetron HCl (Zofran) 4 mg Q6H PRN IVP Nausea & Vomiting 05/16/19 20:00 06/15/19 19:59 Pantoprazole (Protonix) 40 mg DAILY IVP 05/17/19 09:00 06/08/19 12:14 Vancomycin HCl (Vanco rx to dose) 1 ea DAILY PRN MISC Per rx protocol 05/17/19 09:00 06/12/19 10:14 Remigio Raza MD May 17, 2019 07:34
[2019-05-17 08:00] VITALS: BP 108/44
--- NOTE | 2019-05-17 08:02 | Nephrology Progress Note ---
Assessment/Plan Assessment/Plan: A/P 1) ESRD- MWF - HD today ordered 2) S/P Cardiac Arrest, EF 55%, stable 3) LE Wounds - Per Gen Surgery and ID - stable 4) Resp FL- Extubated. - Video swallow eval today 5) DVT prophylaxsis with SCDs 6) Anemia- Thrombocytopenia/Diarhhea - per GI mgmt - EPO. Stable 7) Afib RVR- per cardiology. transfer to tele Patient now DNR/I Subjective Date patient seen: May 17, 2019 Time patient seen: 08:00 ROS Limited/Unobtainable: No Allergies: Coded Allergies: No Known Allergies (Unverified , 05/08/19) Subjective Patient improved. Swallow eval today Objective Last 24 Hour Vital Signs Date Time Temp Pulse Resp B/P (MAP) Pulse Ox O2 Delivery O2 Flow Rate FiO2 05/17/19 05:50 98 106/51 05/17/19 04:00 98.1 68 20 104/48 (66) 98 05/17/19 04:00 Nasal Cannula 3.0 Nasal Cannula 3.0 05/17/19 03:27 71 05/17/19 03:24 64 18 97 Nasal Cannula 3.0 32 66 18 92 05/17/19 00:00 Nasal Cannula 3.0 Nasal Cannula 3.0 05/17/19 00:00 97.7 69 20 101/44 (63) 95 05/16/19 23:32 70 18 98 Nasal Cannula 3.0 32 71 18 93 05/16/19 23:30 70 05/16/19 22:04 73 117/58 05/16/19 20:00 Nasal Cannula 3.0 Nasal Cannula 3.0 05/16/19 20:00 74 05/16/19 20:00 97.9 73 22 114/44 (67) 97 05/16/19 19:30 93 Nasal Cannula 3.0 32 05/16/19 19:29 72 18 97 Nasal Cannula 3.0 32 68 18 93 05/16/19 17:00 72 19 110/36 (60) 95 05/16/19 16:00 73 05/16/19 16:00 98.7 73 19 103/34 (57) 94 05/16/19 16:00 Nasal Cannula 3.0 Nasal Cannula 3.0 05/16/19 15:24 70 16 96 Nasal Cannula 3.0 32 69 19 93 05/16/19 15:00 71 21 101/34 (56) 94 05/16/19 14:41 75 112/85 05/16/19 14:00 73 20 103/35 (57) 94 05/16/19 13:00 75 19 112/85 (94) 94 05/16/19 12:16 98.4 05/16/19 12:00 75 05/16/19 12:00 98.3 73 20 110/38 (62) 94 05/16/19 12:00 Nasal Cannula 3.0 Nasal Cannula 3.0 05/16/19 11:01 74 21 98 Nasal Cannula 3.0 32 78 21 94 05/16/19 11:00 73 21 111/37 (61) 96 05/16/19 10:00 73 19 99/36 (57) 95 05/16/19 09:00 73 20 103/33 (56) 89 05/16/19 08:00 Nasal Cannula 3.0 Nasal Cannula 3.0 05/16/19 08:00 74 19 99/33 (55) 96 05/16/19 08:00 75 Intake and Output 05/16/19 05/17/19 18:59 06:59 Intake Total 505 ml 430 ml Output Total 0 ml 0 ml Balance 505 ml 430 ml IV Total 55 ml 55 ml Tube Feeding 420 ml 315 ml Other 30 ml 60 ml Output Urine Total 0 ml 0 ml # Bowel Movements 4 4 Laboratory Tests 05/17/19 04:40: White Blood Count 12.2H, Red Blood Count 2.54L, Hemoglobin 8.4L, Hematocrit 25.1L, Mean Corpuscular Volume 99, Mean Corpuscular Hemoglobin 32.9H, Mean Corpuscular Hemoglobin Concent 33.3, Red Cell Distribution Width 18.9H, Platelet Count 132L, Mean Platelet Volume 7.0, Neutrophils (%) (Auto) 72.3, Lymphocytes (%) (Auto) 17.7L, Monocytes (%) (Auto) 6.5, Eosinophils (%) (Auto) 2.2, Basophils (%) (Auto) 1.3, Sodium Level 142, Potassium Level 4.5, Chloride Level 103, Carbon Dioxide Level 21, Anion Gap 18H, Blood Urea Nitrogen 70H, Creatinine 7.6H, Estimat Glomerular Filtration Rate 5.3, Glucose Level 163H, Calcium Level 9.7, Random Vancomycin Level 24.1 Height (Feet): 4 Height (Inches): 10.00 Weight (Pounds): 183 General Appearance: no apparent distress EENT: normal ENT inspection Neck: normal alignment, supple Cardiovascular: normal rate, regular rhythm Respiratory/Chest: lungs clear, normal breath sounds Abdomen: non tender, soft Edema: no edema noted Arm (L), no edema noted Arm (R), no edema noted Leg (L), no edema noted Leg (R), no edema noted Pedal (L), no edema noted Pedal (R), no edema noted Generalized David Zapata MD May 17, 2019 08:02
--- NOTE | 2019-05-17 08:10 | NUR ---
NURSE NOTES: received pt in the bed, awake, confused, vital signs stable, no co pain, no SOB, skin warm and dry to touch, NGT in place, pt for HD today,HD access on left arm, anuric, bed in low position call light within reach.
--- NOTE | 2019-05-17 08:12 | NUR ---
RADIOLOGY DEPT., CHEST X-RAY DONE.-P.DYE
--- NOTE | 2019-05-17 08:57 | General Progress Note ---
Assessment/Plan Assessment/Plan: Assessment - Anemia - OB (+) stools - CAD / SC - arrhythmia - ESRD - loose BM Recommendations - supportive care - Monitor CBC - H2B or PPI - r/o C Diff - negative - Elevate HOB - check swallow evaluation - EGD/colon at later date, once stable from a cardiac standpoint I will be away until Wednesday. Coverage available. Call if questions. Subjective Allergies: Coded Allergies: No Known Allergies (Unverified , 05/08/19) Subjective out of ICU NAD , no complaints pulled out NGT Objective Last 24 Hour Vital Signs Date Time Temp Pulse Resp B/P (MAP) Pulse Ox O2 Delivery O2 Flow Rate FiO2 05/17/19 08:00 96.6 71 22 108/44 (65) 99 05/17/19 07:56 102 18 97 Room Air 21 71 18 94 05/17/19 07:55 94 Room Air 21 05/17/19 05:50 98 106/51 05/17/19 04:00 98.1 68 20 104/48 (66) 98 05/17/19 04:00 Nasal Cannula 3.0 Nasal Cannula 3.0 05/17/19 03:27 71 05/17/19 03:24 64 18 97 Nasal Cannula 3.0 32 66 18 92 05/17/19 00:00 Nasal Cannula 3.0 Nasal Cannula 3.0 05/17/19 00:00 97.7 69 20 101/44 (63) 95 05/16/19 23:32 70 18 98 Nasal Cannula 3.0 32 71 18 93 05/16/19 23:30 70 05/16/19 22:04 73 117/58 05/16/19 20:00 Nasal Cannula 3.0 Nasal Cannula 3.0 05/16/19 20:00 74 05/16/19 20:00 97.9 73 22 114/44 (67) 97 05/16/19 19:30 93 Nasal Cannula 3.0 32 05/16/19 19:29 72 18 97 Nasal Cannula 3.0 32 68 18 93 05/16/19 17:00 72 19 110/36 (60) 95 05/16/19 16:00 73 05/16/19 16:00 98.7 73 19 103/34 (57) 94 05/16/19 16:00 Nasal Cannula 3.0 Nasal Cannula 3.0 12/10/19 15:24 70 16 96 Nasal Cannula 3.0 32 69 19 93 05/16/19 15:00 71 21 101/34 (56) 94 05/16/19 14:41 75 112/85 05/16/19 14:00 73 20 103/35 (57) 94 05/16/19 13:00 75 19 112/85 (94) 94 05/16/19 12:16 98.4 05/16/19 12:00 75 05/16/19 12:00 98.3 73 20 110/38 (62) 94 05/16/19 12:00 Nasal Cannula 3.0 Nasal Cannula 3.0 05/16/19 11:01 74 21 98 Nasal Cannula 3.0 32 78 21 94 05/16/19 11:00 73 21 111/37 (61) 96 05/16/19 10:00 73 19 99/36 (57) 95 05/16/19 09:00 73 20 103/33 (56) 89 Intake and Output 05/16/19 05/17/19 18:59 06:59 Intake Total 505 ml 430 ml Output Total 0 ml 0 ml Balance 505 ml 430 ml IV Total 55 ml 55 ml Tube Feeding 420 ml 315 ml Other 30 ml 60 ml Output Urine Total 0 ml 0 ml # Bowel Movements 4 4 Laboratory Tests 05/17/19 04:40: White Blood Count 12.2H, Red Blood Count 2.54L, Hemoglobin 8.4L, Hematocrit 25.1L, Mean Corpuscular Volume 99, Mean Corpuscular Hemoglobin 32.9H, Mean Corpuscular Hemoglobin Concent 33.3, Red Cell Distribution Width 18.9H, Platelet Count 132L, Mean Platelet Volume 7.0, Neutrophils (%) (Auto) 72.3, Lymphocytes (%) (Auto) 17.7L, Monocytes (%) (Auto) 6.5, Eosinophils (%) (Auto) 2.2, Basophils (%) (Auto) 1.3, Sodium Level 142, Potassium Level 4.5, Chloride Level 103, Carbon Dioxide Level 21, Anion Gap 18H, Blood Urea Nitrogen 70H, Creatinine 7.6H, Estimat Glomerular Filtration Rate 5.3, Glucose Level 163H, Calcium Level 9.7, Random Vancomycin Level 24.1 Height (Feet): 4 Height (Inches): 10.00 Weight (Pounds): 183 Objective WDWN NCAT supple CTA RR abd soft, obese no edema Fadumo Morris MD May 17, 2019 08:57
[2019-05-17] MEDS ORDERED: Pantoprazole Inj IVP SCH (09:00)
--- NOTE | 2019-05-17 10:21 | NUR ---
NURSE NOTES: pt on HD now, tolerate well, continue monitoring.
--- NOTE | 2019-05-17 10:54 | Diagnostic Imaging Report ---
Indication: Cough, shortness of breath Technique: One view of the chest Comparison: 05/13/2019 Findings: Again demonstrated is diffuse bilateral interstitial and airspace edema. The heart is enlarged. There may be a small amount of pleural fluid on the right. Findings are overall unchanged Impression: Unchanged, over one day, findings as above.
--- NOTE | 2019-05-17 11:37 | Infectious Diseases Prog Note ---
Assessment/Plan Assessment/Plan Assessment: Afib with RVR, brief hypotension 05/13 -05/13 Bcx NTD s/p cardiac arrest x2 -CT head: Chronic and age-related changes. Negative for acute intracranial bleed or mass effect, Old infarcts, as described Low grade fever; SP MIld leukocytosis, recurrent ?Aspiration PNA -05/17 CXR: Again demonstrated is diffuse bilateral interstitial and airspace edema. There may be a small amount of pleural fluid on the right. Findings are overall unchanged -05/15 SP cx: iris albicans -05/13 CXR: Pulmonary edema, worsened compared to the prior exam. Cardiomegaly. -05/11 CXR:Interstitial edema. This may be slightly improved since the previous da -05/08 CXR: Satisfactory endotracheal intubation. Evidence of bilateral pulmonary edema. Cardiomegaly VDRF; sp extubation 05/11 Hypoglycemia Elevated ALP -Abd US: Nonvisualized gallbladder. Either contracted or surgically absent.Correlate with surgical history. No definite evidence of biliary ductal dilatation. Liver demonstrates diffusely increased echogenicity, consistent with diffuse hepatocellular disease, most likely fatty change. Atrophic bilateral kidneys, consistent with known history of end-stage renal disease HTN ESRD on HD via L arm AVS CAD s/p CABG Plan: -d/c empiric IV Vancomycin #4 and monitor off abx -05/16 SP ZOsyn #5 -f/u cx -Monitor CBC/CMP, temperatures -aspiration precautions -f/u Bcx x2 Thank you for conulting [facility]. Will continue to follow along with you. Discussed with RN. Subjective Allergies: Coded Allergies: No Known Allergies (Unverified , 05/08/19) Subjective afebrile mild leukocytosis on 3L NC transferred to [facility] Objective Vital Signs Last 24 Hour Vital Signs Date Time Temp Pulse Resp B/P (MAP) Pulse Ox O2 Delivery O2 Flow Rate FiO2 05/17/19 08:00 96.6 71 22 108/44 (65) 99 05/17/19 08:00 Nasal Cannula 3.0 Nasal Cannula 3.0 05/17/19 08:00 73 05/17/19 07:56 102 18 97 Room Air 21 71 18 94 05/17/19 07:55 94 Room Air 21 05/17/19 05:50 98 106/51 05/17/19 04:00 98.1 68 20 104/48 (66) 98 05/17/19 04:00 Nasal Cannula 3.0 Nasal Cannula 3.0 05/17/19 03:27 71 05/17/19 03:24 64 18 97 Nasal Cannula 3.0 32 66 18 92 05/17/19 00:00 Nasal Cannula 3.0 Nasal Cannula 3.0 05/17/19 00:00 97.7 69 20 101/44 (63) 95 05/16/19 23:32 70 18 98 Nasal Cannula 3.0 32 71 18 93 05/16/19 23:30 70 05/16/19 22:04 73 117/58 05/16/19 20:00 Nasal Cannula 3.0 Nasal Cannula 3.0 05/16/19 20:00 74 05/16/19 20:00 97.9 73 22 114/44 (67) 97 05/16/19 19:30 93 Nasal Cannula 3.0 32 05/16/19 19:29 72 18 97 Nasal Cannula 3.0 32 68 18 93 05/16/19 17:00 72 19 110/36 (60) 95 05/16/19 16:00 73 05/16/19 16:00 98.7 73 19 103/34 (57) 94 05/16/19 16:00 Nasal Cannula 3.0 Nasal Cannula 3.0 05/16/19 15:24 70 16 96 Nasal Cannula 3.0 32 69 19 93 05/16/19 15:00 71 21 101/34 (56) 94 05/16/19 14:41 75 112/85 05/16/19 14:00 73 20 103/35 (57) 94 05/16/19 13:00 75 19 112/85 (94) 94 05/16/19 12:16 98.4 05/16/19 12:00 75 05/16/19 12:00 98.3 73 20 110/38 (62) 94 05/16/19 12:00 Nasal Cannula 3.0 Nasal Cannula 3.0 Height (Feet): 4 Height (Inches): 10.00 Weight (Pounds): 183 Objective GENERAL: The patient is intubated on mechanical ventilation. HEENT: Conjugate eye gaze. No lymphadenopathy. CARDIOVASCULAR: S1, S2. No rubs or gallops. PULMONARY: Mild upper rhonchi. Fair air movement in all pisano. ABDOMEN: Nondistended, nontender. Good bowel sounds. EXTREMITIES: No edema noted. Microbiology Date/Time Source Procedure Growth Status 05/15/19 13:00 Sputum Induced Gram Stain - Final Complete 05/15/19 13:00 Sputum Culture - Final Iris Albicans Complete 05/16/19 04:00 Stool Clostridium difficile Toxin Assay - Final Complete Laboratory Tests Test 05/17/19 04:40 White Blood Count 12.2 K/UL (4.8-10.8) H Red Blood Count 2.54 M/UL (4.20-5.40) L Hemoglobin 8.4 G/DL (12.0-16.0) L Hematocrit 25.1 % (37.0-47.0) L Mean Corpuscular Volume 99 FL (80-99) Mean Corpuscular Hemoglobin 32.9 PG (27.0-31.0) H Mean Corpuscular Hemoglobin Concent 33.3 G/DL (32.0-36.0) Red Cell Distribution Width 18.9 % (11.6-14.8) H Platelet Count 132 K/UL (150-450) L Mean Platelet Volume 7.0 FL (6.5-10.1) Neutrophils (%) (Auto) 72.3 % (45.0-75.0) Lymphocytes (%) (Auto) 17.7 % (20.0-45.0) L Monocytes (%) (Auto) 6.5 % (1.0-10.0) Eosinophils (%) (Auto) 2.2 % (0.0-3.0) Basophils (%) (Auto) 1.3 % (0.0-2.0) Sodium Level 142 MMOL/L (136-145) Potassium Level 4.5 MMOL/L (3.5-5.1) Chloride Level 103 MMOL/L (98-107) Carbon Dioxide Level 21 MMOL/L (21-32) Anion Gap 18 mmol/L (5-15) H Blood Urea Nitrogen 70 mg/dL (7-18) H Creatinine 7.6 MG/DL (0.55-1.30) H Estimat Glomerular Filtration Rate 5.3 mL/min (>60) Glucose Level 163 MG/DL (74-106) H Calcium Level 9.7 MG/DL (8.5-10.1) Random Vancomycin Level 24.1 ug/mL Current Medications Medications (Trade) Dose Ordered Sig/Sylwia Route PRN Reason Start Time Stop Time Status Last Admin Dose Admin Acetaminophen (Tylenol) 650 mg Q4H PRN ORAL Mild Pain/Temp > 100.5 05/16/19 21:15 06/13/19 17:14 Albuterol/ Ipratropium (Albuterol/ Ipratropium) 3 ml Q4HRT HHN 05/16/19 23:00 05/17/19 22:59 05/17/19 07:46 Chlorhexidine Gluconate (Karla-Hex 2%) 1 applic DAILY@2000 TOPIC 05/17/19 20:00 06/12/19 19:59 Dextrose (Dextrose 50%) 25 ml Q30M PRN IV Hypoglycemia 05/16/19 21:15 06/08/19 08:14 Dextrose (Dextrose 50%) 50 ml Q30M PRN IV Hypoglycemia 05/16/19 21:15 06/08/19 08:14 Diltiazem HCl (Cardizem) 60 mg EVERY 8 HOURS ORAL 05/16/19 22:00 06/13/19 15:59 05/17/19 05:50 Epoetin Mohinder (Epoetin Mohinder(ESRD on dialysis)) 10,000 unit WED-WED-WED SUBQ 05/17/19 21:00 06/11/19 20:59 Ondansetron HCl (Zofran) 4 mg Q6H PRN IVP Nausea & Vomiting 05/16/19 20:00 06/15/19 19:59 Pantoprazole (Protonix) 40 mg DAILY IVP 05/17/19 09:00 06/08/19 12:14 05/17/19 09:18 Vancomycin HCl (Vanco rx to dose) 1 ea DAILY PRN MISC Per rx protocol 05/17/19 09:00 06/12/19 10:14 Danita Wilkins M.D. May 17, 2019 11:37
--- NOTE | 2019-05-17 11:48 | NUR ---
ST NOTES: SWALLOW STATUS: PATIENT IS ON [facility] AND PULLED OUT HER NGT. PER RN, JOE, SHE CAN HAVE A MOD BARIUM SWALLOW STUDY AND DR JOHNSON APPROVED IT. PATIENT JUST FINISHED HER DIALYSIS. SEE MOD BARIUM SWALLOW STUDY REPORT OR SUMMARY PLAN: F/UP WITH [facility] TODAY AFTER DIALYSIS SINCE PT PULLED OUT NGT AND WANTS TO HAVE PO INTAKE FOR QUALITY OF LIFE CONT WITH ORAL CARE AND KEEP NPO FOR STUDY.
[2019-05-17 12:00] VITALS: BP 103/44
[2019-05-17] MEDS ORDERED: Varibar Nectar 240ml MC PRN (13:30)
[2019-05-17] MEDS ORDERED: Varibar Honey 250ml MC PRN (13:30)
[2019-05-17] MEDS ORDERED: Varibar Pudding 230ml MC PRN (13:30)
--- NOTE | 2019-05-17 14:57 | NUR ---
ST NOTE: MODIFIED BARIUM SWALLOW STUDY COMPLETED, SEE FULL REPORT TO FOLLOW. HAS A CHRONIC COUGH W/O PO INTAKE AND THROUGHOUT THE STUDY (BUT NO ASPIRATION NOR SIGNIFICANT PENETRATION SEEN). ON 3 LITERS NC AND VITALS ARE STABLE AROUND 18 TO 20 AT REST AND HAS GOOD 02 SATS THROUGHOUT. BELGIAN-SPEAKING [employer] ASSEMBLER COMPLETED STUDY WITH PATIENT. INITIAL IMPRESSIONS: MILD TO MODERATE OROPHARYNGEAL DYSPHAGIA WITH OVERALL INCREASED ORAL PREP AND OROPHARYNGEAL TRANSIT TIMES DUE TO SENSORIMOTOR DEFICITS AND COMPOUNDED BY COGNITIVE-BEHAVIORAL AND RESPIRATORY DISORDERS. LEVEL 4 ON THE EZEKIEL OR DYSPHAGIA OUTCOME SEVERITY SCALE. 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 Oral Impairment Lip Closure (POOR SUCTION ABILITY ? RESP RELATED. ALSO HAS ? BEHAVIORAL ISSUES AND WILL RESTRICT LIP AND MOUTH OPENING WITH LIQUID INTAKE OR OPEN MOUTH TOO WIDE AT TIMES ? COGNITIVE-BEHAVIORAL RELATED) Tongue Control Bolus prep/mastication (LIKELY BUT NOT ABLE TO GIVE DUE TO CLOSE TO 5 MIN FLUORO TIME LIMIT) Bolus transport and lingual motion Oral residue poor sensation Init. pharyngeal swallow (and very delayed 2nd swallow to clear oral that moves into pharynx and other pharyngeal residue) Pharyngeal Impairment Soft palate elevation not significant Laryngeal elevation (LE) Ant. hyoid excursion (AHE) Epiglottic movement Late laryngeal vestibule closure Pharyngoesophageal segment opening Tongue base retraction Pharyngeal residue Decreased pharyngeal sensation Esophageal Impairment (min dysphagia or more needs more assessment) Esophageal Clearance (QUESTIONABLE TRACE BACKFLOW WITH THIN LIQUID tsp) IN LATERAL LIMITED VIEW AND NOT ABLE TO COMPLETE FOLLOW THROUGH DUE TO IN BED AND TIME LIMIT ON FLUORO. TRIAL TX: SOME BENEFIT FROM MORE TIME, EXTRA (CUED SWALLOWS 1-2 EXTRA), LIQUID WASH HELPS. LIMITED TIME FOR OTHERS AND POOR AT FOLLOWING COMMANDS AND TALKS WITH FOOD IN MOUTH. RECOMMENDATIONS: INITIATE PO INTAKE OF MOIST PUREED AND NECTAR THICK LIQUIDS FOR NOW WITH POSTED ASPIRATION AND REFLUX PRECAUTIONS AND ONE TO ONE FEEDINGS. PER RD CCHO-LOW AND RENAL DIET WITH NEPRO TID. CONSIDER CALORIE COUNT SKILLED DYSPHAGIA MANAGEMENT AND TX AND COG-COM EVAL/TX D/W DR JOHNSON WHO AGREED WITH RECOMMENDATIONS EDUCATED/TRAINED RN JOE AND HENRIK BUTT IN POSTED ASP/REFLUX PRECAUTIONS. PATIENT CONFUSED SO EDUCATION RETENTION AND UNDERSTANDING LIMITED. Addendum: 05/17/19 at 1509 by QI MITCHELL CAMERA ASSEMBLER D/W DR JOHNSON AND DR WADE ISSUE WITH CHRONIC COUGH W/O PO HAD ONE POSSIBLE EPISODE OF THIN LIQUID TSP TRACE ESOPHAGEAL BACKFLOW THROUGH THE PHARYNGOESOPHAGEAL SEGMENT ? REFLUX LPR RISK. ON GERD MEDS AND CONSIDER HOB ABOVE 30 DEGREES WHEN SLEEPING. Addendum: 05/17/19 at [address] FITZGERALD TO ALSO CHECK TO SEE IF CHRONIC COUGH RELATED TO CARDIAC MEDS
--- NOTE | 2019-05-17 15:18 | Cardiac Electrophysiology PN ---
Assessment/Plan Assessment/Plan 1. Status post two noninfarctional cardiac arrests and ventricular tachycardia based on 12-lead EKG in this patient with history of coronary artery disease. Troponin elevation only minimal and level flat likely due two CPR in this patient with hemodialysis. Echocardiogram showed EF 50-55% Needs cardiac cath but family don't want any procedures 2. 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 Atrial fib with RVR. Converted to SR. On Cardizem 60 po tid 3. Respiratory failure, extubated. BNP is 17,000. On dialysis. Now DNR and DNI 4. End-stage renal disease, on hemodialysis. 5. Anemia. 6. Dysphagia. Passed Swallow eval DW RN and speech therapist Subjective Subjective Transferred out of ICU in SR and Cardizem po. Pulled out her NG tube and passed swallow eval. Op report from [facility] obtained that showed CABG x 3 with LOPES to LAD, SVT to PDA SVG to OM in 2010. RN at bedside Objective Last 24 Hour Vital Signs Date Time Temp Pulse Resp B/P (MAP) Pulse Ox O2 Delivery O2 Flow Rate FiO2 05/17/19 14:41 64 103/44 05/17/19 12:00 72 05/17/19 12:00 96.6 64 20 103/44 (63) 100 05/17/19 12:00 Nasal Cannula 3.0 Nasal Cannula 3.0 05/17/19 11:41 69 18 96 Room Air 21 69 18 97 05/17/19 08:00 96.6 71 22 108/44 (65) 99 05/17/19 08:00 Nasal Cannula 3.0 Nasal Cannula 3.0 05/17/19 08:00 73 05/17/19 07:56 102 18 97 Room Air 21 71 18 94 05/17/19 07:55 94 Room Air 21 05/17/19 05:50 98 106/51 05/17/19 04:00 98.1 68 20 104/48 (66) 98 05/17/19 04:00 Nasal Cannula 3.0 Nasal Cannula 3.0 05/17/19 03:27 71 05/17/19 03:24 64 18 97 Nasal Cannula 3.0 32 66 18 92 05/17/19 00:00 Nasal Cannula 3.0 Nasal Cannula 3.0 05/17/19 00:00 97.7 69 20 101/44 (63) 95 05/16/19 23:32 70 18 98 Nasal Cannula 3.0 32 71 18 93 05/16/19 23:30 70 05/16/19 22:04 73 117/58 05/16/19 20:00 Nasal Cannula 3.0 Nasal Cannula 3.0 05/16/19 20:00 74 05/16/19 20:00 97.9 73 22 114/44 (67) 97 05/16/19 19:30 93 Nasal Cannula 3.0 32 05/16/19 19:29 72 18 97 Nasal Cannula 3.0 32 68 18 93 05/16/19 17:00 72 19 110/36 (60) 95 05/16/19 16:00 73 05/16/19 16:00 98.7 73 19 103/34 (57) 94 05/16/19 16:00 Nasal Cannula 3.0 Nasal Cannula 3.0 05/16/19 15:24 70 16 96 Nasal Cannula 3.0 32 69 19 93 Intake and Output 05/16/19 05/17/19 19:00 07:00 Intake Total 505 ml 395 ml Output Total 0 ml 0 ml Balance 505 ml 395 ml IV Total 55 ml 55 ml Tube Feeding 420 ml 280 ml Other 30 ml 60 ml Output Urine Total 0 ml 0 ml # Bowel Movements 3 4 Laboratory Tests Test 05/17/19 04:40 White Blood Count 12.2 K/UL (4.8-10.8) H Red Blood Count 2.54 M/UL (4.20-5.40) L Hemoglobin 8.4 G/DL (12.0-16.0) L Hematocrit 25.1 % (37.0-47.0) L Mean Corpuscular Volume 99 FL (80-99) Mean Corpuscular Hemoglobin 32.9 PG (27.0-31.0) H Mean Corpuscular Hemoglobin Concent 33.3 G/DL (32.0-36.0) Red Cell Distribution Width 18.9 % (11.6-14.8) H Platelet Count 132 K/UL (150-450) L Mean Platelet Volume 7.0 FL (6.5-10.1) Neutrophils (%) (Auto) 72.3 % (45.0-75.0) Lymphocytes (%) (Auto) 17.7 % (20.0-45.0) L Monocytes (%) (Auto) 6.5 % (1.0-10.0) Eosinophils (%) (Auto) 2.2 % (0.0-3.0) Basophils (%) (Auto) 1.3 % (0.0-2.0) Sodium Level 142 MMOL/L (136-145) Potassium Level 4.5 MMOL/L (3.5-5.1) Chloride Level 103 MMOL/L (98-107) Carbon Dioxide Level 21 MMOL/L (21-32) Anion Gap 18 mmol/L (5-15) H Blood Urea Nitrogen 70 mg/dL (7-18) H Creatinine 7.6 MG/DL (0.55-1.30) H Estimat Glomerular Filtration Rate 5.3 mL/min (>60) Glucose Level 163 MG/DL (74-106) H Calcium Level 9.7 MG/DL (8.5-10.1) Random Vancomycin Level 24.1 ug/mL Microbiology Date/Time Source Procedure Growth Status 05/15/19 13:00 Sputum Induced Gram Stain - Final Complete 05/15/19 13:00 Sputum Culture - Final Mariela Albicans Complete 05/16/19 04:00 Stool Clostridium difficile Toxin Assay - Final Complete Objective HEAD AND NECK: No JVD. NG tube is out. LUNGS: Coarse rhonchi. CHEST: Sternotomy scar is healed. CARDIOVASCULAR: Regular S1 and S2 with no gallop. ABDOMEN: Soft. She has a scar from cholecystectomy i EXTREMITIES: Status post left AV shunt. Shawn Robbins MD May 17, 2019 15:18
--- NOTE | 2019-05-17 15:31 | NUR ---
NURSE NOTES: video swallow done, tolerate well, pt on puree diet, vital signs stable, bed bath given, repositioned, continue monitoring.
[2019-05-17 16:00] VITALS: BP 102/42
[2019-05-17] MEDS ORDERED: NS 275ml ONE ×2 (16:11→16:27)
--- NOTE | 2019-05-17 16:49 | Surgery Progress Note ---
Surgery Progress Note Subjective Additional Comments slowly improving comfortable appearing labs noted great nursing care to ensure no development of prior injuries Objective Last 24 Hour Vital Signs Date Time Temp Pulse Resp B/P (MAP) Pulse Ox O2 Delivery O2 Flow Rate FiO2 05/17/19 16:00 97.2 72 20 102/42 (62) 95 05/17/19 16:00 76 05/17/19 16:00 Nasal Cannula 3.0 Nasal Cannula 3.0 05/17/19 15:33 76 18 98 Room Air 21 74 18 95 05/17/19 14:41 64 103/44 05/17/19 12:00 72 05/17/19 12:00 96.6 64 20 103/44 (63) 100 05/17/19 12:00 Nasal Cannula 3.0 Nasal Cannula 3.0 05/17/19 11:41 69 18 96 Room Air 21 69 18 97 05/17/19 08:00 96.6 71 22 108/44 (65) 99 05/17/19 08:00 Nasal Cannula 3.0 Nasal Cannula 3.0 05/17/19 08:00 73 05/17/19 07:56 102 18 97 Room Air 21 71 18 94 05/17/19 07:55 94 Room Air 21 05/17/19 05:50 98 106/51 05/17/19 04:00 98.1 68 20 104/48 (66) 98 05/17/19 04:00 Nasal Cannula 3.0 Nasal Cannula 3.0 05/17/19 03:27 71 05/17/19 03:24 64 18 97 Nasal Cannula 3.0 32 66 18 92 05/17/19 00:00 Nasal Cannula 3.0 Nasal Cannula 3.0 05/17/19 00:00 97.7 69 20 101/44 (63) 95 05/16/19 23:32 70 18 98 Nasal Cannula 3.0 32 71 18 93 05/16/19 23:30 70 05/16/19 22:04 73 117/58 05/16/19 20:00 Nasal Cannula 3.0 Nasal Cannula 3.0 05/16/19 20:00 74 05/16/19 20:00 97.9 73 22 114/44 (67) 97 05/16/19 19:30 93 Nasal Cannula 3.0 32 05/16/19 19:29 72 18 97 Nasal Cannula 3.0 32 68 18 93 05/16/19 17:00 72 19 110/36 (60) 95 I&O Intake and Output 05/16/19 05/17/19 19:00 07:00 Intake Total 505 ml 395 ml Output Total 0 ml 0 ml Balance 505 ml 395 ml IV Total 55 ml 55 ml Tube Feeding 420 ml 280 ml Other 30 ml 60 ml Output Urine Total 0 ml 0 ml # Bowel Movements 3 4 Dressing: other Wound: other Drains: other Cardiovascular: RSR Respiratory: decreased breath sounds Abdomen: soft, present bowel sounds, non-distended Extremities: no cyanosis, other Laboratory Tests Test 05/17/19 04:40 White Blood Count 12.2 K/UL (4.8-10.8) H Red Blood Count 2.54 M/UL (4.20-5.40) L Hemoglobin 8.4 G/DL (12.0-16.0) L Hematocrit 25.1 % (37.0-47.0) L Mean Corpuscular Volume 99 FL (80-99) Mean Corpuscular Hemoglobin 32.9 PG (27.0-31.0) H Mean Corpuscular Hemoglobin Concent 33.3 G/DL (32.0-36.0) Red Cell Distribution Width 18.9 % (11.6-14.8) H Platelet Count 132 K/UL (150-450) L Mean Platelet Volume 7.0 FL (6.5-10.1) Neutrophils (%) (Auto) 72.3 % (45.0-75.0) Lymphocytes (%) (Auto) 17.7 % (20.0-45.0) L Monocytes (%) (Auto) 6.5 % (1.0-10.0) Eosinophils (%) (Auto) 2.2 % (0.0-3.0) Basophils (%) (Auto) 1.3 % (0.0-2.0) Sodium Level 142 MMOL/L (136-145) Potassium Level 4.5 MMOL/L (3.5-5.1) Chloride Level 103 MMOL/L (98-107) Carbon Dioxide Level 21 MMOL/L (21-32) Anion Gap 18 mmol/L (5-15) H Blood Urea Nitrogen 70 mg/dL (7-18) H Creatinine 7.6 MG/DL (0.55-1.30) H Estimat Glomerular Filtration Rate 5.3 mL/min (>60) Glucose Level 163 MG/DL (74-106) H Calcium Level 9.7 MG/DL (8.5-10.1) Random Vancomycin Level 24.1 ug/mL Plan Problems: (1) Deep tissue injury Assessment & Plan: Patient presented on admission with a deep tissue injury in the sacral area. Patient was syncopal episode found down. Unknown exact time patient was down and since is suffered a cardiac event requiring resuscitation and ACLS. There is an area of deep tissue injury with erythema in the sacral area extending into the bilateral buttocks butterfly formation. No drainage. No open area. Patient is high risk and susceptible to opening and worsening given her current condition, ICU care, deterioration. We will need to monitor closely and provide aggressive care to ensure healing Air mattress Turn every 2 hours Skin protectant OPTi foam dressing daily and as needed Offload heels with pillows Appreciate nursing care Nutritional support DAILY ESTIMATED NEEDS: Needs based on Critical Care, ESRD on HD, wounds; 56.3kg adj 22- 30 kcals/kg [id number] total kcals 1.25-2 g protein/kg 70-113 g total protein Fluid per MD- on HD NUTRITION DIAGNOSIS: * Increased pro needs r/t wound healing and renal dysfunction AEB pt adm w/ BL heel and sacral DTI (per RN), WC eval pending, w/ ESRD on HD. * Swallowing difficulty r/t respiratory status AEB pt is intubated, currently NPO, pending non oral feeds. CURRENT TF: Per RN Nepro @40ml/hr ENTERAL NUTRITION RECOMMENDATIONS: Nepro @35mL/hr x 24 hrs+ 1 Prosource qdaily to provide 840mL, 1512kcal, 68g pro +11g pro, 611mL free H2O -Obtain GI access, initiate Nepro @15mL/hr, advancing 10mL/hr q 4-6hrs until @ goal. -Provide 1 packet of Prosource- flush with 4oz water -HOB > 30 degrees, Flush per MD ADDITIONAL RECOMMENDATIONS: 1) With prolonged NPO/Intubation- see TF recs as above 2) Wound healing- w/ diet order, add: Juan Daniel in 4oz H2O BID; f/up w/ WC eval 3) Maintain calibrated bedscale wt 4) F/u w/ H&P 5) Feed w/ hemodynamic stability, now off pressor support. (2) Cardiac arrest Assessment & Plan: 61-year-old female multi-medical comorbidities syncopal episode leading to ACLS requiring resuscitation. Currently intensive care unit intubated on ventilatory support Patient is ill-appearing with family at the bedside. Labs noted. Mild elevation troponins. Mild elevated LFTs. Improving since resuscitation current etiology work-up A.m. 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 There is also an old right cerebellar cortical infarct There is age-related enlargement of the ventricles and extra axial CSF spaces. There is periventricular deep white matter low-attenuation, consistent with chronic microvascular ischemic change. The stuart-white differentiation is normal. The calvarium is intact. There is evidence of prior cataract surgery. The sinuses are clear. The mastoids are underpneumatized, otherwise clear. Impression: Chronic and age-related changes Negative for acute intracranial bleed or mass effect, Old infarcts, as described Laron Moreno May 17, 2019 16:49
--- NOTE | 2019-05-17 19:16 | NUR ---
HAND-OFF: Report given to AMEE PURCELL, NO DISTRESS AT THIS TIME..
--- NOTE | 2019-05-17 19:20 | NUR ---
NURSE NOTES: Received patient from Cuba Kaur RN. patient is observed resting in bed, AO X2, Khmer speaking, denies pain at this time. family is at bedside. patient is on 3.5 L O2 via NC, tolerating well, no s/s of respiratory distress noted at this time. L AV shunt noted. skin alterations noted. RH 22g and RFA 22g IV sites are patent and intact, asymptomatic. bed in lowest position and locked, siderails up X3, call light within reach. will continue to monitor.
[2019-05-17 20:00] VITALS: BP 98/48
[2019-05-17] MEDS ORDERED: Dyna-Hex 2% Top Sol 2oz TOPIC SCH (20:00)
[2019-05-17] MEDS ORDERED: Epoetin Alfa-EPBX(ESRD on dialysis)10,000 unit/ml vial SUBQ SCH (21:00)
[2019-05-17] MEDS ORDERED: Atorvastatin 20mg tab ORAL SCH (21:00)
[2019-05-18] VITALS (7 sets, daily range): BP systolic 106–124; BP diastolic 43–70
--- NOTE | 2019-05-18 01:10 | NUR ---
NURSE NOTES: Received patient from [facility], report received from Ana Rosa PURCELL. Patient is oriented x2, on 3L NC, no s/s resp distress. Bilateral scds on on lower extremities. AV shunt/fistula on MALVIN, bruit/thrill present. Bed in low position, locked, bed alarm on, call light within reach.
--- NOTE | 2019-05-18 01:11 | NUR ---
TRANSFER TO FLOOR: Patient transferred to , room 218-1 as per ordered by MD. Report given to BINH Brandon. Belongings and medications given to receiving RN. Family and or S/O informed of transfer.
[2019-05-18] MEDS: Levothyroxine 25mcg tab ORAL SCH (06:30)
[2019-05-18] MEDS ORDERED: Levothyroxine 25mcg tab ORAL SCH ×2 (06:30)
[2019-05-18] MEDS: dilTIAZem HCl 60mg tab ORAL SCH ×3 (06:30→21:53)
--- NOTE | 2019-05-18 07:30 | NUR ---
NURSE NOTES: Received pt from JOLENE PURCELL. Pt is confused. pt has NC 3LMP. pt has intact iv access RH 22G and RFA 22G SL. A CLINICAL TRIAL ASSISTANT is feeding pt. All needs attended, bed is locked and is in the lowest position, call light within easy reach. will continue to monitor.
[2019-05-18] MEDS: Pantoprazole Inj IVP SCH (08:32)
--- NOTE | 2019-05-18 08:59 | Nephrology Progress Note ---
Assessment/Plan Assessment/Plan: A/P 1) ESRD- MWF 2) S/P Cardiac Arrest, EF 55%, stable 3) LE Wounds - Per Gen Surgery and ID - stable 4) Resp FL- Extubated. 5) DVT prophylaxsis with SCDs 6) Anemia- Thrombocytopenia/Diarhhea - per GI mgmt - EPO. Stable 7) Afib RVR- per cardiology. 8) Dysphagia - GI cslt for PEG transfer to tele Patient now DNR/I Subjective Date patient seen: May 18, 2019 Time patient seen: 08:58 ROS Limited/Unobtainable: No Allergies: Coded Allergies: No Known Allergies (Unverified , 05/08/19) Subjective Patient improved but still can not swallow Objective Last 24 Hour Vital Signs Date Time Temp Pulse Resp B/P (MAP) Pulse Ox O2 Delivery O2 Flow Rate FiO2 05/18/19 08:10 Nasal Cannula 3.0 Nasal Cannula 3.0 05/18/19 08:09 97.4 70 20 124/70 (88) 96 05/18/19 06:30 74 119/51 05/18/19 06:29 74 119/51 (73) 05/18/19 04:00 99.0 20 117/49 (71) 96 05/18/19 04:00 76 05/18/19 00:00 76 05/18/19 00:00 99.2 78 20 112/70 (84) 97 05/18/19 00:00 Nasal Cannula 3.0 Nasal Cannula 3.0 05/18/19 00:00 Nasal Cannula 3.0 Nasal Cannula 3.0 05/17/19 23:15 89 20 96 Nasal Cannula 3.0 32 77 20 93 05/17/19 23:15 93 Nasal Cannula 3.0 32 05/17/19 22:00 78 110/42 05/17/19 20:00 Nasal Cannula 3.0 Nasal Cannula 3.0 05/17/19 20:00 98.8 84 20 98/48 (65) 97 05/17/19 20:00 96 05/17/19 16:00 97.2 72 20 102/42 (62) 95 05/17/19 16:00 76 05/17/19 16:00 Nasal Cannula 3.0 Nasal Cannula 3.0 05/17/19 15:33 76 18 98 Room Air 21 74 18 95 05/17/19 14:41 64 103/44 12/11/19 12:00 72 05/17/19 12:00 96.6 64 20 103/44 (63) 100 05/17/19 12:00 Nasal Cannula 3.0 Nasal Cannula 3.0 05/17/19 11:41 69 18 96 Room Air 21 69 18 97 Intake and Output 05/17/19 05/18/19 19:00 07:00 Intake Total 35 ml Output Total 1800 ml Balance -1765 ml Tube Feeding 35 ml Output Urine Total 0 ml Hemodialysis UF 1800 ml # Bowel Movements 4 2 Laboratory Tests 05/18/19 07:40: Thyroid Stimulating Hormone (TSH) [Pending] Height (Feet): 4 Height (Inches): 10.00 Weight (Pounds): 161 General Appearance: no apparent distress, alert EENT: normal ENT inspection Neck: normal alignment, supple Cardiovascular: normal rate, regular rhythm Respiratory/Chest: lungs clear, normal breath sounds Abdomen: non tender, soft Edema: no edema noted Arm (L), no edema noted Arm (R), no edema noted Leg (L), no edema noted Leg (R), no edema noted Pedal (L), no edema noted Pedal (R), no edema noted Generalized David Zapata MD May 18, 2019 08:59
--- NOTE | 2019-05-18 09:00 | Pulmonology Progress Note ---
Assessment/Plan Assessment/Plan IMPRESSION: 1. Non-STEMI. 2. ESRD, on dialysis. 3. Pulmonary edema. Resolved; latest cXR improved 4. Respiratory failure. Resolved DISCUSSION: 1. Continue current care 2. Agree with current medications and care. 3. Decreased Fio2; now on 2L/min O2 5, Transferred to [facility] 4. The patient will need dialysis per renal. 5. Rate control per cardiology Remigio Raza M.D. Subjective Interval Events: NONE NEW Constitutional: Reports: no symptoms HEENT: Repors: no symptoms Respiratory: Reports: no symptoms Cardiovascular: Reports: no symptoms Gastrointestinal/Abdominal: Reports: no symptoms Genitourinary: Reports: no symptoms Allergies: Coded Allergies: No Known Allergies (Unverified , 05/08/19) Objective Last 24 Hour Vital Signs Date Time Temp Pulse Resp B/P (MAP) Pulse Ox O2 Delivery O2 Flow Rate FiO2 05/18/19 08:10 Nasal Cannula 3.0 Nasal Cannula 3.0 05/18/19 08:09 97.4 70 20 124/70 (88) 96 05/18/19 06:30 74 119/51 05/18/19 06:29 74 119/51 (73) 05/18/19 04:00 99.0 20 117/49 (71) 96 05/18/19 04:00 76 05/18/19 00:00 76 05/18/19 00:00 99.2 78 20 112/70 (84) 97 05/18/19 00:00 Nasal Cannula 3.0 Nasal Cannula 3.0 05/18/19 00:00 Nasal Cannula 3.0 Nasal Cannula 3.0 05/17/19 23:15 89 20 96 Nasal Cannula 3.0 32 77 20 93 05/17/19 23:15 93 Nasal Cannula 3.0 32 05/17/19 22:00 78 110/42 05/17/19 20:00 Nasal Cannula 3.0 Nasal Cannula 3.0 05/17/19 20:00 98.8 84 20 98/48 (65) 97 05/17/19 20:00 96 05/17/19 16:00 97.2 72 20 102/42 (62) 95 05/17/19 16:00 76 05/17/19 16:00 Nasal Cannula 3.0 Nasal Cannula 3.0 05/17/19 15:33 76 18 98 Room Air 21 74 18 95 05/17/19 14:41 64 103/44 05/17/19 12:00 72 05/17/19 12:00 96.6 64 20 103/44 (63) 100 05/17/19 12:00 Nasal Cannula 3.0 Nasal Cannula 3.0 05/17/19 11:41 69 18 96 Room Air 21 69 18 97 Intake and Output 05/17/19 05/18/19 19:00 07:00 Intake Total 35 ml Output Total 1800 ml Balance -1765 ml Tube Feeding 35 ml Output Urine Total 0 ml Hemodialysis UF 1800 ml # Bowel Movements 4 2 General Appearance: no acute distress HEENT: normocephalic Respiratory/Chest: chest wall non-tender, decreased breath sounds Cardiovascular: normal peripheral pulses Abdomen: normal bowel sounds, soft, non tender Microbiology Date/Time Source Procedure Growth Status 05/15/19 13:00 Sputum Induced Gram Stain - Final Complete 05/15/19 13:00 Sputum Culture - Final Mariela Albicans Complete 05/16/19 04:00 Stool Clostridium difficile Toxin Assay - Final Complete Laboratory Tests 05/18/19 07:40: Thyroid Stimulating Hormone (TSH) [Pending] Current Medications Medications (Trade) Dose Ordered Sig/Sylwia Route PRN Reason Start Time Stop Time Status Last Admin Dose Admin Acetaminophen (Tylenol) 650 mg Q4H PRN ORAL Mild Pain/Temp > 100.5 05/18/19 01:15 06/13/19 17:14 Atorvastatin Calcium (Lipitor) 40 mg BEDTIME ORAL 05/18/19 21:00 06/16/19 20:59 Barium Sulfate (Varibar Honey) 250 ml NOW PRN MC RAD 05/18/19 13:30 05/20/19 13:24 Barium Sulfate (Varibar Jeddo) 240 ml NOW PRN MC RAD 05/18/19 13:30 05/20/19 13:24 Barium Sulfate (Varibar Pudding) 230 ml NOW PRN MC RAD 05/18/19 13:30 05/20/19 13:24 Chlorhexidine Gluconate (Karla-Hex 2%) 1 applic DAILY@1999 TOPIC 05/18/19 20:00 06/12/19 19:59 Dextrose (Dextrose 50%) 25 ml Q30M PRN IV Hypoglycemia 05/18/19 01:15 06/08/19 08:14 Dextrose (Dextrose 50%) 50 ml Q30M PRN IV Hypoglycemia 05/18/19 01:15 06/08/19 08:14 Diltiazem HCl (Cardizem) 60 mg EVERY 8 HOURS ORAL 05/18/19 06:00 06/13/19 15:59 05/18/19 06:30 Epoetin Mohinder (Epoetin Mohinder(ESRD on dialysis)) 10,000 unit SUBQ 05/19/19 21:00 06/11/19 20:59 Levothyroxine Sodium (Synthroid) 25 mcg DAILY@0630 ORAL 05/18/19 06:30 06/17/19 06:29 05/18/19 06:30 Ondansetron HCl (Zofran) 4 mg Q6H PRN IVP Nausea & Vomiting 05/18/19 02:00 06/15/19 19:59 Pantoprazole (Protonix) 40 mg DAILY IVP 05/18/19 09:00 06/08/19 12:14 05/18/19 08:32 Remigio Raza MD May 18, 2019 09:00
--- NOTE | 2019-05-18 09:04 | NUR ---
NURSE NOTES: paged katie of [facility] to notify re hd tomorrow.
--- NOTE | 2019-05-18 09:14 | NUR ---
ST NOTES: SWALLOW STATUS: PER CHART, PATIENT REFUSED MEAL FOR LUNCH OR DINNER YESTERDAY. THE PATIENT IS ALERT AND AGREED TO EAT TODAY. SPOKE WITH HER DTR AND ASKED HER TO HELP STAFF GET PATIENT TO EAT/DRINK MORE. DTR TO COME VISIT HER TODAY. MAY CONSIDER UPGRADING HER TO A MORE CHEWABLE DIET IF SHE FEELS THAT THE FOOD/LIQUIDS ARE UNAPPEALING. PATIENT WOULD NEED TO BE CUED TO NOT TALK WITH FOOD/LIQUIDS IN HER MOUTH. ASKED FAMILY TO ENCOURAGE INTAKE OF MEAL AND NEPRO. PER DTR HER MOTHER USUALLY HAS SMALL MEALS. PER RD THE PATIENT IS CURRENTLY OVERWEIGHT. DR JOHNSON TOLD THE DTR THAT SHE SHOULD CONSIDER A PEG SUPPLEMENT OR PRIMARY MODE OF INTAKE IF PO INTAKE IS POOR. WILL ALSO CHECK WITH GABRIELA BRENNAN ABOUT IF DIET COULD BE LIBERALIZED OR FAMILY CAN BRING IN FOODS OF PREFERENCE. DTR, FILOMENA, TO BRING IN CHICKEN DUMPLINGS TODAY PATIENT'S THOUGHT PT WOULD EAT THAT FOOD ITEM. DR JOHNSON APPROVED ALLOWING PATIENT TO HAVE FOODS THAT FAMILY BRINGS IN BY LIBERALIZING HER DIET FOR NOW. DR JOHNSON SAID PATIENT SPIT OUT SOME WHITE MILK OR LIQUID TODAY. ST WENT TO SEE PATIENT AND SHE HAD NEPRO LIQUID IN HER MOUTH AND SOME SPILLING OUT OF BOTH SIDES OF HER MOUTH. THE PATIENT NODDED HER HEAD THAT SHE WANTED TO SPIT IT OUT AND NOT SWALLOW IT (SHE DISLIKED IT). SHE SPIT OUT THE LIQUID AND THEN REFUSED ALL PO OFFERED TO HER (PUREED/NECTAR THICK LIQUIDS AND SUPPLEMENTS). PATIENT NODDED THAT SHE HAD NO APPETITE. D/W RN/ULTRASOUND SPECIALIST TO HAVE CHECK PATIENT IF SHE IS STARTING TO HOLD FOOD OR LIQUID IN HER MOUTH (NEW BEHAVIOR) AND TO SUCTION IT OUT OR HAVE HER SPIT IT OUT IF ABLE. PLAN: F/UP WITH PO TRIALS WITH FOODS OF PREFERENCE (LIBERALIZED DIET) THAT FAMILY BRINGS IN. WILL ALSO REVIEW IMAGES OF MBSS AND COMPLETE REPORT. GI CONSULT TODAY ALSO Addendum: 05/18/19 at 1330 by QI MONTERO ADDENDUM: PATIENT ATE THE TAMALES THAT THE FAMILY BROUGHT IN SO PEG NOT INDICATED AT THIS TIME. WILL UPGRADE TO SOFT CHEW AND THIN LIQUIDS (OK FOR FAMILY TO BRING IN FOODS OF PREFERENCE). PATIENT DISLIKES NECTAR THICK LIQUIDS BUT WILL DRINK THIN LIQUIDS ONE SIP AT A TIME.
--- NOTE | 2019-05-18 11:16 | Cardiac Electrophysiology PN ---
Assessment/Plan Assessment/Plan 1. Status post two noninfarctional cardiac arrests and ventricular tachycardia based on 12-lead EKG in this patient with history of coronary artery disease. Troponin elevation only minimal and level flat likely due two CPR in this patient with hemodialysis. Echocardiogram showed EF 50-55% Needs cardiac cath but family don't want any procedures 2. 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 Atrial fib with RVR. Converted to SR. On Cardizem 60 po tid 3. Respiratory failure, extubated. BNP is 17,000. On dialysis. Now DNR and DNI 4. End-stage renal disease, on hemodialysis. 5. Anemia. 6. Dysphagia. Passed Swallow eval 7. High WBC Abx per Dr Claudette PERLA RN and daughter Subjective Subjective In SR and Cardizem po. Eating as passed swallow eval. Op report from [facility] that showed CABG x 3 with LOPES to LAD, SVT to PDA SVG to OM in 2010. RN at bedside Objective Last 24 Hour Vital Signs Date Time Temp Pulse Resp B/P (MAP) Pulse Ox O2 Delivery O2 Flow Rate FiO2 05/18/19 08:10 Nasal Cannula 3.0 Nasal Cannula 3.0 05/18/19 08:09 97.4 70 20 124/70 (88) 96 05/18/19 07:41 75 05/18/19 06:30 74 119/51 05/18/19 06:29 74 119/51 (73) 05/18/19 04:00 99.0 20 117/49 (71) 96 05/18/19 04:00 76 05/18/19 00:00 76 05/18/19 00:00 99.2 78 20 112/70 (84) 97 05/18/19 00:00 Nasal Cannula 3.0 Nasal Cannula 3.0 05/18/19 00:00 Nasal Cannula 3.0 Nasal Cannula 3.0 05/17/19 23:15 89 20 96 Nasal Cannula 3.0 32 77 20 93 05/17/19 23:15 93 Nasal Cannula 3.0 32 05/17/19 22:00 78 110/42 05/17/19 20:00 Nasal Cannula 3.0 Nasal Cannula 3.0 05/17/19 20:00 98.8 84 20 98/48 (65) 97 05/17/19 20:00 96 05/17/19 16:00 97.2 72 20 102/42 (62) 95 05/17/19 16:00 76 05/17/19 16:00 Nasal Cannula 3.0 Nasal Cannula 3.0 05/17/19 15:33 76 18 98 Room Air 21 74 18 95 05/17/19 14:41 64 103/44 05/17/19 12:00 72 05/17/19 12:00 96.6 64 20 103/44 (63) 100 05/17/19 12:00 Nasal Cannula 3.0 Nasal Cannula 3.0 05/17/19 11:41 69 18 96 Room Air 21 69 18 97 Intake and Output 05/17/19 05/18/19 18:59 06:59 Intake Total 35 ml Output Total 1800 ml Balance -1765 ml Tube Feeding 35 ml Output Urine Total 0 ml Hemodialysis UF 1800 ml # Bowel Movements 4 2 Laboratory Tests Test 05/18/19 07:40 Thyroid Stimulating Hormone (TSH) 5.162 uiU/mL (0.358-3.740) Microbiology Date/Time Source Procedure Growth Status 05/15/19 13:00 Sputum Induced Gram Stain - Final Complete 05/15/19 13:00 Sputum Culture - Final Mariela Albicans Complete 05/16/19 04:00 Stool Clostridium difficile Toxin Assay - Final Complete Objective HEAD AND NECK: No JVD. LUNGS: Coarse rhonchi. CHEST: Sternotomy scar is healed. CARDIOVASCULAR: Regular S1 and S2 with no gallop. ABDOMEN: Soft. She has a scar from cholecystectomy i EXTREMITIES: Status post left AV shunt. Shawn Robbins MD May 18, 2019 11:16
--- NOTE | 2019-05-18 12:54 | Cardiology Report ---
APPROVED REPORT EKG Measurement Heart [id number] Atrial fibrillation with rapid ventricular response with premature ventricular or aberrantly conducted complexes Rightward axis Low voltage QRS Septal infarct, age undetermined Lateral injury pattern Abnormal ECG
--- NOTE | 2019-05-18 12:54 | GI Progress Note ---
Assessment/Plan Problems: (1) Anemia ICD Codes: D64.9 - Anemia, unspecified SNOMED: 300833586 (2) Dysphagia ICD Codes: R13.10 - Dysphagia, unspecified SNOMED: 57678131, 425261857 (3) Hypoglycemia ICD Codes: E16.2 - Hypoglycemia, unspecified SNOMED: 852006672 Status: stable, unchanged Status Narrative Discussed with Dr. Palmer. Assessment/Plan Assessment - Anemia - OB (+) stools - CAD / NH - arrhythmia - ESRD - loose BM - ST evaluation reviewed >> MOIST PUREED AND NECTAR THICK LIQUIDS FOR NOW WITH POSTED ASPIRATION AND REFLUX PRECAUTIONS AND ONE TO ONE FEEDINGS. - Family refused PEG - r/o C Diff - negative Recommendations - supportive care - Monitor CBC - H2B or PPI - Elevate HOB, strict aspiration precautions - EGD/colon at later date, once stable from a cardiac standpoint The patient was seen and examined at bedside and all new and available data was reviewed in the patients chart. I agree with the above findings, impression and plan. (Patient seen earlier today. Signature stamp does not reflect patient encounter time.). - Andres Palmer MD Subjective Subjective Patient dislikes the food here Denies any abdominal pain Denies any nausea vomiting Objective Last 24 Hour Vital Signs Date Time Temp Pulse Resp B/P (MAP) Pulse Ox O2 Delivery O2 Flow Rate FiO2 05/18/19 12:00 98.1 74 20 108/43 (64) 99 05/18/19 08:10 Nasal Cannula 3.0 Nasal Cannula 3.0 05/18/19 08:09 97.4 70 20 124/70 (88) 96 05/18/19 07:41 75 05/18/19 06:30 74 119/51 05/18/19 06:29 74 119/51 (73) 05/18/19 04:00 99.0 20 117/49 (71) 96 05/18/19 04:00 76 05/18/19 00:00 76 05/18/19 00:00 99.2 78 20 112/70 (84) 97 05/18/19 00:00 Nasal Cannula 3.0 Nasal Cannula 3.0 05/18/19 00:00 Nasal Cannula 3.0 Nasal Cannula 3.0 05/17/19 23:15 89 20 96 Nasal Cannula 3.0 32 77 20 93 05/17/19 23:15 93 Nasal Cannula 3.0 32 05/17/19 22:00 78 110/42 05/17/19 20:00 Nasal Cannula 3.0 Nasal Cannula 3.0 05/17/19 20:00 98.8 84 20 98/48 (65) 97 05/17/19 20:00 96 05/17/19 16:00 97.2 72 20 102/42 (62) 95 05/17/19 16:00 76 05/17/19 16:00 Nasal Cannula 3.0 Nasal Cannula 3.0 05/17/19 15:33 76 18 98 Room Air 21 74 18 95 05/17/19 14:41 64 103/44 Intake and Output 05/17/19 05/18/19 18:59 06:59 Intake Total 35 ml Output Total 1800 ml Balance -1765 ml Tube Feeding 35 ml Output Urine Total 0 ml Hemodialysis UF 1800 ml # Bowel Movements 4 2 Laboratory Tests Test 05/18/19 07:40 Thyroid Stimulating Hormone (TSH) 5.162 uiU/mL (0.358-3.740) Height (Feet): 4 Height (Inches): 10.00 Weight (Pounds): 161 General Appearance: WD/WN, no apparent distress, alert Cardiovascular: normal rate Respiratory/Chest: normal breath sounds, no respiratory distress Abdominal Exam: normal bowel sounds, non tender, soft Extremities: normal range of motion, non-tender Erick Dan NP May 18, 2019 12:54
--- NOTE | 2019-05-18 13:08 | Infectious Diseases Prog Note ---
Assessment/Plan Assessment/Plan Assessment: Afib with RVR, brief hypotension 05/13 -05/13 Bcx NTD s/p cardiac arrest x2 -CT head: Chronic and age-related changes. Negative for acute intracranial bleed or mass effect, Old infarcts, as described Low grade fever; SP MIld leukocytosis, recurrent ?Aspiration PNA -05/17 CXR: Again demonstrated is diffuse bilateral interstitial and airspace edema. There may be a small amount of pleural fluid on the right. Findings are overall unchanged -05/15 SP cx: iris albicans -05/13 CXR: Pulmonary edema, worsened compared to the prior exam. Cardiomegaly. -05/11 CXR:Interstitial edema. This may be slightly improved since the previous da -05/08 CXR: Satisfactory endotracheal intubation. Evidence of bilateral pulmonary edema. Cardiomegaly VDRF; sp extubation 05/11 Hypoglycemia Elevated ALP -Abd US: Nonvisualized gallbladder. Either contracted or surgically absent.Correlate with surgical history. No definite evidence of biliary ductal dilatation. Liver demonstrates diffusely increased echogenicity, consistent with diffuse hepatocellular disease, most likely fatty change. Atrophic bilateral kidneys, consistent with known history of end-stage renal disease HTN ESRD on HD via L arm AVS CAD s/p CABG Plan: -Continue to monitor off abx -05/17 SP IV Vancomycin #4 -05/16 SP ZOsyn #5 -f/u cx -Monitor CBC/CMP, temperatures -aspiration precautions -f/u Bcx x2 -CBC, CMP am Thank you for conulting [facility]. Will continue to follow along with you. Discussed with RN. Subjective Allergies: Coded Allergies: No Known Allergies (Unverified , 05/08/19) Subjective afebrile mild leukocytosis on 3L NC Objective Vital Signs Last 24 Hour Vital Signs Date Time Temp Pulse Resp B/P (MAP) Pulse Ox O2 Delivery O2 Flow Rate FiO2 05/18/19 12:00 98.1 74 20 108/43 (64) 99 05/18/19 11:43 69 05/18/19 08:10 Nasal Cannula 3.0 Nasal Cannula 3.0 05/18/19 08:09 97.4 70 20 124/70 (88) 96 05/18/19 07:41 75 05/18/19 06:30 74 119/51 05/18/19 06:29 74 119/51 (73) 05/18/19 04:00 99.0 20 117/49 (71) 96 05/18/19 04:00 76 05/18/19 00:00 76 05/18/19 00:00 99.2 78 20 112/70 (84) 97 05/18/19 00:00 Nasal Cannula 3.0 Nasal Cannula 3.0 05/18/19 00:00 Nasal Cannula 3.0 Nasal Cannula 3.0 05/17/19 23:15 89 20 96 Nasal Cannula 3.0 32 77 20 93 05/17/19 23:15 93 Nasal Cannula 3.0 32 05/17/19 22:00 78 110/42 05/17/19 20:00 Nasal Cannula 3.0 Nasal Cannula 3.0 05/17/19 20:00 98.8 84 20 98/48 (65) 97 05/17/19 20:00 96 05/17/19 16:00 97.2 72 20 102/42 (62) 95 05/17/19 16:00 76 05/17/19 16:00 Nasal Cannula 3.0 Nasal Cannula 3.0 05/17/19 15:33 76 18 98 Room Air 21 74 18 95 05/17/19 14:41 64 103/44 Height (Feet): 4 Height (Inches): 10.00 Weight (Pounds): 161 Objective GENERAL: The patient is intubated on mechanical ventilation. HEENT: Conjugate eye gaze. No lymphadenopathy. CARDIOVASCULAR: S1, S2. No rubs or gallops. PULMONARY: Mild upper rhonchi. Fair air movement in all pisano. ABDOMEN: Nondistended, nontender. Good bowel sounds. EXTREMITIES: No edema noted. Microbiology Date/Time Source Procedure Growth Status 05/16/19 04:00 Stool Clostridium difficile Toxin Assay - Final Complete Laboratory Tests Test 05/18/19 07:40 Thyroid Stimulating Hormone (TSH) 5.162 uiU/mL (0.358-3.740) Current Medications Medications (Trade) Dose Ordered Sig/Sylwia Route PRN Reason Start Time Stop Time Status Last Admin Dose Admin Acetaminophen (Tylenol) 650 mg Q4H PRN ORAL Mild Pain/Temp > 100.5 05/18/19 01:15 06/13/19 17:14 Atorvastatin Calcium (Lipitor) 40 mg BEDTIME ORAL 05/18/19 21:00 06/16/19 20:59 Barium Sulfate (Varibar Honey) 250 ml NOW PRN RAD 05/18/19 13:30 05/20/19 13:24 Barium Sulfate (Varibar Tullos) 240 ml NOW PRN RAD 05/18/19 13:30 05/20/19 13:24 Barium Sulfate (Varibar Pudding) 230 ml NOW PRN RAD 05/18/19 13:30 05/20/19 13:24 Chlorhexidine Gluconate (Karla-Hex 2%) 1 applic DAILY@2000 TOPIC 05/18/19 20:00 06/12/19 19:59 Dextrose (Dextrose 50%) 25 ml Q30M PRN IV Hypoglycemia 05/18/19 01:15 06/08/19 08:14 Dextrose (Dextrose 50%) 50 ml Q30M PRN IV Hypoglycemia 05/18/19 01:15 06/08/19 08:14 Diltiazem HCl (Cardizem) 60 mg EVERY 8 HOURS ORAL 05/18/19 06:00 06/13/19 15:59 05/18/19 06:30 Epoetin Mohinder (Epoetin Mohinder(ESRD on dialysis)) 10,000 unit WED-WED-WED SUBQ 05/19/19 21:00 06/11/19 20:59 Levothyroxine Sodium (Synthroid) 25 mcg DAILY@0630 ORAL 05/18/19 06:30 06/17/19 06:29 05/18/19 06:30 Ondansetron HCl (Zofran) 4 mg Q6H PRN IVP Nausea & Vomiting 05/18/19 02:00 06/15/19 19:59 Pantoprazole (Protonix) 40 mg DAILY IVP 05/18/19 09:00 06/08/19 12:14 05/18/19 08:32 Danita Wilkins M.D. May 18, 2019 13:08
[2019-05-18] MEDS ORDERED: Varibar Nectar 240ml MC PRN (13:30)
[2019-05-18] MEDS ORDERED: Varibar Pudding 230ml MC PRN (13:30)
[2019-05-18] MEDS ORDERED: Varibar Honey 250ml MC PRN (13:30)
--- NOTE | 2019-05-18 19:05 | Surgery Progress Note ---
Surgery Progress Note Subjective Additional Comments awake, responsive but still not oriented no n/v/f/c labs noted exam stable Objective Last 24 Hour Vital Signs Date Time Temp Pulse Resp B/P (MAP) Pulse Ox O2 Delivery O2 Flow Rate FiO2 05/18/19 16:00 97.2 74 20 106/43 (64) 97 05/18/19 15:21 74 05/18/19 13:09 74 108/43 05/18/19 12:00 98.1 74 20 108/43 (64) 99 05/18/19 11:43 69 05/18/19 08:15 94 Nasal Cannula 3.0 32 05/18/19 08:10 Nasal Cannula 3.0 Nasal Cannula 3.0 05/18/19 08:09 97.4 70 20 124/70 (88) 96 05/18/19 07:41 75 05/18/19 06:30 74 119/51 05/18/19 06:29 74 119/51 (73) 05/18/19 04:00 99.0 20 117/49 (71) 96 05/18/19 04:00 76 05/18/19 00:00 76 05/18/19 00:00 99.2 78 20 112/70 (84) 97 05/18/19 00:00 Nasal Cannula 3.0 Nasal Cannula 3.0 05/18/19 00:00 Nasal Cannula 3.0 Nasal Cannula 3.0 05/17/19 23:15 89 20 96 Nasal Cannula 3.0 32 77 20 93 05/17/19 23:15 93 Nasal Cannula 3.0 32 05/17/19 22:00 78 110/42 05/17/19 20:00 Nasal Cannula 3.0 Nasal Cannula 3.0 05/17/19 20:00 98.8 84 20 98/48 (65) 97 05/17/19 20:00 96 I&O Intake and Output 05/17/19 05/18/19 19:00 07:00 Intake Total 35 ml Output Total 1800 ml Balance -1765 ml Tube Feeding 35 ml Output Urine Total 0 ml Hemodialysis UF 1800 ml # Bowel Movements 4 2 Dressing: other Wound: other Drains: other Cardiovascular: RSR Respiratory: decreased breath sounds Abdomen: soft, present bowel sounds Extremities: no cyanosis, other Laboratory Tests Test 05/18/19 07:40 Thyroid Stimulating Hormone (TSH) 5.162 uiU/mL (0.358-3.740) Plan Problems: (1) Deep tissue injury Assessment & Plan: Patient presented on admission with a deep tissue injury in the sacral area. Patient was syncopal episode found down. Unknown exact time patient was down and since is suffered a cardiac event requiring resuscitation and ACLS. There is an area of deep tissue injury with erythema in the sacral area extending into the bilateral buttocks butterfly formation. No drainage. No open area. Patient is high risk and susceptible to opening and worsening given her current condition, ICU care, deterioration. We will need to monitor closely and provide aggressive care to ensure healing Air mattress Turn every 2 hours Skin protectant OPTi foam dressing daily and as needed Offload heels with pillows Appreciate nursing care Nutritional support DAILY ESTIMATED NEEDS: Needs based on Critical Care, ESRD on HD, wounds; 56.3kg adj 22- 30 kcals/kg 6499-5554 total kcals 1.25-2 g protein/kg 70-113 g total protein Fluid per MD- on HD NUTRITION DIAGNOSIS: * Increased pro needs r/t wound healing and renal dysfunction AEB pt adm w/ BL heel and sacral DTI (per RN), WC eval pending, w/ ESRD on HD. * Swallowing difficulty r/t respiratory status AEB pt is intubated, currently NPO, pending non oral feeds. CURRENT TF: Per RN Nepro @40ml/hr ENTERAL NUTRITION RECOMMENDATIONS: Nepro @35mL/hr x 24 hrs+ 1 Prosource qdaily to provide 840mL, 1512kcal, 68g pro +11g pro, 611mL free H2O -Obtain GI access, initiate Nepro @15mL/hr, advancing 10mL/hr q 4-6hrs until @ goal. -Provide 1 packet of Prosource- flush with 4oz water -HOB > 30 degrees, Flush per MD ADDITIONAL RECOMMENDATIONS: 1) With prolonged NPO/Intubation- see TF recs as above 2) Wound healing- w/ diet order, add: Juan Daniel in 4oz H2O BID; f/up w/ WC eval 3) Maintain calibrated bedscale wt 4) F/u w/ H&P 5) Feed w/ hemodynamic stability, now off pressor support. (2) Cardiac arrest Assessment & Plan: 61-year-old female multi-medical comorbidities syncopal episode leading to ACLS requiring resuscitation. Currently intensive care unit intubated on ventilatory support Patient is ill-appearing with family at the bedside. Labs noted. Mild elevation troponins. Mild elevated LFTs. Improving since resuscitation current etiology work-up A.m. 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 There is also an old right cerebellar cortical infarct There is age-related enlargement of the ventricles and extra axial CSF spaces. There is periventricular deep white matter low-attenuation, consistent with chronic microvascular ischemic change. The stuart-white differentiation is normal. The calvarium is intact. There is evidence of prior cataract surgery. The sinuses are clear. The mastoids are underpneumatized, otherwise clear. Impression: Chronic and age-related changes Negative for acute intracranial bleed or mass effect, Old infarcts, as described Additional Comments PEG per Laron Ragsdale May 18, 2019 19:05
--- NOTE | 2019-05-18 19:15 | NUR ---
NURSE NOTES:Received report from BINH Ramsay. Pt is sleeping, lying; semi-paula's; comfortably resting. Nov signs of acute distress noted. Denies any pain at this time. AOx1. Primarily speaks Polish. Checked R FA IV site; patent and flushed. D/c R hand Iv site and put a new R hand IV site; patent and flushed. Bed at lowest position, brakes on, siderails upx2. Call light within reach. Will continue to monitor.
--- NOTE | 2019-05-18 19:16 | NUR ---
HAND-OFF: Report given to DENNIS PURCELL.
--- NOTE | 2019-05-18 19:25 | NUR ---
HAND-OFF: Report given to PABLO PURCELL. Pt is awake and stable.
[2019-05-18] MEDS ORDERED: Dyna-Hex 2% Top Sol 2oz TOPIC SCH (20:00)
[2019-05-18] MEDS ORDERED: Atorvastatin 20mg tab ORAL SCH (21:00)
--- NOTE | 2019-05-18 23:49 | NUR ---
NURSE NOTES: Spoke to Bambi from [facility] to confirm patient's hemodialysis procedure in AM, 05/19/19. Was told, "I'll send your message to the dialysis nurse."
[2019-05-19] VITALS: BP 108/39
[2019-05-19 04:00] VITALS: BP 111/43
[2019-05-19] MEDS: Levothyroxine 25mcg tab ORAL SCH (06:15)
[2019-05-19] MEDS: dilTIAZem HCl 60mg tab ORAL SCH ×4 (06:18→21:16)
--- NOTE | 2019-05-19 07:18 | NUR ---
HAND-OFF: Report given to BINH Rhodes. Pt is awake and in stable condition. Plan of care endorsed.
--- NOTE | 2019-05-19 07:30 | NUR ---
NURSE NOTES: pt awake alert, no distress. lue shunt +thrill +bruit , no c/o pain, call light within reach. will monitor.
[2019-05-19 07:50] VITALS: BP 101/39
[2019-05-19 07:58] LABS: BASOPHILS % (AUTO) 1.1 % (0.0-2.0); EOSINOPHILS % (AUTO) 1.8 % (0.0-3.0); HEMATOCRIT 27.6 % (37.0-47.0); HEMOGLOBIN 8.7 G/DL (12.0-16.0); LYMPHOCYTES % (AUTO) 12.8 % (20.0-45.0); MEAN CORPUSCULAR VOLUME 105 FL (80-99); MONOCYTES % (AUTO) 5.8 % (1.0-10.0); NEUTROPHILS % (AUTO) 78.5 % (45.0-75.0); PLATELET COUNT 134 K/UL (150-450); RED BLOOD COUNT 2.63 M/UL (4.20-5.40); WHITE BLOOD COUNT 15.1 K/UL (4.8-10.8)
[2019-05-19] MEDS: Pantoprazole Inj IVP SCH (08:10)
--- NOTE | 2019-05-19 08:24 | General Progress Note ---
Assessment/Plan Status: stable, unchanged Assessment/Plan: Assessment/Plan Problems: (1) Anemia ICD Codes: D64.9 - Anemia, unspecified SNOMED: 080920659 (2) Dysphagia ICD Codes: R13.10 - Dysphagia, unspecified SNOMED: 36743175, [id number] (3) Hypoglycemia ICD Codes: E16.2 - Hypoglycemia, unspecified Assessment/Plan Assessment - Anemia - OB (+) stools - CAD / SC - arrhythmia - ESRD - loose BM - ST evaluation reviewed >> MOIST PUREED AND NECTAR THICK LIQUIDS FOR NOW WITH POSTED ASPIRATION AND REFLUX PRECAUTIONS AND ONE TO ONE FEEDINGS. - Family refused PEG - r/o C Diff - negative Recommendations - supportive care - Monitor CBC - H2B or PPI - Elevate HOB, strict aspiration precautions - EGD/colon at later date, once stable from a cardiac standpoint Subjective ROS Limited/Unobtainable: No Allergies: Coded Allergies: No Known Allergies (Unverified , 05/08/19) Objective Last 24 Hour Vital Signs Date Time Temp Pulse Resp B/P (MAP) Pulse Ox O2 Delivery O2 Flow Rate FiO2 05/19/19 07:50 97.3 78 20 101/39 (59) 93 05/19/19 07:49 95 Nasal Cannula 3.0 32 05/19/19 06:18 74 111/43 05/19/19 04:07 74 05/19/19 04:00 98.0 71 20 111/43 (65) 93 05/19/19 00:00 72 05/19/19 00:00 97.5 60 20 108/39 (62) 94 05/18/19 21:53 75 119/45 05/18/19 21:00 Nasal Cannula 3.0 Nasal Cannula 3.0 05/18/19 20:00 98.6 75 20 119/45 (69) 94 05/18/19 19:49 74 05/18/19 16:00 97.2 74 20 106/43 (64) 97 05/18/19 15:21 74 05/18/19 13:09 74 108/43 05/18/19 12:00 98.1 74 20 108/43 (64) 99 05/18/19 11:43 69 Intake and Output 05/18/19 05/19/19 19:00 07:00 Intake Total 390 ml 100 ml Balance 390 ml 100 ml Intake Oral 390 ml 100 ml # Voids 2 # Bowel Movements 2 2 Laboratory Tests 05/19/19 07:05: White Blood Count 15.1H, Red Blood Count 2.63L, Hemoglobin 8.7L, Hematocrit 27.6L, Mean Corpuscular Volume 105H, Mean Corpuscular Hemoglobin 33.1H, Mean Corpuscular Hemoglobin Concent 31.5L, Red Cell Distribution Width 22.0H, Platelet Count 134L, Mean Platelet Volume 7.4, Neutrophils (%) (Auto) 78.5H, Lymphocytes (%) (Auto) 12.8L, Monocytes (%) (Auto) 5.8, Eosinophils (%) (Auto) 1.8, Basophils (%) (Auto) 1.1, Sodium Level [Pending], Potassium Level [Pending] , Chloride Level [Pending], Carbon Dioxide Level [Pending], Blood Urea Nitrogen [Pending], Creatinine [Pending], Estimat Glomerular Filtration Rate [Pending], Glucose Level [Pending], Calcium Level [Pending], Phosphorus Level [Pending], Magnesium Level [Pending], Total Bilirubin [Pending], Aspartate Amino Transf ( AST/SGOT) [Pending], Alanine Aminotransferase (ALT/SGPT) [Pending], Alkaline Phosphatase [Pending], Total Protein [Pending], Albumin [Pending], Globulin [ Pending] Height (Feet): 4 Height (Inches): 10.00 Weight (Pounds): 156 General Appearance: no apparent distress EENT: normal ENT inspection Neck: supple Cardiovascular: normal rate Respiratory/Chest: decreased breath sounds Abdomen: normal bowel sounds, non tender, soft Extremities: non-tender Andres Palmer MD May 19, 2019 08:24
[2019-05-19 09:24] LABS: ALANINE AMINOTRANSFERASE 22 U/L (12-78); ALBUMIN 1.9 G/DL (3.4-5.0); ALBUMIN/GLOBULIN RATIO 0.3 (1.0-2.7); ALKALINE PHOSPHATASE 146 U/L (46-116); ANION GAP 14 mmol/L (5-15); ASPARTATE AMINO TRANSFERASE 67 U/L (15-37); BILIRUBIN,TOTAL 2.4 MG/DL (0.2-1.0); BLOOD UREA NITROGEN 69 mg/dL (7-18); CARBON DIOXIDE 23 MMOL/L (21-32); CHLORIDE 102 MMOL/L (98-107); CREATININE 7.6 MG/DL (0.55-1.30); PHOSPHORUS 4.7 MG/DL (2.5-4.9); POTASSIUM 4.1 MMOL/L (3.5-5.1); SODIUM 139 MMOL/L (136-145)
[2019-05-19 09:36] LABS: BILIRUBIN,DIRECT 1.6 MG/DL (0.0-0.3)
--- NOTE | 2019-05-19 11:28 | Nephrology Progress Note ---
Assessment/Plan Status: stable, unchanged Assessment/Plan: A/P 1) ESRD- MWF completed session today 2) S/P Cardiac Arrest, EF 55%, stable 3) LE Wounds - Per Gen Surgery and ID - stable 4) Resp FL- Extubated. 5) DVT prophylaxsis with SCDs 6) Anemia- Thrombocytopenia/Diarhhea - per GI mgmt - EPO. Stable 7) Afib RVR- per cardiology. Transfer to [facility] Eating improved. Hold off PEG Patient now DNR/I Subjective Date patient seen: May 19, 2019 Time patient seen: 11:26 ROS Limited/Unobtainable: No Allergies: Coded Allergies: No Known Allergies (Unverified , 05/08/19) Subjective Family at bedside. Patient has been eating better now Objective Last 24 Hour Vital Signs Date Time Temp Pulse Resp B/P (MAP) Pulse Ox O2 Delivery O2 Flow Rate FiO2 05/19/19 09:00 Nasal Cannula 3.0 Nasal Cannula 3.0 05/19/19 08:04 69 05/19/19 07:50 97.3 78 20 101/39 (59) 93 05/19/19 07:49 95 Nasal Cannula 3.0 32 05/19/19 06:18 74 111/43 05/19/19 04:07 74 05/19/19 04:00 98.0 71 20 111/43 (65) 93 05/19/19 00:00 72 05/19/19 00:00 97.5 60 20 108/39 (62) 94 05/18/19 21:53 75 119/45 05/18/19 21:00 Nasal Cannula 3.0 Nasal Cannula 3.0 05/18/19 20:00 98.6 75 20 119/45 (69) 94 05/18/19 19:49 74 05/18/19 16:00 97.2 74 20 106/43 (64) 97 05/18/19 15:21 74 05/18/19 13:09 74 108/43 05/18/19 12:00 98.1 74 20 108/43 (64) 99 05/18/19 11:43 69 Intake and Output 05/18/19 05/19/19 19:00 07:00 Intake Total 390 ml 100 ml Balance 390 ml 100 ml Intake Oral 390 ml 100 ml # Voids 2 # Bowel Movements 2 2 Laboratory Tests 05/19/19 07:05: White Blood Count 15.1H, Red Blood Count 2.63L, Hemoglobin 8.7L, Hematocrit 27.6L, Mean Corpuscular Volume 105H, Mean Corpuscular Hemoglobin 33.1H, Mean Corpuscular Hemoglobin Concent 31.5L, Red Cell Distribution Width 22.0H, Platelet Count 134L, Mean Platelet Volume 7.4, Neutrophils (%) (Auto) 78.5H, Lymphocytes (%) (Auto) 12.8L, Monocytes (%) (Auto) 5.8, Eosinophils (%) (Auto) 1.8, Basophils (%) (Auto) 1.1, Sodium Level 139, Potassium Level 4.1, Chloride Level 102, Carbon Dioxide Level 23, Anion Gap 14, Blood Urea Nitrogen 69H, Creatinine 7.6H, Estimat Glomerular Filtration Rate 5.3, Glucose Level 139H, Calcium Level 9.0, Phosphorus Level 4.7, Magnesium Level 2.1, Total Bilirubin 2.4H, Direct Bilirubin 1.6H, Aspartate Amino Transf (AST/SGOT) 67H, Alanine Aminotransferase (ALT/SGPT) 22, Alkaline Phosphatase 146H, Total Protein 7.5, Albumin 1.9L, Globulin 5.6, Albumin/Globulin Ratio 0.3L Height (Feet): 4 Height (Inches): 10.00 Weight (Pounds): 156 General Appearance: no apparent distress, alert EENT: normal ENT inspection Neck: normal alignment, supple Cardiovascular: normal rate, regular rhythm Respiratory/Chest: lungs clear, normal breath sounds Abdomen: non tender, soft Edema: no edema noted Arm (L), no edema noted Arm (R), no edema noted Leg (L), no edema noted Leg (R), no edema noted Pedal (L), no edema noted Pedal (R), no edema noted Generalized Davdi Zapata MD May 19, 2019 11:28
[2019-05-19 12:00] VITALS: BP 100/40
--- NOTE | 2019-05-19 12:01 | NUR ---
RD ASSESSMENT & RECOMMENDATIONS SEE CARE ACTIVITY FOR COMPLETE ASSESSMENT DAILY ESTIMATED NEEDS: Needs based on Pulmonary, ESRD on HD, wounds; 56.3kg adj 25-35 kcals/kg 7488-1921 total kcals 1.25-1.8 g protein/kg 70-101 g total protein Fluid per MD- on HD NUTRITION DIAGNOSIS: * Increased pro needs r/t wound healing and renal dysfunction AEB pt adm w/ BL heel and sacral DTI (per RN), WC eval pending, w/ ESRD on HD. * Swallowing difficulty r/t respiratory status AEB pt is now extubated w/ s/p BEAM DYER eval, now cleared for soft easy chew texture. CURRENT DIET:regular / soft easy chew + Nepro TID PO DIET RECOMMENDATIONS: Liberalized Regular diet per MD, texture per BEAM DYER ADDITIONAL RECOMMENDATIONS: 1) NEPRO TID w/ meals 2) Wound healing- w/ diet order, add Juan Daniel in 4oz H2O BID + Nephrovite qdaily 3) RE-calibrate1 bedscale wt 4) Consider Kcal count w/ consistently poor po 5) Snacks as tolerated in b/w meals .
[2019-05-19] MEDS ORDERED: Varibar Nectar 240ml MC PRN (13:30)
[2019-05-19] MEDS ORDERED: Varibar Pudding 230ml MC PRN (13:30)
[2019-05-19] MEDS ORDERED: Varibar Honey 250ml MC PRN (13:30)
--- NOTE | 2019-05-19 13:35 | NUR ---
PT EVALUATION NOTE Patient seen for initial evaluation. Patient presents with generalized weakness which impairs patient's ability to perform mobility tasks. Patient requires max assist of 2 people to come to sitting at EOB and to maintain sitting at EOB. Patient unable to stand at this time due to weakness. Patient will benefit from skilled inpatient PT intervention to address strength, balance and safety for improved level of functional mobility. Recommend discharge to SNF for further rehab once medically cleared by MD. Addendum: 05/19/19 at 1417 by HUEY BOLES PT Amended: Links added.
--- NOTE | 2019-05-19 13:44 | NUR ---
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 97.3 HR 78 RR 20 B/P 100/60 3L NC O2 SAT @ 98% IS: PROTONIX IV CARDIZEM PO PT/OT EVAL DOWNGRADE TO MED/SURG MED/SURG STATUS
--- NOTE | 2019-05-19 14:30 | Cardiac Electrophysiology PN ---
Assessment/Plan Assessment/Plan 1. Status post two noninfarctional cardiac arrests and ventricular tachycardia based on 12-lead EKG in this patient with history of coronary artery disease. Troponin elevation only minimal and level flat likely due two CPR in this patient with hemodialysis. Echo EF 50-55% Needs cardiac cath but family don't want any procedures 2. 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 Atrial fib with RVR. Converted to SR. On Cardizem 60 po tid 3. Respiratory failure, extubated. BNP is 17,000. On dialysis. Now DNR and DNI 4. End-stage renal disease, on hemodialysis. 5. Anemia. 6. Dysphagia. Passed Swallow eval 7. High WBC Abx per Dr Claudette PERLA RN Subjective Subjective In SR and Cardizem po.. Just DCed tele. Op report from [facility] that showed CABG x 3 with LOPES to LAD, SVT to PDA SVG to OM in 2010. Objective Last 24 Hour Vital Signs Date Time Temp Pulse Resp B/P (MAP) Pulse Ox O2 Delivery O2 Flow Rate FiO2 05/19/19 13:28 78 100/40 05/19/19 12:00 97.3 78 20 100/40 (60) 93 05/19/19 09:00 Nasal Cannula 3.0 Nasal Cannula 3.0 05/19/19 08:04 69 05/19/19 07:50 97.3 78 20 101/39 (59) 93 05/19/19 07:49 95 Nasal Cannula 3.0 32 05/19/19 06:18 74 111/43 05/19/19 04:07 74 05/19/19 04:00 98.0 71 20 111/43 (65) 93 05/19/19 00:00 72 05/19/19 00:00 97.5 60 20 108/39 (62) 94 05/18/19 21:53 75 119/45 05/18/19 21:00 Nasal Cannula 3.0 Nasal Cannula 3.0 05/18/19 20:00 98.6 75 20 119/45 (69) 94 05/18/19 19:49 74 05/18/19 16:00 97.2 74 20 106/43 (64) 97 05/18/19 15:21 74 Intake and Output 05/18/19 05/19/19 18:59 06:59 Intake Total 390 ml 100 ml Balance 390 ml 100 ml Intake Oral 390 ml 100 ml # Voids 2 # Bowel Movements 2 2 Laboratory Tests Test 05/19/19 07:05 White Blood Count 15.1 K/UL (4.8-10.8) H Red Blood Count 2.63 M/UL (4.20-5.40) L Hemoglobin 8.7 G/DL (12.0-16.0) L Hematocrit 27.6 % (37.0-47.0) L Mean Corpuscular Volume 105 FL (80-99) H Mean Corpuscular Hemoglobin 33.1 PG (27.0-31.0) H Mean Corpuscular Hemoglobin Concent 31.5 G/DL (32.0-36.0) L Red Cell Distribution Width 22.0 % (11.6-14.8) H Platelet Count 134 K/UL (150-450) L Mean Platelet Volume 7.4 FL (6.5-10.1) Neutrophils (%) (Auto) 78.5 % (45.0-75.0) H Lymphocytes (%) (Auto) 12.8 % (20.0-45.0) L Monocytes (%) (Auto) 5.8 % (1.0-10.0) Eosinophils (%) (Auto) 1.8 % (0.0-3.0) Basophils (%) (Auto) 1.1 % (0.0-2.0) Sodium Level 139 MMOL/L (136-145) Potassium Level 4.1 MMOL/L (3.5-5.1) Chloride Level 102 MMOL/L (98-107) Carbon Dioxide Level 23 MMOL/L (21-32) Anion Gap 14 mmol/L (5-15) Blood Urea Nitrogen 69 mg/dL (7-18) H Creatinine 7.6 MG/DL (0.55-1.30) H Estimat Glomerular Filtration Rate 5.3 mL/min (>60) Glucose Level 139 MG/DL (74-106) H Calcium Level 9.0 MG/DL (8.5-10.1) Phosphorus Level 4.7 MG/DL (2.5-4.9) Magnesium Level 2.1 MG/DL (1.8-2.4) Total Bilirubin 2.4 MG/DL (0.2-1.0) H Direct Bilirubin 1.6 MG/DL (0.0-0.3) H Aspartate Amino Transf (AST/SGOT) 67 U/L (15-37) H Alanine Aminotransferase (ALT/SGPT) 22 U/L (12-78) Alkaline Phosphatase 146 U/L (46-116) H Total Protein 7.5 G/DL (6.4-8.2) Albumin 1.9 G/DL (3.4-5.0) L Globulin 5.6 g/dL Albumin/Globulin Ratio 0.3 (1.0-2.7) L Objective HEAD AND NECK: No JVD. LUNGS: Coarse rhonchi. CHEST: Sternotomy scar is healed. CARDIOVASCULAR: Regular S1 and S2 with no gallop. ABDOMEN: Soft. She has a scar from cholecystectomy i EXTREMITIES: Status post left AV shunt. Shawn Robbins MD May 19, 2019 14:30
--- NOTE | 2019-05-19 14:35 | Surgery Progress Note ---
Surgery Progress Note Subjective Additional Comments leukocytosis lft's trending up exam unchanged imaging ordered Objective Last 24 Hour Vital Signs Date Time Temp Pulse Resp B/P (MAP) Pulse Ox O2 Delivery O2 Flow Rate FiO2 05/19/19 13:28 78 100/40 05/19/19 12:00 97.3 78 20 100/40 (60) 93 05/19/19 09:00 Nasal Cannula 3.0 Nasal Cannula 3.0 05/19/19 08:04 69 05/19/19 07:50 97.3 78 20 101/39 (59) 93 05/19/19 07:49 95 Nasal Cannula 3.0 32 05/19/19 06:18 74 111/43 05/19/19 04:07 74 05/19/19 04:00 98.0 71 20 111/43 (65) 93 05/19/19 00:00 72 05/19/19 00:00 97.5 60 20 108/39 (62) 94 05/18/19 21:53 75 119/45 05/18/19 21:00 Nasal Cannula 3.0 Nasal Cannula 3.0 05/18/19 20:00 98.6 75 20 119/45 (69) 94 05/18/19 19:49 74 05/18/19 16:00 97.2 74 20 106/43 (64) 97 05/18/19 15:21 74 I&O Intake and Output 05/18/19 05/19/19 18:59 06:59 Intake Total 390 ml 100 ml Balance 390 ml 100 ml Intake Oral 390 ml 100 ml # Voids 2 # Bowel Movements 2 2 Dressing: other Wound: other Drains: other Cardiovascular: RSR Respiratory: clear, decreased breath sounds Abdomen: soft, non-tender, present bowel sounds, non-distended Extremities: no tenderness, no cyanosis Laboratory Tests Test 05/19/19 07:05 White Blood Count 15.1 K/UL (4.8-10.8) H Red Blood Count 2.63 M/UL (4.20-5.40) L Hemoglobin 8.7 G/DL (12.0-16.0) L Hematocrit 27.6 % (37.0-47.0) L Mean Corpuscular Volume 105 FL (80-99) H Mean Corpuscular Hemoglobin 33.1 PG (27.0-31.0) H Mean Corpuscular Hemoglobin Concent 31.5 G/DL (32.0-36.0) L Red Cell Distribution Width 22.0 % (11.6-14.8) H Platelet Count 134 K/UL (150-450) L Mean Platelet Volume 7.4 FL (6.5-10.1) Neutrophils (%) (Auto) 78.5 % (45.0-75.0) H Lymphocytes (%) (Auto) 12.8 % (20.0-45.0) L Monocytes (%) (Auto) 5.8 % (1.0-10.0) Eosinophils (%) (Auto) 1.8 % (0.0-3.0) Basophils (%) (Auto) 1.1 % (0.0-2.0) Sodium Level 139 MMOL/L (136-145) Potassium Level 4.1 MMOL/L (3.5-5.1) Chloride Level 102 MMOL/L (98-107) Carbon Dioxide Level 23 MMOL/L (21-32) Anion Gap 14 mmol/L (5-15) Blood Urea Nitrogen 69 mg/dL (7-18) H Creatinine 7.6 MG/DL (0.55-1.30) H Estimat Glomerular Filtration Rate 5.3 mL/min (>60) Glucose Level 139 MG/DL (74-106) H Calcium Level 9.0 MG/DL (8.5-10.1) Phosphorus Level 4.7 MG/DL (2.5-4.9) Magnesium Level 2.1 MG/DL (1.8-2.4) Total Bilirubin 2.4 MG/DL (0.2-1.0) H Direct Bilirubin 1.6 MG/DL (0.0-0.3) H Aspartate Amino Transf (AST/SGOT) 67 U/L (15-37) H Alanine Aminotransferase (ALT/SGPT) 22 U/L (12-78) Alkaline Phosphatase 146 U/L (46-116) H Total Protein 7.5 G/DL (6.4-8.2) Albumin 1.9 G/DL (3.4-5.0) L Globulin 5.6 g/dL Albumin/Globulin Ratio 0.3 (1.0-2.7) L Plan Problems: (1) Deep tissue injury Assessment & Plan: Patient presented on admission with a deep tissue injury in the sacral area. Patient was syncopal episode found down. Unknown exact time patient was down and since is suffered a cardiac event requiring resuscitation and ACLS. There is an area of deep tissue injury with erythema in the sacral area extending into the bilateral buttocks butterfly formation. No drainage. No open area. Patient is high risk and susceptible to opening and worsening given her current condition, ICU care, deterioration. We will need to monitor closely and provide aggressive care to ensure healing Air mattress Turn every 2 hours Skin protectant OPTi foam dressing daily and as needed Offload heels with pillows Appreciate nursing care Nutritional support DAILY ESTIMATED NEEDS: Needs based on Critical Care, ESRD on HD, wounds; 56.3kg adj 22- 30 kcals/kg [id number] total kcals 1.25-2 g protein/kg 70-113 g total protein Fluid per MD- on HD NUTRITION DIAGNOSIS: * Increased pro needs r/t wound healing and renal dysfunction AEB pt adm w/ BL heel and sacral DTI (per RN), WC eval pending, w/ ESRD on HD. * Swallowing difficulty r/t respiratory status AEB pt is intubated, currently NPO, pending non oral feeds. CURRENT TF: Per RN Nepro @40ml/hr ENTERAL NUTRITION RECOMMENDATIONS: Nepro @35mL/hr x 24 hrs+ 1 Prosource qdaily to provide 840mL, 1512kcal, 68g pro +11g pro, 611mL free H2O -Obtain GI access, initiate Nepro @15mL/hr, advancing 10mL/hr q 4-6hrs until @ goal. -Provide 1 packet of Prosource- flush with 4oz water -HOB > 30 degrees, Flush per MD ADDITIONAL RECOMMENDATIONS: 1) With prolonged NPO/Intubation- see TF recs as above 2) Wound healing- w/ diet order, add: Juan Daniel in 4oz H2O BID; f/up w/ WC eval 3) Maintain calibrated bedscale wt 4) F/u w/ H&P 5) Feed w/ hemodynamic stability, now off pressor support. (2) Cardiac arrest Assessment & Plan: 61-year-old female multi-medical comorbidities syncopal episode leading to ACLS requiring resuscitation. Currently intensive care unit intubated on ventilatory support Patient is ill-appearing with family at the bedside. Labs noted. Mild elevation troponins. Mild elevated LFTs. Improving since resuscitation current etiology work-up A.m. 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 There is also an old right cerebellar cortical infarct There is age-related enlargement of the ventricles and extra axial CSF spaces. There is periventricular deep white matter low-attenuation, consistent with chronic microvascular ischemic change. The stuart-white differentiation is normal. The calvarium is intact. There is evidence of prior cataract surgery. The sinuses are clear. The mastoids are underpneumatized, otherwise clear. Impression: Chronic and age-related changes Negative for acute intracranial bleed or mass effect, Old infarcts, as described Laron Moreno May 19, 2019 14:35
--- NOTE | 2019-05-19 15:16 | NUR ---
NURSE NOTES: PT X 3RD SOFT BM , CLEANED PATIENT WELL, KEPT DRY , PT LEFT FOR MRI IN STABLE CONDITION RFA 22 G PATENT AND INTACT
--- NOTE | 2019-05-19 15:56 | Diagnostic Imaging Report ---
Indications: Reason For Exam: DYSPHAGIA Technique: Patient ingested multiple substances under the supervision of speech pathology. Video fluoroscopic recording performed. Total fluoroscopy time 285.2 seconds. Total dose area product 0.19591 mGycm2 Total number of images-11 Comparison: none Findings: With all consistencies, no aspiration or penetration demonstrated. Impression: Negative for aspiration or penetration Please refer to speech pathology report for more detailed analysis
[2019-05-19 16:00] VITALS: BP 102/40
--- NOTE | 2019-05-19 17:04 | Infectious Diseases Prog Note ---
Assessment/Plan Assessment/Plan Assessment: Afib with RVR, brief hypotension 05/13 -05/13 Bcx NTD s/p cardiac arrest x2 -CT head: Chronic and age-related changes. Negative for acute intracranial bleed or mass effect, Old infarcts, as described Low grade fever; SP Leukocytosis, recurrent- inreasing -05/16 cdiff neg ?Aspiration PNA -05/17 CXR: Again demonstrated is diffuse bilateral interstitial and airspace edema. There may be a small amount of pleural fluid on the right. Findings are overall unchanged -05/15 SP cx: iris albicans -05/13 CXR: Pulmonary edema, worsened compared to the prior exam. Cardiomegaly. -05/11 CXR:Interstitial edema. This may be slightly improved since the previous da -05/08 CXR: Satisfactory endotracheal intubation. Evidence of bilateral pulmonary edema. Cardiomegaly VDRF; sp extubation 05/11 Hypoglycemia Elevated ALP -Abd US: Nonvisualized gallbladder. Either contracted or surgically absent.Correlate with surgical history. No definite evidence of biliary ductal dilatation. Liver demonstrates diffusely increased echogenicity, consistent with diffuse hepatocellular disease, most likely fatty change. Atrophic bilateral kidneys, consistent with known history of end-stage renal disease HTN ESRD on HD via L arm AVS CAD s/p CABG Plan: -Continue to monitor off abx unless febrile, increasing WBC and/or HD instability -05/17 SP IV Vancomycin #4 -05/16 SP ZOsyn #5 -f/u cx -Monitor CBC/CMP, temperatures -aspiration precautions -f/u Bcx x2 -CBC, CMP am -Bcx x2, u/a w/ reflex -CXR am Thank you for conulting [facility]. Will continue to follow along with you. Discussed with RN. Subjective Allergies: Coded Allergies: No Known Allergies (Unverified , 05/08/19) Subjective afebrile leukocytosis increasing Objective Vital Signs Last 24 Hour Vital Signs Date Time Temp Pulse Resp B/P (MAP) Pulse Ox O2 Delivery O2 Flow Rate FiO2 05/19/19 16:00 97.3 70 20 102/40 (60) 93 05/19/19 13:28 78 100/40 05/19/19 12:00 97.3 78 20 100/40 (60) 93 05/19/19 09:00 Nasal Cannula 3.0 Nasal Cannula 3.0 05/19/19 08:04 69 05/19/19 07:50 97.3 78 20 101/39 (59) 93 05/19/19 07:49 95 Nasal Cannula 3.0 32 05/19/19 06:18 74 111/43 05/19/19 04:07 74 05/19/19 04:00 98.0 71 20 111/43 (65) 93 05/19/19 00:00 72 05/19/19 00:00 97.5 60 20 108/39 (62) 94 05/18/19 21:53 75 119/45 05/18/19 21:00 Nasal Cannula 3.0 Nasal Cannula 3.0 05/18/19 20:00 98.6 75 20 119/45 (69) 94 05/18/19 19:49 74 Height (Feet): 4 Height (Inches): 10.00 Weight (Pounds): 156 Objective GENERAL: The patient is intubated on mechanical ventilation. HEENT: Conjugate eye gaze. No lymphadenopathy. CARDIOVASCULAR: S1, S2. No rubs or gallops. PULMONARY: Mild upper rhonchi. Fair air movement in all [place]. ABDOMEN: Nondistended, nontender. Good bowel sounds. EXTREMITIES: No edema noted. Laboratory Tests Test 05/19/19 07:05 White Blood Count 15.1 K/UL (4.8-10.8) H Red Blood Count 2.63 M/UL (4.20-5.40) L Hemoglobin 8.7 G/DL (12.0-16.0) L Hematocrit 27.6 % (37.0-47.0) L Mean Corpuscular Volume 105 FL (80-99) H Mean Corpuscular Hemoglobin 33.1 PG (27.0-31.0) H Mean Corpuscular Hemoglobin Concent 31.5 G/DL (32.0-36.0) L Red Cell Distribution Width 22.0 % (11.6-14.8) H Platelet Count 134 K/UL (150-450) L Mean Platelet Volume 7.4 FL (6.5-10.1) Neutrophils (%) (Auto) 78.5 % (45.0-75.0) H Lymphocytes (%) (Auto) 12.8 % (20.0-45.0) L Monocytes (%) (Auto) 5.8 % (1.0-10.0) Eosinophils (%) (Auto) 1.8 % (0.0-3.0) Basophils (%) (Auto) 1.1 % (0.0-2.0) Sodium Level 139 MMOL/L (136-145) Potassium Level 4.1 MMOL/L (3.5-5.1) Chloride Level 102 MMOL/L (98-107) Carbon Dioxide Level 23 MMOL/L (21-32) Anion Gap 14 mmol/L (5-15) Blood Urea Nitrogen 69 mg/dL (7-18) H Creatinine 7.6 MG/DL (0.55-1.30) H Estimat Glomerular Filtration Rate 5.3 mL/min (>60) Glucose Level 139 MG/DL (74-106) H Calcium Level 9.0 MG/DL (8.5-10.1) Phosphorus Level 4.7 MG/DL (2.5-4.9) Magnesium Level 2.1 MG/DL (1.8-2.4) Total Bilirubin 2.4 MG/DL (0.2-1.0) H Direct Bilirubin 1.6 MG/DL (0.0-0.3) H Aspartate Amino Transf (AST/SGOT) 67 U/L (15-37) H Alanine Aminotransferase (ALT/SGPT) 22 U/L (12-78) Alkaline Phosphatase 146 U/L (46-116) H Total Protein 7.5 G/DL (6.4-8.2) Albumin 1.9 G/DL (3.4-5.0) L Globulin 5.6 g/dL Albumin/Globulin Ratio 0.3 (1.0-2.7) L Current Medications Medications (Trade) Dose Ordered Sig/Sylwia Route PRN Reason Start Time Stop Time Status Last Admin Dose Admin Acetaminophen (Tylenol) 650 mg Q4H PRN ORAL Mild Pain/Temp > 100.5 05/19/19 16:34 06/13/19 16:33 Atorvastatin Calcium (Lipitor) 40 mg BEDTIME ORAL 05/19/19 21:00 06/16/19 20:59 Barium Sulfate (Varibar Honey) 250 ml NOW PRN RAD 05/19/19 13:30 05/20/19 13:24 Barium Sulfate (Varibar [place]) 240 ml NOW PRN RAD 05/19/19 13:30 05/20/19 13:24 Barium Sulfate (Varibar Pudding) 230 ml NOW PRN RAD 05/19/19 13:30 05/20/19 13:24 Dextrose (Dextrose 50%) 25 ml Q30M PRN IV Hypoglycemia 05/19/19 16:45 06/08/19 08:14 Dextrose (Dextrose 50%) 50 ml Q30M PRN IV Hypoglycemia 05/19/19 16:45 06/08/19 08:14 Diltiazem HCl (Cardizem) 60 mg EVERY 8 HOURS ORAL 05/19/19 22:00 06/13/19 15:59 Epoetin Mohinder (Epoetin Mohinder(ESRD on dialysis)) 10,000 unit WED-WED-WED SUBQ 05/19/19 21:00 06/11/19 20:59 Levothyroxine Sodium (Synthroid) 25 mcg DAILY@0630 ORAL 05/20/19 06:30 06/17/19 06:29 Ondansetron HCl (Zofran) 4 mg Q6H PRN IVP Nausea & Vomiting 05/19/19 16:35 06/15/19 16:34 Pantoprazole (Protonix) 40 mg DAILY IVP 05/20/19 09:00 06/08/19 12:14 Danita Wilkins M.D. May 19, 2019 17:03
--- NOTE | 2019-05-19 17:06 | Diagnostic Imaging Report ---
Indication: Abnormal liver function tests, leukocytosis Technique: Coronal and axial single shot fast spin-echo breath-hold, axial T2 FRFSE, 2-D thick slab MRCP, AXIAL 2-D FIESTA fat saturated, axial 3-D dual echo breath-hold, water weighted axial LAVA FLEX, revealed 3-D MRCP images were obtained of the abdomen. MIP reconstructions were generated of the bile ducts Comparison: No comparison MRCP. Reference made to abdominal sonogram dated 05/14/2019 Findings: Exam is very limited, as numerous sequences are degraded significantly by respiratory motion artifact; per technologist, patient unable to hold her breath. The gallbladder is not visualized. A blind-ending ductal structure projecting anteriorly off of the common bile duct presumably represents a clipped cystic duct. The common bile duct is ectatic, measures up to 9 mm diameter. No downstream obstructive lesion demonstrated. No filling defects demonstrated. No evidence of pancreatic head mass. However, on the axial T2-weighted images, there is suggestion of soft tissue protruding into the duodenal lumen at the level of the ampulla. This is not corroborated on the coronal or any other sequences, however. There is trace fluid within the gallbladder fossa and adjacent to the liver. The pancreatic duct is unremarkable in appearance. The liver is grossly unremarkable. The pancreas, spleen, adrenals are grossly unremarkable. The kidneys are somewhat atrophic. Uterus demonstrates a prominent endocervical canal on the coronal images. The stomach is distended with food and fluid susceptibility artifact from median sternotomy sutures is noted. Impression: Very limited exam, as described. Nonvisualized gallbladder. Suspect prior cholecystectomy, as what appears to be a cystic duct remnant is demonstrated Mildly dilated extra hepatic bile ducts. 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 Correlate with clinical findings, consider ERCP if there is high clinical suspicion Trace free intraperitoneal fluid Atrophic kidneys, consistent with history of renal disease Prominent endocervical canal. Consider further evaluation with pelvic sonography
--- NOTE | 2019-05-19 17:54 | Pulmonology Progress Note ---
Assessment/Plan Assessment/Plan PULMONARY COVERAGE FOR DR. GUTIERREZ IMPRESSION: 1. Non-STEMI --> Cardiac arrest x 2 S/P ROSC, H/O CAD S/P CABG 2. ESRD, on dialysis. 3. Pulmonary edema - RESOLVED 4. Respiratory failure - RESOLVED 5. LE wounds 6. Dysphagia DISCUSSION: -CXR -Optimize pulmonary hygiene/mobilize as tolerated -Titrate down FiO2 to keep SaO2 > 90% -Monitor volumes and renal function, HD per renal with UF as able -PO as able, aspiration precautions -Observe off Abx per ID, monitor WCt -DVT Px: SCD's -DNAR/DNI Subjective Allergies: Coded Allergies: No Known Allergies (Unverified , 05/08/19) Subjective AFVSS on 3L in NSR Less SOB no cough no CP no FC Objective Last 24 Hour Vital Signs Date Time Temp Pulse Resp B/P (MAP) Pulse Ox O2 Delivery O2 Flow Rate FiO2 05/19/19 16:00 97.3 70 20 102/40 (60) 93 05/19/19 13:28 78 100/40 05/19/19 12:00 97.3 78 20 100/40 (60) 93 05/19/19 09:00 Nasal Cannula 3.0 Nasal Cannula 3.0 05/19/19 08:04 69 05/19/19 07:50 97.3 78 20 101/39 (59) 93 05/19/19 07:49 95 Nasal Cannula 3.0 32 05/19/19 06:18 74 111/43 05/19/19 04:07 74 05/19/19 04:00 98.0 71 20 111/43 (65) 93 05/19/19 00:00 72 05/19/19 00:00 97.5 60 20 108/39 (62) 94 05/18/19 21:53 75 119/45 05/18/19 21:00 Nasal Cannula 3.0 Nasal Cannula 3.0 05/18/19 20:00 98.6 75 20 119/45 (69) 94 05/18/19 19:49 74 Intake and Output 05/18/19 05/19/19 18:59 06:59 Intake Total 390 ml 100 ml Balance 390 ml 100 ml Intake Oral 390 ml 100 ml # Voids 2 # Bowel Movements 2 2 General Appearance: WD/WN, no acute distress HEENT: normocephalic, atraumatic, anicteric, mucous membranes moist Respiratory/Chest: chest wall non-tender, lungs clear, normal breath sounds, no respiratory distress, no accessory muscle use Cardiovascular: normal peripheral pulses, normal rate, regular rhythm Abdomen: normal bowel sounds, soft, non tender, no organomegaly, non distended , no mass Extremities: no cyanosis, no clubbing, no edema Laboratory Tests 05/19/19 07:05: White Blood Count 15.1H, Red Blood Count 2.63L, Hemoglobin 8.7L, Hematocrit 27.6L, Mean Corpuscular Volume 105H, Mean Corpuscular Hemoglobin 33.1H, Mean Corpuscular Hemoglobin Concent 31.5L, Red Cell Distribution Width 22.0H, Platelet Count 134L, Mean Platelet Volume 7.4, Neutrophils (%) (Auto) 78.5H, Lymphocytes (%) (Auto) 12.8L, Monocytes (%) (Auto) 5.8, Eosinophils (%) (Auto) 1.8, Basophils (%) (Auto) 1.1, Sodium Level 139, Potassium Level 4.1, Chloride Level 102, Carbon Dioxide Level 23, Anion Gap 14, Blood Urea Nitrogen 69H, Creatinine 7.6H, Estimat Glomerular Filtration Rate 5.3, Glucose Level 139H, Calcium Level 9.0, Phosphorus Level 4.7, Magnesium Level 2.1, Total Bilirubin 2.4H, Direct Bilirubin 1.6H, Aspartate Amino Transf (AST/SGOT) 67H, Alanine Aminotransferase (ALT/SGPT) 22, Alkaline Phosphatase 146H, Total Protein 7.5, Albumin 1.9L, Globulin 5.6, Albumin/Globulin Ratio 0.3L Current Medications Medications (Trade) Dose Ordered Sig/Sylwia Route PRN Reason Start Time Stop Time Status Last Admin Dose Admin Acetaminophen (Tylenol) 650 mg Q4H PRN ORAL Mild Pain/Temp > 100.5 05/19/19 16:34 06/13/19 16:33 Atorvastatin Calcium (Lipitor) 40 mg BEDTIME ORAL 05/19/19 21:00 06/16/19 20:59 Barium Sulfate (Varibar Honey) 250 ml NOW PRN RAD 05/19/19 13:30 05/20/19 13:24 Barium Sulfate (Varibar [place]) 240 ml NOW PRN RAD 05/19/19 13:30 05/20/19 13:24 Barium Sulfate (Varibar Pudding) 230 ml NOW PRN MC RAD 05/19/19 13:30 05/20/19 13:24 Dextrose (Dextrose 50%) 25 ml Q30M PRN IV Hypoglycemia 05/19/19 16:45 06/08/19 08:14 Dextrose (Dextrose 50%) 50 ml Q30M PRN IV Hypoglycemia 05/19/19 16:45 06/08/19 08:14 Diltiazem HCl (Cardizem) 60 mg EVERY 8 HOURS ORAL 05/19/19 22:00 06/13/19 15:59 Epoetin Mohinder (Epoetin Mohinder(ESRD on dialysis)) 10,000 unit WED-WED-WED SUBQ 05/19/19 21:00 06/11/19 20:59 Levothyroxine Sodium (Synthroid) 25 mcg DAILY@0630 ORAL 05/20/19 06:30 06/17/19 06:29 Ondansetron HCl (Zofran) 4 mg Q6H PRN IVP Nausea & Vomiting 05/19/19 16:35 06/15/19 16:34 Pantoprazole (Protonix) 40 mg DAILY IVP 05/20/19 09:00 06/08/19 12:14 Julio Montes MD May 19, 2019 17:54
--- NOTE | 2019-05-19 19:02 | NUR ---
NURSE NOTES: Changed sacral dressing.
--- NOTE | 2019-05-19 19:20 | NUR ---
NURSE NOTES: Received pt sleeping in bed, on NC 2L. IV site intact. AV shunt on MALVIN intact. No c/o pain, no acute distress noted at this time. Bed locked, lowest position, alarm on, side rails up, call light within reach. Will continue to monitor.
--- NOTE | 2019-05-19 19:46 | NUR ---
HAND-OFF: Report given to BINH Campos. Addendum: 05/19/19 at 1947 by JOYCE KNAPP RN RN Endorsed downloading bilateral heel; photos to BINH Campos.
[2019-05-19 20:00] VITALS: BP 107/41
[2019-05-19] MEDS ORDERED: Epoetin Alfa-EPBX(ESRD on dialysis)10,000 unit/ml vial SUBQ SCH (21:00)
[2019-05-19] MEDS: Atorvastatin 20mg tab ORAL SCH (21:12)
[2019-05-19] MEDS: Epoetin Alfa-EPBX(ESRD on dialysis)10,000 unit/ml vial SUBQ SCH (21:12)
[2019-05-20] VITALS: BP 105/40
[2019-05-20 04:00] VITALS: BP 110/40
[2019-05-20] MEDS: dilTIAZem HCl 60mg tab ORAL SCH ×3 (06:00→22:00)
[2019-05-20] MEDS: Levothyroxine 25mcg tab ORAL SCH (06:20)
--- NOTE | 2019-05-20 06:42 | General Progress Note ---
Assessment/Plan Status: stable, unchanged Assessment/Plan: Assessment/Plan Problems: (1) Anemia ICD Codes: D64.9 - Anemia, unspecified SNOMED: 037653127 (2) Dysphagia ICD Codes: R13.10 - Dysphagia, unspecified SNOMED: 21942036, 798148165 (3) Hypoglycemia ICD Codes: E16.2 - Hypoglycemia, unspecified Assessment/Plan Assessment - Anemia - OB (+) stools - CAD / [place] - arrhythmia - ESRD - loose BM - ST evaluation reviewed >> MOIST PUREED AND NECTAR THICK LIQUIDS FOR NOW WITH POSTED ASPIRATION AND REFLUX PRECAUTIONS AND ONE TO ONE FEEDINGS. - Family refused PEG - r/o C Diff - negative Recommendations - supportive care - Monitor CBC - H2B or PPI - Elevate HOB, strict aspiration precautions - EGD/colon at later date, once stable from a cardiac standpoint -add remeron -eating better will hold PEG for now Subjective Allergies: Coded Allergies: No Known Allergies (Unverified , 05/08/19) Objective Last 24 Hour Vital Signs Date Time Temp Pulse Resp B/P (MAP) Pulse Ox O2 Delivery O2 Flow Rate FiO2 05/20/19 06:00 70 110/40 05/20/19 04:00 96.2 70 16 110/40 (63) 97 05/20/19 00:00 98.0 74 21 105/40 (61) 95 05/19/19 21:16 79 107/41 05/19/19 21:00 Nasal Cannula 2.0 Nasal Cannula 2.0 05/19/19 20:00 98.8 79 22 107/41 (63) 96 05/19/19 19:54 96 Nasal Cannula 2.0 28 05/19/19 16:00 97.3 70 20 102/40 (60) 93 05/19/19 13:28 78 100/40 05/19/19 12:00 97.3 78 20 100/40 (60) 93 05/19/19 09:00 Nasal Cannula 3.0 Nasal Cannula 3.0 05/19/19 08:04 69 05/19/19 07:50 97.3 78 20 101/39 (59) 93 05/19/19 07:49 95 Nasal Cannula 3.0 32 Intake and Output 05/19/19 05/20/19 19:00 07:00 Intake Total 300 ml Output Total 1500 ml Balance -1200 ml Intake Oral 300 ml Hemodialysis UF 1500 ml # Bowel Movements 3 2 Laboratory Tests 05/19/19 07:05: White Blood Count 15.1H, Red Blood Count 2.63L, Hemoglobin 8.7L, Hematocrit 27.6L, Mean Corpuscular Volume 105H, Mean Corpuscular Hemoglobin 33.1H, Mean Corpuscular Hemoglobin Concent 31.5L, Red Cell Distribution Width 22.0H, Platelet Count 134L, Mean Platelet Volume 7.4, Neutrophils (%) (Auto) 78.5H, Lymphocytes (%) (Auto) 12.8L, Monocytes (%) (Auto) 5.8, Eosinophils (%) (Auto) 1.8, Basophils (%) (Auto) 1.1, Sodium Level 139, Potassium Level 4.1, Chloride Level 102, Carbon Dioxide Level 23, Anion Gap 14, Blood Urea Nitrogen 69H, Creatinine 7.6H, Estimat Glomerular Filtration Rate 5.3, Glucose Level 139H, Calcium Level 9.0, Phosphorus Level 4.7, Magnesium Level 2.1, Total Bilirubin 2.4H, Direct Bilirubin 1.6H, Aspartate Amino Transf (AST/SGOT) 67H, Alanine Aminotransferase (ALT/SGPT) 22, Alkaline Phosphatase 146H, Total Protein 7.5, Albumin 1.9L, Globulin 5.6, Albumin/Globulin Ratio 0.3L Height (Feet): 4 Height (Inches): 10.00 Weight (Pounds): 165 General Appearance: alert Neck: supple Cardiovascular: normal rate Respiratory/Chest: decreased breath sounds Abdomen: normal bowel sounds, non tender, soft Extremities: non-tender Andres Palmer MD May 20, 2019 06:42
--- NOTE | 2019-05-20 07:50 | NUR ---
HAND-OFF: Report given to BINH Mcguire.
[2019-05-20 08:00] VITALS: BP 98/45
[2019-05-20] MEDS: Pantoprazole Inj IVP SCH (08:29)
[2019-05-20 08:57] LABS: BASOPHILS % (AUTO) 0.8 % (0.0-2.0); EOSINOPHILS % (AUTO) 1.7 % (0.0-3.0); HEMATOCRIT 28.9 % (37.0-47.0); LYMPHOCYTES % (AUTO) 16.1 % (20.0-45.0); MEAN CORPUSCULAR VOLUME 107 FL (80-99); MONOCYTES % (AUTO) 5.7 % (1.0-10.0); NEUTROPHILS % (AUTO) 75.7 % (45.0-75.0); PLATELET COUNT 112 K/UL (150-450); RED CELL DISTRIBUTION WIDTH 22.8 % (11.6-14.8); WHITE BLOOD COUNT 13.8 K/UL (4.8-10.8)
[2019-05-20 09:01] LABS: INR 1.4 (0.9-1.1)
[2019-05-20 09:29] LABS: ALANINE AMINOTRANSFERASE 19 U/L (12-78); ALBUMIN 1.9 G/DL (3.4-5.0); ALBUMIN/GLOBULIN RATIO 0.3 (1.0-2.7); ALKALINE PHOSPHATASE 135 U/L (46-116); AMYLASE 74 U/L (25-115); ANION GAP 13 mmol/L (5-15); ASPARTATE AMINO TRANSFERASE 56 U/L (15-37); BILIRUBIN,TOTAL 2.5 MG/DL (0.2-1.0); BLOOD UREA NITROGEN 51 mg/dL (7-18); CALCIUM 9.1 MG/DL (8.5-10.1); CARBON DIOXIDE 25 MMOL/L (21-32); CHLORIDE 102 MMOL/L (98-107); CREATININE 5.5 MG/DL (0.55-1.30); POTASSIUM 3.8 MMOL/L (3.5-5.1); SODIUM 140 MMOL/L (136-145)
[2019-05-20 09:35] LABS: BILIRUBIN,DIRECT 1.8 MG/DL (0.0-0.3)
--- NOTE | 2019-05-20 09:46 | Pulmonology Progress Note ---
Assessment/Plan Assessment/Plan IMPRESSION: 1. Non-STEMI. 2. ESRD, on dialysis. 3. Pulmonary edema. Resolved; latest CXR improved 4. Respiratory failure. Resolved DISCUSSION: 1. Continue current care 2. Agree with current medications and care. 3. Decreased Fio2; now on 2L/min O2 5, Transferred to floor 4. The patient will need dialysis per renal. 5. Rate control per cardiology Remigio Raza M.D. Subjective Interval Events: None new reported Constitutional: Reports: no symptoms HEENT: Repors: no symptoms Respiratory: Reports: no symptoms Cardiovascular: Reports: no symptoms Gastrointestinal/Abdominal: Reports: no symptoms Genitourinary: Reports: no symptoms Allergies: Coded Allergies: No Known Allergies (Unverified , 05/08/19) Objective Last 24 Hour Vital Signs Date Time Temp Pulse Resp B/P (MAP) Pulse Ox O2 Delivery O2 Flow Rate FiO2 05/20/19 08:00 96.6 72 17 98/45 (62) 99 05/20/19 06:00 70 110/40 05/20/19 04:00 96.2 70 16 110/40 (63) 97 05/20/19 00:00 98.0 74 21 105/40 (61) 95 05/19/19 21:16 79 107/41 05/19/19 21:00 Nasal Cannula 2.0 Nasal Cannula 2.0 05/19/19 20:00 98.8 79 22 107/41 (63) 96 05/19/19 19:54 96 Nasal Cannula 2.0 28 05/19/19 16:00 97.3 70 20 102/40 (60) 93 05/19/19 13:28 78 100/40 05/19/19 12:00 97.3 78 20 100/40 (60) 93 Intake and Output 05/19/19 05/20/19 19:00 07:00 Intake Total 300 ml 415 ml Output Total 1500 ml 1500 ml Balance -1200 ml -1085 ml Intake Oral 300 ml 300 ml Free Water 50 ml Tube Feeding 35 ml Other 30 ml Output Urine Total 0 ml Hemodialysis UF 1500 ml 1500 ml # Bowel Movements 3 4 General Appearance: no acute distress HEENT: normocephalic Respiratory/Chest: chest wall non-tender, lungs clear Cardiovascular: normal peripheral pulses, normal rate Abdomen: normal bowel sounds Laboratory Tests 05/20/19 06:05: White Blood Count 13.8H, Red Blood Count 2.70L, Hemoglobin 9.0L, Hematocrit 28.9L, Mean Corpuscular Volume 107H, Mean Corpuscular Hemoglobin 33.2H, Mean Corpuscular Hemoglobin Concent 31.1L, Red Cell Distribution Width 22.8H, Platelet Count 112L, Mean Platelet Volume 8.9, Neutrophils (%) (Auto) 75.7H, Lymphocytes (%) (Auto) 16.1L, Monocytes (%) (Auto) 5.7, Eosinophils (%) (Auto) 1.7, Basophils (%) (Auto) 0.8, Erythrocyte Sedimentation Rate [Pending], Prothrombin Time 14.4H, Prothromb Time International Ratio 1.4H, Activated Partial Thromboplast Time 32, Sodium Level 140, Potassium Level 3.8, Chloride Level 102, Carbon Dioxide Level 25, Anion Gap 13, Blood Urea Nitrogen 51H, Creatinine 5.5H, Estimat Glomerular Filtration Rate 7.7, Glucose Level 134H, Calcium Level 9.1, Total Bilirubin 2.5H, Direct Bilirubin 1.8H, Aspartate Amino Transf (AST/SGOT) 56H, Alanine Aminotransferase (ALT/SGPT) 19, Alkaline Phosphatase 135H, C-Reactive Protein, Quantitative 11.9H, Total Protein 7.7, Albumin 1.9L, Globulin 5.8, Albumin/Globulin Ratio 0.3L, Amylase Level 74, Lipase 296 Current Medications Medications (Trade) Dose Ordered Sig/Sylwia Route PRN Reason Start Time Stop Time Status Last Admin Dose Admin Acetaminophen (Tylenol) 650 mg Q4H PRN ORAL Mild Pain/Temp > 100.5 05/19/19 16:34 06/13/19 16:33 05/19/19 18:41 Atorvastatin Calcium (Lipitor) 40 mg BEDTIME ORAL 05/19/19 21:00 06/16/19 20:59 05/19/19 21:12 Barium Sulfate (Varibar Honey) 250 ml NOW PRN RAD 05/19/19 13:30 05/20/19 13:24 Barium Sulfate (Varibar Blackburn) 240 ml NOW PRN RAD 05/19/19 13:30 05/20/19 13:24 Barium Sulfate (Varibar Pudding) 230 ml NOW PRN MC RAD 05/19/19 13:30 05/20/19 13:24 Dextrose (Dextrose 50%) 25 ml Q30M PRN IV Hypoglycemia 05/19/19 16:45 06/08/19 08:14 Dextrose (Dextrose 50%) 50 ml Q30M PRN IV Hypoglycemia 05/19/19 16:45 06/08/19 08:14 Diltiazem HCl (Cardizem) 60 mg EVERY 8 HOURS ORAL 05/19/19 22:00 06/13/19 15:59 Epoetin Mohinder (Epoetin Mohinder(ESRD on dialysis)) 10,000 unit -WED SUBQ 05/19/19 21:00 06/11/19 20:59 05/19/19 21:12 Levothyroxine Sodium (Synthroid) 25 mcg DAILY@0630 ORAL 05/20/19 06:30 06/17/19 06:29 05/20/19 06:20 Mirtazapine (Remeron) 15 mg BEDTIME ORAL 05/20/19 21:00 06/19/19 20:59 Ondansetron HCl (Zofran) 4 mg Q6H PRN IVP Nausea & Vomiting 05/19/19 16:35 06/15/19 16:34 Pantoprazole (Protonix) 40 mg DAILY IVP 05/20/19 09:00 06/08/19 12:14 05/20/19 08:29 Remigio Raza MD May 20, 2019 09:46
[2019-05-20 12:00] VITALS: BP 110/42
--- NOTE | 2019-05-20 12:01 | Nephrology Progress Note ---
Assessment/Plan Status: stable, unchanged Assessment/Plan: A/P 1) ESRD- MWF 2) S/P Cardiac Arrest, EF 55%, stable 3) LE Wounds - Per Gen Surgery and ID - stable 4) DVT prophylaxsis with SCDs 5) Anemia- Thrombocytopenia/Diarhhea. Per GI - EPO. Stable 7) Afib RVR- per cardiology. Transfer to [facility] Awaiting family decision on SNF vs HH Patient now DNR/I Subjective Date patient seen: May 20, 2019 Time patient seen: 11:59 ROS Limited/Unobtainable: No Allergies: Coded Allergies: No Known Allergies (Unverified , 05/08/19) Subjective Patient improved. DC soon Objective Last 24 Hour Vital Signs Date Time Temp Pulse Resp B/P (MAP) Pulse Ox O2 Delivery O2 Flow Rate FiO2 05/20/19 08:00 96.6 72 17 98/45 (62) 99 05/20/19 06:00 70 110/40 05/20/19 04:00 96.2 70 16 110/40 (63) 97 05/20/19 00:00 98.0 74 21 105/40 (61) 95 05/19/19 21:16 79 107/41 05/19/19 21:00 Nasal Cannula 2.0 Nasal Cannula 2.0 05/19/19 20:00 98.8 79 22 107/41 (63) 96 05/19/19 19:54 96 Nasal Cannula 2.0 28 05/19/19 16:00 97.3 70 20 102/40 (60) 93 05/19/19 13:28 78 100/40 05/19/19 12:00 97.3 78 20 100/40 (60) 93 Intake and Output 05/19/19 05/20/19 19:00 07:00 Intake Total 300 ml 415 ml Output Total 1500 ml 1500 ml Balance -1200 ml -1085 ml Intake Oral 300 ml 300 ml Free Water 50 ml Tube Feeding 35 ml Other 30 ml Output Urine Total 0 ml Hemodialysis UF 1500 ml 1500 ml # Bowel Movements 3 4 Laboratory Tests 05/20/19 06:05: White Blood Count 13.8H, Red Blood Count 2.70L, Hemoglobin 9.0L, Hematocrit 28.9L, Mean Corpuscular Volume 107H, Mean Corpuscular Hemoglobin 33.2H, Mean Corpuscular Hemoglobin Concent 31.1L, Red Cell Distribution Width 22.8H, Platelet Count 112L, Mean Platelet Volume 8.9, Neutrophils (%) (Auto) 75.7H, Lymphocytes (%) (Auto) 16.1L, Monocytes (%) (Auto) 5.7, Eosinophils (%) (Auto) 1.7, Basophils (%) (Auto) 0.8, Erythrocyte Sedimentation Rate 69H, Prothrombin Time 14.4H, Prothromb Time International Ratio 1.4H, Activated Partial Thromboplast Time 32, Sodium Level 140, Potassium Level 3.8, Chloride Level 102 , Carbon Dioxide Level 25, Anion Gap 13, Blood Urea Nitrogen 51H, Creatinine 5.5H, Estimat Glomerular Filtration Rate 7.7, Glucose Level 134H, Calcium Level 9.1, Total Bilirubin 2.5H, Direct Bilirubin 1.8H, Aspartate Amino Transf (AST/ SGOT) 56H, Alanine Aminotransferase (ALT/SGPT) 19, Alkaline Phosphatase 135H, C- Reactive Protein, Quantitative 11.9H, Total Protein 7.7, Albumin 1.9L, Globulin 5.8, Albumin/Globulin Ratio 0.3L, Amylase Level 74, Lipase 296 Height (Feet): 4 Height (Inches): 10.00 Weight (Pounds): 165 General Appearance: no apparent distress, alert EENT: normal ENT inspection Neck: normal alignment, supple Cardiovascular: normal rate, regular rhythm Respiratory/Chest: lungs clear, normal breath sounds Abdomen: non tender, soft Edema: no edema noted Arm (L), no edema noted Arm (R), no edema noted Leg (L), no edema noted Leg (R), no edema noted Pedal (L), no edema noted Pedal (R), no edema noted Generalized David Zapata MD May 20, 2019 12:01
--- NOTE | 2019-05-20 14:27 | Surgery Progress Note ---
Surgery Progress Note Subjective Additional Comments leukocytosis trending down labs improved exam stable Objective Last 24 Hour Vital Signs Date Time Temp Pulse Resp B/P (MAP) Pulse Ox O2 Delivery O2 Flow Rate FiO2 05/20/19 12:00 97.3 69 17 110/42 (64) 96 05/20/19 09:00 Nasal Cannula 3.0 Nasal Cannula 2.0 05/20/19 08:00 96.6 72 17 98/45 (62) 99 05/20/19 06:00 70 110/40 05/20/19 04:00 96.2 70 16 110/40 (63) 97 05/20/19 00:00 98.0 74 21 105/40 (61) 95 05/19/19 21:16 79 107/41 05/19/19 21:00 Nasal Cannula 2.0 Nasal Cannula 2.0 05/19/19 20:00 98.8 79 22 107/41 (63) 96 05/19/19 19:54 96 Nasal Cannula 2.0 28 05/19/19 16:00 97.3 70 20 102/40 (60) 93 I&O Intake and Output 05/19/19 05/20/19 19:00 07:00 Intake Total 300 ml 415 ml Output Total 1500 ml 1500 ml Balance -1200 ml -1085 ml Intake Oral 300 ml 300 ml Free Water 50 ml Tube Feeding 35 ml Other 30 ml Output Urine Total 0 ml Hemodialysis UF 1500 ml 1500 ml # Bowel Movements 3 4 Dressing: other Wound: other Drains: other Cardiovascular: RSR Respiratory: decreased breath sounds Abdomen: soft, present bowel sounds Extremities: no cyanosis Laboratory Tests Test 05/20/19 06:05 White Blood Count 13.8 K/UL (4.8-10.8) H Red Blood Count 2.70 M/UL (4.20-5.40) L Hemoglobin 9.0 G/DL (12.0-16.0) L Hematocrit 28.9 % (37.0-47.0) L Mean Corpuscular Volume 107 FL (80-99) H Mean Corpuscular Hemoglobin 33.2 PG (27.0-31.0) H Mean Corpuscular Hemoglobin Concent 31.1 G/DL (32.0-36.0) L Red Cell Distribution Width 22.8 % (11.6-14.8) H Platelet Count 112 K/UL (150-450) L Mean Platelet Volume 8.9 FL (6.5-10.1) Neutrophils (%) (Auto) 75.7 % (45.0-75.0) H Lymphocytes (%) (Auto) 16.1 % (20.0-45.0) L Monocytes (%) (Auto) 5.7 % (1.0-10.0) Eosinophils (%) (Auto) 1.7 % (0.0-3.0) Basophils (%) (Auto) 0.8 % (0.0-2.0) Erythrocyte Sedimentation Rate 69 MM/HR (0-30) H Prothrombin Time 14.4 SEC (9.30-11.50) H Prothromb Time International Ratio 1.4 (0.9-1.1) H Activated Partial Thromboplast Time 32 SEC (23-33) Sodium Level 140 MMOL/L (136-145) Potassium Level 3.8 MMOL/L (3.5-5.1) Chloride Level 102 MMOL/L (98-107) Carbon Dioxide Level 25 MMOL/L (21-32) Anion Gap 13 mmol/L (5-15) Blood Urea Nitrogen 51 mg/dL (7-18) H Creatinine 5.5 MG/DL (0.55-1.30) H Estimat Glomerular Filtration Rate 7.7 mL/min (>60) Glucose Level 134 MG/DL (74-106) H Calcium Level 9.1 MG/DL (8.5-10.1) Total Bilirubin 2.5 MG/DL (0.2-1.0) H Direct Bilirubin 1.8 MG/DL (0.0-0.3) H Aspartate Amino Transf (AST/SGOT) 56 U/L (15-37) H Alanine Aminotransferase (ALT/SGPT) 19 U/L (12-78) Alkaline Phosphatase 135 U/L (46-116) H C-Reactive Protein, Quantitative 11.9 mg/dL (0.00-0.90) H Total Protein 7.7 G/DL (6.4-8.2) Albumin 1.9 G/DL (3.4-5.0) L Globulin 5.8 g/dL Albumin/Globulin Ratio 0.3 (1.0-2.7) L Amylase Level 74 U/L (25-115) Lipase 296 U/L (73-393) Plan Problems: (1) Deep tissue injury Assessment & Plan: Patient presented on admission with a deep tissue injury in the sacral area. Patient was syncopal episode found down. Unknown exact time patient was down and since is suffered a cardiac event requiring resuscitation and ACLS. There is an area of deep tissue injury with erythema in the sacral area extending into the bilateral buttocks butterfly formation. No drainage. No open area. Patient is high risk and susceptible to opening and worsening given her current condition, ICU care, deterioration. We will need to monitor closely and provide aggressive care to ensure healing Air mattress Turn every 2 hours Skin protectant OPTi foam dressing daily and as needed Offload heels with pillows Appreciate nursing care Nutritional support DAILY ESTIMATED NEEDS: Needs based on Critical Care, ESRD on HD, wounds; 56.3kg adj 22- 30 kcals/kg [id number] total kcals 1.25-2 g protein/kg 70-113 g total protein Fluid per MD- on HD NUTRITION DIAGNOSIS: * Increased pro needs r/t wound healing and renal dysfunction AEB pt adm w/ BL heel and sacral DTI (per RN), WC eval pending, w/ ESRD on HD. * Swallowing difficulty r/t respiratory status AEB pt is intubated, currently NPO, pending non oral feeds. CURRENT TF: Per RN Nepro @40ml/hr ENTERAL NUTRITION RECOMMENDATIONS: Nepro @35mL/hr x 24 hrs+ 1 Prosource qdaily to provide 840mL, 1512kcal, 68g pro +11g pro, 611mL free H2O -Obtain GI access, initiate Nepro @15mL/hr, advancing 10mL/hr q 4-6hrs until @ goal. -Provide 1 packet of Prosource- flush with 4oz water -HOB > 30 degrees, Flush per MD ADDITIONAL RECOMMENDATIONS: 1) With prolonged NPO/Intubation- see TF recs as above 2) Wound healing- w/ diet order, add: Juan Daniel in 4oz H2O BID; f/up w/ WC eval 3) Maintain calibrated bedscale wt 4) F/u w/ H&P 5) Feed w/ hemodynamic stability, now off pressor support. (2) Cardiac arrest Assessment & Plan: 61-year-old female multi-medical comorbidities syncopal episode leading to ACLS requiring resuscitation. Currently intensive care unit intubated on ventilatory support Patient is ill-appearing with family at the bedside. Labs noted. Mild elevation troponins. Mild elevated LFTs. Improving since resuscitation current etiology work-up A.m. 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 There is also an old right cerebellar cortical infarct There is age-related enlargement of the ventricles and extra axial CSF spaces. There is periventricular deep white matter low-attenuation, consistent with chronic microvascular ischemic change. The stuart-white differentiation is normal. The calvarium is intact. There is evidence of prior cataract surgery. The sinuses are clear. The mastoids are underpneumatized, otherwise clear. Impression: Chronic and age-related changes Negative for acute intracranial bleed or mass effect, Old infarcts, as described Laron Moreno May 20, 2019 14:27
[2019-05-20 16:00] VITALS: BP 99/72
--- NOTE | 2019-05-20 16:39 | NUR ---
NURSE NOTES: PT WITH 1 EPISODE OF LOOSE STOOL. SACRAL DRESSING CHANGED. TRIAD CREAM APPLIED TO PERINEAL, PERIANAL AND ABDOMINAL FOLDS. PT WAS REPOSITIONED AND PLACED IN SEMI-BOWERS'S POSITION. IN NO APPARENT DISTRESS AT THIS TIME. BED IN LOWEST POSITION AND BEDSIDE RAILS X3 RAISED. BED ALARM ON. WILL CONTINUE TO MONITOR .
--- NOTE | 2019-05-20 18:45 | NUR ---
NURSE NOTES: FAMILY AT BEDSIDE. PER DR ROWE, HE WOULD LIKE TO SPEAK TO FAMILY REGARDING PLACEMENT TO SNF. RN PROVIDED FAMILY WITH DR ROWE'S OFFICE NUMBER TO CONTACT. PT IN NO APPARENT DISTRESS. WILL CONTINUE TO MONITOR.
--- NOTE | 2019-05-20 19:15 | NUR ---
NURSE NOTES: Received report from RN Maynor, patient a/o1 , breaths even regular unlabored at 2L NC , no i.v fluids, family by the bed side , denies any pain will continue to monitor
--- NOTE | 2019-05-20 19:31 | NUR ---
HAND-OFF: Report given to Bee CORTEZ RN.
[2019-05-20 20:00] VITALS: BP 108/41
[2019-05-20] MEDS: Atorvastatin 20mg tab ORAL SCH (21:10)
[2019-05-21] VITALS: BP 99/53
[2019-05-21 04:00] VITALS: BP 103/46
[2019-05-21] MEDS: dilTIAZem HCl 60mg tab ORAL SCH ×3 (06:00→22:12)
[2019-05-21] MEDS: Levothyroxine 25mcg tab ORAL SCH (07:06)
--- NOTE | 2019-05-21 07:23 | General Progress Note ---
Assessment/Plan Status: stable, unchanged Assessment/Plan: Assessment/Plan Problems: (1) Anemia ICD Codes: D64.9 - Anemia, unspecified SNOMED: 708311973 (2) Dysphagia ICD Codes: R13.10 - Dysphagia, unspecified SNOMED: 88015208, 101826249 (3) Hypoglycemia ICD Codes: E16.2 - Hypoglycemia, unspecified Assessment/Plan Assessment - Anemia - OB (+) stools - CAD / [place] - arrhythmia - ESRD - loose BM - ST evaluation reviewed >> MOIST PUREED AND NECTAR THICK LIQUIDS FOR NOW WITH POSTED ASPIRATION AND REFLUX PRECAUTIONS AND ONE TO ONE FEEDINGS. - Family refused PEG - r/o C Diff - negative Recommendations - supportive care - Monitor CBC - H2B or PPI - Elevate HOB, strict aspiration precautions - EGD/colon at later date, once stable from a cardiac standpoint -on remeron -eating better will hold PEG for now Subjective ROS Limited/Unobtainable: No Allergies: Coded Allergies: No Known Allergies (Unverified , 05/08/19) Objective Last 24 Hour Vital Signs Date Time Temp Pulse Resp B/P (MAP) Pulse Ox O2 Delivery O2 Flow Rate FiO2 05/21/19 06:00 80 97/42 05/21/19 04:00 98.2 79 19 103/46 (65) 95 05/21/19 00:00 98.8 98 19 99/53 (68) 95 05/20/19 22:00 79 108/41 05/20/19 21:00 Nasal Cannula 2.0 Nasal Cannula 2.0 05/20/19 20:00 98.2 79 18 108/41 (63) 93 05/20/19 16:00 97.1 73 18 99/72 (81) 98 05/20/19 14:00 69 110/42 05/20/19 12:00 97.3 69 17 110/42 (64) 96 05/20/19 09:00 Nasal Cannula 3.0 Nasal Cannula 2.0 05/20/19 08:00 96.6 72 17 98/45 (62) 99 Intake and Output 05/20/19 05/21/19 19:00 07:00 Intake Total 720 ml Output Total 1 ml Balance 719 ml Intake Oral 720 ml Output Urine Total 1 ml # Voids 2 2 # Bowel Movements 1 3 Height (Feet): 4 Height (Inches): 10.00 Weight (Pounds): 155 General Appearance: alert EENT: normal ENT inspection Neck: supple Cardiovascular: normal rate Respiratory/Chest: decreased breath sounds Abdomen: normal bowel sounds, non tender, soft Extremities: non-tender Andres Palmer MD May 21, 2019 07:23
--- NOTE | 2019-05-21 07:44 | NUR ---
HAND-OFF: Report given to BINH Rahman.
--- NOTE | 2019-05-21 07:57 | NUR ---
HAND-OFF: Report given to BINH Guevara.
[2019-05-21 08:00] VITALS: BP 107/48
--- NOTE | 2019-05-21 08:00 | NUR ---
NURSE NOTES: received patient in bed, asleep, no sign of respiratory distress on 2L 02/min NC. Patient has SL right hand IV access and MALVIN AV shunt for HD. Patient is bedbound. Bed locked at the lowest position possible, call light within easy reach, siderails up x2. Will continue to monitor patient and follow up with the of plan of care.
[2019-05-21] MEDS: Pantoprazole Inj IVP SCH (09:12)
--- NOTE | 2019-05-21 10:19 | Nephrology Progress Note ---
Assessment/Plan Status: stable, unchanged Assessment/Plan: A/P 1) ESRD- MWF 2) S/P Cardiac Arrest, EF 55%, stable 3) LE Wounds - Per Gen Surgery and ID - stable 4) DVT prophylaxsis with SCDs 5) Anemia- Thrombocytopenia/Diarhhea. Per GI - EPO. Stable 6) Afib RVR- per cardiology. Patient now DNR/I Subjective Date patient seen: May 21, 2019 Time patient seen: 10:15 ROS Limited/Unobtainable: No Allergies: Coded Allergies: No Known Allergies (Unverified , 05/08/19) Subjective Patient improved. Family request [facility] Objective Last 24 Hour Vital Signs Date Time Temp Pulse Resp B/P (MAP) Pulse Ox O2 Delivery O2 Flow Rate FiO2 05/21/19 08:00 97.7 82 19 107/48 (67) 96 05/21/19 07:35 96 Nasal Cannula 2.0 28 05/21/19 06:00 80 97/42 05/21/19 04:00 98.2 79 19 103/46 (65) 95 05/21/19 00:00 98.8 98 19 99/53 (68) 95 05/20/19 22:00 79 108/41 05/20/19 21:00 Nasal Cannula 2.0 Nasal Cannula 2.0 05/20/19 20:00 98.2 79 18 108/41 (63) 93 05/20/19 16:00 97.1 73 18 99/72 (81) 98 05/20/19 14:00 69 110/42 05/20/19 12:00 97.3 69 17 110/42 (64) 96 Intake and Output 05/20/19 05/21/19 19:00 07:00 Intake Total 720 ml Output Total 1 ml Balance 719 ml Intake Oral 720 ml Output Urine Total 1 ml # Voids 2 2 # Bowel Movements 1 3 Height (Feet): 4 Height (Inches): 10.00 Weight (Pounds): 155 General Appearance: no apparent distress, alert EENT: normal ENT inspection Cardiovascular: normal rate, regular rhythm Respiratory/Chest: lungs clear, normal breath sounds Abdomen: non tender, soft David Zapata MD May 21, 2019 10:18
--- NOTE | 2019-05-21 10:35 | Pulmonology Progress Note ---
Assessment/Plan Assessment/Plan IMPRESSION: 1. Non-STEMI. 2. ESRD, on dialysis. 3. Pulmonary edema. Resolved; latest CXR improved 4. Respiratory failure. Resolved DISCUSSION: 1. Continue current care 2. Agree with current medications and care. 3. Decreased Fio2; now on 2L/min O2 5, Transferred to floor 4. The patient will need dialysis per renal. 5. Rate control per cardiology Remigio Raza M.D. Subjective Interval Events: None new Constitutional: Reports: no symptoms HEENT: Repors: no symptoms Respiratory: Reports: no symptoms Cardiovascular: Reports: no symptoms Gastrointestinal/Abdominal: Reports: no symptoms Genitourinary: Reports: no symptoms Allergies: Coded Allergies: No Known Allergies (Unverified , 05/08/19) Objective Last 24 Hour Vital Signs Date Time Temp Pulse Resp B/P (MAP) Pulse Ox O2 Delivery O2 Flow Rate FiO2 05/21/19 08:00 97.7 82 19 107/48 (67) 96 05/21/19 07:35 96 Nasal Cannula 2.0 28 05/21/19 06:00 80 97/42 05/21/19 04:00 98.2 79 19 103/46 (65) 95 05/21/19 00:00 98.8 98 19 99/53 (68) 95 05/20/19 22:00 79 108/41 05/20/19 21:00 Nasal Cannula 2.0 Nasal Cannula 2.0 05/20/19 20:00 98.2 79 18 108/41 (63) 93 05/20/19 16:00 97.1 73 18 99/72 (81) 98 05/20/19 14:00 69 110/42 05/20/19 12:00 97.3 69 17 110/42 (64) 96 Intake and Output 05/20/19 05/21/19 19:00 07:00 Intake Total 720 ml Output Total 1 ml Balance 719 ml Intake Oral 720 ml Output Urine Total 1 ml # Voids 2 2 # Bowel Movements 1 3 General Appearance: no acute distress HEENT: normocephalic Respiratory/Chest: chest wall non-tender, lungs clear Cardiovascular: normal peripheral pulses Abdomen: normal bowel sounds Microbiology Date/Time Source Procedure Growth Status 05/19/19 18:20 Blood Blood Culture - Preliminary NO GROWTH AFTER 24 HOURS Resulted 05/19/19 18:05 Blood Blood Culture - Preliminary NO GROWTH AFTER 24 HOURS Resulted Current Medications Medications (Trade) Dose Ordered Sig/Sylwia Route PRN Reason Start Time Stop Time Status Last Admin Dose Admin Acetaminophen (Tylenol) 650 mg Q4H PRN ORAL Mild Pain/Temp > 100.5 05/19/19 16:34 06/13/19 16:33 05/19/19 18:41 Atorvastatin Calcium (Lipitor) 40 mg BEDTIME ORAL 05/19/19 21:00 06/16/19 20:59 05/20/19 21:10 Dextrose (Dextrose 50%) 25 ml Q30M PRN IV Hypoglycemia 05/19/19 16:45 06/08/19 08:14 Dextrose (Dextrose 50%) 50 ml Q30M PRN IV Hypoglycemia 05/19/19 16:45 06/08/19 08:14 Diltiazem HCl (Cardizem) 60 mg EVERY 8 HOURS ORAL 05/19/19 22:00 06/13/19 15:59 Epoetin Mohinder (Epoetin Mohinder(ESRD on dialysis)) 10,000 unit WED-WED-WED SUBQ 05/19/19 21:00 06/11/19 20:59 05/19/19 21:12 Levothyroxine Sodium (Synthroid) 25 mcg DAILY@0630 ORAL 05/20/19 06:30 06/17/19 06:29 05/21/19 07:06 Mirtazapine (Remeron) 15 mg BEDTIME ORAL 05/20/19 21:00 06/19/19 20:59 05/20/19 21:10 Ondansetron HCl (Zofran) 4 mg Q6H PRN IVP Nausea & Vomiting 05/19/19 16:35 06/15/19 16:34 Pantoprazole (Protonix) 40 mg DAILY IVP 05/20/19 09:00 06/08/19 12:14 05/21/19 09:12 Remigio Raza MD May 21, 2019 10:35
--- NOTE | 2019-05-21 11:10 | NUR ---
NURSE NOTES: Called [facility] regarding HD scheduled for tomorrow. Spoken to Conrad. Awaiting call back.
[2019-05-21 12:00] VITALS: BP 100/38
--- NOTE | 2019-05-21 13:38 | Infectious Diseases Prog Note ---
Assessment/Plan Assessment/Plan Assessment: Afib with RVR, brief hypotension 05/13 s/p cardiac arrest x2 -CT head: Chronic and age-related changes. Negative for acute intracranial bleed or mass effect, Old infarcts, as described Low grade fever; SP Leukocytosis, recurrent- improving -05/20 CXR p -05/19 Bcx NTD -05/16 cdiff neg -05/13 Bcx Neg ?Aspiration PNA -05/17 CXR: Again demonstrated is diffuse bilateral interstitial and airspace edema. There may be a small amount of pleural fluid on the right. Findings are overall unchanged -05/15 SP cx: iris albicans -05/13 CXR: Pulmonary edema, worsened compared to the prior exam. Cardiomegaly. -05/11 CXR:Interstitial edema. This may be slightly improved since the previous da -05/08 CXR: Satisfactory endotracheal intubation. Evidence of bilateral pulmonary edema. Cardiomegaly VDRF; sp extubation 05/11 Hypoglycemia Elevated ALP -MRCP: Very limited exam, as described. Nonvisualized gallbladder. Suspect prior cholecystectomy, as what appears to be a cystic duct remnant is demonstrated. Mildly dilated extra hepatic bile ducts. 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 Correlate with clinical findings, consider ERCP if there is high clinical suspicion. Trace free intraperitoneal fluid. Atrophic kidneys, consistent with history of renal disease. Prominent endocervical canal. Consider further evaluation with pelvic sonography -Abd US: Nonvisualized gallbladder. Either contracted or surgically absent.Correlate with surgical history. No definite evidence of biliary ductal dilatation. Liver demonstrates diffusely increased echogenicity, consistent with diffuse hepatocellular disease, most likely fatty change. Atrophic bilateral kidneys, consistent with known history of end-stage renal disease HTN ESRD on HD via L arm AVS CAD s/p CABG Plan: -Continue to monitor off abx unless febrile, increasing WBC and/or HD instability -05/17 SP IV Vancomycin #4 -05/16 SP ZOsyn #5 -f/u cx -Monitor CBC/CMP, temperatures -aspiration precautions -f/u Bcx x2 -f/u CXR Thank you for conulting [facility]. Will continue to follow along with you. Discussed with RN. Subjective Allergies: Coded Allergies: No Known Allergies (Unverified , 05/08/19) Subjective afebrile leukocytosis improving Objective Vital Signs Last 24 Hour Vital Signs Date Time Temp Pulse Resp B/P (MAP) Pulse Ox O2 Delivery O2 Flow Rate FiO2 05/21/19 09:00 Nasal Cannula 2.0 Nasal Cannula 2.0 05/21/19 08:00 97.7 82 19 107/48 (67) 96 05/21/19 07:35 96 Nasal Cannula 2.0 28 05/21/19 06:00 80 97/42 05/21/19 04:00 98.2 79 19 103/46 (65) 95 05/21/19 00:00 98.8 98 19 99/53 (68) 95 05/20/19 22:00 79 108/41 05/20/19 21:00 Nasal Cannula 2.0 Nasal Cannula 2.0 05/20/19 20:00 98.2 79 18 108/41 (63) 93 05/20/19 16:00 97.1 73 18 99/72 (81) 98 05/20/19 14:00 69 110/42 Height (Feet): 4 Height (Inches): 10.00 Weight (Pounds): 155 Objective GENERAL: The patient is intubated on mechanical ventilation. HEENT: Conjugate eye gaze. No lymphadenopathy. CARDIOVASCULAR: S1, S2. No rubs or gallops. PULMONARY: Mild upper rhonchi. Fair air movement in all pisano. ABDOMEN: Nondistended, nontender. Good bowel sounds. EXTREMITIES: No edema noted. Microbiology Date/Time Source Procedure Growth Status 05/19/19 18:20 Blood Blood Culture - Preliminary NO GROWTH AFTER 24 HOURS Resulted 05/19/19 18:05 Blood Blood Culture - Preliminary NO GROWTH AFTER 24 HOURS Resulted Current Medications Medications (Trade) Dose Ordered Sig/Sylwia Route PRN Reason Start Time Stop Time Status Last Admin Dose Admin Acetaminophen (Tylenol) 650 mg Q4H PRN ORAL Mild Pain/Temp > 100.5 05/19/19 16:34 06/13/19 16:33 05/19/19 18:41 Atorvastatin Calcium (Lipitor) 40 mg BEDTIME ORAL 05/19/19 21:00 06/16/19 20:59 05/20/19 21:10 Dextrose (Dextrose 50%) 25 ml Q30M PRN IV Hypoglycemia 05/19/19 16:45 06/08/19 08:14 Dextrose (Dextrose 50%) 50 ml Q30M PRN IV Hypoglycemia 05/19/19 16:45 06/08/19 08:14 Diltiazem HCl (Cardizem) 60 mg EVERY 8 HOURS ORAL 05/19/19 22:00 06/13/19 15:59 Epoetin Mohinder (Epoetin Mohinder(ESRD on dialysis)) 10,000 unit WED- SUBQ 05/19/19 21:00 06/11/19 20:59 05/19/19 21:12 Levothyroxine Sodium (Synthroid) 25 mcg DAILY@0630 ORAL 05/20/19 06:30 06/17/19 06:29 05/21/19 07:06 Mirtazapine (Remeron) 15 mg BEDTIME ORAL 05/20/19 21:00 06/19/19 20:59 05/20/19 21:10 Ondansetron HCl (Zofran) 4 mg Q6H PRN IVP Nausea & Vomiting 05/19/19 16:35 06/15/19 16:34 Pantoprazole (Protonix) 40 mg DAILY IVP 05/20/19 09:00 06/08/19 12:14 05/21/19 09:12 Danita Wilkins M.D. May 21, 2019 13:38
--- NOTE | 2019-05-21 15:02 | Surgery Progress Note ---
Surgery Progress Note Subjective Additional Comments no acute events family at bedside states she is comfortable but still confused Objective Last 24 Hour Vital Signs Date Time Temp Pulse Resp B/P (MAP) Pulse Ox O2 Delivery O2 Flow Rate FiO2 05/21/19 14:00 71 100/38 05/21/19 12:00 97.7 71 18 100/38 (58) 98 05/21/19 09:00 Nasal Cannula 2.0 Nasal Cannula 2.0 05/21/19 08:00 97.7 82 19 107/48 (67) 96 05/21/19 07:35 96 Nasal Cannula 2.0 28 05/21/19 06:00 80 97/42 05/21/19 04:00 98.2 79 19 103/46 (65) 95 05/21/19 00:00 98.8 98 19 99/53 (68) 95 05/20/19 22:00 79 108/41 05/20/19 21:00 Nasal Cannula 2.0 Nasal Cannula 2.0 05/20/19 20:00 98.2 79 18 108/41 (63) 93 05/20/19 16:00 97.1 73 18 99/72 (81) 98 I&O Intake and Output 05/20/19 05/21/19 19:00 07:00 Intake Total 720 ml Output Total 1 ml Balance 719 ml Intake Oral 720 ml Output Urine Total 1 ml # Voids 2 2 # Bowel Movements 1 3 Dressing: dry Wound: clean Drains: other Cardiovascular: RSR Respiratory: clear Abdomen: soft, non-tender, present bowel sounds Extremities: no tenderness, no cyanosis, other Plan Problems: (1) Deep tissue injury Assessment & Plan: Patient presented on admission with a deep tissue injury in the sacral area. Patient was syncopal episode found down. Unknown exact time patient was down and since is suffered a cardiac event requiring resuscitation and ACLS. There is an area of deep tissue injury with erythema in the sacral area extending into the bilateral buttocks butterfly formation. No drainage. No open area. Patient is high risk and susceptible to opening and worsening given her current condition, ICU care, deterioration. We will need to monitor closely and provide aggressive care to ensure healing Air mattress Turn every 2 hours Skin protectant OPTi foam dressing daily and as needed Offload heels with pillows Appreciate nursing care Nutritional support DAILY ESTIMATED NEEDS: Needs based on Critical Care, ESRD on HD, wounds; 56.3kg adj 22- 30 kcals/kg 4142-5334 total kcals 1.25-2 g protein/kg 70-113 g total protein Fluid per MD- on HD NUTRITION DIAGNOSIS: * Increased pro needs r/t wound healing and renal dysfunction AEB pt adm w/ BL heel and sacral DTI (per RN), WC eval pending, w/ ESRD on HD. * Swallowing difficulty r/t respiratory status AEB pt is intubated, currently NPO, pending non oral feeds. CURRENT TF: Per RN Nepro @40ml/hr ENTERAL NUTRITION RECOMMENDATIONS: Nepro @35mL/hr x 24 hrs+ 1 Prosource qdaily to provide 840mL, 1512kcal, 68g pro +11g pro, 611mL free H2O -Obtain GI access, initiate Nepro @15mL/hr, advancing 10mL/hr q 4-6hrs until @ goal. -Provide 1 packet of Prosource- flush with 4oz water -HOB > 30 degrees, Flush per MD ADDITIONAL RECOMMENDATIONS: 1) With prolonged NPO/Intubation- see TF recs as above 2) Wound healing- w/ diet order, add: Juan Daniel in 4oz H2O BID; f/up w/ WC eval 3) Maintain calibrated bedscale wt 4) F/u w/ H&P 5) Feed w/ hemodynamic stability, now off pressor support. (2) Cardiac arrest Assessment & Plan: 61-year-old female multi-medical comorbidities syncopal episode leading to ACLS requiring resuscitation. Currently intensive care unit intubated on ventilatory support Patient is ill-appearing with family at the bedside. Labs noted. Mild elevation troponins. Mild elevated LFTs. Improving since resuscitation current etiology work-up A.m. 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 There is also an old right cerebellar cortical infarct There is age-related enlargement of the ventricles and extra axial CSF spaces. There is periventricular deep white matter low-attenuation, consistent with chronic microvascular ischemic change. The stuart-white differentiation is normal. The calvarium is intact. There is evidence of prior cataract surgery. The sinuses are clear. The mastoids are underpneumatized, otherwise clear. Impression: Chronic and age-related changes Negative for acute intracranial bleed or mass effect, Old infarcts, as described Laron Moreno May 21, 2019 15:02
[2019-05-21 16:00] VITALS: BP 94/46
--- NOTE | 2019-05-21 19:35 | NUR ---
HAND-OFF: Report given to BINH Campos.
[2019-05-21 20:00] VITALS: BP 144/82
--- NOTE | 2019-05-21 20:00 | NUR ---
NURSE NOTES: received patient in bed, on nasal canula 2L/min. no s/s of acute distress noted. left upper arm AV shunt for HD present. call light within reach. bed is the lowest position. will continue to provide plan of care.
[2019-05-21] MEDS: Atorvastatin 20mg tab ORAL SCH (22:12)
[2019-05-22] VITALS: BP 103/59
[2019-05-22 04:00] VITALS: BP 110/42
[2019-05-22] MEDS: dilTIAZem HCl 60mg tab ORAL SCH ×3 (05:54→21:26)
[2019-05-22] MEDS: Levothyroxine 25mcg tab ORAL SCH (05:55)
--- NOTE | 2019-05-22 07:46 | NUR ---
HAND-OFF: Report given to Charmaine PURCELL.
[2019-05-22 08:00] VITALS: BP 103/40
--- NOTE | 2019-05-22 08:47 | Nephrology Progress Note ---
Assessment/Plan Status: stable, unchanged Assessment/Plan: A/P 1) ESRD- MWF 2) S/P Cardiac Arrest, EF 55%, stable 3) LE Wounds - Per Gen Surgery and ID - stable. Continue wound care 4) DVT prophylaxsis with SCDs 5) Anemia- Thrombocytopenia/Diarhhea. Per GI - EPO. Stable 6) Afib RVR- per cardiology. DC to Rehab once arranged Subjective Date patient seen: May 22, 2019 Time patient seen: 08:41 ROS Limited/Unobtainable: No Allergies: Coded Allergies: No Known Allergies (Unverified , 05/08/19) Subjective Patient resting. No overt distress. Still with loose stools Objective Last 24 Hour Vital Signs Date Time Temp Pulse Resp B/P (MAP) Pulse Ox O2 Delivery O2 Flow Rate FiO2 05/22/19 05:54 58 102/45 05/22/19 04:00 97.4 100 23 110/42 (64) 95 05/22/19 00:00 98.4 75 21 103/59 (74) 95 05/21/19 22:12 88 144/82 05/21/19 21:00 Nasal Cannula 2.0 Nasal Cannula 2.0 05/21/19 20:00 97 Nasal Cannula 2.0 28 05/21/19 20:00 98.8 78 21 144/82 (102) 95 05/21/19 16:00 97.5 78 20 94/46 (62) 93 05/21/19 15:36 97.7 05/21/19 14:00 71 100/38 05/21/19 12:00 97.7 71 18 100/38 (58) 98 05/21/19 09:00 Nasal Cannula 2.0 Nasal Cannula 2.0 Intake and Output 05/21/19 05/22/19 19:00 07:00 Intake Total 840 ml 710 ml Output Total 3002 ml Balance 840 ml -2292 ml Intake Oral 840 ml 480 ml Free Water 100 ml Tube Feeding 70 ml Other 60 ml Output Urine Total 2 ml Hemodialysis UF 3000 ml # Voids 1 6 # Bowel Movements 5 5 Height (Feet): 4 Height (Inches): 10.00 Weight (Pounds): 155 General Appearance: no apparent distress, alert EENT: normal ENT inspection Neck: normal alignment, supple Cardiovascular: normal rate, regular rhythm Respiratory/Chest: lungs clear, normal breath sounds Abdomen: non tender, soft Edema: no edema noted Arm (L), no edema noted Arm (R), no edema noted Leg (L), no edema noted Leg (R), no edema noted Pedal (L), no edema noted Pedal (R), no edema noted Generalized David Zapata MD May 22, 2019 08:47
[2019-05-22] MEDS: Pantoprazole Inj IVP SCH (09:02)
--- NOTE | 2019-05-22 10:00 | NUR ---
NURSE NOTES: Patient presenting perineal and perianal excoriation and light bleeding. Daughter Kat Jerome was applying Barmicil Compuesto Cream composed of Betamethasone, clotrimazole and gentamicin. Nurse told daughter she was not supposed to use products not ordered by dr/provided by nurse from hospital, during patient hospitalization. Daughter said that she doesn't think the cream ordered and applied by nurses were not helping, and her cream was better. Notified dr. dhaliwal, ANGELA Reeves and Claudine Ocasio interim program development manager. Addendum: 05/22/19 at 1940 by JUANITO ROMERO RN daughter was alsp applying corn starch on patient's open wounds in abdominal folds. Nurse also told daughter that that was not appropriate, by daughter still insisted on using it on her mother.
--- NOTE | 2019-05-22 10:00 | Pulmonology Progress Note ---
Assessment/Plan Assessment/Plan IMPRESSION: 1. Non-STEMI. 2. ESRD, on dialysis. 3. Pulmonary edema. Resolved; latest CXR improved 4. Respiratory failure. Resolved DISCUSSION: 1. Continue current care 2. Agree with current medications and care. 3. Decreased Fio2; now on 2L/min O2 5, Transferred to floor 4. The patient will need dialysis per renal. 5. Rate control per cardiology Remigio Raza M.D. Subjective Interval Events: None new Constitutional: Reports: no symptoms HEENT: Repors: no symptoms Respiratory: Reports: no symptoms Cardiovascular: Reports: no symptoms Gastrointestinal/Abdominal: Reports: no symptoms Allergies: Coded Allergies: No Known Allergies (Unverified , 05/08/19) Objective Last 24 Hour Vital Signs Date Time Temp Pulse Resp B/P (MAP) Pulse Ox O2 Delivery O2 Flow Rate FiO2 05/22/19 05:54 58 102/45 05/22/19 04:00 97.4 100 23 110/42 (64) 95 05/22/19 00:00 98.4 75 21 103/59 (74) 95 05/21/19 22:12 88 144/82 05/21/19 21:00 Nasal Cannula 2.0 Nasal Cannula 2.0 05/21/19 20:00 97 Nasal Cannula 2.0 28 05/21/19 20:00 98.8 78 21 144/82 (102) 95 05/21/19 16:00 97.5 78 20 94/46 (62) 93 05/21/19 15:36 97.7 05/21/19 14:00 71 100/38 05/21/19 12:00 97.7 71 18 100/38 (58) 98 Intake and Output 05/21/19 05/22/19 19:00 07:00 Intake Total 840 ml 710 ml Output Total 3002 ml Balance 840 ml -2292 ml Intake Oral 840 ml 480 ml Free Water 100 ml Tube Feeding 70 ml Other 60 ml Output Urine Total 2 ml Hemodialysis UF 3000 ml # Voids 1 6 # Bowel Movements 5 5 General Appearance: no acute distress HEENT: normocephalic Respiratory/Chest: chest wall non-tender, lungs clear Cardiovascular: normal peripheral pulses, normal rate Microbiology Date/Time Source Procedure Growth Status 05/19/19 18:20 Blood Blood Culture - Preliminary NO GROWTH AFTER 48 HOURS Resulted 05/19/19 18:05 Blood Blood Culture - Preliminary NO GROWTH AFTER 48 HOURS Resulted Current Medications Medications (Trade) Dose Ordered Sig/Sylwia Route PRN Reason Start Time Stop Time Status Last Admin Dose Admin Acetaminophen (Tylenol) 650 mg Q4H PRN ORAL Mild Pain/Temp > 100.5 05/19/19 16:34 06/13/19 16:33 05/21/19 15:06 Atorvastatin Calcium (Lipitor) 40 mg BEDTIME ORAL 05/19/19 21:00 06/16/19 20:59 05/21/19 22:12 Dextrose (Dextrose 50%) 25 ml Q30M PRN IV Hypoglycemia 05/19/19 16:45 06/08/19 08:14 Dextrose (Dextrose 50%) 50 ml Q30M PRN IV Hypoglycemia 05/19/19 16:45 06/08/19 08:14 Diltiazem HCl (Cardizem) 60 mg EVERY 8 HOURS ORAL 05/19/19 22:00 06/13/19 15:59 05/21/19 22:12 Epoetin Mohinder (Epoetin Mohinder(ESRD on dialysis)) 10,000 unit WED-WED-WED SUBQ 05/19/19 21:00 06/11/19 20:59 05/19/19 21:12 Levothyroxine Sodium (Synthroid) 25 mcg DAILY@0630 ORAL 05/20/19 06:30 06/17/19 06:29 05/22/19 05:55 Mirtazapine (Remeron) 15 mg BEDTIME ORAL 05/20/19 21:00 06/19/19 20:59 05/21/19 22:13 Ondansetron HCl (Zofran) 4 mg Q6H PRN IVP Nausea & Vomiting 05/19/19 16:35 06/15/19 16:34 Pantoprazole (Protonix) 40 mg DAILY IVP 05/20/19 09:00 06/08/19 12:14 05/22/19 09:02 Remigio Raza MD May 22, 2019 10:00
--- NOTE | 2019-05-22 11:23 | Infectious Diseases Prog Note ---
Assessment/Plan Assessment/Plan Assessment: Afib with RVR, brief hypotension 05/13 s/p cardiac arrest x2 -CT head: Chronic and age-related changes. Negative for acute intracranial bleed or mass effect, Old infarcts, as described Low grade fever; SP Leukocytosis, recurrent- improving -05/20 CXR p -05/19 Bcx NTD -05/16 cdiff neg -05/13 Bcx Neg ?Aspiration PNA -05/17 CXR: Again demonstrated is diffuse bilateral interstitial and airspace edema. There may be a small amount of pleural fluid on the right. Findings are overall unchanged -05/15 SP cx: iris albicans -05/13 CXR: Pulmonary edema, worsened compared to the prior exam. Cardiomegaly. -05/11 CXR:Interstitial edema. This may be slightly improved since the previous da -05/08 CXR: Satisfactory endotracheal intubation. Evidence of bilateral pulmonary edema. Cardiomegaly VDRF; sp extubation 05/11 Hypoglycemia Elevated ALP -MRCP: Very limited exam, as described. Nonvisualized gallbladder. Suspect prior cholecystectomy, as what appears to be a cystic duct remnant is demonstrated. Mildly dilated extra hepatic bile ducts. 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 Correlate with clinical findings, consider ERCP if there is high clinical suspicion. Trace free intraperitoneal fluid. Atrophic kidneys, consistent with history of renal disease. Prominent endocervical canal. Consider further evaluation with pelvic sonography -Abd US: Nonvisualized gallbladder. Either contracted or surgically absent.Correlate with surgical history. No definite evidence of biliary ductal dilatation. Liver demonstrates diffusely increased echogenicity, consistent with diffuse hepatocellular disease, most likely fatty change. Atrophic bilateral kidneys, consistent with known history of end-stage renal disease HTN ESRD on HD via L arm AVS CAD s/p CABG Plan: -Continue to monitor off abx unless febrile, increasing WBC or HD instability -05/17 SP IV Vancomycin #4 -05/16 SP ZOsyn #5 -f/u cx -Monitor CBC/CMP, temperatures -aspiration precautions -f/u Bcx x2 -f/u CXR Thank you for conulting [facility]. Will continue to follow along with you. Discussed with RN. Subjective Allergies: Coded Allergies: No Known Allergies (Unverified , 05/08/19) Subjective Afebrile WBCs coming down a little 15 to 14 Objective Vital Signs Last 24 Hour Vital Signs Date Time Temp Pulse Resp B/P (MAP) Pulse Ox O2 Delivery O2 Flow Rate FiO2 05/22/19 08:00 98.2 77 18 103/40 (61) 93 05/22/19 05:54 58 102/45 05/22/19 04:00 97.4 100 23 110/42 (64) 95 05/22/19 00:00 98.4 75 21 103/59 (74) 95 05/21/19 22:12 88 144/82 05/21/19 21:00 Nasal Cannula 2.0 Nasal Cannula 2.0 05/21/19 20:00 97 Nasal Cannula 2.0 28 05/21/19 20:00 98.8 78 21 144/82 (102) 95 05/21/19 16:00 97.5 78 20 94/46 (62) 93 05/21/19 15:36 97.7 05/21/19 14:00 71 100/38 05/21/19 12:00 97.7 71 18 100/38 (58) 98 Height (Feet): 4 Height (Inches): 10.00 Weight (Pounds): 155 Objective GENERAL: NAD on 2/ HEENT: NCAT, MMM, PERRL. CARDIOVASCULAR: S1, S2. No rubs or gallops. PULMONARY: Coarse B/L ABDOMEN: Nondistended, nontender. Good bowel sounds. Microbiology Date/Time Source Procedure Growth Status 05/19/19 18:20 Blood Blood Culture - Preliminary NO GROWTH AFTER 48 HOURS Resulted 05/19/19 18:05 Blood Blood Culture - Preliminary NO GROWTH AFTER 48 HOURS Resulted Current Medications Medications (Trade) Dose Ordered Sig/Sylwia Route PRN Reason Start Time Stop Time Status Last Admin Dose Admin Acetaminophen (Tylenol) 650 mg Q4H PRN ORAL Mild Pain/Temp > 100.5 05/19/19 16:34 06/13/19 16:33 05/22/19 11:11 Atorvastatin Calcium (Lipitor) 40 mg BEDTIME ORAL 05/19/19 21:00 06/16/19 20:59 05/21/19 22:12 Dextrose (Dextrose 50%) 25 ml Q30M PRN IV Hypoglycemia 05/19/19 16:45 06/08/19 08:14 Dextrose (Dextrose 50%) 50 ml Q30M PRN IV Hypoglycemia 05/19/19 16:45 06/08/19 08:14 Diltiazem HCl (Cardizem) 60 mg EVERY 8 HOURS ORAL 05/19/19 22:00 06/13/19 15:59 05/21/19 22:12 Epoetin Mohinder (Epoetin Mohinder(ESRD on dialysis)) 10,000 unit SUBQ 05/19/19 21:00 06/11/19 20:59 05/19/19 21:12 Levothyroxine Sodium (Synthroid) 25 mcg DAILY@0630 ORAL 05/20/19 06:30 06/17/19 06:29 05/22/19 05:55 Mirtazapine (Remeron) 15 mg BEDTIME ORAL 05/20/19 21:00 06/19/19 20:59 05/21/19 22:13 Ondansetron HCl (Zofran) 4 mg Q6H PRN IVP Nausea & Vomiting 05/19/19 16:35 06/15/19 16:34 Pantoprazole (Protonix) 40 mg DAILY IVP 05/20/19 09:00 06/08/19 12:14 05/22/19 09:02 Eduardo Good MD May 22, 2019 11:23
--- NOTE | 2019-05-22 11:29 | NUR ---
*-* DISCHARGE PLANNING *-* PATIENT HAS BEEN REFERRED TO: [facility] P: [phone] F: [phone] EMAIL: [email or web address] Addendum: 05/22/19 at 1333 by BOB ACUNA Sachin [facility] HAS ACCEPTED THE PATIENT TO [facility]
[2019-05-22 12:00] VITALS: BP 110/50
--- NOTE | 2019-05-22 13:00 | NUR ---
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 97.4 HR 100 RR 23 B/P 110/42 WBC 13.8 IS: PROTONIX IV SYNTHROID IV DC PLANNING TO SNF MED/SURG STATUS
--- NOTE | 2019-05-22 13:14 | NUR ---
*-* CASE MANAGEMENT NOTES*-* [facility] [address], [place] [address] P: [phone] SHARE TIME 4:45AM T,TH&SAT
--- NOTE | 2019-05-22 15:15 | NUR ---
NURSE NOTES: Done change of dressing to sacral DTI, and perineal and perianal excoriation with bleeding, also open wound at abdominal folds. Reported to WCN Lala regarding daughter using Barmicil cream to perianal and perineal area, and corn starch to abdominal, inguinal folds.
[2019-05-22 16:00] VITALS: BP 110/49
--- NOTE | 2019-05-22 16:09 | Surgery Progress Note ---
Surgery Progress Note Subjective Additional Comments no acute events stable Objective Last 24 Hour Vital Signs Date Time Temp Pulse Resp B/P (MAP) Pulse Ox O2 Delivery O2 Flow Rate FiO2 05/22/19 14:00 80 110/50 05/22/19 12:00 98.5 80 18 110/50 (70) 94 05/22/19 11:41 97.4 05/22/19 08:00 98.2 77 18 103/40 (61) 93 05/22/19 05:54 58 102/45 05/22/19 04:00 97.4 100 23 110/42 (64) 95 05/22/19 00:00 98.4 75 21 103/59 (74) 95 05/21/19 22:12 88 144/82 05/21/19 21:00 Nasal Cannula 2.0 Nasal Cannula 2.0 05/21/19 20:00 97 Nasal Cannula 2.0 28 05/21/19 20:00 98.8 78 21 144/82 (102) 95 I&O Intake and Output 05/21/19 05/22/19 19:00 07:00 Intake Total 840 ml 710 ml Output Total 3002 ml Balance 840 ml -2292 ml Intake Oral 840 ml 480 ml Free Water 100 ml Tube Feeding 70 ml Other 60 ml Output Urine Total 2 ml Hemodialysis UF 3000 ml # Voids 1 6 # Bowel Movements 5 5 Dressing: other Wound: other Drains: other Cardiovascular: RSR Respiratory: decreased breath sounds Abdomen: soft, present bowel sounds Extremities: no tenderness, no cyanosis Plan Problems: (1) Deep tissue injury Assessment & Plan: Patient presented on admission with a deep tissue injury in the sacral area. Patient was syncopal episode found down. Unknown exact time patient was down and since is suffered a cardiac event requiring resuscitation and ACLS. There is an area of deep tissue injury with erythema in the sacral area extending into the bilateral buttocks butterfly formation. No drainage. No open area. Patient is high risk and susceptible to opening and worsening given her current condition, ICU care, deterioration. We will need to monitor closely and provide aggressive care to ensure healing Air mattress Turn every 2 hours Skin protectant OPTi foam dressing daily and as needed Offload heels with pillows Appreciate nursing care Nutritional support DAILY ESTIMATED NEEDS: Needs based on Critical Care, ESRD on HD, wounds; 56.3kg adj 22- 30 kcals/kg 3750-3432 total kcals 1.25-2 g protein/kg 70-113 g total protein Fluid per MD- on HD NUTRITION DIAGNOSIS: * Increased pro needs r/t wound healing and renal dysfunction AEB pt adm w/ BL heel and sacral DTI (per RN), WC eval pending, w/ ESRD on HD. * Swallowing difficulty r/t respiratory status AEB pt is intubated, currently NPO, pending non oral feeds. CURRENT TF: Per RN Nepro @40ml/hr ENTERAL NUTRITION RECOMMENDATIONS: Nepro @35mL/hr x 24 hrs+ 1 Prosource qdaily to provide 840mL, 1512kcal, 68g pro +11g pro, 611mL free H2O -Obtain GI access, initiate Nepro @15mL/hr, advancing 10mL/hr q 4-6hrs until @ goal. -Provide 1 packet of Prosource- flush with 4oz water -HOB > 30 degrees, Flush per MD ADDITIONAL RECOMMENDATIONS: 1) With prolonged NPO/Intubation- see TF recs as above 2) Wound healing- w/ diet order, add: Juan Daniel in 4oz H2O BID; f/up w/ WC eval 3) Maintain calibrated bedscale wt 4) F/u w/ H&P 5) Feed w/ hemodynamic stability, now off pressor support. (2) Cardiac arrest Assessment & Plan: 61-year-old female multi-medical comorbidities syncopal episode leading to ACLS requiring resuscitation. Currently intensive care unit intubated on ventilatory support Patient is ill-appearing with family at the bedside. Labs noted. Mild elevation troponins. Mild elevated LFTs. Improving since resuscitation current etiology work-up A.m. 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 There is also an old right cerebellar cortical infarct There is age-related enlargement of the ventricles and extra axial CSF spaces. There is periventricular deep white matter low-attenuation, consistent with chronic microvascular ischemic change. The stuart-white differentiation is normal. The calvarium is intact. There is evidence of prior cataract surgery. The sinuses are clear. The mastoids are underpneumatized, otherwise clear. Impression: Chronic and age-related changes Negative for acute intracranial bleed or mass effect, Old infarcts, as described Laron Moreno May 22, 2019 16:09
--- NOTE | 2019-05-22 17:01 | NUR ---
NURSE NOTES:WOUND CARE FOLLOW-UP NOTES:Pt seen at request of primary nurse for MASD. Pt assessed along with primary nurse in attendance.Family also at bedside. In skin folds pt noted to have latge clumps of powder substance. An open box of [place] Starch noted at bedside and primary nurse confirmed pt's daughter has been applying [place] Starch to pt's skin.Pt's mons pubis,bilat groin,perineum, perirectal and medial aspects of both upper thighs grossly erythematous,excoriated and noted to have moderate amt of sanguineous exudate.Labia majora also noted to be swollen. Primary nurse reported pt has been having frequent loose B.Ms.Primary nurse also reported pt's daughter has been non-compliant in following hospital's protocols with regards to wound Tx. At Pt's bedside This nurse observed (2)tubes of a prescriptions cream under name (Barmicil).An open box of [place] starch Per primary nurse Pt's daughter, of whom was not present at bedside, insisted on applying cream against advise of staff and declined for staff to apply Barrier cream as ordered. Spoke to family members at bedside and instructed use of a prescription cream requires a Physician order. Pt family also informed that staff would communicate with pt's PCP and obtain appropriate Tx. Family also instructed to remove prescription cream from pt's bedside.
--- NOTE | 2019-05-22 17:17 | NUR ---
NURSE NOTES: initiated HD by HD RN Tino, from [facility] dialysis.
--- NOTE | 2019-05-22 19:31 | NUR ---
NURSE NOTES: Patient awake in bed, currently receiving HD. HD nurse at the bedside. IV access asymptomatic, bed low and locked. Patient able to make needs known, no s/s of acute distress.
[2019-05-22 20:00] VITALS: BP 109/53
[2019-05-22] MEDS: Epoetin Alfa-EPBX(ESRD on dialysis)10,000 unit/ml vial SUBQ SCH (20:21)
[2019-05-22] MEDS: Atorvastatin 20mg tab ORAL SCH (20:21)
--- NOTE | 2019-05-22 23:19 | General Progress Note ---
Assessment/Plan Status: stable, unchanged Assessment/Plan: Assessment - Anemia - OB (+) stools - CAD / [place] - arrhythmia - ESRD Recommendations - supportive care - Monitor CBC - H2B or PPI - Elevate HOB - EGD/colon on this admission if cleared by medicine and consultants Subjective Allergies: Coded Allergies: No Known Allergies (Unverified , 05/08/19) Subjective NAD d/w DTR re Heme (+) stool she wants to have GI evaluation Objective Last 24 Hour Vital Signs Date Time Temp Pulse Resp B/P (MAP) Pulse Ox O2 Delivery O2 Flow Rate FiO2 05/22/19 21:41 Nasal Cannula 2.0 Nasal Cannula 2.0 05/22/19 21:26 72 110/49 05/22/19 20:00 98.2 70 18 109/53 (71) 96 05/22/19 16:00 98.1 72 18 110/49 (69) 94 05/22/19 14:00 80 110/50 05/22/19 12:00 98.5 80 18 110/50 (70) 94 05/22/19 11:41 97.4 05/22/19 09:00 Nasal Cannula 2.0 Nasal Cannula 2.0 05/22/19 08:00 98.2 77 18 103/40 (61) 93 05/22/19 07:00 96 Nasal Cannula 2.0 28 05/22/19 05:54 58 102/45 05/22/19 04:00 97.4 100 23 110/42 (64) 95 05/22/19 00:00 98.4 75 21 103/59 (74) 95 Intake and Output 05/21/19 05/22/19 19:00 07:00 Intake Total 840 ml 710 ml Output Total 3002 ml Balance 840 ml -2292 ml Intake Oral 840 ml 480 ml Free Water 100 ml Tube Feeding 70 ml Other 60 ml Output Urine Total 2 ml Hemodialysis UF 3000 ml # Voids 1 6 # Bowel Movements 5 5 Height (Feet): 4 Height (Inches): 10.00 Weight (Pounds): 155 Objective WDWN NCAT supple CTA RR abd soft, obese no edema Fadumo Morris MD May 22, 2019 23:19
[2019-05-23] VITALS (7 sets, daily range): BP systolic 91–117; BP diastolic 39–54
[2019-05-23] MEDS: dilTIAZem HCl 60mg tab ORAL SCH (05:44)
[2019-05-23] MEDS: Levothyroxine 25mcg tab ORAL SCH (05:45)
--- NOTE | 2019-05-23 07:25 | NUR ---
HAND-OFF: Report given to BINH Franco.
--- NOTE | 2019-05-23 07:26 | NUR ---
Report received from Prisca PURCELL. Patient awake in semi fowlers position in bed. Patient's daughter at the bedside. Patient does not report any pain at this time. Patient currently not soiled, daughter will make staff aware when the patient needs to be changed. Patient is not in respiratory distress, currently on 2 L of oxygen. 22 shayna IV in left hand in place and patent. Bed in lowest position, locked, and call light within reach. Will continue to follow plan of care.
--- NOTE | 2019-05-23 07:45 | General Progress Note ---
Assessment/Plan Status: stable, unchanged Assessment/Plan: Assessment - Anemia - OB (+) stools - Worsening LFT, with minimally dilated CBD on U/S and MRI - CAD / [place] - arrhythmia - ESRD - resolved loose stools, C Diff (-) Recommendations - Repeat abd ultrasound today - check hepatitis panel - check AFP - Check ammonia - follow LFT - Hold Tylenol and Statin for now - PPI - Elevate HOB - may need ERCP, Endoscopy, and colonoscopy, if medically cleared Subjective Allergies: Coded Allergies: No Known Allergies (Unverified , 05/08/19) Subjective Weak no abdominal complaints d/w DTR at bedside loose stools improved d/w DTR re abnormal LFT and heme (+) stools advised may need ERCP, EGD, Colon but need to evaluate if acceptable risk for anesthesia Objective Last 24 Hour Vital Signs Date Time Temp Pulse Resp B/P (MAP) Pulse Ox O2 Delivery O2 Flow Rate FiO2 05/23/19 05:44 71 101/45 05/23/19 04:00 97.8 71 20 101/45 (63) 99 05/23/19 00:00 98.4 74 20 107/50 (69) 99 05/22/19 21:41 Nasal Cannula 2.0 Nasal Cannula 2.0 05/22/19 21:26 72 110/49 05/22/19 20:22 97 Nasal Cannula 2.0 28 05/22/19 20:00 98.2 70 18 109/53 (71) 96 05/22/19 16:00 98.1 72 18 110/49 (69) 94 05/22/19 14:00 80 110/50 05/22/19 12:00 98.5 80 18 110/50 (70) 94 05/22/19 11:41 97.4 05/22/19 09:00 Nasal Cannula 2.0 Nasal Cannula 2.0 05/22/19 08:00 98.2 77 18 103/40 (61) 93 Intake and Output 05/22/19 05/23/19 19:00 07:00 Intake Total 800 ml Output Total 1000 ml Balance 800 ml -1000 ml Intake Oral 800 ml Hemodialysis UF 1000 ml # Voids 3 # Bowel Movements 1 2 Height (Feet): 4 Height (Inches): 10.00 Weight (Pounds): 164 Objective WDWN NCAT supple CTA RR abd soft, obese no edema Fadumo Morris MD May 23, 2019 07:45
--- NOTE | 2019-05-23 08:20 | NUR ---
Upon recheck of vital signs, patient continues to have a low blood pressure with a pressure of 91/38 on left arm. Doctor Lambert made aware. Doctor ordered for all BP medications to be stopped, and to give a one time 250 cc bolus of NS. Will re evaluate patient and continue to follow plan of care.
[2019-05-23] MEDS: Pantoprazole Inj IVP SCH (08:21)
--- NOTE | 2019-05-23 10:26 | Infectious Diseases Prog Note ---
Assessment/Plan Assessment/Plan Assessment: Afib with RVR, brief hypotension 05/13 s/p cardiac arrest x2 -CT head: Chronic and age-related changes. Negative for acute intracranial bleed or mass effect, Old infarcts, as described Low grade fever; SP Leukocytosis, recurrent- improving -05/20 CXR p -05/19 Bcx NTD -05/16 cdiff neg -05/13 Bcx Neg ?Aspiration PNA -05/17 CXR: Again demonstrated is diffuse bilateral interstitial and airspace edema. There may be a small amount of pleural fluid on the right. Findings are overall unchanged -05/15 SP cx: iris albicans -05/13 CXR: Pulmonary edema, worsened compared to the prior exam. Cardiomegaly. -05/11 CXR:Interstitial edema. This may be slightly improved since the previous da -05/08 CXR: Satisfactory endotracheal intubation. Evidence of bilateral pulmonary edema. Cardiomegaly VDRF; sp extubation 05/11 Hypoglycemia Elevated ALP -MRCP: Very limited exam, as described. Nonvisualized gallbladder. Suspect prior cholecystectomy, as what appears to be a cystic duct remnant is demonstrated. Mildly dilated extra hepatic bile ducts. 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 Correlate with clinical findings, consider ERCP if there is high clinical suspicion. Trace free intraperitoneal fluid. Atrophic kidneys, consistent with history of renal disease. Prominent endocervical canal. Consider further evaluation with pelvic sonography -Abd US: Nonvisualized gallbladder. Either contracted or surgically absent.Correlate with surgical history. No definite evidence of biliary ductal dilatation. Liver demonstrates diffusely increased echogenicity, consistent with diffuse hepatocellular disease, most likely fatty change. Atrophic bilateral kidneys, consistent with known history of end-stage renal disease HTN ESRD on HD via L arm AVS CAD s/p CABG Plan: -Continue to monitor off abx -05/17 SP IV Vancomycin #4 -05/16 SP ZOsyn #5 -f/u cx -Monitor CBC/CMP, temperatures -aspiration precautions -f/u Bcx x2 -f/u CXR Thank you for consulting [facility]. Will continue to follow along with you. Subjective Allergies: Coded Allergies: No Known Allergies (Unverified , 05/08/19) Subjective Afebrile No New WBCs Objective Vital Signs Last 24 Hour Vital Signs Date Time Temp Pulse Resp B/P (MAP) Pulse Ox O2 Delivery O2 Flow Rate FiO2 05/23/19 08:14 96 Nasal Cannula 2.0 28 05/23/19 05:44 71 101/45 05/23/19 04:00 97.8 71 20 101/45 (63) 99 05/23/19 00:00 98.4 74 20 107/50 (69) 99 05/22/19 21:41 Nasal Cannula 2.0 Nasal Cannula 2.0 05/22/19 21:26 72 110/49 05/22/19 20:22 97 Nasal Cannula 2.0 28 05/22/19 20:00 98.2 70 18 109/53 (71) 96 05/22/19 16:00 98.1 72 18 110/49 (69) 94 05/22/19 14:00 80 110/50 05/22/19 12:00 98.5 80 18 110/50 (70) 94 05/22/19 11:41 97.4 Height (Feet): 4 Height (Inches): 10.00 Weight (Pounds): 164 Objective GENERAL: NAD on 2L NC HEENT: NCAT, MMM, PERRL. CARDIOVASCULAR: S1, S2. No rubs or gallops. PULMONARY: Coarse B/L ABDOMEN: Nondistended, nontender. Good bowel sounds. Laboratory Tests Test 05/23/19 08:45 Ammonia 28 umol/L (11-32) Alpha Fetoprotein Pending Hepatitis A IgM Antibody Pending Hepatitis B Surface Antigen Pending Hepatitis B Core IgM Antibody Pending Hepatitis C Antibody Pending Current Medications Medications (Trade) Dose Ordered Sig/Sylwia Route PRN Reason Start Time Stop Time Status Last Admin Dose Admin Dextrose (Dextrose 50%) 25 ml Q30M PRN IV Hypoglycemia 05/19/19 16:45 06/08/19 08:14 Dextrose (Dextrose 50%) 50 ml Q30M PRN IV Hypoglycemia 05/19/19 16:45 06/08/19 08:14 Diltiazem HCl (Cardizem) 60 mg EVERY 8 HOURS ORAL 05/19/19 22:00 06/13/19 15:59 05/23/19 05:44 Epoetin Mohinder (Epoetin Mohinder(ESRD on dialysis)) 10,000 unit WED-WED-WED SUBQ 05/19/19 21:00 06/11/19 20:59 05/22/19 20:21 Levothyroxine Sodium (Synthroid) 25 mcg DAILY@0630 ORAL 05/20/19 06:30 06/17/19 06:29 05/23/19 05:45 Mirtazapine (Remeron) 15 mg BEDTIME ORAL 05/20/19 21:00 06/19/19 20:59 05/22/19 20:21 Nystatin (Nystatin) 1 applic BID@0900,1500 TOPIC 05/23/19 09:00 06/22/19 08:59 05/23/19 08:21 Ondansetron HCl (Zofran) 4 mg Q6H PRN IVP Nausea & Vomiting 05/19/19 16:35 06/15/19 16:34 Pantoprazole (Protonix) 40 mg DAILY IVP 05/20/19 09:00 06/08/19 12:14 05/23/19 08:21 Triamcinolone (Kenalog) 1 applic BID@1300,2100 TOPIC 05/23/19 13:00 06/22/19 12:59 Eduardo Good MD May 23, 2019 10:26
[2019-05-23] MEDS ORDERED: NS 250 ML IVPB ONE (10:47)
--- NOTE | 2019-05-23 10:51 | NUR ---
TOTER NOTES PT ACCEPTED TO [facility] UPON DISCHARGE. PLACED CALL X 2 TO DAUGHTER FILOMENA PHONE MESSAGE LEFT,NO CALL BACK. MD MADE AWARE OF ACCEPTANCE TO FACILITY.
--- NOTE | 2019-05-23 11:57 | Nephrology Progress Note ---
Assessment/Plan Status: stable, unchanged Assessment/Plan: A/P 1) ESRD- MWF . Min UF 2) S/P Cardiac Arrest, EF 55%, stable 3) LE Wounds - Per Gen Surgery and ID 4) DVT prophylaxsis with SCDs 5) Anemia- Thrombocytopenia/Diarhhea. Per GI - EPO. Stable 6) Afib RVR- per cardiology. 7) AbN LFTs. stain stopped. per GI DC to Rehab once arranged Subjective Date patient seen: May 23, 2019 Time patient seen: 11:56 ROS Limited/Unobtainable: No Allergies: Coded Allergies: No Known Allergies (Unverified , 05/08/19) Subjective Patient resting. No overt distress. DC once cleared by GI Objective Last 24 Hour Vital Signs Date Time Temp Pulse Resp B/P (MAP) Pulse Ox O2 Delivery O2 Flow Rate FiO2 05/23/19 09:00 Nasal Cannula 2.0 Nasal Cannula 2.0 05/23/19 08:14 96 Nasal Cannula 2.0 28 05/23/19 08:00 97.7 48 20 93/40 (57) 99 05/23/19 05:44 71 101/45 05/23/19 04:00 97.8 71 20 101/45 (63) 99 05/23/19 00:00 98.4 74 20 107/50 (69) 99 05/22/19 21:41 Nasal Cannula 2.0 Nasal Cannula 2.0 05/22/19 21:26 72 110/49 05/22/19 20:22 97 Nasal Cannula 2.0 28 05/22/19 20:00 98.2 70 18 109/53 (71) 96 05/22/19 16:00 98.1 72 18 110/49 (69) 94 05/22/19 14:00 80 110/50 05/22/19 12:00 98.5 80 18 110/50 (70) 94 Intake and Output 05/22/19 05/23/19 19:00 07:00 Intake Total 800 ml Output Total 1000 ml Balance 800 ml -1000 ml Intake Oral 800 ml Hemodialysis UF 1000 ml # Voids 3 # Bowel Movements 1 2 Laboratory Tests 05/23/19 08:45: Ammonia 28, Alpha Fetoprotein [Pending], Hepatitis A IgM Antibody [Pending], Hepatitis B Surface Antigen [Pending], Hepatitis B Core IgM Antibody [Pending], Hepatitis C Antibody [Pending] Height (Feet): 4 Height (Inches): 10.00 Weight (Pounds): 164 General Appearance: no apparent distress, alert EENT: normal ENT inspection Neck: normal alignment, supple Cardiovascular: normal rate, regular rhythm Respiratory/Chest: lungs clear, normal breath sounds Abdomen: non tender, soft Edema: no edema noted Arm (L), no edema noted Arm (R), no edema noted Leg (L), no edema noted Leg (R), no edema noted Pedal (L), no edema noted Pedal (R), no edema noted Generalized David Zapata MD May 23, 2019 11:57
[2019-05-23] MEDS ORDERED: Triamcinolone 0.1% oint TOPIC SCH (13:00)
[2019-05-23] MEDS: Triamcinolone 0.1% oint TOPIC SCH ×2 (13:31→20:20)
--- NOTE | 2019-05-23 14:08 | NUR ---
RD ASSESSMENT & RECOMMENDATIONS SEE CARE ACTIVITY FOR COMPLETE ASSESSMENT DAILY ESTIMATED NEEDS: Needs based on Pulmonary, ESRD on HD, wounds; 56.3kg adj 25-35 kcals/kg 1905-8795 total kcals 1.25-1.8 g protein/kg 70-101 g total protein Fluid per MD- on HD NUTRITION DIAGNOSIS: * Increased pro needs r/t wound healing and renal dysfunction AEB pt adm w/ BL heel and sacral DTI (per RN), WC eval pending, w/ ESRD on HD. * Swallowing difficulty r/t respiratory status AEB pt is now extubated w/ s/p FISH TECHNOLOGIST eval, now cleared for soft easy chew texture. CURRENT DIET:regular / soft easy chew + Nepro TID PO DIET RECOMMENDATIONS: Liberalized Regular diet per MD, texture per FISH TECHNOLOGIST ADDITIONAL RECOMMENDATIONS: 1) NEPRO TID w/ meals 2) Wound healing- w/ diet order, add Juan Daniel in 4oz H2O BID + Nephrovite qdaily 3) RE-calibrate bedscale wt 4) Consider Kcal count w/ consistently poor po 5) Snacks as tolerated in b/w meals .
--- NOTE | 2019-05-23 14:19 | Surgery Progress Note ---
Surgery Progress Note Subjective Symptoms: improved, tolerating diet, voiding well, passing flatus, BM Additional Comments pending placement Objective Last 24 Hour Vital Signs Date Time Temp Pulse Resp B/P (MAP) Pulse Ox O2 Delivery O2 Flow Rate FiO2 05/23/19 12:00 97.8 69 20 91/41 (58) 95 05/23/19 09:00 Nasal Cannula 2.0 Nasal Cannula 2.0 05/23/19 08:14 96 Nasal Cannula 2.0 28 05/23/19 08:00 97.7 48 20 93/40 (57) 99 05/23/19 05:44 71 101/45 05/23/19 04:00 97.8 71 20 101/45 (63) 99 05/23/19 00:00 98.4 74 20 107/50 (69) 99 05/22/19 21:41 Nasal Cannula 2.0 Nasal Cannula 2.0 05/22/19 21:26 72 110/49 05/22/19 20:22 97 Nasal Cannula 2.0 28 05/22/19 20:00 98.2 70 18 109/53 (71) 96 05/22/19 16:00 98.1 72 18 110/49 (69) 94 I&O Intake and Output 05/22/19 05/23/19 19:00 07:00 Intake Total 800 ml Output Total 1000 ml Balance 800 ml -1000 ml Intake Oral 800 ml Hemodialysis UF 1000 ml # Voids 3 # Bowel Movements 1 2 Dressing: other Wound: other Drains: other Cardiovascular: RSR Respiratory: decreased breath sounds Abdomen: soft, present bowel sounds Extremities: no edema, no tenderness, no cyanosis Laboratory Tests Test 05/23/19 08:45 Ammonia 28 umol/L (11-32) Alpha Fetoprotein Pending Hepatitis A IgM Antibody Pending Hepatitis B Surface Antigen Pending Hepatitis B Core IgM Antibody Pending Hepatitis C Antibody Pending Plan Problems: (1) Deep tissue injury Assessment & Plan: Patient presented on admission with a deep tissue injury in the sacral area. Patient was syncopal episode found down. Unknown exact time patient was down and since is suffered a cardiac event requiring resuscitation and ACLS. There is an area of deep tissue injury with erythema in the sacral area extending into the bilateral buttocks butterfly formation. No drainage. No open area. Patient is high risk and susceptible to opening and worsening given her current condition, ICU care, deterioration. We will need to monitor closely and provide aggressive care to ensure healing Air mattress Turn every 2 hours Skin protectant OPTi foam dressing daily and as needed Offload heels with pillows Appreciate nursing care d/c planning Nutritional support DAILY ESTIMATED NEEDS: Needs based on Critical Care, ESRD on HD, wounds; 56.3kg adj 22- 30 kcals/kg 4068-3937 total kcals 1.25-2 g protein/kg 70-113 g total protein Fluid per MD- on HD NUTRITION DIAGNOSIS: * Increased pro needs r/t wound healing and renal dysfunction AEB pt adm w/ BL heel and sacral DTI (per RN), WC eval pending, w/ ESRD on HD. * Swallowing difficulty r/t respiratory status AEB pt is intubated, currently NPO, pending non oral feeds. CURRENT TF: Per RN Nepro @40ml/hr ENTERAL NUTRITION RECOMMENDATIONS: Nepro @35mL/hr x 24 hrs+ 1 Prosource qdaily to provide 840mL, 1512kcal, 68g pro +11g pro, 611mL free H2O -Obtain GI access, initiate Nepro @15mL/hr, advancing 10mL/hr q 4-6hrs until @ goal. -Provide 1 packet of Prosource- flush with 4oz water -HOB > 30 degrees, Flush per MD ADDITIONAL RECOMMENDATIONS: 1) With prolonged NPO/Intubation- see TF recs as above 2) Wound healing- w/ diet order, add: Juan Daniel in 4oz H2O BID; f/up w/ WC eval 3) Maintain calibrated bedscale wt 4) F/u w/ H&P 5) Feed w/ hemodynamic stability, now off pressor support. (2) Cardiac arrest Assessment & Plan: 61-year-old female multi-medical comorbidities syncopal episode leading to ACLS requiring resuscitation. Currently intensive care unit intubated on ventilatory support Patient is ill-appearing with family at the bedside. Labs noted. Mild elevation troponins. Mild elevated LFTs. Improving since resuscitation current etiology work-up A.m. 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 There is also an old right cerebellar cortical infarct There is age-related enlargement of the ventricles and extra axial CSF spaces. There is periventricular deep white matter low-attenuation, consistent with chronic microvascular ischemic change. The stuart-white differentiation is normal. The calvarium is intact. There is evidence of prior cataract surgery. The sinuses are clear. The mastoids are underpneumatized, otherwise clear. Impression: Chronic and age-related changes Negative for acute intracranial bleed or mass effect, Old infarcts, as described Laron Moreno May 23, 2019 14:19
--- NOTE | 2019-05-23 14:28 | Pulmonology Progress Note ---
Assessment/Plan Assessment/Plan IMPRESSION: 1. Non-STEMI. 2. ESRD, on dialysis. 3. Pulmonary edema. Resolved; latest CXR reviewed 4. Respiratory failure. Resolved DISCUSSION: 1. Continue current care 2. Agree with current medications and care. 3. Decreased Fio2; now on 2L/min O2 5, Transferred to floor 4. The patient will need dialysis per renal. 5. Rate control per cardiology 6. Cleared for ERCP from pulmonary standpoint Remigio Raza M.D. Subjective Interval Events: SaO2 96% on 2L/min O2 Constitutional: Reports: no symptoms HEENT: Repors: no symptoms Respiratory: Reports: no symptoms Cardiovascular: Reports: no symptoms Gastrointestinal/Abdominal: Reports: no symptoms Genitourinary: Reports: no symptoms Allergies: Coded Allergies: No Known Allergies (Unverified , 05/08/19) Objective Last 24 Hour Vital Signs Date Time Temp Pulse Resp B/P (MAP) Pulse Ox O2 Delivery O2 Flow Rate FiO2 05/23/19 12:00 97.8 69 20 91/41 (58) 95 05/23/19 09:00 Nasal Cannula 2.0 Nasal Cannula 2.0 05/23/19 08:14 96 Nasal Cannula 2.0 28 05/23/19 08:00 97.7 48 20 93/40 (57) 99 05/23/19 05:44 71 101/45 05/23/19 04:00 97.8 71 20 101/45 (63) 99 05/23/19 00:00 98.4 74 20 107/50 (69) 99 05/22/19 21:41 Nasal Cannula 2.0 Nasal Cannula 2.0 05/22/19 21:26 72 110/49 05/22/19 20:22 97 Nasal Cannula 2.0 28 05/22/19 20:00 98.2 70 18 109/53 (71) 96 05/22/19 16:00 98.1 72 18 110/49 (69) 94 Intake and Output 05/22/19 05/23/19 19:00 07:00 Intake Total 800 ml Output Total 1000 ml Balance 800 ml -1000 ml Intake Oral 800 ml Hemodialysis UF 1000 ml # Voids 3 # Bowel Movements 1 2 General Appearance: no acute distress HEENT: normocephalic Respiratory/Chest: chest wall non-tender Cardiovascular: normal peripheral pulses Abdomen: normal bowel sounds Laboratory Tests 05/23/19 08:45: Ammonia 28, Alpha Fetoprotein [Pending], Hepatitis A IgM Antibody [Pending], Hepatitis B Surface Antigen [Pending], Hepatitis B Core IgM Antibody [Pending], Hepatitis C Antibody [Pending] Current Medications Medications (Trade) Dose Ordered Sig/Sylwia Route PRN Reason Start Time Stop Time Status Last Admin Dose Admin Dextrose (Dextrose 50%) 25 ml Q30M PRN IV Hypoglycemia 05/19/19 16:45 06/08/19 08:14 Dextrose (Dextrose 50%) 50 ml Q30M PRN IV Hypoglycemia 05/19/19 16:45 06/08/19 08:14 Epoetin Mohinder (Epoetin Mohinder(ESRD on dialysis)) 10,000 unit WED-WED-WED SUBQ 05/19/19 21:00 06/11/19 20:59 05/22/19 20:21 Levothyroxine Sodium (Synthroid) 25 mcg DAILY@0630 ORAL 05/20/19 06:30 06/17/19 06:29 05/23/19 05:45 Mirtazapine (Remeron) 15 mg BEDTIME ORAL 05/20/19 21:00 06/19/19 20:59 05/22/19 20:21 Nystatin (Nystatin) 1 applic BID@0900,1500 TOPIC 05/23/19 09:00 06/22/19 08:59 05/23/19 08:21 Ondansetron HCl (Zofran) 4 mg Q6H PRN IVP Nausea & Vomiting 05/19/19 16:35 06/15/19 16:34 Pantoprazole (Protonix) 40 mg DAILY IVP 05/20/19 09:00 06/08/19 12:14 05/23/19 08:21 Triamcinolone (Kenalog) 1 applic BID@1300,2100 TOPIC 05/23/19 13:00 06/22/19 12:59 05/23/19 13:31 Remigio Raza MD May 23, 2019 14:28
--- NOTE | 2019-05-23 15:40 | NUR ---
NURSE NOTES: [facility] contacted. Information given to nurse about patient coming for dialysis tomorrow 05/24.
--- NOTE | 2019-05-23 15:45 | NUR ---
P.T. NOTES S/P: APPROACHED PATIENT'S ROOM IN THE PM. PATIENT FOUND LYING IN A SEMI-BOWERS'S POSITION IN BED. PATIENT DECLINED P.T. TX. NOTIFIED RN OF PATIENT'S STATUS. WILL F/U NEXT TX. TIME AND CONT WITH P.T. PLAN. RSABADO.
--- NOTE | 2019-05-23 16:22 | NUR ---
ST NOTE: D/C SUMMARY CHART REVIEWED. PATIENT CONTINUES TO TOLERATE CURRENT DIET OF SOFT/EASY CHEW SOLIDS AND THIN LIQUIDS SIP/BY/SIP D/W RN, RE: PATIENTS PROGRESS AND OVERALL INTAKE LEVELS. CURRENTLY NUTRITIONAL SUPPLEMENTS ARE BEING PROVIDED TO OFFSET LACK OF CALORIC INTAKE PULMONARY STATUS REMAINS STABLE/UNCHANGED PATIENT HAS MET P.O. INTAKE GOALS WITH MODIFIED TEXTURE DIET AND ASPIRATION PRECAUTIONS. NURSING STAFF MET ORAL CARE GOALS. CONTINUE CURRENT DIET WITH SUPPLEMENTATION. D/C FROM SKILLED ST SERVICE.
--- NOTE | 2019-05-23 18:50 | Diagnostic Imaging Report ---
Indication: Abnormal liver function tests. Abnormal renal function tests Technique: Giles-scale and duplex images of the upper abdomen were obtained Comparison: 05/14/2019. Also MRI dated 05/19/2019 Findings: Gallbladder is not visualized, corresponding to findings on prior imaging studies. Common bile duct measures 9 mm in diameter. No intrahepatic biliary ductal dilatation. Liver demonstrates normal echogenicity, no focal abnormality. Portal vein and hepatic veins are patent. However, the portal vein and proximal branches demonstrate to-and-fro flow. The hepatic veins and inferior vena cava are distended Pancreas is unremarkable. Spleen is unremarkable. Left kidney measures 6.4 cm in length. Right kidney could not be visualized. Left kidney demonstrates increased echogenicity There is no hydronephrosis. Echogenic foci are seen in the left kidney. . Abdominal aorta is partially obscured by bowel gas, visualized portions are non-aneurysmal . Small amount of ascites fluid is demonstrated on the liver There is a small right pleural effusion incidentally noted. Impression: Nonvisualized gallbladder. Probably surgically absent, as it is also not visualized on multiple prior imaging studies Mildly 9 mm dilated common bile duct. Please refer to prior MRCP report. To-and-fro flow within the portal veins, could indicate portal hypertension Trace ascites Small right pleural effusion Note incomplete visualization of the abdominal aorta Unable to visualize the right kidney. Note that it is visible on prior studies, but atrophic
--- NOTE | 2019-05-23 19:17 | NUR ---
HAND-OFF: Report given to Prisca PURCELL.
--- NOTE | 2019-05-23 19:27 | NUR ---
NURSE NOTES: Received patient awake in bed, family at the bedside, no episode of diarrhea as of now. Bed low and locked, 3 siderails up, patient wearing SCDs and non slip socks. IV access asymptomatic, patent, dressing dry and intact.
--- NOTE | 2019-05-23 22:06 | Cardiology Progress Note ---
Assessment/Plan Assessment/Plan 1. High risk for surgery in face of decompensated HFnlEF, i.e diastolic CHF as well as hypotension. In addition, her cardiac arrest is not clear and coronary artery definition not possible after decision made for DNR and DNI. 2. History of CAD, s/p 3-vessel CABG with LOPES to LAD, SVT to PDA and SVG to OM in 2010, ? last angio not clear 3. Status post cardiac arrest. 4. Atrial fib with RVR, converted to SR, continue cardizem. 5. Acute heart failure with normal EF, + pulmonary edema B/L, recommend aggressive HD 6. Acute respiratory failure, extubated. 7. End-stage renal disease, echo with severe pulmonary HTN and increased intracardiac filling pressure. Subjective Subjective Mild respiratory distress/tachypnea. No cardiac events noted. Objective Last 24 Hour Vital Signs Date Time Temp Pulse Resp B/P (MAP) Pulse Ox O2 Delivery O2 Flow Rate FiO2 05/23/19 21:15 Nasal Cannula 2.0 Nasal Cannula 2.0 05/23/19 20:00 98.1 75 19 117/54 (75) 98 05/23/19 16:00 97.7 72 20 107/39 (61) 98 05/23/19 13:00 100/51 (67) 05/23/19 12:00 97.8 69 20 91/41 (58) 95 05/23/19 09:00 Nasal Cannula 2.0 Nasal Cannula 2.0 05/23/19 08:14 96 Nasal Cannula 2.0 28 05/23/19 08:00 97.7 48 20 93/40 (57) 99 05/23/19 05:44 71 101/45 05/23/19 04:00 97.8 71 20 101/45 (63) 99 05/23/19 00:00 98.4 74 20 107/50 (69) 99 Intake and Output 05/22/19 05/23/19 19:00 07:00 Intake Total 800 ml Output Total 1000 ml Balance 800 ml -1000 ml Intake Oral 800 ml Hemodialysis UF 1000 ml # Voids 3 # Bowel Movements 1 2 2D Echo: EF 55%,RV press/volumeoverload,pseudonormal LV physio,RVSP 59, Mild /AR Laboratory Tests Test 05/23/19 08:45 Ammonia 28 umol/L (11-32) Alpha Fetoprotein Pending Hepatitis A IgM Antibody Pending Hepatitis B Surface Antigen Pending Hepatitis B Core IgM Antibody Pending Hepatitis C Antibody Pending Objective HEAD AND NECK: Increased JVD 15 cm, no carotid bruit. LUNGS: Coarse rhonchi B/L. CHEST: Sternotomy scar is healed. CARDIOVASCULAR: Regular S1 and S2 with no gallops/rubs, + 3/6 HSM at Xyphoid area. ABDOMEN: Soft, NT/ND, + BS, scar from cholecystectomy EXTREMITIES: Status post left AV shunt, no edema, clubbing or cyanosis. Shawn Lovett MD May 23, 2019 22:06
[2019-05-24] VITALS: BP 106/47
[2019-05-24 04:00] VITALS: BP 111/44
[2019-05-24] MEDS: Levothyroxine 25mcg tab ORAL SCH (05:57)
--- NOTE | 2019-05-24 06:59 | NUR ---
HAND-OFF: Report given to BINH Montez.
--- NOTE | 2019-05-24 07:01 | NUR ---
NURSE NOTES: Report received from Prisca PURCELL. Patient asleep. Breakfast at bedside, will feed patient when awake and alert. Bed in lowest position, locked, and alarmed. Will continue to follow plan of care.
[2019-05-24 07:11] LABS: INR 1.4 (0.9-1.1)
[2019-05-24 07:12] LABS: BASOPHILS % (AUTO) 2.5 % (0.0-2.0); EOSINOPHILS % (AUTO) 1.1 % (0.0-3.0); HEMATOCRIT 28.7 % (37.0-47.0); HEMOGLOBIN 8.9 G/DL (12.0-16.0); LYMPHOCYTES % (AUTO) 15.3 % (20.0-45.0); MEAN CORPUSCULAR VOLUME 107 FL (80-99); MONOCYTES % (AUTO) 8.9 % (1.0-10.0); NEUTROPHILS % (AUTO) 72.1 % (45.0-75.0); PLATELET COUNT 149 K/UL (150-450); RED BLOOD COUNT 2.69 M/UL (4.20-5.40); RED CELL DISTRIBUTION WIDTH 22.9 % (11.6-14.8); WHITE BLOOD COUNT 8.2 K/UL (4.8-10.8)
[2019-05-24 07:20] LABS: ALANINE AMINOTRANSFERASE 17 U/L (12-78); ALBUMIN 1.8 G/DL (3.4-5.0); ALBUMIN/GLOBULIN RATIO 0.3 (1.0-2.7); ALKALINE PHOSPHATASE 145 U/L (46-116); ANION GAP 15 mmol/L (5-15); ASPARTATE AMINO TRANSFERASE 47 U/L (15-37); BLOOD UREA NITROGEN 68 mg/dL (7-18); CALCIUM 8.7 MG/DL (8.5-10.1); CARBON DIOXIDE 22 MMOL/L (21-32); CHLORIDE 103 MMOL/L (98-107); CREATININE 7.4 MG/DL (0.55-1.30); POTASSIUM 4.2 MMOL/L (3.5-5.1); SODIUM 140 MMOL/L (136-145)
[2019-05-24 07:21] LABS: BILIRUBIN,DIRECT 1.5 MG/DL (0.0-0.3)
--- NOTE | 2019-05-24 07:56 | Discharge Instructions ---
Discharge Instructions Discharge Instructions Services at Discharge: day care Diet: renal (80g protein, 2GM) Resume Normal Activity?: No Activity: light activity Follow Up Orders Continue wound care F/U GI and cardiology of their choice 1 week For Congestive Heart Failure Reminder Report to your physician any weight gain of 5 pounds or more in one week. David Zapata MD May 24, 2019 07:56
--- NOTE | 2019-05-24 07:58 | Nephrology Progress Note ---
Assessment/Plan Status: stable, unchanged Assessment/Plan: A/P 1) ESRD- MWF . 2) S/P Cardiac Arrest, EF 55%, stable 3) LE Wounds - Per Gen Surgery and ID - continue wound care 4) DVT prophylaxsis with SCDs 5) Anemia- Thrombocytopenia/Diarhhea. Per GI - EPO. Stable 6) Afib RVR- per cardiology. 7) AbN LFTs. stain stopped. per GI DC to Rehab Patient not cleared by cardiology for GI procedures. GI reccs monitoring LFTs and Hgb. When more stable EGD and colonoscopy in future, as such DC today Subjective Date patient seen: May 24, 2019 Time patient seen: 07:57 ROS Limited/Unobtainable: No Allergies: Coded Allergies: No Known Allergies (Unverified , 05/08/19) Subjective Patient awaiting DC today Objective Last 24 Hour Vital Signs Date Time Temp Pulse Resp B/P (MAP) Pulse Ox O2 Delivery O2 Flow Rate FiO2 05/24/19 04:00 97.3 75 20 111/44 (66) 95 05/24/19 00:00 97.7 73 19 106/47 (66) 98 05/23/19 21:15 Nasal Cannula 2.0 Nasal Cannula 2.0 05/23/19 20:00 98.1 75 19 117/54 (75) 98 05/23/19 16:00 97.7 72 20 107/39 (61) 98 05/23/19 13:00 100/51 (67) 05/23/19 12:00 97.8 69 20 91/41 (58) 95 05/23/19 09:00 Nasal Cannula 2.0 Nasal Cannula 2.0 05/23/19 08:14 96 Nasal Cannula 2.0 28 05/23/19 08:00 97.7 48 20 93/40 (57) 99 Intake and Output 05/23/19 05/24/19 18:59 06:59 Intake Total 240 ml Balance 240 ml Intake Oral 240 ml # Voids 1 3 # Bowel Movements 1 Laboratory Tests 05/23/19 08:45: Ammonia 28, Alpha Fetoprotein [Pending], Hepatitis A IgM Antibody [Pending], Hepatitis B Surface Antigen [Pending], Hepatitis B Core IgM Antibody [Pending], Hepatitis C Antibody [Pending] 05/24/19 06:11: White Blood Count 8.2, Red Blood Count 2.69L, Hemoglobin 8.9L, Hematocrit 28.7L , Mean Corpuscular Volume 107H, Mean Corpuscular Hemoglobin 33.2H, Mean Corpuscular Hemoglobin Concent 31.1L, Red Cell Distribution Width 22.9H, Platelet Count 149L, Mean Platelet Volume 7.5, Neutrophils (%) (Auto) 72.1, Lymphocytes (%) (Auto) 15.3L, Monocytes (%) (Auto) 8.9, Eosinophils (%) (Auto) 1.1, Basophils (%) (Auto) 2.5H, Prothrombin Time 14.5H, Prothromb Time International Ratio 1.4H, Sodium Level 140, Potassium Level 4.2, Chloride Level 103, Carbon Dioxide Level 22, Anion Gap 15, Blood Urea Nitrogen 68H, Creatinine 7.4H, Estimat Glomerular Filtration Rate 5.5, Glucose Level 162H, Calcium Level 8.7, Total Bilirubin 2.0H, Direct Bilirubin 1.5H, Aspartate Amino Transf (AST/ SGOT) 47H, Alanine Aminotransferase (ALT/SGPT) 17, Alkaline Phosphatase 145H, Total Protein 7.6, Albumin 1.8L, Globulin 5.8, Albumin/Globulin Ratio 0.3L Height (Feet): 4 Height (Inches): 10.00 Weight (Pounds): 163 General Appearance: no apparent distress EENT: normal ENT inspection Neck: normal alignment, supple Cardiovascular: normal rate Respiratory/Chest: lungs clear, normal breath sounds Abdomen: non tender, soft Edema: no edema noted Arm (L), no edema noted Arm (R), no edema noted Leg (L), no edema noted Leg (R), no edema noted Pedal (L), no edema noted Pedal (R), no edema noted Generalized David Zapata MD May 24, 2019 07:58
[2019-05-24 08:00] VITALS: BP 94/31
--- NOTE | 2019-05-24 08:00 | NUR ---
NURSE NOTES: Dialysis nurse Tino connected patient to dialysis machine.
--- NOTE | 2019-05-24 08:42 | Pulmonology Progress Note ---
Assessment/Plan Assessment/Plan IMPRESSION: 1. Non-STEMI. 2. ESRD, on dialysis. 3. Pulmonary edema. Resolved; latest CXR reviewed 4. Respiratory failure. Resolved DISCUSSION: 1. Continue current care 2. Agree with current medications and care. 3. Decreased Fio2; now on 2L/min O2 5, Transferred to floor 4. The patient will need dialysis per renal. 5. Rate control per cardiology 6. Cleared for ERCP from pulmonary standpoint Remigio Raza M.D. Subjective Interval Events: None new Constitutional: Reports: no symptoms HEENT: Repors: no symptoms Respiratory: Reports: no symptoms Cardiovascular: Reports: no symptoms Gastrointestinal/Abdominal: Reports: no symptoms Allergies: Coded Allergies: No Known Allergies (Unverified , 05/08/19) Objective Last 24 Hour Vital Signs Date Time Temp Pulse Resp B/P (MAP) Pulse Ox O2 Delivery O2 Flow Rate FiO2 05/24/19 04:00 97.3 75 20 111/44 (66) 95 05/24/19 00:00 97.7 73 19 106/47 (66) 98 05/23/19 21:15 Nasal Cannula 2.0 Nasal Cannula 2.0 05/23/19 20:00 98.1 75 19 117/54 (75) 98 05/23/19 16:00 97.7 72 20 107/39 (61) 98 05/23/19 13:00 100/51 (67) 05/23/19 12:00 97.8 69 20 91/41 (58) 95 05/23/19 09:00 Nasal Cannula 2.0 Nasal Cannula 2.0 Intake and Output 05/23/19 05/24/19 18:59 06:59 Intake Total 240 ml Balance 240 ml Intake Oral 240 ml # Voids 1 3 # Bowel Movements 1 General Appearance: no acute distress HEENT: normocephalic Respiratory/Chest: chest wall non-tender, lungs clear Cardiovascular: normal peripheral pulses, normal rate Abdomen: normal bowel sounds Laboratory Tests 05/23/19 08:45: Ammonia 28, Alpha Fetoprotein 0.7, Hepatitis A IgM Antibody Negative, Hepatitis B Surface Antigen Negative, Hepatitis B Core IgM Antibody Negative, Hepatitis C Antibody <0.1 05/24/19 06:11: White Blood Count 8.2, Red Blood Count 2.69L, Hemoglobin 8.9L, Hematocrit 28.7L , Mean Corpuscular Volume 107H, Mean Corpuscular Hemoglobin 33.2H, Mean Corpuscular Hemoglobin Concent 31.1L, Red Cell Distribution Width 22.9H, Platelet Count 149L, Mean Platelet Volume 7.5, Neutrophils (%) (Auto) 72.1, Lymphocytes (%) (Auto) 15.3L, Monocytes (%) (Auto) 8.9, Eosinophils (%) (Auto) 1.1, Basophils (%) (Auto) 2.5H, Prothrombin Time 14.5H, Prothromb Time International Ratio 1.4H, Sodium Level 140, Potassium Level 4.2, Chloride Level 103, Carbon Dioxide Level 22, Anion Gap 15, Blood Urea Nitrogen 68H, Creatinine 7.4H, Estimat Glomerular Filtration Rate 5.5, Glucose Level 162H, Calcium Level 8.7, Total Bilirubin 2.0H, Direct Bilirubin 1.5H, Aspartate Amino Transf (AST/ SGOT) 47H, Alanine Aminotransferase (ALT/SGPT) 17, Alkaline Phosphatase 145H, Total Protein 7.6, Albumin 1.8L, Globulin 5.8, Albumin/Globulin Ratio 0.3L Current Medications Medications (Trade) Dose Ordered Sig/Sylwia Route PRN Reason Start Time Stop Time Status Last Admin Dose Admin Dextrose (Dextrose 50%) 25 ml Q30M PRN IV Hypoglycemia 05/19/19 16:45 06/08/19 08:14 Dextrose (Dextrose 50%) 50 ml Q30M PRN IV Hypoglycemia 05/19/19 16:45 06/08/19 08:14 Epoetin Mohinder (Epoetin Mohinder(ESRD on dialysis)) 10,000 unit WED-WED-WED SUBQ 05/19/19 21:00 06/11/19 20:59 05/22/19 20:21 Levothyroxine Sodium (Synthroid) 25 mcg DAILY@0630 ORAL 05/20/19 06:30 06/17/19 06:29 05/24/19 05:57 Mirtazapine (Remeron) 15 mg BEDTIME ORAL 05/20/19 21:00 06/19/19 20:59 12/17/19 20:17 Nystatin (Nystatin) 1 applic BID@0900,1500 TOPIC 05/23/19 09:00 06/22/19 08:59 05/23/19 15:45 Ondansetron HCl (Zofran) 4 mg Q6H PRN IVP Nausea & Vomiting 05/19/19 16:35 06/15/19 16:34 Pantoprazole (Protonix) 40 mg DAILY IVP 05/20/19 09:00 06/08/19 12:14 05/23/19 08:21 Triamcinolone (Kenalog) 1 applic BID@1300,2100 TOPIC 05/23/19 13:00 06/22/19 12:59 05/23/19 20:20 Remigio Raza MD May 24, 2019 08:42
[2019-05-24] MEDS: Pantoprazole Inj IVP SCH (09:14)
--- NOTE | 2019-05-24 11:14 | NUR ---
P.T NOTE: PATIENT JUST FINISHED DIALYSIS TX AND TOO FATIGUED AND LETHARGIC TO PARTICIPATE IN P.T. WILL REATTEMPT.
--- NOTE | 2019-05-24 11:41 | NUR ---
DISCHARGE PLANNING DISCHARGE ORDER NOTED Patient has been accepted to; [facility] [address] [place] [address] Bed: 24-2 Skilled for Nurse to Nurse report [facility] ETA for transportation: 13:15
[2019-05-24 12:00] VITALS: BP 88/71
--- NOTE | 2019-05-24 12:07 | NUR ---
NURSE NOTES: Patient is s/p dialysis, blood pressure is 88/71, pulse is 73. Placed patient on trendelenburg position. No changes in BP. Patient is easily arousable and denies chest pain or SOB @ this time. RN informed Dr. Zapata with new order to do bolus with NS. Will continue to monitor.
[2019-05-24] MEDS ORDERED: NS 250 ML IVPB ONE (12:15)
[2019-05-24 13:17] VITALS: BP 104/42
--- NOTE | 2019-05-24 13:27 | NUR ---
NURSE NOTES: Patient is s/p bolus 250ml IV. Patient's blood pressure is 104/42 @ this time. RN followed up with [facility]. Per [facility], ambulance will arrive in about 30 mins.
--- NOTE | 2019-05-24 14:04 | Infectious Diseases Prog Note ---
Assessment/Plan Assessment/Plan Assessment: Afib with RVR, brief hypotension 05/13 s/p cardiac arrest x2 -CT head: Chronic and age-related changes. Negative for acute intracranial bleed or mass effect, Old infarcts, as described Low grade fever; SP Leukocytosis, recurrent- improving -05/20 CXR p -05/19 Bcx NTD -05/16 cdiff neg -05/13 Bcx Neg ?Aspiration PNA -05/17 CXR: Again demonstrated is diffuse bilateral interstitial and airspace edema. There may be a small amount of pleural fluid on the right. Findings are overall unchanged -05/15 SP cx: iris albicans -05/13 CXR: Pulmonary edema, worsened compared to the prior exam. Cardiomegaly. -05/11 CXR:Interstitial edema. This may be slightly improved since the previous da -05/08 CXR: Satisfactory endotracheal intubation. Evidence of bilateral pulmonary edema. Cardiomegaly VDRF; sp extubation 05/11 Hypoglycemia Elevated ALP -MRCP: Very limited exam, as described. Nonvisualized gallbladder. Suspect prior cholecystectomy, as what appears to be a cystic duct remnant is demonstrated. Mildly dilated extra hepatic bile ducts. 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 Correlate with clinical findings, consider ERCP if there is high clinical suspicion. Trace free intraperitoneal fluid. Atrophic kidneys, consistent with history of renal disease. Prominent endocervical canal. Consider further evaluation with pelvic sonography -Abd US: Nonvisualized gallbladder. Either contracted or surgically absent.Correlate with surgical history. No definite evidence of biliary ductal dilatation. Liver demonstrates diffusely increased echogenicity, consistent with diffuse hepatocellular disease, most likely fatty change. Atrophic bilateral kidneys, consistent with known history of end-stage renal disease HTN ESRD on HD via L arm AVS CAD s/p CABG Plan: -Monitor off abx -05/17 SP IV Vancomycin #4 -05/16 SP ZOsyn #5 -f/u cx -Monitor CBC/CMP, temperatures -aspiration precautions -f/u Bcx x2 -f/u CXR Thank you for consulting [facility]. Will continue to follow along with you. Subjective Allergies: Coded Allergies: No Known Allergies (Unverified , 05/08/19) Subjective Afebrile WBCs 8 Objective Vital Signs Last 24 Hour Vital Signs Date Time Temp Pulse Resp B/P (MAP) Pulse Ox O2 Delivery O2 Flow Rate FiO2 05/24/19 13:17 104/42 (62) 05/24/19 12:00 98.3 73 17 88/71 (77) 95 05/24/19 09:00 Nasal Cannula 2.0 Nasal Cannula 2.0 05/24/19 08:00 97.0 77 18 94/31 (52) 96 05/24/19 04:00 97.3 75 20 111/44 (66) 95 05/24/19 00:00 97.7 73 19 106/47 (66) 98 05/23/19 21:15 Nasal Cannula 2.0 Nasal Cannula 2.0 05/23/19 20:00 98.1 75 19 117/54 (75) 98 05/23/19 16:00 97.7 72 20 107/39 (61) 98 Height (Feet): 4 Height (Inches): 10.00 Weight (Pounds): 163 Objective GENERAL: NAD on 2L NC HEENT: NCAT, MMM, PERRL. CARDIOVASCULAR: RRR, S1, S2 PULMONARY: Coarse B/L ABDOMEN: Nondistended, nontender. Good bowel sounds. Laboratory Tests Test 05/24/19 06:11 White Blood Count 8.2 K/UL (4.8-10.8) Red Blood Count 2.69 M/UL (4.20-5.40) L Hemoglobin 8.9 G/DL (12.0-16.0) L Hematocrit 28.7 % (37.0-47.0) L Mean Corpuscular Volume 107 FL (80-99) H Mean Corpuscular Hemoglobin 33.2 PG (27.0-31.0) H Mean Corpuscular Hemoglobin Concent 31.1 G/DL (32.0-36.0) L Red Cell Distribution Width 22.9 % (11.6-14.8) H Platelet Count 149 K/UL (150-450) L Mean Platelet Volume 7.5 FL (6.5-10.1) Neutrophils (%) (Auto) 72.1 % (45.0-75.0) Lymphocytes (%) (Auto) 15.3 % (20.0-45.0) L Monocytes (%) (Auto) 8.9 % (1.0-10.0) Eosinophils (%) (Auto) 1.1 % (0.0-3.0) Basophils (%) (Auto) 2.5 % (0.0-2.0) H Prothrombin Time 14.5 SEC (9.30-11.50) H Prothromb Time International Ratio 1.4 (0.9-1.1) H Sodium Level 140 MMOL/L (136-145) Potassium Level 4.2 MMOL/L (3.5-5.1) Chloride Level 103 MMOL/L (98-107) Carbon Dioxide Level 22 MMOL/L (21-32) Anion Gap 15 mmol/L (5-15) Blood Urea Nitrogen 68 mg/dL (7-18) H Creatinine 7.4 MG/DL (0.55-1.30) H Estimat Glomerular Filtration Rate 5.5 mL/min (>60) Glucose Level 162 MG/DL (74-106) H Calcium Level 8.7 MG/DL (8.5-10.1) Total Bilirubin 2.0 MG/DL (0.2-1.0) H Direct Bilirubin 1.5 MG/DL (0.0-0.3) H Aspartate Amino Transf (AST/SGOT) 47 U/L (15-37) H Alanine Aminotransferase (ALT/SGPT) 17 U/L (12-78) Alkaline Phosphatase 145 U/L (46-116) H Total Protein 7.6 G/DL (6.4-8.2) Albumin 1.8 G/DL (3.4-5.0) L Globulin 5.8 g/dL Albumin/Globulin Ratio 0.3 (1.0-2.7) L Current Medications Medications (Trade) Dose Ordered Sig/Sylwia Route PRN Reason Start Time Stop Time Status Last Admin Dose Admin Dextrose (Dextrose 50%) 25 ml Q30M PRN IV Hypoglycemia 05/19/19 16:45 06/08/19 08:14 Dextrose (Dextrose 50%) 50 ml Q30M PRN IV Hypoglycemia 05/19/19 16:45 06/08/19 08:14 Epoetin Mohinder (Epoetin Mohinder(ESRD on dialysis)) 10,000 unit WED-WED-WED SUBQ 05/19/19 21:00 06/11/19 20:59 05/22/19 20:21 Levothyroxine Sodium (Synthroid) 25 mcg DAILY@0630 ORAL 05/20/19 06:30 06/17/19 06:29 05/24/19 05:57 Mirtazapine (Remeron) 15 mg BEDTIME ORAL 05/20/19 21:00 06/19/19 20:59 05/23/19 20:17 Nystatin (Nystatin) 1 applic BID@0900,1500 TOPIC 05/23/19 09:00 06/22/19 08:59 05/24/19 09:14 Ondansetron HCl (Zofran) 4 mg Q6H PRN IVP Nausea & Vomiting 05/19/19 16:35 06/15/19 16:34 Pantoprazole (Protonix) 40 mg DAILY IVP 05/20/19 09:00 06/08/19 12:14 05/24/19 09:14 Triamcinolone (Kenalog) 1 applic BID@1300,2100 TOPIC 05/23/19 13:00 06/22/19 12:59 05/23/19 20:20 Eduardo Good MD May 24, 2019 14:04
[2019-05-24] MEDS ORDERED: Tubing IV Secondary IV ONE (14:49)
--- NOTE | 2019-05-24 14:50 | NUR ---
NURSE NOTES: Report given to Gilberto Duran. [facility] here to transport patient. Patient awake and alert to name. Dressing on sacrum changed, patient cleaned, and nystatin and triad cream applied to perianal area. Patient's daughter was educated on how to clean perianal area and to continue apply creams as directed by wound nurse. Pictures taken and uploaded to chart. IV removed, gauze and tape put in place. [facility], remaining on 2 L of oxygen with a saturation of 97 %. Patient belongings were given to patient's daughter. Discharge paper work signed, and packet given to [facility] workers.
--- NOTE | 2019-05-24 18:42 | Surgery Progress Note ---
Surgery Progress Note Subjective Symptoms: improved, tolerating diet, voiding well, passing flatus, BM Additional Comments HD today then plan for d/c seen this AM prior to office stable okay to d/c from surgical standpoint Objective Last 24 Hour Vital Signs Date Time Temp Pulse Resp B/P (MAP) Pulse Ox O2 Delivery O2 Flow Rate FiO2 05/24/19 13:17 104/42 (62) 05/24/19 12:00 98.3 73 17 88/71 (77) 95 05/24/19 09:00 Nasal Cannula 2.0 Nasal Cannula 2.0 05/24/19 08:00 97.0 77 18 94/31 (52) 96 05/24/19 04:00 97.3 75 20 111/44 (66) 95 05/24/19 00:00 97.7 73 19 106/47 (66) 98 05/23/19 21:15 Nasal Cannula 2.0 Nasal Cannula 2.0 05/23/19 20:00 98.1 75 19 117/54 (75) 98 I&O Intake and Output 05/23/19 05/24/19 19:00 07:00 Intake Total 240 ml Balance 240 ml Intake Oral 240 ml # Voids 1 3 # Bowel Movements 1 Dressing: dry Wound: clean Cardiovascular: RSR Respiratory: clear Abdomen: soft, non-tender, present bowel sounds Extremities: no edema, no tenderness, no cyanosis Laboratory Tests Test 05/24/19 06:11 White Blood Count 8.2 K/UL (4.8-10.8) Red Blood Count 2.69 M/UL (4.20-5.40) L Hemoglobin 8.9 G/DL (12.0-16.0) L Hematocrit 28.7 % (37.0-47.0) L Mean Corpuscular Volume 107 FL (80-99) H Mean Corpuscular Hemoglobin 33.2 PG (27.0-31.0) H Mean Corpuscular Hemoglobin Concent 31.1 G/DL (32.0-36.0) L Red Cell Distribution Width 22.9 % (11.6-14.8) H Platelet Count 149 K/UL (150-450) L Mean Platelet Volume 7.5 FL (6.5-10.1) Neutrophils (%) (Auto) 72.1 % (45.0-75.0) Lymphocytes (%) (Auto) 15.3 % (20.0-45.0) L Monocytes (%) (Auto) 8.9 % (1.0-10.0) Eosinophils (%) (Auto) 1.1 % (0.0-3.0) Basophils (%) (Auto) 2.5 % (0.0-2.0) H Prothrombin Time 14.5 SEC (9.30-11.50) H Prothromb Time International Ratio 1.4 (0.9-1.1) H Sodium Level 140 MMOL/L (136-145) Potassium Level 4.2 MMOL/L (3.5-5.1) Chloride Level 103 MMOL/L (98-107) Carbon Dioxide Level 22 MMOL/L (21-32) Anion Gap 15 mmol/L (5-15) Blood Urea Nitrogen 68 mg/dL (7-18) H Creatinine 7.4 MG/DL (0.55-1.30) H Estimat Glomerular Filtration Rate 5.5 mL/min (>60) Glucose Level 162 MG/DL (74-106) H Calcium Level 8.7 MG/DL (8.5-10.1) Total Bilirubin 2.0 MG/DL (0.2-1.0) H Direct Bilirubin 1.5 MG/DL (0.0-0.3) H Aspartate Amino Transf (AST/SGOT) 47 U/L (15-37) H Alanine Aminotransferase (ALT/SGPT) 17 U/L (12-78) Alkaline Phosphatase 145 U/L (46-116) H Total Protein 7.6 G/DL (6.4-8.2) Albumin 1.8 G/DL (3.4-5.0) L Globulin 5.8 g/dL Albumin/Globulin Ratio 0.3 (1.0-2.7) L Plan Problems: (1) Deep tissue injury Assessment & Plan: Patient presented on admission with a deep tissue injury in the sacral area. Patient was syncopal episode found down. Unknown exact time patient was down and since is suffered a cardiac event requiring resuscitation and ACLS. There is an area of deep tissue injury with erythema in the sacral area extending into the bilateral buttocks butterfly formation. No drainage. No open area. Patient is high risk and susceptible to opening and worsening given her current condition, ICU care, deterioration. We will need to monitor closely and provide aggressive care to ensure healing Air mattress Turn every 2 hours Skin protectant OPTi foam dressing daily and as needed Offload heels with pillows Appreciate nursing care d/c planning Nutritional support DAILY ESTIMATED NEEDS: Needs based on Critical Care, ESRD on HD, wounds; 56.3kg adj 22- 30 kcals/kg [id number] total kcals 1.25-2 g protein/kg 70-113 g total protein Fluid per MD- on HD NUTRITION DIAGNOSIS: * Increased pro needs r/t wound healing and renal dysfunction AEB pt adm w/ BL heel and sacral DTI (per RN), WC eval pending, w/ ESRD on HD. * Swallowing difficulty r/t respiratory status AEB pt is intubated, currently NPO, pending non oral feeds. CURRENT TF: Per RN Nepro @40ml/hr ENTERAL NUTRITION RECOMMENDATIONS: Nepro @35mL/hr x 24 hrs+ 1 Prosource qdaily to provide 840mL, 1512kcal, 68g pro +11g pro, 611mL free H2O -Obtain GI access, initiate Nepro @15mL/hr, advancing 10mL/hr q 4-6hrs until @ goal. -Provide 1 packet of Prosource- flush with 4oz water -HOB > 30 degrees, Flush per MD ADDITIONAL RECOMMENDATIONS: 1) With prolonged NPO/Intubation- see TF recs as above 2) Wound healing- w/ diet order, add: Juan Daniel in 4oz H2O BID; f/up w/ WC eval 3) Maintain calibrated bedscale wt 4) F/u w/ H&P 5) Feed w/ hemodynamic stability, now off pressor support. (2) Cardiac arrest Assessment & Plan: 61-year-old female multi-medical comorbidities syncopal episode leading to ACLS requiring resuscitation. Currently intensive care unit intubated on ventilatory support Patient is ill-appearing with family at the bedside. Labs noted. Mild elevation troponins. Mild elevated LFTs. Improving since resuscitation current etiology work-up A.m. 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 There is also an old right cerebellar cortical infarct There is age-related enlargement of the ventricles and extra axial CSF spaces. There is periventricular deep white matter low-attenuation, consistent with chronic microvascular ischemic change. The stuart-white differentiation is normal. The calvarium is intact. There is evidence of prior cataract surgery. The sinuses are clear. The mastoids are underpneumatized, otherwise clear. Impression: Chronic and age-related changes Negative for acute intracranial bleed or mass effect, Old infarcts, as described Laron Moreno May 24, 2019 18:42
--- NOTE | 2019-05-24 23:12 | General Progress Note ---
Assessment/Plan Status: stable, unchanged Assessment/Plan: Assessment - Anemia - OB (+) stools - Worsening LFT, with minimally dilated CBD on U/S and MRI - CAD / MN - arrhythmia - ESRD - resolved loose stools, C Diff (-) Recommendations - Repeat abd ultrasound today - check hepatitis panel - check AFP - Check ammonia - follow LFT - Hold Tylenol and Statin for now - PPI - Elevate HOB - Outpatient ERCP, Endoscopy, and colonoscopy once cleared by cardilogy Subjective Allergies: Coded Allergies: No Known Allergies (Unverified , 05/08/19) Subjective Weak no abdominal complaints for discharge today d/w admitting MD - patient can be re-considered for EGD/Colon/ERCP as outpatient , when cleared by cardiology Objective Last 24 Hour Vital Signs Date Time Temp Pulse Resp B/P (MAP) Pulse Ox O2 Delivery O2 Flow Rate FiO2 05/24/19 13:17 104/42 (62) 05/24/19 12:00 98.3 73 17 88/71 (77) 95 05/24/19 09:00 Nasal Cannula 2.0 Nasal Cannula 2.0 05/24/19 08:00 97.0 77 18 94/31 (52) 96 05/24/19 04:00 97.3 75 20 111/44 (66) 95 05/24/19 00:00 97.7 73 19 106/47 (66) 98 Intake and Output 05/23/19 05/24/19 19:00 07:00 Intake Total 240 ml Balance 240 ml Intake Oral 240 ml # Voids 1 3 # Bowel Movements 1 Laboratory Tests 05/24/19 06:11: White Blood Count 8.2, Red Blood Count 2.69L, Hemoglobin 8.9L, Hematocrit 28.7L , Mean Corpuscular Volume 107H, Mean Corpuscular Hemoglobin 33.2H, Mean Corpuscular Hemoglobin Concent 31.1L, Red Cell Distribution Width 22.9H, Platelet Count 149L, Mean Platelet Volume 7.5, Neutrophils (%) (Auto) 72.1, Lymphocytes (%) (Auto) 15.3L, Monocytes (%) (Auto) 8.9, Eosinophils (%) (Auto) 1.1, Basophils (%) (Auto) 2.5H, Prothrombin Time 14.5H, Prothromb Time International Ratio 1.4H, Sodium Level 140, Potassium Level 4.2, Chloride Level 103, Carbon Dioxide Level 22, Anion Gap 15, Blood Urea Nitrogen 68H, Creatinine 7.4H, Estimat Glomerular Filtration Rate 5.5, Glucose Level 162H, Calcium Level 8.7, Total Bilirubin 2.0H, Direct Bilirubin 1.5H, Aspartate Amino Transf (AST/ SGOT) 47H, Alanine Aminotransferase (ALT/SGPT) 17, Alkaline Phosphatase 145H, Total Protein 7.6, Albumin 1.8L, Globulin 5.8, Albumin/Globulin Ratio 0.3L Height (Feet): 4 Height (Inches): 10.00 Weight (Pounds): 163 Objective WDWN NCAT supple CTA RR abd soft, obese no edema Fadumo Morris MD May 24, 2019 23:12
--- NOTE | 2019-05-26 12:55 | Discharge Summary ---
Discharge Summary Discharge Summary _ ATE OF ADMISSION: 05/09/2019 DATE OF DISCHARGE: 05/24/2019 DISCHARGED BY: Dr. Zapata REASON FOR ADMISSION: 69 years old female with past medical history of end-stage renal disease, on hemodialysis, coronary artery disease, hypertension, anemia of chronic kidney disease, syncopal episode, presented to emergency department for further evaluation and care due to altered mental status. Paramedics noted hypoglycemia ; blood sugar was in the 30s. Patient was placed on dextrose drip and brought to emergency room for further evaluation and management. After quick evaluation in emergency room , physician noted acute encephalopathy with no responsiveness and agonal respirations. Patient subsequently was emergently intubated for airway protection and then became asystolic. Resuscitation was initiated as per ACLS protocol. Patient stabilized and transferred to ICU for further management. Laboratory work-up revealed no leukocytosis ,hemoglobin 10.2, hematocrit 32.1. Initial ABG after intubation revealed evidence of hypoxia with O2 sat 85%. Potassium 5.2. Anion gap 24. BUN 46, creatinine 8.0. Glucose 263. Troponin 0.063. pro BNP [address]. Albumin 3.0. CT of the head revealed chronic and age-related changes, but was negative for acute any for acute intracranial bleeding or mass-effect. Old infarcts noted. Chest x-ray confirmed satisfactory endotracheal intubation and reveal evidence of bilateral pulmonary edema. Cardiomegaly. Patient stabilized and was transferred to ICU for further management. CONSULTANTS: motor equipment lieutenant Dr. Tinoco pulmonary Dr. Raza ID specialist Dr. Wilkins GI specialist Dr. Morris psychiatrist Dr. Moreno [facility] COURSE: Patient admitted to ICU. Ventilator support provided. Bronchodilator treatment provided as needed. Patient was followed -up with ABG and chest x-ray. Ventilator settings titrated based on ABG readings. Hemodynamic status was closely monitored. Venous duplex bilateral lower extremity revealed no evidence of acute DVT. Echocardiogram demonstrated ejection fraction of 50-55% . No evidence of wall motion abnormality. No evidence of pericardial effusion. Increased intracardiac filling pressures. Right ventricular systolic pressure of 59 , consistent with pulmonary hypertension. Mild to moderate mitral regurgitation and moderate to severe tricuspid regurgitation. Patient has history of coronary artery disease, status post three-vessel CABG with LOPES to LAD, SVT to PDA and SVG to OM in 2010, Patient had pulmonary edema bilaterally , resulting in acute heart failure . Aggressive hemodialysis with ultrafiltration provided as per research instrumentation technician recommendation. Patient eventually was able to be extubated 05/11. Supplemental oxygen provided and titrated to keep pulse oximetry above 92%. Bronchodilator treatment provided as needed. Patient was able to be weaned to oxygen 2 L via nasal cannula. Serial troponin monitored. First troponin elevated , then started to trend down. Per motor equipment lieutenant , troponin levels were only minimally elevated and levels were flat. Abnormal troponin was possibly due to to CPR , in addition could be troponin leak due to renal failure. Per wood polisher, possible NSTEMI Flag Decorator recommended cardiac catheterization , but family declined any procedure. Patient subsequently was made DNR/DNI as will be mentioned below. Patient noted at some point to be in atrial fibrillation with rapid ventricular response , but spontaneously converted to sinus rhythm. Patient was on Cardizem. Infectious disease specialist followed. Patient probably had aspiration pneumonia. Antibiotics provided as per ID recommendation . Patient completed course of antibiotics, leukocytosis resolved. Low-grade fevers resolved. ID specialist recommended to keep patient off antibiotics and monitor CBC and temperature. GI specialist followed. Patient noted to be anemic. Stool for occult blood was positive. Hemoglobin and hematocrit were closely monitored with goal to keep hemoglobin above 7 . Patient was on Epogen Prior to discharge hemoglobin 8.9, hematocrit 28.7 . Platelet count 149. Patient demonstrated worsening LFT with minimally dilated common bile duct on ultrasound and MRI . Hepatitis panel was negative. Alpha-fetoprotein and ammonia were within normal limits. Tylenol and statin stopped. GI prophylaxis with PPI provided. Bowel regimen instituted. GI specialist recommended outpatient ERCP, endoscopy and colonoscopy after cardiac clearance. Per motor equipment lieutenant , patient has a high risk for surgery /procedure in face of decompensated heart failure at this time. Surgeon followed . Wound care provided as per surgeon recommendation , continue wound care at the facility. Pulmonary edema eventually resolved . Bedside and video swallow evaluation were done. Diet texture provided as per speech therapist recommendation with strict aspiration precaution. Overall prognosis was poor . CODE STATUS was subsequently changed to DNR/DNI on , as per family wishes. Patient subsequently was transferred to the [facility] facility for continuation fo care. FINAL DIAGNOSES: Status post cardiac arrest Ventricular tachycardia Possible NSTEMI Pulmonary edema -resolved Acute heart failure due to pulmonary edema, with preserved EF Acute respiratory failure , requiring intubation, s/p extubation Possible aspiration pneumonia History of coronary artery disease, status post three-vessel CABG Atrial fibrillation with rapid ventricular response-spontaneously converted to SR Severe pulmonary hypertension Hypertension Hypoglycemia-resolved Anemia of chronic disease Thrombocytopenia Abnormal LFT DISCHARGE MEDICATIONS: See Medication Reconciliation list. DISCHARGE INSTRUCTIONS: Patient was discharged to the [facility] facility. Follow up with medical doctor at the facility. I have been assigned to dictate discharge summary for this account. I was not involved in the patient's management. Anushka Connolly NP May 26, 2019 12:54
== END 2019-05-24 14:50 | DRG 280 ==
LOC: EDBD 22:39 → EMR 23:40 → EDBEDREQ 05-09 06:21 → ICU 05-09 06:33 → 2W 05-12 20:00 → ICU 05-13 05:00 → 2W 05-16 18:26 → 2E 05-18 00:45 → 4E 05-19 16:25
PROC: 5A1D70Z Performance of Urinary Filtration, Intermittent, Less than 6 Hours Per Day (ICD-10-PCS; principal; 2019-05-09)
PROC: 5A1945Z Respiratory Ventilation, 24-96 Consecutive Hours (ICD-10-PCS; principal; 2019-05-09)
PROC: 5A12012 Performance of Cardiac Output, Single, Manual (ICD-10-PCS; 2019-05-09)
PROC: 06HM33Z Insertion of Infusion Device into Right Femoral Vein, Percutaneous Approach (ICD-10-PCS; 2019-05-09)
PROC: 0BH17EZ Insertion of Endotracheal Airway into Trachea, Via Natural or Artificial Opening (ICD-10-PCS; 2019-05-09)
DX: I47.2 Ventricular tachycardia (principal); J96.90 Respiratory failure, unspecified, unspecified whether with hypoxia or hypercapnia; I21.4 Non-ST elevation (NSTEMI) myocardial infarction; N18.6 End stage renal disease; J69.0 Pneumonitis due to inhalation of food and vomit; J96.00 Acute respiratory failure, unspecified whether with hypoxia or hypercapnia; I50.33 Acute on chronic diastolic (congestive) heart failure; I13.2 Hypertensive heart and chronic kidney disease with heart failure and with stage 5 chronic kidney disease, or end stage renal disease; S30.0XXA Contusion of lower back and pelvis, initial encounter; I50.9 Heart failure, unspecified; I25.10 Atherosclerotic heart disease of native coronary artery without angina pectoris; D63.1 Anemia in chronic kidney disease; R00.1 Bradycardia, unspecified; E16.2 Hypoglycemia, unspecified; Z79.82 Long term (current) use of aspirin; Z86.73 Personal history of transient ischemic attack (TIA), and cerebral infarction without residual deficits; R55 Syncope and collapse; E87.5 Hyperkalemia; Z95.1 Presence of aortocoronary bypass graft; Z99.2 Dependence on renal dialysis; D69.6 Thrombocytopenia, unspecified; L89.626 Pressure-induced deep tissue damage of left heel; L89.616 Pressure-induced deep tissue damage of right heel; L89.156 Pressure-induced deep tissue damage of sacral region; R73.9 Hyperglycemia, unspecified; I48.91 Unspecified atrial fibrillation; Z66 Do not resuscitate; R13.10 Dysphagia, unspecified; I27.20 Pulmonary hypertension, unspecified
CPT/HCPCS: 31500; 36415; 36600; 70450; 71045; 74018; 74181; 74230; 76700; 80048; 80053; 80162; 80202; 82105; 82140; 82150; 82248; 82270; 82607; 82803; 82962; 83690; 83735; 83880; 84100; 84439; 84443; 84484; 85007; 85025; 85379; 85610; 85651; 85730; 86140; 86705; 86709; 86803; 87040; 87070; 87081; 87205; 87324; 87340; 93005; 93306; 93970; 94002; 94003; 94640; 94664; 96365; 96366; 96375; 99291; J0171; J2310; J7620